=== PATIENT | female | born 1950 | race Caucasian/White ===

== ENCOUNTER 2017-09-23 17:22 | Inpatient (IN) | payer MEDICARE, OTHER ==
[2017-09-23 18:13] LABS: ABS Basophils 0.1 10^3/ul (0-0.2); ABS Eosinophils 0.2 10^3/ul (0-0.6); ABS Lymphocytes 1.9 10^3/ul (1.0-4.8); ABS Monocytes 0.6 10^3/ul (0-0.8); ABS Nucleated RBC 0 10^3/ul; Eosinophil % 1.6 % (0-6); Hematocrit 37 % (35-47); Hemoglobin 12.1 g/dl (12.0-16.0); Lymphocyte % 12.5 % (25-47); Mean Corpuscular HGB Conc 33 g/dl (31-36); Mean Corpuscular Hemoglobin 29 pg (27-31); Mean Corpuscular Volume 88 fL (80-97); Mean Platelet Volume 7 um3 (7.4-10.4); Nucleated Red Blood Cells % 0; Platelet Count 274 10^3/ul (150-450); Red Blood Count 4.14 10^6/ul (4.0-5.4); Red Cell Distribution Width 14 % (10.5-15); White Blood Count 14.8 10^3/ul (3.5-10.8)
[2017-09-23] MEDS ORDERED: NS 0.9% 1000 ML* 1,000 ML IV ONE (18:18)
[2017-09-23 18:28] LABS: EGFR Non-African American 83.5 (>60)
[2017-09-23] MEDS ORDERED: KCL 20 MEQ/100 ML IVPREMIX* 20 MEQ/100 ML BAG IV SCH (19:00)
--- NOTE | 2017-09-23 19:09 | RAD ---
HISTORY: Syncope COMPARISONS: January 14, 2007 VIEWS: 1: frontal portable view of the chest at 6:05 PM FINDINGS: LINES AND TUBES: None. CARDIOMEDIASTINAL SILHOUETTE: The cardiomediastinal silhouette is normal for portable technique. PLEURA: The costophrenic angles are sharp. No pleural abnormalities are noted. LUNG PARENCHYMA: There is a 3.6 cm density within the periphery of the left midlung. ABDOMEN: The upper abdomen is clear. There is no subphrenic gas. BONES AND SOFT TISSUES: No bone or soft tissue abnormalities are noted. IMPRESSION: 3.6 CM DENSITY WITHIN THE PERIPHERY OF THE LEFT MIDLUNG. THE DIFFERENTIAL INCLUDES CONSOLIDATION VERSUS PULMONARY PARENCHYMAL MASS. RECOMMEND FURTHER EVALUATION WITH CONTRAST ENHANCED CT OF THE CHEST
[2017-09-23] MEDS: KCL premix 10MEQ/50 ML x 4 RUNS IV SCH (19:12)
[2017-09-23 19:37] LABS: Urine Appearance Clear; Urine Blood Negative (Negative); Urine Color Yellow; Urine Ketones Negative (Negative); Urine Protein Negative (Negative); Urine Specific Gravity 1.015 (1.010-1.030); Urine Urobilinogen Negative (Negative)
[2017-09-23] MEDS ORDERED: Iohexol 300* (CONTRAST) 10 ML SDV IV ONE (20:37)
[2017-09-23] MEDS ORDERED: NS 0.9% w/ 40 Meq KCL 1000 ML* 1,000 ML IV SCH (21:00)
--- NOTE | 2017-09-23 21:35 | RAD ---
HISTORY: Syncope COMPARISONS: Chest x-ray dated September 23, 2017 TECHNIQUE: Multiple contiguous axial CT scans of the chest were obtained with intravenous contrast. Coronal and sagittal multiplanar reformations are also submitted for review. FINDINGS: NECK AND THYROID: The lower neck and thyroid are unremarkable. CHEST WALL: There is no lower cervical, axillary, or supraclavicular lymphadenopathy by size criteria. HEART AND PERICARDIUM: The heart is unremarkable. AORTA AND PULMONARY VASCULATURE: The aorta and pulmonary vasculature are normal. MEDIASTINUM: There is no mediastinal lymphadenopathy by size criteria. TAMIKO: There is no hilar lymphadenopathy by size criteria. AIRWAY AND ESOPHAGUS: The airway is unremarkable, without endobronchial filling defect. The esophagus is grossly normal. LUNG PARENCHYMA: There is a 2.6 cm lobulated mass of the left upper lobe. There is linear atelectasis of the lingula. There is a 0.6 cm nodule of the left lower lobe on axial image 42. There are multiple nodules within the right middle lobe on axial image 23 measuring up to 0.6 cm in size. PLEURA: No pleural abnormalities are noted. UPPER ABDOMEN: There is a 0.9 cm nodule of the left adrenal gland BONES AND SOFT TISSUES: Degenerative changes are noted OTHER: None. IMPRESSION: 2.6 CM LEFT UPPER LOBE MASS WITH MULTIPLE NODULES WITHIN THE LUNGS ELSEWHERE AND A LEFT ADRENAL NODULE CONCERNING FOR METASTATIC NEOPLASM. RECOMMEND CONSIDERATION OF PET/CT AND/OR TISSUE SAMPLING
[2017-09-24] MEDS ORDERED: Magnesium Sulfate 2 GM IV* 2 GM/50 ML BAG IVPB ONE (01:09)
[2017-09-24] MEDS ORDERED: Albuterol 2.5 MG/3 ML NEB.SOL* (0.083%) INH PRN (01:16)
[2017-09-24] MEDS ORDERED: CMCS:Melatonin (NF) 3 MG TAB PO PRN (01:16)
[2017-09-24] MEDS ORDERED: Ondansetron INJ* 2 MG/ML VIAL IV PRN (01:16)
[2017-09-24] MEDS ORDERED: Heparin DRIP 25,000 UNITS(*) 25,000 UNITS/500 ML BAG IVPB SCH (01:30)
[2017-09-24] MEDS: KCL premix 10MEQ/50 ML x 4 RUNS IV SCH (01:56)
[2017-09-24] MEDS ORDERED: Heparin VIAL(*) 5000 UNITS/ML VIAL (FIVE THOUSAND) IV SCH (02:00)
[2017-09-24] MEDS: NS 0.9% 1000 ML* 1,000 ML IV SCH ×2 (02:33→15:15)
[2017-09-24] MEDS: Acetaminophen TAB* 325 MG PO PRN ×2 (02:45→21:26)
[2017-09-24 02:52] LABS: ABS Basophils 0.1 10^3/ul (0-0.2); ABS Eosinophils 0.2 10^3/ul (0-0.6); ABS Lymphocytes 2.9 10^3/ul (1.0-4.8); ABS Monocytes 0.6 10^3/ul (0-0.8); ABS Neutrophils 9.6 10^3/ul (1.5-7.7); ABS Nucleated RBC 0 10^3/ul; Eosinophil % 1.3 % (0-6); Hematocrit 36 % (35-47); Hemoglobin 11.5 g/dl (12.0-16.0); Lymphocyte % 21.9 % (25-47); Mean Corpuscular HGB Conc 32 g/dl (31-36); Mean Corpuscular Hemoglobin 29 pg (27-31); Mean Corpuscular Volume 89 fL (80-97); Mean Platelet Volume 8 um3 (7.4-10.4); Nucleated Red Blood Cells % 0; Platelet Count 267 10^3/ul (150-450); Red Blood Count 4.01 10^6/ul (4.0-5.4); Red Cell Distribution Width 15 % (10.5-15); White Blood Count 13.3 10^3/ul (3.5-10.8)
[2017-09-24] MEDS: Potassium Chlor TAB* 20 MEQ TAB.ER PO SCH ×2 (03:15→09:37)
[2017-09-24 05:45] LABS: ABS Basophils 0 10^3/ul (0-0.2); ABS Eosinophils 0.3 10^3/ul (0-0.6); ABS Lymphocytes 3.3 10^3/ul (1.0-4.8); ABS Monocytes 0.7 10^3/ul (0-0.8); ABS Neutrophils 8.4 10^3/ul (1.5-7.7); ABS Nucleated RBC 0 10^3/ul; Eosinophil % 2.4 % (0-6); Hematocrit 33 % (35-47); Hemoglobin 10.9 g/dl (12.0-16.0); Lymphocyte % 26.2 % (25-47); Mean Corpuscular HGB Conc 33 g/dl (31-36); Mean Corpuscular Hemoglobin 30 pg (27-31); Mean Corpuscular Volume 89 fL (80-97); Mean Platelet Volume 8 um3 (7.4-10.4); Nucleated Red Blood Cells % 0; Platelet Count 238 10^3/ul (150-450); Red Blood Count 3.71 10^6/ul (4.0-5.4); Red Cell Distribution Width 15 % (10.5-15); White Blood Count 12.7 10^3/ul (3.5-10.8)
[2017-09-24 05:59] LABS: EGFR Non-African American 99.7 (>60)
[2017-09-24] MEDS ORDERED: Omeprazole CAP* 20 MG PO SCH (06:00)
--- NOTE | 2017-09-24 07:57 | RAD ---
INDICATION: Syncope, concern for metastatic disease, seizure. COMPARISON: There are no prior studies available for comparison. TECHNIQUE: Contiguous axial sections of the brain were obtained from the skull base to the vertex without contrast. FINDINGS: The ventricles, cisterns and sulci are within normal limits. No significant focal abnormality or mass effect is seen. There is no evidence for hemorrhage. 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 There is mucosal thickening within the sphenoid sinus and an effusion within the right mastoid air cells. The visualized portion of the paranasal sinuses otherwise appear clear. IMPRESSION: 1. NO EVIDENCE FOR ACUTE INTRACRANIAL ABNORMALITY. 2. FINDINGS SUGGESTIVE OF CHRONIC SPHENOID SINUSITIS. IN ADDITION THERE IS AN EFFUSION WITHIN THE RIGHT MASTOID AIR CELLS.
--- NOTE | 2017-09-24 08:04 | RAD ---
INDICATION: Elevated d-dimer, syncope. COMPARISON: Comparison is made with the prior study from January 23, 2008. TECHNIQUE: Multiple real-time, color flow and Doppler tracings of both lower extremities were obtained. FINDINGS: The common femoral, femoral, profunda femoral and popliteal veins all demonstrate normal compressibility, augmentation with compression and phasic response with respiration. The posterior tibial and peroneal veins demonstrate normal compressibility and augmentation with compression. IMPRESSION: NO EVIDENCE FOR DEEP VENOUS THROMBOSIS.
--- NOTE | 2017-09-24 08:34 | RAD ---
Indication: Elevated d-dimer. Syncope. New lung mass. Comparison: September 23, [address] and chest radiograph. Bilateral lower extremity venous ultrasound of September 24, 2017 without evidence for DVT. Technique: Following administration of 10.080 mCi xenon-133 by inhalation anterior and posterior ventilation images were obtained. Following the administration of 6.280 mCi of Tc-99m macroaggregated albumin, perfusion images were obtained in multiple projections. Report: The ventilation pattern is uniform with diffuse air trapping. Subsegmental perfusion defect at the periphery of the inferior aspect of the apical posterior segment of the LEFT upper lobe corresponding with the neoplastic appearing mass on CT. No compelling additional perfusion defects. IMPRESSION: 1. No compelling unexplained perfusion defects to raise concern for pulmonary embolism. 2. LEFT upper lobe mass. 3. Air trapping consistent with obstructive lung disease.
--- NOTE | 2017-09-24 09:22 | RAD ---
INDICATION: Weakness. COMPARISON: Comparison is made with a prior CT of the brain from September 24, 2017. TECHNIQUE: Sagittal T1, axial T1, T2, susceptibility, FLAIR and diffusion weighted images were obtained. The exam is limited due to motion artifact. FINDINGS: The ventricles, cisterns and sulci appear to be within normal limits. No significant focal abnormality or mass effect is seen. No areas of restricted diffusion are present. There is no evidence for infarct or hemorrhage. There is mucosal thickening within the ethmoid and sphenoid sinuses and an effusion within the right mastoid air cells. IMPRESSION: 1. LIMITED STUDY DUE TO MOTION ARTIFACT, NO EVIDENCE FOR ACUTE FINDING. 2. FINDINGS SUGGESTIVE OF SINUSITIS AND EFFUSION WITHIN THE RIGHT MASTOID AIR CELLS.
--- NOTE | 2017-09-24 09:34 | HP ---
H&P (Free Text) History and Physical: PCP: Natty Raygoza NP Date/Time: 09/24/2017 0100 CC: syncope HPI: Mrs Hiceky is a 67YO female HX HTN, HLD, CKD, & current long-term smoker who was at the [employer] in [place] with family when she began to feel hot which she blamed on still having her coat & scarf on. She asked her daughter to get her a scooter cart and then leaned upon the store shelves for a bit. The next thing she recalls was awakening on the floor with people around her. She had no prodromal symptoms, but when she awoke recalls feeling SOB & "drugged". She denies chest pain, palpitations, N/V, loss of bowel/bladder, or other issues. EMS was called for transport. She currently denies issues. ED evaluation is notable for a CXR w/ L mid-lung field mass confirmed on CT chest W. Unfortunately this would not cause syncope, but given her moderately elevated d-dimer in the setting of potential cancer, PE is certainly of concern. However, she received 100cc of dye (standard dose ~65cc) and so repeat dye load is inadvisable at this time. US BLE is negative for DVT, but does not exclude PE. CT brain WO was read as negative and case was reviewed w/ Dr Rodriguez , radiology, who felt that any potential cerebral metastasis of concern for bleeding on anticoagulation would be visible on non-contrast CT and so I will proceed with anticoagulation for suspected CT. Should PE be disproven, I would recommend MRI brain to r/o smaller metastasis which could act as a nidus for seizure resulting in sycope. PMedHx HTN HLD CKD GERD hepatitis B Ambulatory Orders Nursing to reconcile. Atenolol TAB* [Tenormin TAB*] 50 mg PO QPM 06/26/12 Ibuprofen 600 mg PO TID PRN 06/26/12 Omeprazole 20 mg PO BID 06/26/12 Simvastatin [Zocor] 80 mg PO QPM 06/26/12 Allergies Adhesive Tape Allergy (Verified 09/23/17 17:33) RASH, BLISTERS Codeine Allergy (Verified 09/23/17 17:33) DIFF. BREATHING PSurgHx tonsillectomy cholecystectomy tubal ligation hysterectomy L wrist surgery B knee arthoscopies SocHx: 1PPD cigarettes with ~40PYHX, rare alcohol, no recreational drugs; , lives w/ her daughter's family; worked 31years for [employer] in various roles; full code status FamHx: Mother: passed in her 80s 2nd unknown cancer; Father: passed in his 60s 2nd leukemia; Sister: rheumatic fever; Brother: CAD ROS: as above, otherwise reviewed and all were negative vitals: Vital Signs Temp 36.8 C 09/24/17 07:49 Pulse 65 09/24/17 07:49 Resp 18 09/24/17 07:54 BP 151/59 09/24/17 07:49 Pulse Ox 91 09/24/17 07:49 Intake & Output 09/23/17 09/23/17 09/24/17 11:59 23:59 11:59 Intake Total 1040 0 Balance 1040 0 Weight 82.554 kg 71.94 kg Intake: IV Fluids 1040 Oral 0 Other: Estimated Void Medium # Bowel Movements 0 # Voids 1 Constitutional: NAD, normally developed, obese white female HEENM: atraumatic; sclera/conjunctiva: anicteric/clear; hearing: clinically intact; oropharynx: clear, mucosa moist Neck: soft tissue: non-tender; thyroid: normal Pulmonary: diminished L lung field, good aeration, no accessory muscle use, increased fremitus L mid-lung field CV: RR/RR, normal S1S2, no carotid bruit, no jugular venous distention, 2+ B DP/ PT, no edema Abdominal: soft, non-distended, non-tender, no rebound/guarding/rigidity, normoactive bowel sounds, no hepatosplenomegaly or masses, no costovertebral angle tenderness Musculoskeletal: general: grossly intact, no tenderness w/ palpation, negative Roxanne's Integumental: normal appearance and texture of exposed skin Psychiatric orientation: AA&O to PPS affect: calm mood: pleasant eye contact: good content: reliable responses: timely insight: good Testing: Lab Results 09/23/17 09/23/17 09/23/17 Range/Units 18:02 18:02 18:02 WBC 14.8 H (3.5-10.8) 10^3/ul RBC 4.14 (4.0-5.4) 10^6/ul Hgb 12.1 (12.0-16.0) g/dl Hct 37 (35-47) % MCV 88 (80-97) fL MCH 29 (27-31) pg MCHC 33 (31-36) g/dl RDW 14 (10.5-15) % Plt Count 274 (150-450) 10^3/ul MPV 7 L (7.4-10.4) um3 Neut % (Auto) 81.0 (38-83) % Lymph % (Auto) 12.5 L (25-47) % [place] % (Auto) 4.2 (1-9) % Eos % (Auto) 1.6 (0-6) % Baso % (Auto) 0.7 (0-2) % Absolute Neuts (auto) 12.0 H (1.5-7.7) 10^3/ul Absolute Lymphs (auto) 1.9 (1.0-4.8) 10^3/ul Absolute Monos (auto) 0.6 (0-0.8) 10^3/ul Absolute Eos (auto) 0.2 (0-0.6) 10^3/ul Absolute Basos (auto) 0.1 (0-0.2) 10^3/ul Absolute Nucleated RBC 0 10^3/ul Nucleated RBC % 0 APTT (26.0-36.3) seconds D-Dimer, Quantitative (Less Than 230) ng/mL Sodium 140 (133-145) mmol/L Potassium 2.4 L* (3.5-5.0) mmol/L Chloride 98 L (101-111) mmol/L Carbon Dioxide 33 H (22-32) mmol/L Anion Gap 9 (2-11) mmol/L BUN 9 (6-24) mg/dL Creatinine 0.70 (0.51-0.95) mg/dL Est GFR ( Amer) 107.3 (>60) Est GFR (Non-Af Amer) 83.5 (>60) BUN/Creatinine Ratio 12.9 (8-20) Glucose 105 H (70-100) mg/dL POC Glucose (mg/dL) (70-100) mg/dL Lactic Acid 1.1 (0.5-2.0) mmol/L Calcium 8.7 (8.6-10.3) mg/dL Magnesium 1.4 L (1.9-2.7) mg/dL Total Bilirubin 0.50 (0.2-1.0) mg/dL AST 13 (13-39) U/L ALT 14 (7-52) U/L Alkaline Phosphatase 72 (34-104) U/L Troponin I 0.01 (<0.04) ng/mL Total Protein 6.7 (6.4-8.9) g/dL Albumin 3.6 (3.2-5.2) g/dL Globulin 3.1 (2-4) g/dL Albumin/Globulin Ratio 1.2 (1-3) TSH 0.85 (0.34-5.60) mcIU/mL Urine Color Urine Appearance Urine pH (5-9) Ur Specific [place] (1.010-1.030) Urine Protein (Negative) Urine Ketones (Negative) Urine Blood (Negative) Urine Nitrate (Negative) Urine Bilirubin (Negative) Urine Urobilinogen (Negative) Ur Leukocyte Esterase (Negative) Urine Glucose (Negative) Influenza A (Rapid) (Negative) Influenza B (Rapid) (Negative) 09/23/17 09/23/17 09/23/17 Range/Units 18:02 19:19 23:16 WBC (3.5-10.8) 10^3/ul RBC (4.0-5.4) 10^6/ul Hgb (12.0-16.0) g/dl Hct (35-47) % MCV (80-97) fL MCH (27-31) pg MCHC (31-36) g/dl RDW (10.5-15) % Plt Count (150-450) 10^3/ul MPV (7.4-10.4) um3 Neut % (Auto) (38-83) % Lymph % (Auto) (25-47) % [place] % (Auto) (1-9) % Eos % (Auto) (0-6) % Baso % (Auto) (0-2) % Absolute Neuts (auto) (1.5-7.7) 10^3/ul Absolute Lymphs (auto) (1.0-4.8) 10^3/ul Absolute Monos (auto) (0-0.8) 10^3/ul Absolute Eos (auto) (0-0.6) 10^3/ul Absolute Basos (auto) (0-0.2) 10^3/ul Absolute Nucleated RBC 10^3/ul Nucleated RBC % APTT (26.0-36.3) seconds D-Dimer, Quantitative 427 H (Less Than 230) ng/mL Sodium (133-145) mmol/L Potassium (3.5-5.0) mmol/L Chloride (101-111) mmol/L Carbon Dioxide (22-32) mmol/L Anion Gap (2-11) mmol/L BUN (6-24) mg/dL Creatinine (0.51-0.95) mg/dL Est GFR ( Amer) (>60) Est GFR (Non-Af Amer) (>60) BUN/Creatinine Ratio (8-20) Glucose (70-100) mg/dL POC Glucose (mg/dL) (70-100) mg/dL Lactic Acid (0.5-2.0) mmol/L Calcium (8.6-10.3) mg/dL Magnesium (1.9-2.7) mg/dL Total Bilirubin (0.2-1.0) mg/dL AST (13-39) U/L ALT (7-52) U/L Alkaline Phosphatase (34-104) U/L Troponin I (<0.04) ng/mL Total Protein (6.4-8.9) g/dL Albumin (3.2-5.2) g/dL Globulin (2-4) g/dL Albumin/Globulin Ratio (1-3) TSH (0.34-5.60) mcIU/mL Urine Color Yellow Urine Appearance Clear Urine pH 6.0 (5-9) Ur Specific [place] 1.015 (1.010-1.030) Urine Protein Negative (Negative) Urine Ketones Negative (Negative) Urine Blood Negative (Negative) Urine Nitrate Negative (Negative) Urine Bilirubin Negative (Negative) Urine Urobilinogen Negative (Negative) Ur Leukocyte Esterase Negative (Negative) Urine Glucose Negative (Negative) Influenza A (Rapid) Negative (Negative) Influenza B (Rapid) Negative (Negative) 09/24/17 09/24/17 09/24/17 Range/Units 02:34 02:34 02:34 WBC 13.3 H (3.5-10.8) 10^3/ul RBC 4.01 (4.0-5.4) 10^6/ul Hgb 11.5 L (12.0-16.0) g/dl Hct 36 (35-47) % MCV 89 (80-97) fL MCH 29 (27-31) pg MCHC 32 (31-36) g/dl RDW 15 (10.5-15) % Plt Count 267 (150-450) 10^3/ul MPV 8 (7.4-10.4) um3 Neut % (Auto) 71.8 (38-83) % Lymph % (Auto) 21.9 L (25-47) % [place] % (Auto) 4.5 (1-9) % Eos % (Auto) 1.3 (0-6) % Baso % (Auto) 0.5 (0-2) % Absolute Neuts (auto) 9.6 H (1.5-7.7) 10^3/ul Absolute Lymphs (auto) 2.9 (1.0-4.8) 10^3/ul Absolute Monos (auto) 0.6 (0-0.8) 10^3/ul Absolute Eos (auto) 0.2 (0-0.6) 10^3/ul Absolute Basos (auto) 0.1 (0-0.2) 10^3/ul Absolute Nucleated RBC 0 10^3/ul Nucleated RBC % 0 APTT 23.3 L (26.0-36.3) seconds D-Dimer, Quantitative (Less Than 230) ng/mL Sodium (133-145) mmol/L Potassium (3.5-5.0) mmol/L Chloride (101-111) mmol/L Carbon Dioxide (22-32) mmol/L Anion Gap (2-11) mmol/L BUN 7 (6-24) mg/dL Creatinine (0.51-0.95) mg/dL Est GFR ( Amer) (>60) Est GFR (Non-Af Amer) (>60) BUN/Creatinine Ratio (8-20) Glucose (70-100) mg/dL POC Glucose (mg/dL) (70-100) mg/dL Lactic Acid (0.5-2.0) mmol/L Calcium (8.6-10.3) mg/dL Magnesium (1.9-2.7) mg/dL Total Bilirubin (0.2-1.0) mg/dL AST (13-39) U/L ALT (7-52) U/L Alkaline Phosphatase (34-104) U/L Troponin I (<0.04) ng/mL Total Protein (6.4-8.9) g/dL Albumin (3.2-5.2) g/dL Globulin (2-4) g/dL Albumin/Globulin Ratio (1-3) TSH (0.34-5.60) mcIU/mL Urine Color Urine Appearance Urine pH (5-9) Ur Specific [place] (1.010-1.030) Urine Protein (Negative) Urine Ketones (Negative) Urine Blood (Negative) Urine Nitrate (Negative) Urine Bilirubin (Negative) Urine Urobilinogen (Negative) Ur Leukocyte Esterase (Negative) Urine Glucose (Negative) Influenza A (Rapid) (Negative) Influenza B (Rapid) (Negative) 09/24/17 09/24/17 09/24/17 Range/Units 05:05 05:08 07:18 WBC 12.7 H (3.5-10.8) 10^3/ul RBC 3.71 L (4.0-5.4) 10^6/ul Hgb 10.9 L (12.0-16.0) g/dl Hct 33 L (35-47) % MCV 89 (80-97) fL MCH 30 (27-31) pg MCHC 33 (31-36) g/dl RDW 15 (10.5-15) % Plt Count 238 (150-450) 10^3/ul MPV 8 (7.4-10.4) um3 Neut % (Auto) 65.9 (38-83) % Lymph % (Auto) 26.2 (25-47) % [place] % (Auto) 5.2 (1-9) % Eos % (Auto) 2.4 (0-6) % Baso % (Auto) 0.3 (0-2) % Absolute Neuts (auto) 8.4 H (1.5-7.7) 10^3/ul Absolute Lymphs (auto) 3.3 (1.0-4.8) 10^3/ul Absolute Monos (auto) 0.7 (0-0.8) 10^3/ul Absolute Eos (auto) 0.3 (0-0.6) 10^3/ul Absolute Basos (auto) 0 (0-0.2) 10^3/ul Absolute Nucleated RBC 0 10^3/ul Nucleated RBC % 0 APTT (26.0-36.3) seconds D-Dimer, Quantitative (Less Than 230) ng/mL Sodium 140 (133-145) mmol/L Potassium 3.0 L (3.5-5.0) mmol/L Chloride 105 (101-111) mmol/L Carbon Dioxide 28 (22-32) mmol/L Anion Gap 7 (2-11) mmol/L BUN 7 (6-24) mg/dL Creatinine 0.60 (0.51-0.95) mg/dL Est GFR ( Amer) 128.2 (>60) Est GFR (Non-Af Amer) 99.7 (>60) BUN/Creatinine Ratio 11.7 (8-20) Glucose 110 H (70-100) mg/dL POC Glucose (mg/dL) 118 H (70-100) mg/dL Lactic Acid (0.5-2.0) mmol/L Calcium 8.1 L (8.6-10.3) mg/dL Magnesium 2.3 (1.9-2.7) mg/dL Total Bilirubin (0.2-1.0) mg/dL AST (13-39) U/L ALT (7-52) U/L Alkaline Phosphatase (34-104) U/L Troponin I (<0.04) ng/mL Total Protein (6.4-8.9) g/dL Albumin (3.2-5.2) g/dL Globulin (2-4) g/dL Albumin/Globulin Ratio (1-3) TSH (0.34-5.60) mcIU/mL Urine Color Urine Appearance Urine pH (5-9) Ur Specific [place] (1.010-1.030) Urine Protein (Negative) Urine Ketones (Negative) Urine Blood (Negative) Urine Nitrate (Negative) Urine Bilirubin (Negative) Urine Urobilinogen (Negative) Ur Leukocyte Esterase (Negative) Urine Glucose (Negative) Influenza A (Rapid) (Negative) Influenza B (Rapid) (Negative) ECG, personally reviewed: NSR rate 84, no ischemia, diffuse non-specific ST-T abnormalities CXR, personally reviewed: IMPRESSION: 3.6 CM DENSITY WITHIN THE PERIPHERY OF THE LEFT MIDLUNG. THE DIFFERENTIAL INCLUDES CONSOLIDATION VERSUS PULMONARY PARENCHYMAL MASS. RECOMMEND FURTHER EVALUATION WITH CONTRAST ENHANCED CT OF THE CHEST CT chest W, personally reviewed: IMPRESSION: 2.6 CM LEFT UPPER LOBE MASS WITH MULTIPLE NODULES WITHIN THE LUNGS ELSEWHERE AND A LEFT ADRENAL NODULE CONCERNING FOR METASTATIC NEOPLASM. RECOMMEND CONSIDERATION OF PET/CT AND/OR TISSUE SAMPLING CT brain WO, personally reviewed: IMPRESSION: 1. NO EVIDENCE FOR ACUTE INTRACRANIAL ABNORMALITY. 2. FINDINGS SUGGESTIVE OF CHRONIC SPHENOID SINUSITIS. IN ADDITION THERE IS AN EFFUSION WITHIN THE RIGHT MASTOID AIR CELLS. US BLE: IMPRESSION: NO EVIDENCE FOR DEEP VENOUS THROMBOSIS. Impression: 67F presenting with syncope with new finding of 3cm L lung mass & elevated d-dimer giving rise to concern for possible PE or seizure 2nd cerebral metastasis DIAGNOSIS & PLAN Primary syncope w/ elevated d-dimer & lung lesion suspicious for cancer : telemetry : heparin GTT : consider V/Q in am, if indeterminate consider CTA chest when able to receive further IV dye : if PE evaluation is negative, consider MRI to evaluate for nidus of seizure Secondary HTN : review meds once reconciled HLD : review meds once reconciled CKD : review meds once reconciled GERD : omeprazole Admission Rational: inpatient for cancer evaluation not anticipated to be completed w/i 48h to allow for discharge; inappropriate for outpatient setting given syncope of uncertain cause DVTp: heparin GTT Code Status: full HCP: daughter
[2017-09-24] MEDS: Docusate CAP* 100 MG PO SCH ×2 (09:37→19:54)
[2017-09-24] MEDS: Omeprazole CAP* 20 MG PO SCH ×2 (09:37→17:36)
[2017-09-24] MEDS ORDERED: Potassium Chlor TAB* 20 MEQ TAB.ER PO ONE ×2 (10:00→11:49)
[2017-09-24] MEDS ORDERED: Enoxaparin(*) 40 MG/0.4 ML SYR SUBCUT SCH (12:00)
--- NOTE | 2017-09-24 13:25 | ED ---
Reshma Love Julia, scribed for Satinder Pederson MD on 09/23/17 at 1751 . Syncope/Near Syncope - HPI Summary HPI Summary: This patient is a 67 year old F BIBA to [facility] due to a syncopal event around 17: 00 today. Patient was shopping when she felt a hot flash and lightheaded for 10 minutes before collapsing. The patient rates the pain 8/10 in severity. Patient reports LOC, posterior headache after syncope, weakness, decreased appetite, and posterior neck pain. Patient denies eating today. Patient is unsure if she hit her head when she fell. Patient states current headache is similar to previous history of headaches. - History Of Current Complaint Chief Complaint: EDSyncope Time Seen by Provider: 09/23/17 17:33 Hx Obtained From: Patient Onset/Duration: Lasting Minutes Context: Witnessed, Loss Of Consciousness Activity At Onset: Other - shopping Associated Signs And Symptoms: Other - LOC, posterior headache after syncope, weakness, decreased appetite, and posterior neck pain - Allergies/Home Medications Allergies/Adverse Reactions: Allergies Allergy/AdvReac Type Severity Reaction Status Date / Time Adhesive Tape Allergy RASH, Verified 09/23/17 17:33 BLISTERS Codeine Allergy DIFF. Verified 09/23/17 17:33 BREATHING PMH/Surg Hx/FS Hx/Imm Hx Cardiovascular History: Reports: Hx Hypertension - ON MEDICATION FOR GI History: Reports: Hx Gastroesophageal Reflux Disease - ON MEDICATION FOR History: Reports: Hx Kidney Infection - KIDNEY INFECTION IN THE PAST Musculoskeletal History: Reports: Hx Arthritis - BACK SHOULDERS AND HIPS, ALL JOINTS Sensory History: Reports: Hx Contacts or Glasses - GLASSES Denies: Hx Hearing Aid Opthamlomology History: Reports: Hx Contacts or Glasses - GLASSES Neurological History: Reports: Hx Headaches - ON OCCASION- TREATS WITH TYLENOL, Hx Migraine - ONOCCASION- TREATS WTIH TYLENOL - Cancer History Hx Chemotherapy: No Hx Radiation Therapy: No - Surgical History Surgery Procedure, Year, and Place: TONSILS. TUBAL LIGATION. HYSTERECTOMY. GALLBLADDER REMOVED. LEFT WRIST SURGERY. RIGHT KNEE ARTHROSCOPY Hx Anesthesia Reactions: No Infectious Disease History: Yes Infectious Disease History: Reports: Hx Hepatitis - HEP B DIAGNOSED AND TREATED FOR YEARS AGO Denies: Traveled Outside the [place] in Last 30 Days - Family History Known Family History: Positive: Cardiac Disease Negative: Diabetes - Social History Alcohol Use: Occasionally Substance Use Type: Reports: None Hx Tobacco Use: Yes Smoking Status (MU): Heavy Every Day Tobacco Smoker Review of Systems Positive: Other - hot flashes Positive: Headache, Syncope All Other Systems Reviewed And Are Negative: Yes Physical Exam - Summary Physical Exam Summary: Appearance: The patient is well-nourished in no acute distress and in no acute pain. Patient is obese. Skin: The skin is warm and dry and pale. HEENT: The head is normocephalic and atraumatic. The pupils are equal and reactive. The conjunctivae are clear and without drainage. Nares are patent and without drainage. Mouth reveals moist mucous membranes and the throat is without erythema and exudate. The external ears are intact. The ear canals are patent and without drainage. The tympanic membranes are intact. Neck: the neck is supple with full range of motion and non-tender. There are no carotid bruits. There is no neck vein distension. Respiratory: Chest is non-tender. Lungs are clear to auscultation and breath sounds are symmetrical and equal. Cardiovascular: Heart is regular rate and rhythm. There is no murmur or rub auscultated. There is no peripheral edema and pulses are symmetrical and equal. Abdomen: The abdomen is soft and non-tender. There are normal bowel sounds heard in all four quadrants and there is no organomegaly palpated. Musculoskeletal: There is no back tenderness noted. Extremities are non-tender with full range of motion. There is good capillary refill. There is no peripheral edema or calf tenderness elicited. Neurological: Patient is alert and oriented to person, place and time. The patient has symmetrical motor strength in all four extremities. Cranial nerves are grossly intact. Deep tendon reflexes are symmetrical and equal in all four extremities. Psychiatric: The patient has an appropriate affect and does not exhibit any anxiety or depression. Triage Information Reviewed: Yes Vital Signs On Initial Exam: Initial Vitals Temp Pulse Resp BP Pulse Ox 97.7 F 83 14 160/61 95 09/23/17 17:29 09/23/17 17:29 09/23/17 17:29 09/23/17 17:29 09/23/17 17:29 Vital Signs Reviewed: Yes - [facility] Coma Scale Coma Scale Total: 15 Diagnostics - Vital Signs Vital Signs Temp Pulse Resp BP Pulse Ox 09/23/17 17:31 87 96 09/23/17 17:30 146/62 09/23/17 17:29 97.7 F 83 14 160/61 95 - Laboratory Lab Results: Lab Results 09/23/17 09/23/17 09/23/17 Range/Units 18:02 18:02 18:02 WBC 14.8 H (3.5-10.8) 10^3/ul RBC 4.14 (4.0-5.4) 10^6/ul Hgb 12.1 (12.0-16.0) g/dl Hct 37 (35-47) % MCV 88 (80-97) fL MCH 29 (27-31) pg MCHC 33 (31-36) g/dl RDW 14 (10.5-15) % Plt Count 274 (150-450) 10^3/ul MPV 7 L (7.4-10.4) um3 Neut % (Auto) 81.0 (38-83) % Lymph % (Auto) 12.5 L (25-47) % [place] % (Auto) 4.2 (1-9) % Eos % (Auto) 1.6 (0-6) % Baso % (Auto) 0.7 (0-2) % Absolute Neuts (auto) 12.0 H (1.5-7.7) 10^3/ul Absolute Lymphs (auto) 1.9 (1.0-4.8) 10^3/ul Absolute Monos (auto) 0.6 (0-0.8) 10^3/ul Absolute Eos (auto) 0.2 (0-0.6) 10^3/ul Absolute Basos (auto) 0.1 (0-0.2) 10^3/ul Absolute Nucleated RBC 0 10^3/ul Nucleated RBC % 0 D-Dimer, Quantitative (Less Than 230) ng/mL Sodium 140 (133-145) mmol/L Potassium 2.4 L* (3.5-5.0) mmol/L Chloride 98 L (101-111) mmol/L Carbon Dioxide 33 H (22-32) mmol/L Anion Gap 9 (2-11) mmol/L BUN 9 (6-24) mg/dL Creatinine 0.70 (0.51-0.95) mg/dL Est GFR ( Amer) 107.3 (>60) Est GFR (Non-Af Amer) 83.5 (>60) BUN/Creatinine Ratio 12.9 (8-20) Glucose 105 H (70-100) mg/dL Lactic Acid 1.1 (0.5-2.0) mmol/L Calcium 8.7 (8.6-10.3) mg/dL Magnesium 1.4 L (1.9-2.7) mg/dL Total Bilirubin 0.50 (0.2-1.0) mg/dL AST 13 (13-39) U/L ALT 14 (7-52) U/L Alkaline Phosphatase 72 (34-104) U/L Troponin I 0.01 (<0.04) ng/mL Total Protein 6.7 (6.4-8.9) g/dL Albumin 3.6 (3.2-5.2) g/dL Globulin 3.1 (2-4) g/dL Albumin/Globulin Ratio 1.2 (1-3) TSH 0.85 (0.34-5.60) mcIU/mL Urine Color Urine Appearance Urine pH (5-9) Ur Specific [place] (1.010-1.030) Urine Protein (Negative) Urine Ketones (Negative) Urine Blood (Negative) Urine Nitrate (Negative) Urine Bilirubin (Negative) Urine Urobilinogen (Negative) Ur Leukocyte Esterase (Negative) Urine Glucose (Negative) Influenza A (Rapid) (Negative) Influenza B (Rapid) (Negative) 09/23/17 09/23/17 09/23/17 Range/Units 18:02 19:19 23:16 WBC (3.5-10.8) 10^3/ul RBC (4.0-5.4) 10^6/ul Hgb (12.0-16.0) g/dl Hct (35-47) % MCV (80-97) fL MCH (27-31) pg MCHC (31-36) g/dl RDW (10.5-15) % Plt Count (150-450) 10^3/ul MPV (7.4-10.4) um3 Neut % (Auto) (38-83) % Lymph % (Auto) (25-47) % [place] % (Auto) (1-9) % Eos % (Auto) (0-6) % Baso % (Auto) (0-2) % Absolute Neuts (auto) (1.5-7.7) 10^3/ul Absolute Lymphs (auto) (1.0-4.8) 10^3/ul Absolute Monos (auto) (0-0.8) 10^3/ul Absolute Eos (auto) (0-0.6) 10^3/ul Absolute Basos (auto) (0-0.2) 10^3/ul Absolute Nucleated RBC 10^3/ul Nucleated RBC % D-Dimer, Quantitative 427 H (Less Than 230) ng/mL Sodium (133-145) mmol/L Potassium (3.5-5.0) mmol/L Chloride (101-111) mmol/L Carbon Dioxide (22-32) mmol/L Anion Gap (2-11) mmol/L BUN (6-24) mg/dL Creatinine (0.51-0.95) mg/dL Est GFR ( Amer) (>60) Est GFR (Non-Af Amer) (>60) BUN/Creatinine Ratio (8-20) Glucose (70-100) mg/dL Lactic Acid (0.5-2.0) mmol/L Calcium (8.6-10.3) mg/dL Magnesium (1.9-2.7) mg/dL Total Bilirubin (0.2-1.0) mg/dL AST (13-39) U/L ALT (7-52) U/L Alkaline Phosphatase (34-104) U/L Troponin I (<0.04) ng/mL Total Protein (6.4-8.9) g/dL Albumin (3.2-5.2) g/dL Globulin (2-4) g/dL Albumin/Globulin Ratio (1-3) TSH (0.34-5.60) mcIU/mL Urine Color Yellow Urine Appearance Clear Urine pH 6.0 (5-9) Ur Specific [place] 1.015 (1.010-1.030) Urine Protein Negative (Negative) Urine Ketones Negative (Negative) Urine Blood Negative (Negative) Urine Nitrate Negative (Negative) Urine Bilirubin Negative (Negative) Urine Urobilinogen Negative (Negative) Ur Leukocyte Esterase Negative (Negative) Urine Glucose Negative (Negative) Influenza A (Rapid) Negative (Negative) Influenza B (Rapid) Negative (Negative) Result Diagrams: 09/24/17 05:05 09/24/17 05:08 Lab Statement: Any lab studies that have been ordered have been reviewed, and results considered in the medical decision making process. - Radiology CXR Radiology Interpretation Completed By: Radiologist - 3.6 CM DENSITY WITHIN THE PERIPHERY OF THE LEFT MIDLUNG. THE DIFFERENTIAL INCLUDES CONSOLIDATION VERSUS PULMONARY PARENCHYMAL MASS. RECOMMEND FURTHER EVALUATION WITH CONTRAST ENHANCED CT OF THE CHEST ED Physician has reviewed this report. - CT chest CT Interpretation Completed By: Radiologist - 2.6 CM LEFT UPPER LOBE MASS WITH MULTIPLE NODULES WITHIN THE LUNGS ELSEWHERE AND A LEFT ADRENAL NODULE CONCERNING FOR METASTATIC NEOPLASM. RECOMMEND CONSIDERATION OF PET/CT AND/OR TISSUE SAMPLING ED Physician has reviewed this report. - EKG 17:57 Cardiac Rate: NL EKG Rhythm: Sinus Rhythm - at 84 BPM EKG Interpretation: nonspecific diffuse changes Course/Dx Course Of Treatment: Ms. Hickey had a syncoopal episode while shopping today. She was monitored here while labs were checked and she was found to be quite hypokalemic making me more concerned that this was a cardiac event rather than vasovagal. She was found to have a mass on her lung and therefore PE has become more prominent in the differential. She is being admitted to the hospitalist service. - Diagnoses Provider Diagnoses: Syncope and collapse, Hypokalemia, Lung mass - Critical Care Time Critical Care Time: 30-74 min Discharge - Discharge Plan Condition: Stable Disposition: ADMITTED TO [facility] The documentation as recorded by the Reshma strong Julia accurately reflects the service I personally performed and the decisions made by me, Satinder Pederson MD.
[2017-09-24] MEDS: Heparin VIAL(*) 5000 UNITS/ML VIAL (FIVE THOUSAND) SUBCUT SCH ×2 (13:57→21:20)
--- NOTE | 2017-09-24 16:50 | PN ---
Subjective Date of Service: 09/24/17 Interval History: Feels well today, no LH, CP, SOB, N/V She has not yet ambulated Discussed findings of CT chest with patient, daughter and son in law Objective Active Medications: Acetaminophen (Tylenol Tab*) 650 mg PO Q6H PRN PRN Reason: FEVER/PAIN Last Admin: 09/24/17 02:45 Dose: 650 mg Albuterol (Ventolin 2.5 Mg/3 Ml Neb.Phyllis*) 2.5 mg INH Q2H PRN PRN Reason: SOB/WHEEZING Atenolol (Tenormin Tab*) 50 mg PO QPM [facility] Atorvastatin Calcium (Lipitor*) 40 mg PO QPM [facility] Docusate Sodium (Colace Cap*) 200 mg PO BID [facility] Last Admin: 09/24/17 09:37 Dose: Not Given Heparin Sodium (Porcine) (Heparin Vial(*)) 5,000 units SUBCUT Q8HR [facility] Last Admin: 09/24/17 13:57 Dose: 5,000 units Potassium Chloride/Dextrose (D5w 1/2 Ns 40 Meq Kcl 1000 Ml*) 1,000 mls @ 100 mls/hr IV PER RATE [facility] Stop: 09/25/17 02:59 Melatonin (Melatonin (Nf)) 3 mg PO BEDTIME PRN; Protocol PRN Reason: Sleep Omeprazole (Prilosec Cap*) 20 mg PO BID [facility] Last Admin: 09/24/17 09:37 Dose: 20 mg Ondansetron HCl (Zofran Inj*) 4 mg IV Q6H PRN PRN Reason: NAUSEA Vital Signs - 8 hr 09/24/17 09/24/17 11:34 15:56 Temperature 97.4 F 98.4 F Pulse Rate 69 77 Respiratory 20 20 Rate Blood Pressure 142/74 132/53 (mmHg) O2 Sat by Pulse 95 97 Oximetry Oxygen Devices in Use Now: None Appearance: lying 30 deg, NAD Eyes: No Scleral Icterus, PERRLA Ears/Nose/Mouth/Throat: NL Teeth, Lips, Gums, Clear Oropharnyx, Mucous Membranes Moist Neck: NL Appearance and Movements; NL JVP, Trachea Midline Respiratory: Symmetrical Chest Expansion and Respiratory Effort, Clear to Auscultation Cardiovascular: RRR Abdominal: NL Sounds; No Tenderness; No Distention Lymphatic: No Cervical Adenopathy Extremities: No Edema, No Clubbing, Cyanosis Neurological: Alert and Oriented x 3 Result Diagrams: 09/24/17 05:05 09/24/17 05:08 Additional Lab and Data: Lab Results 09/23/17 09/23/17 09/23/17 Range/Units 18:02 18:02 18:02 WBC 14.8 H (3.5-10.8) 10^3/ul RBC 4.14 (4.0-5.4) 10^6/ul Hgb 12.1 (12.0-16.0) g/dl Hct 37 (35-47) % MCV 88 (80-97) fL MCH 29 (27-31) pg MCHC 33 (31-36) g/dl RDW 14 (10.5-15) % Plt Count 274 (150-450) 10^3/ul MPV 7 L (7.4-10.4) um3 Neut % (Auto) 81.0 (38-83) % Lymph % (Auto) 12.5 L (25-47) % [place] % (Auto) 4.2 (1-9) % Eos % (Auto) 1.6 (0-6) % Baso % (Auto) 0.7 (0-2) % Absolute Neuts (auto) 12.0 H (1.5-7.7) 10^3/ul Absolute Lymphs (auto) 1.9 (1.0-4.8) 10^3/ul Absolute Monos (auto) 0.6 (0-0.8) 10^3/ul Absolute Eos (auto) 0.2 (0-0.6) 10^3/ul Absolute Basos (auto) 0.1 (0-0.2) 10^3/ul Absolute Nucleated RBC 0 10^3/ul Nucleated RBC % 0 D-Dimer, Quantitative (Less Than 230) ng/mL Sodium 140 (133-145) mmol/L Potassium 2.4 L* (3.5-5.0) mmol/L Chloride 98 L (101-111) mmol/L Carbon Dioxide 33 H (22-32) mmol/L Anion Gap 9 (2-11) mmol/L BUN 9 (6-24) mg/dL Creatinine 0.70 (0.51-0.95) mg/dL Est GFR ( Amer) 107.3 (>60) Est GFR (Non-Af Amer) 83.5 (>60) BUN/Creatinine Ratio 12.9 (8-20) Glucose 105 H (70-100) mg/dL Lactic Acid 1.1 (0.5-2.0) mmol/L Calcium 8.7 (8.6-10.3) mg/dL Magnesium 1.4 L (1.9-2.7) mg/dL Total Bilirubin 0.50 (0.2-1.0) mg/dL AST 13 (13-39) U/L ALT 14 (7-52) U/L Alkaline Phosphatase 72 (34-104) U/L Troponin I 0.01 (<0.04) ng/mL Total Protein 6.7 (6.4-8.9) g/dL Albumin 3.6 (3.2-5.2) g/dL Globulin 3.1 (2-4) g/dL Albumin/Globulin Ratio 1.2 (1-3) TSH 0.85 (0.34-5.60) mcIU/mL Urine Color Urine Appearance Urine pH (5-9) Ur Specific [place] (1.010-1.030) Urine Protein (Negative) Urine Ketones (Negative) Urine Blood (Negative) Urine Nitrate (Negative) Urine Bilirubin (Negative) Urine Urobilinogen (Negative) Ur Leukocyte Esterase (Negative) Urine Glucose (Negative) Influenza A (Rapid) (Negative) Influenza B (Rapid) (Negative) 09/23/17 09/23/17 09/23/17 Range/Units 18:02 19:19 23:16 WBC (3.5-10.8) 10^3/ul RBC (4.0-5.4) 10^6/ul Hgb (12.0-16.0) g/dl Hct (35-47) % MCV (80-97) fL MCH (27-31) pg MCHC (31-36) g/dl RDW (10.5-15) % Plt Count (150-450) 10^3/ul MPV (7.4-10.4) um3 Neut % (Auto) (38-83) % Lymph % (Auto) (25-47) % [place] % (Auto) (1-9) % Eos % (Auto) (0-6) % Baso % (Auto) (0-2) % Absolute Neuts (auto) (1.5-7.7) 10^3/ul Absolute Lymphs (auto) (1.0-4.8) 10^3/ul Absolute Monos (auto) (0-0.8) 10^3/ul Absolute Eos (auto) (0-0.6) 10^3/ul Absolute Basos (auto) (0-0.2) 10^3/ul Absolute Nucleated RBC 10^3/ul Nucleated RBC % D-Dimer, Quantitative 427 H (Less Than 230) ng/mL Sodium (133-145) mmol/L Potassium (3.5-5.0) mmol/L Chloride (101-111) mmol/L Carbon Dioxide (22-32) mmol/L Anion Gap (2-11) mmol/L BUN (6-24) mg/dL Creatinine (0.51-0.95) mg/dL Est GFR ( Amer) (>60) Est GFR (Non-Af Amer) (>60) BUN/Creatinine Ratio (8-20) Glucose (70-100) mg/dL Lactic Acid (0.5-2.0) mmol/L Calcium (8.6-10.3) mg/dL Magnesium (1.9-2.7) mg/dL Total Bilirubin (0.2-1.0) mg/dL AST (13-39) U/L ALT (7-52) U/L Alkaline Phosphatase (34-104) U/L Troponin I (<0.04) ng/mL Total Protein (6.4-8.9) g/dL Albumin (3.2-5.2) g/dL Globulin (2-4) g/dL Albumin/Globulin Ratio (1-3) TSH (0.34-5.60) mcIU/mL Urine Color Yellow Urine Appearance Clear Urine pH 6.0 (5-9) Ur Specific [place] 1.015 (1.010-1.030) Urine Protein Negative (Negative) Urine Ketones Negative (Negative) Urine Blood Negative (Negative) Urine Nitrate Negative (Negative) Urine Bilirubin Negative (Negative) Urine Urobilinogen Negative (Negative) Ur Leukocyte Esterase Negative (Negative) Urine Glucose Negative (Negative) Influenza A (Rapid) Negative (Negative) Influenza B (Rapid) Negative (Negative) Assess/Plan/Problems-Billing Assessment: 67 yo F presenting to [facility] after syncope found with lung mass concerning for primary of metastatic malignancy - Patient Problems (1) Lung tumor Comment: suspect malignant. CT with multiple LNs and adrenal hyperintensity suspicious for metastatic disease Discussed with Dr. Teixeira and Dr. Pascal. Dr. Pascal's office will call patient to arrange outpatient biopsy (2) Syncope Comment: Suspect in setting of underlying malignancy, 30lb weight loss in 1 month, and electrolyte abnormalities Monitor on telemetry replace electrolytes no e/o PE, heparin stopped (3) Electrolyte abnormality Comment: oral and PO replacement recheck in AM (4) Hypertension Comment: c/w atenolol (5) DVT prophylaxis Comment: HSQ Status and Disposition: inpatient. Plan on d/c tomorrow if stable and after BMP check for electrolyte replacement
[2017-09-24] MEDS ORDERED: D5W 1/2 NS 40 Meq KCL 1000 ML* 1,000 ML IV SCH (17:00)
[2017-09-24] MEDS: Atorvastatin* 40 MG TAB PO SCH (17:36)
[2017-09-24] MEDS ORDERED: Atenolol TAB* 50 MG PO SCH (18:00)
[2017-09-24] MEDS ORDERED: guaiFENesin ER TAB 600 MG ONE (23:23)
[2017-09-24] MEDS: guaiFENesin ER TAB 600 MG PO SCH (23:30)
--- NOTE | 2017-09-25 01:22 | PN ---
Progress Note - Progress Note Date of Service: 09/25/17 Note: paged by RN for two three second pauses - patient asymptomatic. VSS. Not on any cardiac meds. Will continue to monitor. May need a pacemaker. Will keep NPO and recommend cards eval for pacemaker placement. May be the etiology behind her syncope.
[2017-09-25 05:11] LABS: ABS Basophils 0.1 10^3/ul (0-0.2); ABS Eosinophils 0.2 10^3/ul (0-0.6); ABS Lymphocytes 2.7 10^3/ul (1.0-4.8); ABS Monocytes 0.7 10^3/ul (0-0.8); ABS Neutrophils 6.6 10^3/ul (1.5-7.7); ABS Nucleated RBC 0 10^3/ul; Hematocrit 32 % (35-47); Hemoglobin 10.5 g/dl (12.0-16.0); Lymphocyte % 26.6 % (25-47); Mean Corpuscular HGB Conc 33 g/dl (31-36); Mean Corpuscular Hemoglobin 29 pg (27-31); Mean Corpuscular Volume 89 fL (80-97); Mean Platelet Volume 8 um3 (7.4-10.4); Nucleated Red Blood Cells % 0.1; Platelet Count 222 10^3/ul (150-450); Red Cell Distribution Width 15 % (10.5-15); White Blood Count 10.3 10^3/ul (3.5-10.8)
[2017-09-25] MEDS: Heparin VIAL(*) 5000 UNITS/ML VIAL (FIVE THOUSAND) SUBCUT SCH ×3 (05:18→22:49)
[2017-09-25 05:24] LABS: EGFR Non-African American 99.7 (>60)
[2017-09-25] MEDS: Omeprazole CAP* 20 MG PO SCH ×2 (09:07→16:47)
[2017-09-25] MEDS: Docusate CAP* 100 MG PO SCH ×2 (09:07→22:13)
[2017-09-25] MEDS: guaiFENesin ER TAB 600 MG PO SCH ×2 (09:07→22:48)
[2017-09-25] MEDS ORDERED: amLODIPine TAB* 5 MG PO SCH (10:00)
[2017-09-25] MEDS ORDERED: hydrALAZINE IV* 20 MG/ML VIAL ONE (10:35)
[2017-09-25] MEDS: hydrALAZINE IV* 20 MG/ML VIAL IV SLOW PU PRN ×2 (10:42→19:05)
[2017-09-25] MEDS: Citalopram TAB* 20 MG PO SCH (11:59)
[2017-09-25] MEDS: Hydrochlorothiazide TAB* 25 MG PO SCH (11:59)
[2017-09-25] MEDS: Aspirin EC Low Dose* 81 MG TAB.EC PO SCH (11:59)
[2017-09-25] MEDS: Lisinopril TAB* 10 MG PO SCH (12:00)
--- NOTE | 2017-09-25 14:53 | PN ---
Subjective Date of Service: 09/25/17 Interval History: Events from overnight reviewed Bradycardia with 6 second pauses Stable in ICU. Asymptomatic Objective Active Medications: Acetaminophen (Tylenol Tab*) 650 mg PO Q6H PRN PRN Reason: FEVER/PAIN Last Admin: 09/24/17 21:26 Dose: 650 mg Albuterol (Ventolin 2.5 Mg/3 Ml Neb.Phyllis*) 2.5 mg INH Q2H PRN PRN Reason: SOB/WHEEZING Aspirin (Aspirin Ec Low Dose*) 81 mg PO DAILY [facility] Last Admin: 09/25/17 11:59 Dose: 81 mg Atorvastatin Calcium (Lipitor*) 40 mg PO QPM [facility] Last Admin: 09/24/17 17:36 Dose: 40 mg Citalopram Hydrobromide (Celexa Tab*) 20 mg PO DAILY [facility] Last Admin: 09/25/17 11:59 Dose: 20 mg Docusate Sodium (Colace Cap*) 200 mg PO BID [facility] Last Admin: 09/25/17 09:07 Dose: 200 mg Guaifenesin (Mucinex*) 600 mg PO BID [facility] Last Admin: 09/25/17 09:07 Dose: 600 mg Heparin Sodium (Porcine) (Heparin Vial(*)) 5,000 units SUBCUT Q8HR [facility] Last Admin: 09/25/17 05:18 Dose: 5,000 units Hydralazine HCl (Apresoline Iv*) 10 mg IV SLOW PU Q6H PRN PRN Reason: SYSTOLIC BP GREATER THAN: Last Admin: 09/25/17 10:42 Dose: 10 mg Hydrochlorothiazide (Hydrodiuril Tab*) 12.5 mg PO DAILY [facility] Last Admin: 09/25/17 11:59 Dose: 12.5 mg Lisinopril (Prinivil Tab*) 10 mg PO DAILY [facility] PRN Reason: Protocol Last Admin: 09/25/17 12:00 Dose: 10 mg Melatonin (Melatonin (Nf)) 3 mg PO BEDTIME PRN; Protocol PRN Reason: Sleep Omeprazole (Prilosec Cap*) 20 mg PO BID [facility] Last Admin: 09/25/17 09:07 Dose: 20 mg Ondansetron HCl (Zofran Inj*) 4 mg IV Q6H PRN PRN Reason: NAUSEA Vital Signs - 8 hr 09/25/17 09/25/17 09/25/17 06:51 07:00 07:01 Temperature Pulse Rate 51 51 52 Respiratory 16 15 16 Rate Blood Pressure 196/82 203/98 (mmHg) O2 Sat by Pulse 96 91 93 Oximetry 09/25/17 09/25/17 09/25/17 07:09 07:16 07:47 Temperature 97.4 F Pulse Rate 53 52 48 Respiratory 15 14 14 Rate Blood Pressure 203/98 187/86 200/73 (mmHg) O2 Sat by Pulse 93 97 96 Oximetry 09/25/17 09/25/17 09/25/17 07:49 07:57 08:00 Temperature 97.4 F Pulse Rate 57 51 48 Respiratory 18 18 15 Rate Blood Pressure 200/73 (mmHg) O2 Sat by Pulse 97 97 95 Oximetry 09/25/17 09/25/17 09/25/17 08:01 08:17 08:31 Temperature Pulse Rate 50 44 49 Respiratory 21 16 17 Rate Blood Pressure 210/79 210/83 212/84 (mmHg) O2 Sat by Pulse 97 98 97 Oximetry 09/25/17 09/25/17 09/25/17 08:46 09:00 09:01 Temperature Pulse Rate 51 53 60 Respiratory 16 18 21 Rate Blood Pressure 185/94 207/101 (mmHg) O2 Sat by Pulse 96 95 97 Oximetry 09/25/17 09/25/17 09/25/17 09:17 09:31 09:46 Temperature Pulse Rate 56 54 51 Respiratory 20 17 18 Rate Blood Pressure 186/85 186/93 195/81 (mmHg) O2 Sat by Pulse 97 96 95 Oximetry 09/25/17 09/25/17 09/25/17 10:00 10:01 10:16 Temperature Pulse Rate 51 49 50 Respiratory 17 19 19 Rate Blood Pressure 207/93 194/83 (mmHg) O2 Sat by Pulse 96 97 96 Oximetry 09/25/17 09/25/17 09/25/17 10:31 10:41 10:46 Temperature Pulse Rate 53 50 51 Respiratory 17 17 19 Rate Blood Pressure 179/99 187/96 161/80 (mmHg) O2 Sat by Pulse 97 97 97 Oximetry 09/25/17 09/25/17 09/25/17 11:00 11:01 11:03 Temperature Pulse Rate 55 41 52 Respiratory 16 22 23 Rate Blood Pressure 184/106 178/73 (mmHg) O2 Sat by Pulse 96 97 96 Oximetry 09/25/17 09/25/17 09/25/17 11:23 11:31 11:47 Temperature Pulse Rate 49 56 48 Respiratory 19 18 20 Rate Blood Pressure 181/81 201/70 168/69 (mmHg) O2 Sat by Pulse 99 97 98 Oximetry 09/25/17 09/25/17 09/25/17 12:00 12:01 12:17 Temperature Pulse Rate 51 47 62 Respiratory 16 12 22 Rate Blood Pressure 169/71 122/64 (mmHg) O2 Sat by Pulse 95 98 98 Oximetry 09/25/17 09/25/17 09/25/17 12:31 12:32 12:46 Temperature 98.2 F Pulse Rate 45 46 Respiratory 15 13 Rate Blood Pressure 195/76 201/75 (mmHg) O2 Sat by Pulse 96 98 Oximetry 09/25/17 09/25/17 09/25/17 12:48 13:00 13:01 Temperature Pulse Rate 54 53 53 Respiratory 18 18 13 Rate Blood Pressure 188/72 154/84 (mmHg) O2 Sat by Pulse 96 96 Oximetry Oxygen Devices in Use Now: Nasal Cannula Appearance: NAD, interactive Eyes: No Scleral Icterus, PERRLA Ears/Nose/Mouth/Throat: Clear Oropharnyx, Mucous Membranes Moist Neck: NL Appearance and Movements; NL JVP Respiratory: Symmetrical Chest Expansion and Respiratory Effort, Clear to Auscultation Cardiovascular: - - lia, no mrg, regular Abdominal: NL Sounds; No Tenderness; No Distention, No Hepatosplenomegaly Lymphatic: No Cervical Adenopathy Extremities: No Edema Neurological: Alert and Oriented x 3 Result Diagrams: 09/25/17 04:49 09/25/17 04:49 Additional Lab and Data: Lab Results 09/23/17 09/23/17 09/23/17 Range/Units 18:02 18:02 18:02 WBC 14.8 H (3.5-10.8) 10^3/ul RBC 4.14 (4.0-5.4) 10^6/ul Hgb 12.1 (12.0-16.0) g/dl Hct 37 (35-47) % MCV 88 (80-97) fL MCH 29 (27-31) pg MCHC 33 (31-36) g/dl RDW 14 (10.5-15) % Plt Count 274 (150-450) 10^3/ul MPV 7 L (7.4-10.4) um3 Neut % (Auto) 81.0 (38-83) % Lymph % (Auto) 12.5 L (25-47) % [place] % (Auto) 4.2 (1-9) % Eos % (Auto) 1.6 (0-6) % Baso % (Auto) 0.7 (0-2) % Absolute Neuts (auto) 12.0 H (1.5-7.7) 10^3/ul Absolute Lymphs (auto) 1.9 (1.0-4.8) 10^3/ul Absolute Monos (auto) 0.6 (0-0.8) 10^3/ul Absolute Eos (auto) 0.2 (0-0.6) 10^3/ul Absolute Basos (auto) 0.1 (0-0.2) 10^3/ul Absolute Nucleated RBC 0 10^3/ul Nucleated RBC % 0 D-Dimer, Quantitative (Less Than 230) ng/mL Sodium 140 (133-145) mmol/L Potassium 2.4 L* (3.5-5.0) mmol/L Chloride 98 L (101-111) mmol/L Carbon Dioxide 33 H (22-32) mmol/L Anion Gap 9 (2-11) mmol/L BUN 9 (6-24) mg/dL Creatinine 0.70 (0.51-0.95) mg/dL Est GFR ( Amer) 107.3 (>60) Est GFR (Non-Af Amer) 83.5 (>60) BUN/Creatinine Ratio 12.9 (8-20) Glucose 105 H (70-100) mg/dL Lactic Acid 1.1 (0.5-2.0) mmol/L Calcium 8.7 (8.6-10.3) mg/dL Magnesium 1.4 L (1.9-2.7) mg/dL Total Bilirubin 0.50 (0.2-1.0) mg/dL AST 13 (13-39) U/L ALT 14 (7-52) U/L Alkaline Phosphatase 72 (34-104) U/L Troponin I 0.01 (<0.04) ng/mL Total Protein 6.7 (6.4-8.9) g/dL Albumin 3.6 (3.2-5.2) g/dL Globulin 3.1 (2-4) g/dL Albumin/Globulin Ratio 1.2 (1-3) TSH 0.85 (0.34-5.60) mcIU/mL Urine Color Urine Appearance Urine pH (5-9) Ur Specific [place] (1.010-1.030) Urine Protein (Negative) Urine Ketones (Negative) Urine Blood (Negative) Urine Nitrate (Negative) Urine Bilirubin (Negative) Urine Urobilinogen (Negative) Ur Leukocyte Esterase (Negative) Urine Glucose (Negative) Influenza A (Rapid) (Negative) Influenza B (Rapid) (Negative) 09/23/17 09/23/17 09/23/17 Range/Units 18:02 19:19 23:16 WBC (3.5-10.8) 10^3/ul RBC (4.0-5.4) 10^6/ul Hgb (12.0-16.0) g/dl Hct (35-47) % MCV (80-97) fL MCH (27-31) pg MCHC (31-36) g/dl RDW (10.5-15) % Plt Count (150-450) 10^3/ul MPV (7.4-10.4) um3 Neut % (Auto) (38-83) % Lymph % (Auto) (25-47) % [place] % (Auto) (1-9) % Eos % (Auto) (0-6) % Baso % (Auto) (0-2) % Absolute Neuts (auto) (1.5-7.7) 10^3/ul Absolute Lymphs (auto) (1.0-4.8) 10^3/ul Absolute Monos (auto) (0-0.8) 10^3/ul Absolute Eos (auto) (0-0.6) 10^3/ul Absolute Basos (auto) (0-0.2) 10^3/ul Absolute Nucleated RBC 10^3/ul Nucleated RBC % D-Dimer, Quantitative 427 H (Less Than 230) ng/mL Sodium (133-145) mmol/L Potassium (3.5-5.0) mmol/L Chloride (101-111) mmol/L Carbon Dioxide (22-32) mmol/L Anion Gap (2-11) mmol/L BUN (6-24) mg/dL Creatinine (0.51-0.95) mg/dL Est GFR ( Amer) (>60) Est GFR (Non-Af Amer) (>60) BUN/Creatinine Ratio (8-20) Glucose (70-100) mg/dL Lactic Acid (0.5-2.0) mmol/L Calcium (8.6-10.3) mg/dL Magnesium (1.9-2.7) mg/dL Total Bilirubin (0.2-1.0) mg/dL AST (13-39) U/L ALT (7-52) U/L Alkaline Phosphatase (34-104) U/L Troponin I (<0.04) ng/mL Total Protein (6.4-8.9) g/dL Albumin (3.2-5.2) g/dL Globulin (2-4) g/dL Albumin/Globulin Ratio (1-3) TSH (0.34-5.60) mcIU/mL Urine Color Yellow Urine Appearance Clear Urine pH 6.0 (5-9) Ur Specific [place] 1.015 (1.010-1.030) Urine Protein Negative (Negative) Urine Ketones Negative (Negative) Urine Blood Negative (Negative) Urine Nitrate Negative (Negative) Urine Bilirubin Negative (Negative) Urine Urobilinogen Negative (Negative) Ur Leukocyte Esterase Negative (Negative) Urine Glucose Negative (Negative) Influenza A (Rapid) Negative (Negative) Influenza B (Rapid) Negative (Negative) Assess/Plan/Problems-Billing Assessment: 67 yo F presenting to [facility] [place] after syncope found with lung mass concerning for primary of metastatic malignancy with hospital stay complicated by long pauses - Patient Problems (1) Sinus pause Comment: confirmed with PCP, patient has not been taking atenolol (Is not currently prescribed medication). Atenolol entered into medication reconcilliation in error Observe on telemetry without beta blockade. (2) Lung tumor Comment: suspect malignant. CT with multiple LNs and adrenal hyperintensity suspicious for metastatic disease Discussed with Dr. Teixeira and Dr. Pascal. Dr. Pascal's office will call patient to arrange outpatient biopsy (3) Syncope Comment: Pauses may have contributed however unclear if these were present in ajit absence of beta hood Other contributing factors may include underlying malignancy, 30lb weight loss in 1 month, and electrolyte abnormalities replace electrolytes no e/o PE, heparin stopped (4) Electrolyte abnormality Comment: oral and PO replacement (5) Hypertension Comment: HCTZ/lisinopril (6) DVT prophylaxis Comment: HSQ Status and Disposition: inpatient in setting of prolonged cardiac pauses
--- NOTE | 2017-09-25 15:13 | CONS ---
PULMONARY CONSULTATION REPORT: DATE OF CONSULT: 09/25/17 CONSULTATION REQUESTED BY: Dr. Satya Blanco. REASON FOR CONSULT: Evaluation of abnormal CT chest. HISTORY OF PRESENT ILLNESS: 67-year-old female, current smoker, with significant smoking history, admitted after syncope at a store, likely vasovagal. The patient had further evaluation during hospitalization, which included chest x-ray and CT scan of the chest. I have personally reviewed chest x-ray and CT scan of the chest. The patient noted to have 3.6 cm density in the periphery of left mid lung. The patient had CT scan of the chest for further evaluation. I have personally reviewed CT scan of the chest. The patient noted to have peripheral 2.6 cm left upper lobe mass with lobulated appearance. The patient also with 0.6 cm nodule in the left lower lobe and multiple nodules in the right middle lobe measuring 0.6 cm. The patient also with left adrenal nodule. Venous Dopplers and V/Q scan negative for pulmonary embolism. The patient was admitted to telemetry for monitoring of cardiac status given the syncope. The patient had 2 episodes of 6-second pause last night. She has received beta hood in the evening. She was transferred to ICU this morning for close monitoring and with external pacing. Cardiology was consulted. The patient also had subjective shortness of breath with pain between the shoulder blades last night. The patient reported having significant cough since admission and reported the shortness of breath and pain are likely related to the cough. She has received beta blockers and her heart rate has been in mid 40s and 50s last night and complained of dizziness and lightheadedness, followed by those pauses. Pulmonary consultation was requested for evaluation of abnormal CT. MRI of the brain revealed no acute findings other than sinusitis and effusion in right mastoid air cells. PAST MEDICAL HISTORY: 1. Hypertension. 2. Hyperlipidemia. 3. Chronic kidney disease. 4. GERD. 5. Hepatitis B. MEDICATIONS: 1. Atenolol. 2. Ibuprofen. 3. Omeprazole. 4. Simvastatin. ALLERGIES: ADHESIVE TAPE, CODEINE. PAST SURGICAL HISTORY: 1. Tonsillectomy. 2. Cholecystectomy. 3. Tubal ligation. 4. Hysterectomy. 5. Left wrist surgery. 6. Bilateral knee arthroscopy. FAMILY HISTORY: Mother passed in her 80s of unknown cancer. Father had leukemia. Sister with rheumatic fever. Brother with coronary artery disease. SOCIAL HISTORY: One pack per day smoker with 40-pack years. Rare alcohol. No recreational drug. Lives with daughter's family. REVIEW OF SYSTEMS: As above, all 14 systems reviewed. PHYSICAL EXAM: The patient lying in bed, in no apparent distress. Vital Signs : Temperature 98.2, heart rate 52 beats per minute, respirations 16 per minute, O2 sat 96% on room air, blood pressure 154/60. HEENT: Pupils equal, reactive to light. Mucous membranes moist. Lungs: Diminished air entry bilaterally. Cardiovascular: S1, S2 present and regular. Abdomen: Soft, nontender, nondistended. Bowel sounds present. Extremities: Normal range of motion. DIAGNOSTIC STUDIES/LAB DATA: WBC count 10.3, decreased from 12.7; hemoglobin 10.5; hematocrit 32; platelet 222. PTT 54.6. Sodium 141, potassium 4.7, chloride 112, bicarb 22, BUN 11, creatinine 0.6, calcium 8.5. Magnesium within normal limits. Influenza A and B negative. IMPRESSION AND RECOMMENDATIONS: 67-year-old female with syncope, likely cardiogenic. The patient with pauses last night on telemonitoring, currently in ICU with pacers placed. Lung mass highly concerning for neoplasm given current smoking history. Will need bronchoscopy and biopsy when clinically stable. The patient also with adrenal mass, will discuss with Radiology whether it would be amenable to biopsy, which would make it stage-4. Smoking cessation education. Continue with current bronchodilators. The patient with fullness in mastoid sinuses and elevated white count, trending down, might benefit from antibiotics for possible community-acquired pneumonia. Cardiology consultation. Thank you for allowing me to participate in the care of your patient. Will follow up with you. [id number]/[facility] #: [id number] PHILIP
[2017-09-25] MEDS: Atorvastatin* 40 MG TAB PO SCH (16:46)
[2017-09-25] MEDS: Acetaminophen TAB* 325 MG PO PRN (20:17)
[2017-09-25] MEDS ORDERED: Ibuprofen TAB* 600 MG PO ONE (22:38)
[2017-09-25] MEDS ORDERED: Ibuprofen TAB* 600 MG ONE (22:45)
[2017-09-26 05:30] LABS: ABS Basophils 0.1 10^3/ul (0-0.2); ABS Eosinophils 0.2 10^3/ul (0-0.6); ABS Lymphocytes 2.9 10^3/ul (1.0-4.8); ABS Monocytes 0.7 10^3/ul (0-0.8); ABS Nucleated RBC 0 10^3/ul; Eosinophil % 2.1 % (0-6); Hematocrit 33 % (35-47); Hemoglobin 10.6 g/dl (12.0-16.0); Lymphocyte % 24.1 % (25-47); Mean Corpuscular HGB Conc 32 g/dl (31-36); Mean Corpuscular Hemoglobin 29 pg (27-31); Mean Corpuscular Volume 90 fL (80-97); Mean Platelet Volume 8 um3 (7.4-10.4); Nucleated Red Blood Cells % 0; Platelet Count 226 10^3/ul (150-450); Red Blood Count 3.65 10^6/ul (4.0-5.4); Red Cell Distribution Width 15 % (10.5-15); White Blood Count 11.9 10^3/ul (3.5-10.8)
[2017-09-26] MEDS: Heparin VIAL(*) 5000 UNITS/ML VIAL (FIVE THOUSAND) SUBCUT SCH ×3 (06:11→21:32)
[2017-09-26] MEDS: Omeprazole CAP* 20 MG PO SCH ×2 (07:50→15:30)
[2017-09-26] MEDS: Citalopram TAB* 20 MG PO SCH (09:13)
[2017-09-26] MEDS: Lisinopril TAB* 10 MG PO SCH (09:13)
[2017-09-26] MEDS: guaiFENesin ER TAB 600 MG PO SCH ×2 (09:13→21:32)
[2017-09-26] MEDS: Aspirin EC Low Dose* 81 MG TAB.EC PO SCH (09:13)
[2017-09-26] MEDS: Hydrochlorothiazide TAB* 25 MG PO SCH (09:14)
[2017-09-26] MEDS: Docusate CAP* 100 MG PO SCH ×2 (09:15→21:32)
--- NOTE | 2017-09-26 10:48 | PN ---
Subjective Date of Service: 09/26/17 Interval History: pt feels well, last sinus pause this aM at 7 AM, asymptomatic. Objective Active Medications: Acetaminophen (Tylenol Tab*) 650 mg PO Q6H PRN PRN Reason: FEVER/PAIN Last Admin: 09/25/17 20:17 Dose: 650 mg Albuterol (Ventolin 2.5 Mg/3 Ml Neb.Phyllis*) 2.5 mg INH Q2H PRN PRN Reason: SOB/WHEEZING Aspirin (Aspirin Ec Low Dose*) 81 mg PO DAILY [facility] Last Admin: 09/26/17 09:13 Dose: 81 mg Atorvastatin Calcium (Lipitor*) 40 mg PO QPM [facility] Last Admin: 09/25/17 16:46 Dose: 40 mg Citalopram Hydrobromide (Celexa Tab*) 20 mg PO DAILY [facility] Last Admin: 09/26/17 09:13 Dose: 20 mg Docusate Sodium (Colace Cap*) 200 mg PO BID [facility] Last Admin: 09/26/17 09:15 Dose: Not Given Guaifenesin (Mucinex*) 600 mg PO BID [facility] Last Admin: 09/26/17 09:13 Dose: 600 mg Heparin Sodium (Porcine) (Heparin Vial(*)) 5,000 units SUBCUT Q8HR [facility] Last Admin: 09/26/17 06:11 Dose: 5,000 units Hydralazine HCl (Apresoline Iv*) 10 mg IV SLOW PU Q6H PRN PRN Reason: SYSTOLIC BP GREATER THAN: Last Admin: 09/25/17 19:05 Dose: 10 mg Hydrochlorothiazide (Hydrodiuril Tab*) 25 mg PO DAILY [facility] Lisinopril (Prinivil Tab*) 10 mg PO DAILY [facility] PRN Reason: Protocol Last Admin: 09/26/17 09:13 Dose: 10 mg Melatonin (Melatonin (Nf)) 3 mg PO BEDTIME PRN; Protocol PRN Reason: Sleep Omeprazole (Prilosec Cap*) 20 mg PO BID [facility] Last Admin: 09/26/17 07:50 Dose: 20 mg Ondansetron HCl (Zofran Inj*) 4 mg IV Q6H PRN PRN Reason: NAUSEA Vital Signs - 8 hr 09/26/17 09/26/17 09/26/17 03:00 03:01 03:31 Temperature Pulse Rate 52 65 49 Respiratory 12 18 16 Rate Blood Pressure 165/75 166/58 (mmHg) O2 Sat by Pulse 95 96 96 Oximetry 09/26/17 09/26/17 09/26/17 03:53 04:00 04:20 Temperature 97.0 F Pulse Rate 52 59 Respiratory 15 12 14 Rate Blood Pressure 166/77 159/70 (mmHg) O2 Sat by Pulse 96 94 Oximetry 09/26/17 09/26/17 09/26/17 04:30 05:00 05:01 Temperature Pulse Rate 43 54 47 Respiratory 15 16 18 Rate Blood Pressure 163/78 165/64 (mmHg) O2 Sat by Pulse 97 94 97 Oximetry 09/26/17 09/26/17 09/26/17 05:31 06:00 06:01 Temperature Pulse Rate 46 51 Respiratory 15 15 15 Rate Blood Pressure 163/72 132/78 (mmHg) O2 Sat by Pulse 96 96 Oximetry 09/26/17 09/26/17 09/26/17 06:31 07:00 07:01 Temperature Pulse Rate 77 49 51 Respiratory 12 13 13 Rate Blood Pressure 155/72 156/66 (mmHg) O2 Sat by Pulse 96 95 96 Oximetry 09/26/17 09/26/17 09/26/17 07:31 07:37 08:00 Temperature 97.1 F Pulse Rate 56 58 Respiratory 13 Rate Blood Pressure 161/63 (mmHg) O2 Sat by Pulse 96 96 94 Oximetry 09/26/17 09/26/17 09/26/17 08:01 08:31 08:56 Temperature Pulse Rate 56 55 Respiratory 19 14 14 Rate Blood Pressure 157/63 164/66 (mmHg) O2 Sat by Pulse 97 96 Oximetry 09/26/17 09/26/17 09:00 09:01 Temperature Pulse Rate 50 47 Respiratory 17 18 Rate Blood Pressure 173/67 (mmHg) O2 Sat by Pulse 95 97 Oximetry Oxygen Devices in Use Now: None - 02 sat 97% on RA Appearance: 67 yo F in NAD, aAOx3 Eyes: No Scleral Icterus, PERRLA Ears/Nose/Mouth/Throat: NL Teeth, Lips, Gums, Mucous Membranes Moist Neck: NL Appearance and Movements; NL JVP, Trachea Midline Respiratory: Symmetrical Chest Expansion and Respiratory Effort, Clear to Auscultation Cardiovascular: NL Sounds; No Murmurs; No JVD, RRR Abdominal: NL Sounds; No Tenderness; No Distention Lymphatic: No Cervical Adenopathy Extremities: No Edema, No Clubbing, Cyanosis Skin: No Rash or Ulcers, No Nodules or Sclerosis Neurological: Alert and Oriented x 3, NL Muscle Strength and Tone Result Diagrams: 09/26/17 05:20 09/26/17 05:20 Additional Lab and Data: Lab Results 09/23/17 09/23/17 09/23/17 Range/Units 18:02 18:02 18:02 WBC 14.8 H (3.5-10.8) 10^3/ul RBC 4.14 (4.0-5.4) 10^6/ul Hgb 12.1 (12.0-16.0) g/dl Hct 37 (35-47) % MCV 88 (80-97) fL MCH 29 (27-31) pg MCHC 33 (31-36) g/dl RDW 14 (10.5-15) % Plt Count 274 (150-450) 10^3/ul MPV 7 L (7.4-10.4) um3 Neut % (Auto) 81.0 (38-83) % Lymph % (Auto) 12.5 L (25-47) % [place] % (Auto) 4.2 (1-9) % Eos % (Auto) 1.6 (0-6) % Baso % (Auto) 0.7 (0-2) % Absolute Neuts (auto) 12.0 H (1.5-7.7) 10^3/ul Absolute Lymphs (auto) 1.9 (1.0-4.8) 10^3/ul Absolute Monos (auto) 0.6 (0-0.8) 10^3/ul Absolute Eos (auto) 0.2 (0-0.6) 10^3/ul Absolute Basos (auto) 0.1 (0-0.2) 10^3/ul Absolute Nucleated RBC 0 10^3/ul Nucleated RBC % 0 D-Dimer, Quantitative (Less Than 230) ng/mL Sodium 140 (133-145) mmol/L Potassium 2.4 L* (3.5-5.0) mmol/L Chloride 98 L (101-111) mmol/L Carbon Dioxide 33 H (22-32) mmol/L Anion Gap 9 (2-11) mmol/L BUN 9 (6-24) mg/dL Creatinine 0.70 (0.51-0.95) mg/dL Est GFR ( Amer) 107.3 (>60) Est GFR (Non-Af Amer) 83.5 (>60) BUN/Creatinine Ratio 12.9 (8-20) Glucose 105 H (70-100) mg/dL Lactic Acid 1.1 (0.5-2.0) mmol/L Calcium 8.7 (8.6-10.3) mg/dL Magnesium 1.4 L (1.9-2.7) mg/dL Total Bilirubin 0.50 (0.2-1.0) mg/dL AST 13 (13-39) U/L ALT 14 (7-52) U/L Alkaline Phosphatase 72 (34-104) U/L Troponin I 0.01 (<0.04) ng/mL Total Protein 6.7 (6.4-8.9) g/dL Albumin 3.6 (3.2-5.2) g/dL Globulin 3.1 (2-4) g/dL Albumin/Globulin Ratio 1.2 (1-3) TSH 0.85 (0.34-5.60) mcIU/mL Urine Color Urine Appearance Urine pH (5-9) Ur Specific [place] (1.010-1.030) Urine Protein (Negative) Urine Ketones (Negative) Urine Blood (Negative) Urine Nitrate (Negative) Urine Bilirubin (Negative) Urine Urobilinogen (Negative) Ur Leukocyte Esterase (Negative) Urine Glucose (Negative) Influenza A (Rapid) (Negative) Influenza B (Rapid) (Negative) 09/23/17 09/23/17 09/23/17 Range/Units 18:02 19:19 23:16 WBC (3.5-10.8) 10^3/ul RBC (4.0-5.4) 10^6/ul Hgb (12.0-16.0) g/dl Hct (35-47) % MCV (80-97) fL MCH (27-31) pg MCHC (31-36) g/dl RDW (10.5-15) % Plt Count (150-450) 10^3/ul MPV (7.4-10.4) um3 Neut % (Auto) (38-83) % Lymph % (Auto) (25-47) % [place] % (Auto) (1-9) % Eos % (Auto) (0-6) % Baso % (Auto) (0-2) % Absolute Neuts (auto) (1.5-7.7) 10^3/ul Absolute Lymphs (auto) (1.0-4.8) 10^3/ul Absolute Monos (auto) (0-0.8) 10^3/ul Absolute Eos (auto) (0-0.6) 10^3/ul Absolute Basos (auto) (0-0.2) 10^3/ul Absolute Nucleated RBC 10^3/ul Nucleated RBC % D-Dimer, Quantitative 427 H (Less Than 230) ng/mL Sodium (133-145) mmol/L Potassium (3.5-5.0) mmol/L Chloride (101-111) mmol/L Carbon Dioxide (22-32) mmol/L Anion Gap (2-11) mmol/L BUN (6-24) mg/dL Creatinine (0.51-0.95) mg/dL Est GFR ( Amer) (>60) Est GFR (Non-Af Amer) (>60) BUN/Creatinine Ratio (8-20) Glucose (70-100) mg/dL Lactic Acid (0.5-2.0) mmol/L Calcium (8.6-10.3) mg/dL Magnesium (1.9-2.7) mg/dL Total Bilirubin (0.2-1.0) mg/dL AST (13-39) U/L ALT (7-52) U/L Alkaline Phosphatase (34-104) U/L Troponin I (<0.04) ng/mL Total Protein (6.4-8.9) g/dL Albumin (3.2-5.2) g/dL Globulin (2-4) g/dL Albumin/Globulin Ratio (1-3) TSH (0.34-5.60) mcIU/mL Urine Color Yellow Urine Appearance Clear Urine pH 6.0 (5-9) Ur Specific [place] 1.015 (1.010-1.030) Urine Protein Negative (Negative) Urine Ketones Negative (Negative) Urine Blood Negative (Negative) Urine Nitrate Negative (Negative) Urine Bilirubin Negative (Negative) Urine Urobilinogen Negative (Negative) Ur Leukocyte Esterase Negative (Negative) Urine Glucose Negative (Negative) Influenza A (Rapid) Negative (Negative) Influenza B (Rapid) Negative (Negative) Assess/Plan/Problems-Billing Assessment: 67 yo F presenting to [facility] [place] after syncope found with lung mass concerning for primary of metastatic malignancy with hospital stay complicated by long pauses - Patient Problems (1) Syncope Comment: Pauses may have contributed however unclear if these were present in the absence of beta hood Other contributing factors may include underlying malignancy, 30lb weight loss in 1 month, and electrolyte abnormalities no e/o PE, heparin stopped (2) Sinus pause Comment: confirmed with PCP, patient has not been taking atenolol (Is not currently prescribed medication). Atenolol entered into medication reconcilliation in error. Pt received one dose on 09/24/17 Observe on telemetry without beta blockade. (3) Lung tumor Comment: suspect malignant in [place] at 2.[address] with multiple LNs and adrenal nodule at 0.9 cm suspicious for metastatic disease Discussed with Dr. Teixeira and Dr. Pascal. Dr. Pascal's office will call patient to arrange outpatient biopsy (4) Hypertension Comment: HCTZ/lisinopril uncontroled, HCTZ increased (5) DVT prophylaxis Comment: HSQ Status and Disposition: inpatient in setting of prolonged cardiac pauses, transfer out of ICU
[2017-09-26] MEDS: Acetaminophen TAB* 325 MG PO PRN ×2 (12:07→21:32)
[2017-09-26] MEDS: traMADol TAB* 50 MG PO PRN (15:30)
--- NOTE | 2017-09-26 16:18 | ECHO ---
Patient: KEN JEFF [facility] Rec#: [id number] : 1950 Date: 09/26/2017 Age: 67y Height: 154.94 cm / 61.0 in Weight: 86.18 kg / 189.9 lbs Sex: F BSA: 1.85 Room#: 452 Admit Date#: 09/24/2017 Type: Inpatient Referring: Valerie Hernandez MD Reading: Ramez Meek MD Medical Scribe: Sloane Byrne,DLCS,RDMS CC: Kathy Raygoza, FIELD LOGISTICS COORDINATOR Transthoracic Echocardiogram Indication: Syncope BP: 173/67 HR: 63 Rhythm: NSR Findings History: Smoker, HTN, HLD, CKD, GERD, lung mass Technical Comments: The study quality is good. Left Ventricle: The left ventricular chamber size is normal. Mild concentric left ventricular hypertrophy is observed. Global left ventricular wall motion and contractility are within normal limits. There is normal left ventricular systolic function. The estimated ejection fraction is 60-65%. There is no consistent Doppler evidence of clinically significant diastolic dysfunction. Left Atrium: The left atrium is mildly dilated. Right Ventricle: The right ventricular chamber size and systolic function are within normal limits. Right Atrium: The right atrial cavity size is normal. Aortic Valve: The aortic valve is trileaflet. The aortic valve leaflets are mildly thickened. There is no evidence of aortic regurgitation. There is no evidence of aortic stenosis. Mitral Valve: There is mitral annular calcification. There is a trace of mitral regurgitation. There is no evidence of mitral stenosis. Tricuspid Valve: The tricuspid valve leaflets are normal. There is trace tricuspid regurgitation. Unable to estimate the right ventricular systolic pressure. Pulmonic Valve: The pulmonic valve appears normal. There is a trace pulmonic regurgitation. There is no pulmonic stenosis. Pericardium: There is no significant pericardial effusion. Aorta: The aortic root appears normal. The aortic arch is not well visualized. Pulmonary Artery: The main pulmonary artery is not well visualized. Venous: The inferior vena cava appears normal in size. There is a greater than 50% respiratory change in the inferior vena cava dimension. Conclusions There is normal left ventricular systolic function. The estimated ejection fraction is 60-65%. Global left ventricular wall motion and contractility are within normal limits. The left ventricular chamber size is normal. Mild concentric left ventricular hypertrophy is observed. The left atrium is mildly dilated. Functionally benign heart valves. Since the prior echocardiogram completed 05/11/08, there appears to be little change. Measurements Name Value Normal Range RVIDd (AP) 2D 1.7 cm (0.9 - 2.6) RVDdMajor (2D) 2.6 cm (2.2 - 4.4) RAd ISD 4CH 4.7 cm (3.4 - 4.9) RA (A4C)W 2.9 cm (2.9 - 4.6) IVSd (2D) 1.2 cm (0.6 - 1) LVPWd (2D) 1.2 cm (0.6 - 1) LVIDd (2D) 4.4 cm (3.6 - 5.4) LVIDs (2D) 2.5 cm - LV FS (2D) 42 % (25 - 45) Aortic Annulus 2 cm (1.4 - 2.6) Ao root diameter (2D) 2.7 cm (2.1 - 3.5) Ascending Ao 2.7 cm (2.1 - 3.4) LA dimension (AP) 2D 3.6 cm (2.3 - 3.8) LAd ISD 4CH 5.1 cm (2.9 - 5.3) LA ISD 4CH W 4.8 cm (2.5 - 4.5) Name Value Normal Range LA ESV SP 4CH (A/L) 43.69 ml - LA ESV SP 2CH (A/L) 66.55 ml - LA ESV BP (A/L) 54.36 ml - LA ESV BP (A/L) index 29 ml/m2 - LA ESV SP 4CH (MOD) 41.54 ml - LA ESV SP 2CH (MOD) 61.93 ml - LV EDV SP 4CH (MOD) 62.74 ml - LV ESV SP 4CH (MOD) 15.31 ml - EF SP 4CH (MOD) 75.6 % - LV EDV SP 2CH (MOD) 70.47 ml - LV ESV SP 2CH (MOD) 7.5 ml - EF SP 2CH (MOD) 89.36 % - LV EDV BP 65.97 ml - LV ESV BP 11.29 ml - BP EF (MOD) 83 % - Name Value Normal Range MV E-wave Vmax 1.2 m/sec - MV deceleration time 250 msec - MV A-wave Vmax 1.1 m/sec - MV E:A ratio 1.1 ratio - P. vein S-wave Vmax 0.8 m/sec - P. vein D-wave Vmax 0.5 m/sec - P. vein S:D Vmax ratio 1.8 ratio - P. vein A-wave duration 107 msec - LV septal e' Vmax 0.06 m/sec - LV lateral e' Vmax 0.07 m/sec - LV E:e' septal ratio 20 ratio - LV E:e' lateral ratio 17 ratio - Name Value Normal Range AV Vmax 1.9 m/sec - AV VTI 40 cm - AV peak gradient 14 mmHg - AV mean gradient 6.3 mmHg - LVOT diameter 2 cm - LVOT Vmax 1.2 m/sec - LVOT VTI 29 cm - LVOT peak gradient 6 mmHg - LVOT mean gradient 2.5 mmHg - ISACC (continuity Vmax) 2 cm2 - SIACC (continuity VTI) 2.3 cm2 - ALVARO Vmax 0.8 m/sec - Name Value Normal Range MV Vmax 1.5 m/sec - MV VTI 45.4 cm - MV peak gradient 9 mmHg - MV mean gradient 2.1 mmHg - MV PHT 76 msec - MVA (PHT) 2.9 cm2 - MVA (continuity VTI) 2 cm2 - Name Value Normal Range RAP 8 mmHg - IVC diameter 1.6 cm - Name Value Normal Range PV Vmax 0.7 m/sec - PV peak gradient 2 mmHg -
[2017-09-26] MEDS: Atorvastatin* 40 MG TAB PO SCH (16:30)
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
--- NOTE | 2017-09-27 01:02 | PN ---
Progress Note - Progress Note Date of Service: 09/27/17 Note: Paged by RN for 3 second and 5.6 second pause. Patient asymptomatic. Will keep NPO for now in case they want to place pacemaker now that she has been off atenolol.
[2017-09-27] MEDS: Acetaminophen TAB* 325 MG PO PRN (04:14)
[2017-09-27] MEDS: Heparin VIAL(*) 5000 UNITS/ML VIAL (FIVE THOUSAND) SUBCUT SCH ×3 (05:24→21:24)
[2017-09-27 06:37] LABS: ABS Basophils 0 10^3/ul (0-0.2); ABS Eosinophils 0.3 10^3/ul (0-0.6); ABS Lymphocytes 2.8 10^3/ul (1.0-4.8); ABS Monocytes 0.7 10^3/ul (0-0.8); ABS Nucleated RBC 0 10^3/ul; Eosinophil % 2.7 % (0-6); Hematocrit 33 % (35-47); Lymphocyte % 26.1 % (25-47); Mean Corpuscular HGB Conc 34 g/dl (31-36); Mean Corpuscular Hemoglobin 30 pg (27-31); Mean Corpuscular Volume 88 fL (80-97); Mean Platelet Volume 7 um3 (7.4-10.4); Nucleated Red Blood Cells % 0; Platelet Count 237 10^3/ul (150-450); Red Blood Count 3.71 10^6/ul (4.0-5.4); Red Cell Distribution Width 15 % (10.5-15); White Blood Count 10.8 10^3/ul (3.5-10.8)
[2017-09-27] MEDS: Docusate CAP* 100 MG PO SCH ×2 (08:54→21:19)
[2017-09-27] MEDS: amLODIPine TAB* 5 MG PO SCH (09:17)
[2017-09-27] MEDS: Hydrochlorothiazide TAB* 25 MG PO SCH (09:17)
[2017-09-27] MEDS: guaiFENesin ER TAB 600 MG PO SCH ×2 (09:17→21:24)
[2017-09-27] MEDS: Citalopram TAB* 20 MG PO SCH (09:17)
[2017-09-27] MEDS: Aspirin EC Low Dose* 81 MG TAB.EC PO SCH (09:17)
[2017-09-27] MEDS: Omeprazole CAP* 20 MG PO SCH ×2 (09:17→17:37)
[2017-09-27] MEDS: Lisinopril TAB* 10 MG PO SCH (09:21)
[2017-09-27] MEDS ORDERED: ceFAZolin 2 GM PREMIX (*) 2 GM/50 ML BAG IVPB ONE (12:00)
--- NOTE | 2017-09-27 13:03 | PN ---
Subjective Date of Service: 09/27/17 Interval History: Pt had several sinus pauses overnight., no symptoms. feels well Objective Active Medications: Acetaminophen (Tylenol Tab*) 650 mg PO Q6H PRN PRN Reason: FEVER/PAIN Last Admin: 09/27/17 04:14 Dose: 650 mg Albuterol (Ventolin 2.5 Mg/3 Ml Neb.Phyllis*) 2.5 mg INH Q2H PRN PRN Reason: SOB/WHEEZING Amlodipine Besylate (Norvasc Tab*) 5 mg PO DAILY [facility] Last Admin: 09/27/17 09:17 Dose: 5 mg Aspirin (Aspirin Ec Low Dose*) 81 mg PO DAILY [facility] Last Admin: 09/27/17 09:17 Dose: 81 mg Atorvastatin Calcium (Lipitor*) 40 mg PO QPM [facility] Last Admin: 09/26/17 16:30 Dose: 40 mg Citalopram Hydrobromide (Celexa Tab*) 20 mg PO DAILY [facility] Last Admin: 09/27/17 09:17 Dose: 20 mg Docusate Sodium (Colace Cap*) 200 mg PO BID [facility] Last Admin: 09/27/17 08:54 Dose: Not Given Guaifenesin (Mucinex*) 600 mg PO BID [facility] Last Admin: 09/27/17 09:17 Dose: 600 mg Heparin Sodium (Porcine) (Heparin Vial(*)) 5,000 units SUBCUT Q8HR [facility] Last Admin: 09/27/17 05:24 Dose: 5,000 units Hydralazine HCl (Apresoline Iv*) 10 mg IV SLOW PU Q6H PRN PRN Reason: SYSTOLIC BP GREATER THAN: Last Admin: 09/25/17 19:05 Dose: 10 mg Hydrochlorothiazide (Hydrodiuril Tab*) 25 mg PO DAILY [facility] Last Admin: 09/27/17 09:17 Dose: 25 mg Sodium Chloride (Ns 0.9% 1000 Ml*) 1,000 mls @ 75 mls/hr IV PER RATE [facility] Cefazolin Sodium/Dextrose (Kefzol 2 Gm Premix(*)) 2 gm in 50 mls @ 100 mls/hr IVPB ONCE@0700 ONE Stop: 09/30/17 07:29 Lisinopril (Prinivil Tab*) 10 mg PO DAILY [facility] PRN Reason: Protocol Last Admin: 09/27/17 09:21 Dose: 10 mg Melatonin (Melatonin (Nf)) 3 mg PO BEDTIME PRN; Protocol PRN Reason: Sleep Last Admin: 09/26/17 21:32 Dose: 3 mg Omeprazole (Prilosec Cap*) 20 mg PO BID [facility] Last Admin: 09/27/17 09:17 Dose: 20 mg Ondansetron HCl (Zofran Inj*) 4 mg IV Q6H PRN PRN Reason: NAUSEA Tramadol HCl (Ultram*) 50 mg PO Q6H PRN PRN Reason: PAIN Last Admin: 09/26/17 15:30 Dose: 50 mg Vital Signs - 8 hr 09/27/17 07:21 Temperature 98.1 F Pulse Rate 52 Respiratory 16 Rate Blood Pressure 149/60 (mmHg) O2 Sat by Pulse 93 Oximetry Oxygen Devices in Use Now: None Appearance: 67 yo F in nAD, aAOx3 Eyes: No Scleral Icterus, PERRLA Ears/Nose/Mouth/Throat: NL Teeth, Lips, Gums, Mucous Membranes Moist Neck: NL Appearance and Movements; NL JVP, Trachea Midline Respiratory: Symmetrical Chest Expansion and Respiratory Effort, Clear to Auscultation Cardiovascular: NL Sounds; No Murmurs; No JVD, No Edema Abdominal: NL Sounds; No Tenderness; No Distention, No Hepatosplenomegaly Lymphatic: No Cervical Adenopathy Extremities: No Edema, No Clubbing, Cyanosis Skin: No Rash or Ulcers, No Nodules or Sclerosis Neurological: Alert and Oriented x 3, NL Muscle Strength and Tone Result Diagrams: 09/27/17 06:24 09/26/17 05:20 Additional Lab and Data: Lab Results 09/23/17 09/23/17 09/23/17 Range/Units 18:02 18:02 18:02 WBC 14.8 H (3.5-10.8) 10^3/ul RBC 4.14 (4.0-5.4) 10^6/ul Hgb 12.1 (12.0-16.0) g/dl Hct 37 (35-47) % MCV 88 (80-97) fL MCH 29 (27-31) pg MCHC 33 (31-36) g/dl RDW 14 (10.5-15) % Plt Count 274 (150-450) 10^3/ul MPV 7 L (7.4-10.4) um3 Neut % (Auto) 81.0 (38-83) % Lymph % (Auto) 12.5 L (25-47) % Dent % (Auto) 4.2 (1-9) % Eos % (Auto) 1.6 (0-6) % Baso % (Auto) 0.7 (0-2) % Absolute Neuts (auto) 12.0 H (1.5-7.7) 10^3/ul Absolute Lymphs (auto) 1.9 (1.0-4.8) 10^3/ul Absolute Monos (auto) 0.6 (0-0.8) 10^3/ul Absolute Eos (auto) 0.2 (0-0.6) 10^3/ul Absolute Basos (auto) 0.1 (0-0.2) 10^3/ul Absolute Nucleated RBC 0 10^3/ul Nucleated RBC % 0 D-Dimer, Quantitative (Less Than 230) ng/mL Sodium 140 (133-145) mmol/L Potassium 2.4 L* (3.5-5.0) mmol/L Chloride 98 L (101-111) mmol/L Carbon Dioxide 33 H (22-32) mmol/L Anion Gap 9 (2-11) mmol/L BUN 9 (6-24) mg/dL Creatinine 0.70 (0.51-0.95) mg/dL Est GFR ( Amer) 107.3 (>60) Est GFR (Non-Af Amer) 83.5 (>60) BUN/Creatinine Ratio 12.9 (8-20) Glucose 105 H (70-100) mg/dL Lactic Acid 1.1 (0.5-2.0) mmol/L Calcium 8.7 (8.6-10.3) mg/dL Magnesium 1.4 L (1.9-2.7) mg/dL Total Bilirubin 0.50 (0.2-1.0) mg/dL AST 13 (13-39) U/L ALT 14 (7-52) U/L Alkaline Phosphatase 72 (34-104) U/L Troponin I 0.01 (<0.04) ng/mL Total Protein 6.7 (6.4-8.9) g/dL Albumin 3.6 (3.2-5.2) g/dL Globulin 3.1 (2-4) g/dL Albumin/Globulin Ratio 1.2 (1-3) TSH 0.85 (0.34-5.60) mcIU/mL Urine Color Urine Appearance Urine pH (5-9) Ur Specific [place] (1.010-1.030) Urine Protein (Negative) Urine Ketones (Negative) Urine Blood (Negative) Urine Nitrate (Negative) Urine Bilirubin (Negative) Urine Urobilinogen (Negative) Ur Leukocyte Esterase (Negative) Urine Glucose (Negative) Influenza A (Rapid) (Negative) Influenza B (Rapid) (Negative) 09/23/17 09/23/17 09/23/17 Range/Units 18:02 19:19 23:16 WBC (3.5-10.8) 10^3/ul RBC (4.0-5.4) 10^6/ul Hgb (12.0-16.0) g/dl Hct (35-47) % MCV (80-97) fL MCH (27-31) pg MCHC (31-36) g/dl RDW (10.5-15) % Plt Count (150-450) 10^3/ul MPV (7.4-10.4) um3 Neut % (Auto) (38-83) % Lymph % (Auto) (25-47) % Dent % (Auto) (1-9) % Eos % (Auto) (0-6) % Baso % (Auto) (0-2) % Absolute Neuts (auto) (1.5-7.7) 10^3/ul Absolute Lymphs (auto) (1.0-4.8) 10^3/ul Absolute Monos (auto) (0-0.8) 10^3/ul Absolute Eos (auto) (0-0.6) 10^3/ul Absolute Basos (auto) (0-0.2) 10^3/ul Absolute Nucleated RBC 10^3/ul Nucleated RBC % D-Dimer, Quantitative 427 H (Less Than 230) ng/mL Sodium (133-145) mmol/L Potassium (3.5-5.0) mmol/L Chloride (101-111) mmol/L Carbon Dioxide (22-32) mmol/L Anion Gap (2-11) mmol/L BUN (6-24) mg/dL Creatinine (0.51-0.95) mg/dL Est GFR ( Amer) (>60) Est GFR (Non-Af Amer) (>60) BUN/Creatinine Ratio (8-20) Glucose (70-100) mg/dL Lactic Acid (0.5-2.0) mmol/L Calcium (8.6-10.3) mg/dL Magnesium (1.9-2.7) mg/dL Total Bilirubin (0.2-1.0) mg/dL AST (13-39) U/L ALT (7-52) U/L Alkaline Phosphatase (34-104) U/L Troponin I (<0.04) ng/mL Total Protein (6.4-8.9) g/dL Albumin (3.2-5.2) g/dL Globulin (2-4) g/dL Albumin/Globulin Ratio (1-3) TSH (0.34-5.60) mcIU/mL Urine Color Yellow Urine Appearance Clear Urine pH 6.0 (5-9) Ur Specific [place] 1.015 (1.010-1.030) Urine Protein Negative (Negative) Urine Ketones Negative (Negative) Urine Blood Negative (Negative) Urine Nitrate Negative (Negative) Urine Bilirubin Negative (Negative) Urine Urobilinogen Negative (Negative) Ur Leukocyte Esterase Negative (Negative) Urine Glucose Negative (Negative) Influenza A (Rapid) Negative (Negative) Influenza B (Rapid) Negative (Negative) Assess/Plan/Problems-Billing Assessment: 67 yo F presenting to [facility] [place] after syncope found with lung mass concerning for primary of metastatic malignancy with hospital stay complicated by long pauses - Patient Problems (1) Syncope Comment: Pauses continue, despite off beta hood x 3 days. Cardiology plans for pacemaker early next week. Other contributing factors may include underlying malignancy, 30lb weight loss in 1 month, and electrolyte abnormalities no e/o PE, heparin stopped (2) Sinus pause Comment: confirmed with PCP, patient has not been taking atenolol (Is not currently prescribed medication). Atenolol entered into medication reconcilliation in error. Pt received one dose on 09/24/17 cont to monitor on telem (3) Lung tumor Comment: suspect malignant in RICHIE at 2.[address] with multiple LNs and adrenal nodule at 0.9 cm suspicious for metastatic disease Discussed with Dr. Teixeira and Dr. Pascal. Dr. Pascal's office will call patient to arrange outpatient biopsy (4) Hypertension Comment: HCTZ/lisinopril uncontroled, HCTZ increased and Norvasc added today (5) DVT prophylaxis Comment: HSQ Status and Disposition: inpatient
[2017-09-27] MEDS: Atorvastatin* 40 MG TAB PO SCH (17:37)
[2017-09-27] MEDS: traMADol TAB* 50 MG PO PRN (22:48)
[2017-09-28] MEDS: Heparin VIAL(*) 5000 UNITS/ML VIAL (FIVE THOUSAND) SUBCUT SCH ×3 (05:58→21:13)
[2017-09-28] MEDS ORDERED: ceFAZolin 2 GM PREMIX (*) 2 GM/50 ML BAG IVPB ONE (07:00)
[2017-09-28 08:16] LABS: ABS Basophils 0.1 10^3/ul (0-0.2); ABS Eosinophils 0.3 10^3/ul (0-0.6); ABS Lymphocytes 2.5 10^3/ul (1.0-4.8); ABS Monocytes 0.7 10^3/ul (0-0.8); ABS Neutrophils 6.1 10^3/ul (1.5-7.7); ABS Nucleated RBC 0 10^3/ul; Hematocrit 36 % (35-47); Hemoglobin 12.1 g/dl (12.0-16.0); Lymphocyte % 25.8 % (25-47); Mean Corpuscular HGB Conc 34 g/dl (31-36); Mean Corpuscular Hemoglobin 30 pg (27-31); Mean Corpuscular Volume 88 fL (80-97); Mean Platelet Volume 8 um3 (7.4-10.4); Nucleated Red Blood Cells % 0.1; Platelet Count 256 10^3/ul (150-450); Red Blood Count 4.07 10^6/ul (4.0-5.4); Red Cell Distribution Width 15 % (10.5-15); White Blood Count 9.6 10^3/ul (3.5-10.8)
[2017-09-28] MEDS: amLODIPine TAB* 5 MG PO SCH (09:06)
[2017-09-28] MEDS: Omeprazole CAP* 20 MG PO SCH ×2 (09:06→15:14)
[2017-09-28] MEDS: Hydrochlorothiazide TAB* 25 MG PO SCH (09:06)
[2017-09-28] MEDS: Aspirin EC Low Dose* 81 MG TAB.EC PO SCH (09:06)
[2017-09-28] MEDS: guaiFENesin ER TAB 600 MG PO SCH ×2 (09:06→21:13)
[2017-09-28] MEDS: Lisinopril TAB* 10 MG PO SCH (09:06)
[2017-09-28] MEDS: Citalopram TAB* 20 MG PO SCH (09:06)
[2017-09-28] MEDS: Docusate CAP* 100 MG PO SCH ×2 (09:08→21:12)
--- NOTE | 2017-09-28 11:12 | PN ---
Progress Note - Progress Note Date of Service: 09/28/17 - Pulm f/u note Note: Pt seen and examined at bedside. Pt reports feeling better, denied SOB, chest pain, no documented pauses last night Active Medications Generic Name Dose Route Start Last Admin Trade Name Freq PRN Reason Stop Dose Admin Acetaminophen 650 mg 09/24/17 01:16 09/27/17 04:14 Tylenol Tab* PO 650 mg Q6H PRN Administration FEVER/PAIN Albuterol 2.5 mg 09/24/17 01:16 Ventolin 2.5 Mg/3 Ml Neb.Phyllis* INH Q2H PRN SOB/WHEEZING Amlodipine Besylate 5 mg 09/27/17 09:00 09/28/17 09:06 Norvasc Tab* PO 5 mg DAILY [facility] Administration Aspirin 81 mg 09/25/17 11:00 09/28/17 09:06 Aspirin Ec Low Dose* PO 81 mg DAILY [facility] Administration Atorvastatin Calcium 40 mg 09/24/17 18:00 09/27/17 17:37 Lipitor* PO 40 mg QPM [facility] Administration Citalopram Hydrobromide 20 mg 09/25/17 11:00 09/28/17 09:06 Celexa Tab* PO 20 mg DAILY [facility] Administration Docusate Sodium 200 mg 09/24/17 09:00 09/28/17 09:08 Colace Cap* PO Not Given BID [facility] Guaifenesin 600 mg 09/24/17 23:00 09/28/17 09:06 Mucinex* PO 600 mg BID [facility] Administration Heparin Sodium (Porcine) 5,000 units 09/24/17 14:00 09/28/17 05:58 Heparin Vial(*) SUBCUT 5,000 units Q8HR [facility] Administration Hydralazine HCl 10 mg 09/25/17 10:28 09/25/17 19:05 Apresoline Iv* IV SLOW PU 10 mg Q6H PRN Administration SYSTOLIC BP GREATER THAN: Hydrochlorothiazide 25 mg 09/26/17 10:30 09/28/17 09:06 Hydrodiuril Tab* PO 25 mg DAILY [facility] Administration Sodium Chloride 1,000 mls @ 75 mls/hr 09/30/17 00:15 Ns 0.9% 1000 Ml* IV PER RATE [facility] Cefazolin Sodium/Dextrose 2 gm in 50 mls @ 100 mls/hr 09/30/17 07:00 Kefzol 2 Gm Premix(*) IVPB 09/30/17 07:29 ONCE@0700 ONE Lisinopril 10 mg 09/25/17 11:00 09/28/17 09:06 Prinivil Tab* PO 10 mg DAILY [facility] Administration Protocol Melatonin 3 mg 09/24/17 01:16 09/26/17 21:32 Melatonin (Nf) PO 3 mg BEDTIME PRN Administration Sleep Protocol Omeprazole 20 mg 09/24/17 07:30 09/28/17 09:06 Prilosec Cap* PO 20 mg BID AC [facility] Administration Ondansetron HCl 4 mg 09/24/17 01:16 Zofran Inj* IV Q6H PRN NAUSEA Tramadol HCl 50 mg 09/26/17 15:10 09/27/17 22:48 Ultram* PO 50 mg Q6H PRN Administration PAIN Vital Signs Temp Pulse Resp BP Pulse Ox 97.7 F 64 16 140/59 96 09/28/17 03:47 09/28/17 03:47 09/28/17 08:00 09/28/17 03:47 09/28/17 03:47 Gen: Pt in NAD, AAOx3 HEENT: No scleral icterus, PERRLA, mucous membranes moist Neck: Supple, Trachea Midline Respiratory: Symmetrical Chest Expansion and Respiratory Effort, Clear to Auscultation Cardiovascular: S1, S2+, normal, no murmurs Abdominal: NL Sounds; No Tenderness; No Distention, BS+ Lymphatic: No Cervical Adenopathy Extremities: No Edema, No Clubbing, Cyanosis Skin: No Rash or Ulcers, Bruises from blood draws Neurological: Alert and Oriented x 3, NL Muscle Strength and Tone Laboratory Results - last 24 hr 09/27/17 09/28/17 09/28/17 11:27 08:00 08:00 WBC 9.6 RBC 4.07 Hgb 12.1 Hct 36 MCV 88 MCH 30 MCHC 34 RDW 15 Plt Count 256 MPV 8 Neut % (Auto) 63.7 Lymph % (Auto) 25.8 Kane % (Auto) 6.8 Eos % (Auto) 3.0 Baso % (Auto) 0.7 Absolute Neuts (auto) 6.1 Absolute Lymphs (auto) 2.5 Absolute Monos (auto) 0.7 Absolute Eos (auto) 0.3 Absolute Basos (auto) 0.1 Absolute Nucleated RBC 0 Nucleated RBC % 0.1 BUN 11 POC Glucose (mg/dL) 123 H I/R: 67 y o f a/w syncope, found to have Lt adrenal mass, Lt lung mass and possible mediastinal adenopathy Pt having pauses even off beta hood, awaiting pacemaker placement on Saturday Will likely have adrenal biopsy while in pt, if adrenal biopsy negative, will schedule for lung biopsy Resp status stable C/w albuterol prn D/w Dr Hernandez
--- NOTE | 2017-09-28 13:36 | PN ---
Subjective Date of Service: 09/28/17 Interval History: pt feels tired, required 02 at night. several pauses noted at night when asleep at approx 4 AM. Objective Active Medications: Acetaminophen (Tylenol Tab*) 650 mg PO Q6H PRN PRN Reason: FEVER/PAIN Last Admin: 09/27/17 04:14 Dose: 650 mg Albuterol (Ventolin 2.5 Mg/3 Ml Neb.Phyllis*) 2.5 mg INH Q2H PRN PRN Reason: SOB/WHEEZING Amlodipine Besylate (Norvasc Tab*) 5 mg PO DAILY [facility] Last Admin: 09/28/17 09:06 Dose: 5 mg Aspirin (Aspirin Ec Low Dose*) 81 mg PO DAILY [facility] Last Admin: 09/28/17 09:06 Dose: 81 mg Atorvastatin Calcium (Lipitor*) 40 mg PO QPM [facility] Last Admin: 09/27/17 17:37 Dose: 40 mg Citalopram Hydrobromide (Celexa Tab*) 20 mg PO DAILY [facility] Last Admin: 09/28/17 09:06 Dose: 20 mg Docusate Sodium (Colace Cap*) 200 mg PO BID [facility] Last Admin: 09/28/17 09:08 Dose: Not Given Guaifenesin (Mucinex*) 600 mg PO BID [facility] Last Admin: 09/28/17 09:06 Dose: 600 mg Heparin Sodium (Porcine) (Heparin Vial(*)) 5,000 units SUBCUT Q8HR [facility] Last Admin: 09/28/17 05:58 Dose: 5,000 units Hydralazine HCl (Apresoline Iv*) 10 mg IV SLOW PU Q6H PRN PRN Reason: SYSTOLIC BP GREATER THAN: Last Admin: 09/25/17 19:05 Dose: 10 mg Hydrochlorothiazide (Hydrodiuril Tab*) 25 mg PO DAILY [facility] Last Admin: 09/28/17 09:06 Dose: 25 mg Sodium Chloride (Ns 0.9% 1000 Ml*) 1,000 mls @ 75 mls/hr IV PER RATE [facility] Cefazolin Sodium/Dextrose (Kefzol 2 Gm Premix(*)) 2 gm in 50 mls @ 100 mls/hr IVPB ONCE@0700 ONE Stop: 09/30/17 07:29 Lisinopril (Prinivil Tab*) 10 mg PO DAILY [facility] PRN Reason: Protocol Last Admin: 09/28/17 09:06 Dose: 10 mg Melatonin (Melatonin (Nf)) 3 mg PO BEDTIME PRN; Protocol PRN Reason: Sleep Last Admin: 09/26/17 21:32 Dose: 3 mg Omeprazole (Prilosec Cap*) 20 mg PO BID [facility] Last Admin: 09/28/17 09:06 Dose: 20 mg Ondansetron HCl (Zofran Inj*) 4 mg IV Q6H PRN PRN Reason: NAUSEA Tramadol HCl (Ultram*) 50 mg PO Q6H PRN PRN Reason: PAIN Last Admin: 09/27/17 22:48 Dose: 50 mg Vital Signs - 8 hr 09/28/17 08:00 Respiratory 16 Rate Oxygen Devices in Use Now: None, Nasal Cannula Appearance: 67 yo f in nAD, aAOx3 Eyes: No Scleral Icterus, PERRLA Ears/Nose/Mouth/Throat: NL Teeth, Lips, Gums, Mucous Membranes Moist Neck: NL Appearance and Movements; NL JVP, Trachea Midline Respiratory: Symmetrical Chest Expansion and Respiratory Effort, Clear to Auscultation Cardiovascular: NL Sounds; No Murmurs; No JVD, RRR Abdominal: NL Sounds; No Tenderness; No Distention, No Hepatosplenomegaly Lymphatic: No Cervical Adenopathy Extremities: No Edema, No Clubbing, Cyanosis Skin: No Rash or Ulcers, No Nodules or Sclerosis Neurological: Alert and Oriented x 3, NL Muscle Strength and Tone Result Diagrams: 09/28/17 08:00 09/28/17 08:00 Additional Lab and Data: Lab Results 09/23/17 09/23/17 09/23/17 Range/Units 18:02 18:02 18:02 WBC 14.8 H (3.5-10.8) 10^3/ul RBC 4.14 (4.0-5.4) 10^6/ul Hgb 12.1 (12.0-16.0) g/dl Hct 37 (35-47) % MCV 88 (80-97) fL MCH 29 (27-31) pg MCHC 33 (31-36) g/dl RDW 14 (10.5-15) % Plt Count 274 (150-450) 10^3/ul MPV 7 L (7.4-10.4) um3 Neut % (Auto) 81.0 (38-83) % Lymph % (Auto) 12.5 L (25-47) % [place] % (Auto) 4.2 (1-9) % Eos % (Auto) 1.6 (0-6) % Baso % (Auto) 0.7 (0-2) % Absolute Neuts (auto) 12.0 H (1.5-7.7) 10^3/ul Absolute Lymphs (auto) 1.9 (1.0-4.8) 10^3/ul Absolute Monos (auto) 0.6 (0-0.8) 10^3/ul Absolute Eos (auto) 0.2 (0-0.6) 10^3/ul Absolute Basos (auto) 0.1 (0-0.2) 10^3/ul Absolute Nucleated RBC 0 10^3/ul Nucleated RBC % 0 D-Dimer, Quantitative (Less Than 230) ng/mL Sodium 140 (133-145) mmol/L Potassium 2.4 L* (3.5-5.0) mmol/L Chloride 98 L (101-111) mmol/L Carbon Dioxide 33 H (22-32) mmol/L Anion Gap 9 (2-11) mmol/L BUN 9 (6-24) mg/dL Creatinine 0.70 (0.51-0.95) mg/dL Est GFR ( Amer) 107.3 (>60) Est GFR (Non-Af Amer) 83.5 (>60) BUN/Creatinine Ratio 12.9 (8-20) Glucose 105 H (70-100) mg/dL Lactic Acid 1.1 (0.5-2.0) mmol/L Calcium 8.7 (8.6-10.3) mg/dL Magnesium 1.4 L (1.9-2.7) mg/dL Total Bilirubin 0.50 (0.2-1.0) mg/dL AST 13 (13-39) U/L ALT 14 (7-52) U/L Alkaline Phosphatase 72 (34-104) U/L Troponin I 0.01 (<0.04) ng/mL Total Protein 6.7 (6.4-8.9) g/dL Albumin 3.6 (3.2-5.2) g/dL Globulin 3.1 (2-4) g/dL Albumin/Globulin Ratio 1.2 (1-3) TSH 0.85 (0.34-5.60) mcIU/mL Urine Color Urine Appearance Urine pH (5-9) Ur Specific [place] (1.010-1.030) Urine Protein (Negative) Urine Ketones (Negative) Urine Blood (Negative) Urine Nitrate (Negative) Urine Bilirubin (Negative) Urine Urobilinogen (Negative) Ur Leukocyte Esterase (Negative) Urine Glucose (Negative) Influenza A (Rapid) (Negative) Influenza B (Rapid) (Negative) 09/23/17 09/23/17 09/23/17 Range/Units 18:02 19:19 23:16 WBC (3.5-10.8) 10^3/ul RBC (4.0-5.4) 10^6/ul Hgb (12.0-16.0) g/dl Hct (35-47) % MCV (80-97) fL MCH (27-31) pg MCHC (31-36) g/dl RDW (10.5-15) % Plt Count (150-450) 10^3/ul MPV (7.4-10.4) um3 Neut % (Auto) (38-83) % Lymph % (Auto) (25-47) % [place] % (Auto) (1-9) % Eos % (Auto) (0-6) % Baso % (Auto) (0-2) % Absolute Neuts (auto) (1.5-7.7) 10^3/ul Absolute Lymphs (auto) (1.0-4.8) 10^3/ul Absolute Monos (auto) (0-0.8) 10^3/ul Absolute Eos (auto) (0-0.6) 10^3/ul Absolute Basos (auto) (0-0.2) 10^3/ul Absolute Nucleated RBC 10^3/ul Nucleated RBC % D-Dimer, Quantitative 427 H (Less Than 230) ng/mL Sodium (133-145) mmol/L Potassium (3.5-5.0) mmol/L Chloride (101-111) mmol/L Carbon Dioxide (22-32) mmol/L Anion Gap (2-11) mmol/L BUN (6-24) mg/dL Creatinine (0.51-0.95) mg/dL Est GFR ( Amer) (>60) Est GFR (Non-Af Amer) (>60) BUN/Creatinine Ratio (8-20) Glucose (70-100) mg/dL Lactic Acid (0.5-2.0) mmol/L Calcium (8.6-10.3) mg/dL Magnesium (1.9-2.7) mg/dL Total Bilirubin (0.2-1.0) mg/dL AST (13-39) U/L ALT (7-52) U/L Alkaline Phosphatase (34-104) U/L Troponin I (<0.04) ng/mL Total Protein (6.4-8.9) g/dL Albumin (3.2-5.2) g/dL Globulin (2-4) g/dL Albumin/Globulin Ratio (1-3) TSH (0.34-5.60) mcIU/mL Urine Color Yellow Urine Appearance Clear Urine pH 6.0 (5-9) Ur Specific [place] 1.015 (1.010-1.030) Urine Protein Negative (Negative) Urine Ketones Negative (Negative) Urine Blood Negative (Negative) Urine Nitrate Negative (Negative) Urine Bilirubin Negative (Negative) Urine Urobilinogen Negative (Negative) Ur Leukocyte Esterase Negative (Negative) Urine Glucose Negative (Negative) Influenza A (Rapid) Negative (Negative) Influenza B (Rapid) Negative (Negative) Assess/Plan/Problems-Billing Assessment: 67 yo F presenting to [facility] after syncope found with lung mass concerning for primary of metastatic malignancy with hospital stay complicated by long pauses - Patient Problems (1) Syncope Comment: Pauses continue, despite off beta hood x 4 days. Cardiology plans for pacemaker early next week. Other contributing factors may include underlying malignancy, 30lb weight loss in 1 month, and electrolyte abnormalities no e/o PE, heparin stopped (2) Sinus pause Comment: confirmed with PCP, patient has not been taking atenolol (Is not currently prescribed medication). Atenolol entered into medication reconcilliation in error. Pt received one dose on 09/24/17 cont to monitor on telem (3) Lung tumor Comment: suspect malignant in RICHIE at 2.[address] with multiple LNs and adrenal nodule at 0.9 cm suspicious for metastatic disease Discussed with Dr. Teixeira and Dr. Pascal. Dr. Pascal's office will call patient to arrange outpatient biopsy , but pt may be able to have the left adrenal bx when waiting or a pacer (4) Hypertension Comment: HCTZ increased and Norvasc started on 09/27/17, now under better control (5) DVT prophylaxis Comment: HSQ Status and Disposition: inpatient
[2017-09-28] MEDS: Atorvastatin* 40 MG TAB PO SCH (18:04)
[2017-09-28] MEDS: traMADol TAB* 50 MG PO PRN (19:48)
[2017-09-29] MEDS: Heparin VIAL(*) 5000 UNITS/ML VIAL (FIVE THOUSAND) SUBCUT SCH ×3 (05:41→20:55)
[2017-09-29] MEDS: Citalopram TAB* 20 MG PO SCH (08:52)
[2017-09-29] MEDS: amLODIPine TAB* 5 MG PO SCH (08:52)
[2017-09-29] MEDS: Aspirin EC Low Dose* 81 MG TAB.EC PO SCH (08:52)
[2017-09-29] MEDS: Omeprazole CAP* 20 MG PO SCH ×2 (08:52→17:58)
[2017-09-29] MEDS: Hydrochlorothiazide TAB* 25 MG PO SCH (08:52)
[2017-09-29] MEDS: Lisinopril TAB* 10 MG PO SCH (08:52)
[2017-09-29] MEDS: guaiFENesin ER TAB 600 MG PO SCH ×2 (08:52→20:55)
[2017-09-29] MEDS: Docusate CAP* 100 MG PO SCH ×2 (08:53→20:56)
--- NOTE | 2017-09-29 10:28 | PN ---
Subjective Date of Service: 09/29/17 Interval History: No pauses overnight noted. Pt is awaiting pacer tomorrow Objective Active Medications: Acetaminophen (Tylenol Tab*) 650 mg PO Q6H PRN PRN Reason: FEVER/PAIN Last Admin: 09/27/17 04:14 Dose: 650 mg Albuterol (Ventolin 2.5 Mg/3 Ml Neb.Phyllis*) 2.5 mg INH Q2H PRN PRN Reason: SOB/WHEEZING Amlodipine Besylate (Norvasc Tab*) 5 mg PO DAILY [facility] Last Admin: 09/29/17 08:52 Dose: 5 mg Aspirin (Aspirin Ec Low Dose*) 81 mg PO DAILY [facility] Last Admin: 09/29/17 08:52 Dose: 81 mg Atorvastatin Calcium (Lipitor*) 40 mg PO QPM [facility] Last Admin: 09/28/17 18:04 Dose: 40 mg Citalopram Hydrobromide (Celexa Tab*) 20 mg PO DAILY [facility] Last Admin: 09/29/17 08:52 Dose: 20 mg Docusate Sodium (Colace Cap*) 200 mg PO BID [facility] Last Admin: 09/29/17 08:53 Dose: Not Given Guaifenesin (Mucinex*) 600 mg PO BID [facility] Last Admin: 09/29/17 08:52 Dose: 600 mg Heparin Sodium (Porcine) (Heparin Vial(*)) 5,000 units SUBCUT Q8HR [facility] Last Admin: 09/29/17 05:41 Dose: 5,000 units Hydralazine HCl (Apresoline Iv*) 10 mg IV SLOW PU Q6H PRN PRN Reason: SYSTOLIC BP GREATER THAN: Last Admin: 09/25/17 19:05 Dose: 10 mg Hydrochlorothiazide (Hydrodiuril Tab*) 25 mg PO DAILY [facility] Last Admin: 09/29/17 08:52 Dose: 25 mg Sodium Chloride (Ns 0.9% 1000 Ml*) 1,000 mls @ 75 mls/hr IV PER RATE [facility] Cefazolin Sodium/Dextrose (Kefzol 2 Gm Premix(*)) 2 gm in 50 mls @ 100 mls/hr IVPB ONCE@0700 ONE Stop: 09/30/17 07:29 Lisinopril (Prinivil Tab*) 10 mg PO DAILY [facility] PRN Reason: Protocol Last Admin: 09/29/17 08:52 Dose: 10 mg Melatonin (Melatonin (Nf)) 3 mg PO BEDTIME PRN; Protocol PRN Reason: Sleep Last Admin: 09/26/17 21:32 Dose: 3 mg Omeprazole (Prilosec Cap*) 20 mg PO BID [facility] Last Admin: 09/29/17 08:52 Dose: 20 mg Ondansetron HCl (Zofran Inj*) 4 mg IV Q6H PRN PRN Reason: NAUSEA Tramadol HCl (Ultram*) 50 mg PO Q6H PRN PRN Reason: PAIN Last Admin: 09/28/17 19:48 Dose: 50 mg Vital Signs - 8 hr 09/29/17 09/29/17 09/29/17 04:03 07:58 08:00 Temperature 97.9 F Pulse Rate 65 57 Respiratory 16 16 18 Rate Blood Pressure 114/46 100/45 (mmHg) O2 Sat by Pulse 97 91 Oximetry Oxygen Devices in Use Now: None Appearance: 67 yo f in NAD, AAOx3 Eyes: No Scleral Icterus, PERRLA Ears/Nose/Mouth/Throat: NL Teeth, Lips, Gums, Mucous Membranes Moist Neck: NL Appearance and Movements; NL JVP, Trachea Midline Respiratory: Symmetrical Chest Expansion and Respiratory Effort, Clear to Auscultation Cardiovascular: NL Sounds; No Murmurs; No JVD, RRR, No Edema Abdominal: NL Sounds; No Tenderness; No Distention, No Hepatosplenomegaly Lymphatic: No Cervical Adenopathy Extremities: No Edema, No Clubbing, Cyanosis Skin: No Rash or Ulcers, No Nodules or Sclerosis Neurological: Alert and Oriented x 3, NL Muscle Strength and Tone Result Diagrams: 09/28/17 08:00 09/28/17 08:00 Additional Lab and Data: Lab Results 09/23/17 09/23/17 09/23/17 Range/Units 18:02 18:02 18:02 WBC 14.8 H (3.5-10.8) 10^3/ul RBC 4.14 (4.0-5.4) 10^6/ul Hgb 12.1 (12.0-16.0) g/dl Hct 37 (35-47) % MCV 88 (80-97) fL MCH 29 (27-31) pg MCHC 33 (31-36) g/dl RDW 14 (10.5-15) % Plt Count 274 (150-450) 10^3/ul MPV 7 L (7.4-10.4) um3 Neut % (Auto) 81.0 (38-83) % Lymph % (Auto) 12.5 L (25-47) % [place] % (Auto) 4.2 (1-9) % Eos % (Auto) 1.6 (0-6) % Baso % (Auto) 0.7 (0-2) % Absolute Neuts (auto) 12.0 H (1.5-7.7) 10^3/ul Absolute Lymphs (auto) 1.9 (1.0-4.8) 10^3/ul Absolute Monos (auto) 0.6 (0-0.8) 10^3/ul Absolute Eos (auto) 0.2 (0-0.6) 10^3/ul Absolute Basos (auto) 0.1 (0-0.2) 10^3/ul Absolute Nucleated RBC 0 10^3/ul Nucleated RBC % 0 D-Dimer, Quantitative (Less Than 230) ng/mL Sodium 140 (133-145) mmol/L Potassium 2.4 L* (3.5-5.0) mmol/L Chloride 98 L (101-111) mmol/L Carbon Dioxide 33 H (22-32) mmol/L Anion Gap 9 (2-11) mmol/L BUN 9 (6-24) mg/dL Creatinine 0.70 (0.51-0.95) mg/dL Est GFR ( Amer) 107.3 (>60) Est GFR (Non-Af Amer) 83.5 (>60) BUN/Creatinine Ratio 12.9 (8-20) Glucose 105 H (70-100) mg/dL Lactic Acid 1.1 (0.5-2.0) mmol/L Calcium 8.7 (8.6-10.3) mg/dL Magnesium 1.4 L (1.9-2.7) mg/dL Total Bilirubin 0.50 (0.2-1.0) mg/dL AST 13 (13-39) U/L ALT 14 (7-52) U/L Alkaline Phosphatase 72 (34-104) U/L Troponin I 0.01 (<0.04) ng/mL Total Protein 6.7 (6.4-8.9) g/dL Albumin 3.6 (3.2-5.2) g/dL Globulin 3.1 (2-4) g/dL Albumin/Globulin Ratio 1.2 (1-3) TSH 0.85 (0.34-5.60) mcIU/mL Urine Color Urine Appearance Urine pH (5-9) Ur Specific [place] (1.010-1.030) Urine Protein (Negative) Urine Ketones (Negative) Urine Blood (Negative) Urine Nitrate (Negative) Urine Bilirubin (Negative) Urine Urobilinogen (Negative) Ur Leukocyte Esterase (Negative) Urine Glucose (Negative) Influenza A (Rapid) (Negative) Influenza B (Rapid) (Negative) 09/23/17 09/23/17 09/23/17 Range/Units 18:02 19:19 23:16 WBC (3.5-10.8) 10^3/ul RBC (4.0-5.4) 10^6/ul Hgb (12.0-16.0) g/dl Hct (35-47) % MCV (80-97) fL MCH (27-31) pg MCHC (31-36) g/dl RDW (10.5-15) % Plt Count (150-450) 10^3/ul MPV (7.4-10.4) um3 Neut % (Auto) (38-83) % Lymph % (Auto) (25-47) % [place] % (Auto) (1-9) % Eos % (Auto) (0-6) % Baso % (Auto) (0-2) % Absolute Neuts (auto) (1.5-7.7) 10^3/ul Absolute Lymphs (auto) (1.0-4.8) 10^3/ul Absolute Monos (auto) (0-0.8) 10^3/ul Absolute Eos (auto) (0-0.6) 10^3/ul Absolute Basos (auto) (0-0.2) 10^3/ul Absolute Nucleated RBC 10^3/ul Nucleated RBC % D-Dimer, Quantitative 427 H (Less Than 230) ng/mL Sodium (133-145) mmol/L Potassium (3.5-5.0) mmol/L Chloride (101-111) mmol/L Carbon Dioxide (22-32) mmol/L Anion Gap (2-11) mmol/L BUN (6-24) mg/dL Creatinine (0.51-0.95) mg/dL Est GFR ( Amer) (>60) Est GFR (Non-Af Amer) (>60) BUN/Creatinine Ratio (8-20) Glucose (70-100) mg/dL Lactic Acid (0.5-2.0) mmol/L Calcium (8.6-10.3) mg/dL Magnesium (1.9-2.7) mg/dL Total Bilirubin (0.2-1.0) mg/dL AST (13-39) U/L ALT (7-52) U/L Alkaline Phosphatase (34-104) U/L Troponin I (<0.04) ng/mL Total Protein (6.4-8.9) g/dL Albumin (3.2-5.2) g/dL Globulin (2-4) g/dL Albumin/Globulin Ratio (1-3) TSH (0.34-5.60) mcIU/mL Urine Color Yellow Urine Appearance Clear Urine pH 6.0 (5-9) Ur Specific [place] 1.015 (1.010-1.030) Urine Protein Negative (Negative) Urine Ketones Negative (Negative) Urine Blood Negative (Negative) Urine Nitrate Negative (Negative) Urine Bilirubin Negative (Negative) Urine Urobilinogen Negative (Negative) Ur Leukocyte Esterase Negative (Negative) Urine Glucose Negative (Negative) Influenza A (Rapid) Negative (Negative) Influenza B (Rapid) Negative (Negative) Assess/Plan/Problems-Billing Assessment: 67 yo F presenting to [facility] after syncope found with lung mass concerning for primary of metastatic malignancy with hospital stay complicated by long pauses - Patient Problems (1) Syncope Comment: Pacer tomorrow. No pauses last night noted Other contributing factors may include underlying malignancy, 30lb weight loss in 1 month, and electrolyte abnormalities (2) Sinus pause Comment: confirmed with PCP, patient has not been taking atenolol (Is not currently prescribed medication). Atenolol entered into medication reconcilliation in error. Pt received one dose on 09/24/17 cont to monitor on telem (3) Lung tumor Comment: suspect malignant in [place] at 2.[address] with multiple LNs and adrenal nodule at 0.9 cm suspicious for metastatic disease Discussed with Dr. Teixeira and Dr. Pascal. Dr. Pascal's office will call patient to arrange outpatient biopsy , but pt may be able to have the left adrenal bx when waiting for a pacer (4) Hypertension Comment: HCTZ increased and Norvasc started on 09/27/17, now SBP in 100's range. will hold Norvasc (5) DVT prophylaxis Comment: HSQ Status and Disposition: inpatient
[2017-09-29] MEDS: Atorvastatin* 40 MG TAB PO SCH (17:58)
[2017-09-29] MEDS: traMADol TAB* 50 MG PO PRN (18:02)
[2017-09-30] MEDS: NS 0.9% 1000 ML* 1,000 ML IV SCH (00:12)
[2017-09-30] MEDS: Heparin VIAL(*) 5000 UNITS/ML VIAL (FIVE THOUSAND) SUBCUT SCH ×3 (05:14→21:07)
[2017-09-30 06:27] LABS: ABS Basophils 0.1 10^3/ul (0-0.2); ABS Eosinophils 0.3 10^3/ul (0-0.6); ABS Monocytes 0.8 10^3/ul (0-0.8); ABS Neutrophils 6.6 10^3/ul (1.5-7.7); ABS Nucleated RBC 0 10^3/ul; Eosinophil % 2.9 % (0-6); Hematocrit 36 % (35-47); Hemoglobin 11.9 g/dl (12.0-16.0); Lymphocyte % 28.1 % (25-47); Mean Corpuscular HGB Conc 33 g/dl (31-36); Mean Corpuscular Hemoglobin 30 pg (27-31); Mean Corpuscular Volume 89 fL (80-97); Mean Platelet Volume 8 um3 (7.4-10.4); Nucleated Red Blood Cells % 0; Platelet Count 264 10^3/ul (150-450); Red Blood Count 4.03 10^6/ul (4.0-5.4); Red Cell Distribution Width 15 % (10.5-15); White Blood Count 10.8 10^3/ul (3.5-10.8)
[2017-09-30 06:41] LABS: EGFR Non-African American 67.6 (>60)
[2017-09-30 06:45] LABS: INR 0.94 (0.77-1.02)
[2017-09-30] MEDS ORDERED: ceFAZolin 1 GM VIAL(*) 2 GM in NS 0.9% 100 ML* 100 ML IVPB ONE (07:00)
[2017-09-30] MEDS ORDERED: ceFAZolin 2 GM PREMIX (*) 2 GM/50 ML BAG IVPB ONE (07:00)
[2017-09-30] MEDS: Lisinopril TAB* 10 MG PO SCH (09:01)
[2017-09-30] MEDS: Docusate CAP* 100 MG PO SCH ×3 (09:01→21:06)
[2017-09-30] MEDS: Aspirin EC Low Dose* 81 MG TAB.EC PO SCH (09:01)
[2017-09-30] MEDS: Omeprazole CAP* 20 MG PO SCH ×2 (09:01→14:55)
[2017-09-30] MEDS: Hydrochlorothiazide TAB* 25 MG PO SCH (09:01)
[2017-09-30] MEDS: Citalopram TAB* 20 MG PO SCH (09:02)
[2017-09-30] MEDS: guaiFENesin ER TAB 600 MG PO SCH ×2 (09:02→21:07)
[2017-09-30] MEDS ORDERED: Midazolam* 1 MG/ML 10 ML VIAL (10 MG) ONE (09:45)
[2017-09-30] MEDS ORDERED: Iohexol 300 (CONTRAST) 10 ML SDV ONE ×2 (09:45→10:56)
[2017-09-30] MEDS ORDERED: Flumazenil* 0.1 MG/ML 5 ML MDV ONE (09:45)
[2017-09-30] MEDS ORDERED: fentaNYL* 50 MCG/ML 2 ML VIAL (100 MCG VIAL) ONE (09:45)
[2017-09-30] MEDS ORDERED: Naloxone* 0.4 MG/ML 1 ML VIAL ONE (09:45)
[2017-09-30] MEDS ORDERED: Lidocaine 1% INJ* 10 MG/ML 30 ML SDV ONE (09:46)
[2017-09-30] MEDS ORDERED: Acetaminophen TAB* 325 MG PO PRN (10:17)
[2017-09-30] MEDS: traMADol TAB* 50 MG PO PRN ×2 (14:12→21:07)
--- NOTE | 2017-09-30 14:30 | RAD ---
INDICATION: Device implant COMPARISON: Chest x-ray September 23, 2017; CT chest September 23, 2017 TECHNIQUE: An AP portable view obtained at 1321 hours is submitted. FINDINGS: Bones/Soft Tissues: There are no acute bony findings. There is a right-sided cardiac pacemaker. Cardiomediastinal: The cardiomediastinal silhouette is normal. Lungs: There is a persistent mass in left mid chest, unchanged. There is no pneumothorax. Pleura: There are no pleural effusions. Other: None IMPRESSION: RIGHT-SIDED CARDIAC PACEMAKER. NO PNEUMOTHORAX. LEFT CHEST MASS
[2017-09-30] MEDS: diPHENhydraMINE PO* 25 MG PO PRN ×2 (14:55→21:07)
--- NOTE | 2017-09-30 15:16 | PN ---
Subjective Date of Service: 09/30/17 Interval History: Pt got a pacemaker placed on R , doing well Objective Active Medications: Acetaminophen (Tylenol Tab*) 650 mg PO Q6H PRN PRN Reason: FEVER/PAIN Last Admin: 09/27/17 04:14 Dose: 650 mg Acetaminophen (Tylenol Tab*) 650 mg PO Q4H PRN PRN Reason: PAIN Albuterol (Ventolin 2.5 Mg/3 Ml Neb.Phyllis*) 2.5 mg INH Q2H PRN PRN Reason: SOB/WHEEZING Aspirin (Aspirin Ec Low Dose*) 81 mg PO DAILY [facility] Last Admin: 09/30/17 09:01 Dose: 81 mg Atorvastatin Calcium (Lipitor*) 40 mg PO QPM [facility] Last Admin: 09/29/17 17:58 Dose: 40 mg Citalopram Hydrobromide (Celexa Tab*) 20 mg PO DAILY [facility] Last Admin: 09/30/17 09:02 Dose: 20 mg Diphenhydramine HCl (Benadryl Po*) 25 mg PO Q6H PRN PRN Reason: ITCHING Last Admin: 09/30/17 14:55 Dose: 25 mg Docusate Sodium (Colace Cap*) 200 mg PO BID [facility] Last Admin: 09/30/17 09:03 Dose: Not Given Guaifenesin (Mucinex*) 600 mg PO BID [facility] Last Admin: 09/30/17 09:02 Dose: 600 mg Heparin Sodium (Porcine) (Heparin Vial(*)) 5,000 units SUBCUT Q8HR [facility] Last Admin: 09/30/17 14:12 Dose: 5,000 units Hydralazine HCl (Apresoline Iv*) 10 mg IV SLOW PU Q6H PRN PRN Reason: SYSTOLIC BP GREATER THAN: Last Admin: 09/25/17 19:05 Dose: 10 mg Hydrochlorothiazide (Hydrodiuril Tab*) 25 mg PO DAILY [facility] Last Admin: 09/30/17 09:01 Dose: 25 mg Sodium Chloride (Ns 0.9% 1000 Ml*) 1,000 mls @ 75 mls/hr IV PER RATE [facility] Last Admin: 09/30/17 00:12 Dose: 75 mls/hr Cefazolin Sodium 1 gm/ Sodium (Chloride) 50 mls @ 200 mls/hr IVPB Q8H [facility] Stop: 10/01/17 09:14 Lisinopril (Prinivil Tab*) 10 mg PO DAILY [facility] PRN Reason: Protocol Last Admin: 09/30/17 09:01 Dose: 10 mg Melatonin (Melatonin (Nf)) 3 mg PO BEDTIME PRN; Protocol PRN Reason: Sleep Last Admin: 09/26/17 21:32 Dose: 3 mg Omeprazole (Prilosec Cap*) 20 mg PO BID AC [facility] Last Admin: 09/30/17 14:55 Dose: 20 mg Ondansetron HCl (Zofran Inj*) 4 mg IV Q6H PRN PRN Reason: NAUSEA Tramadol HCl (Ultram*) 50 mg PO Q6H PRN PRN Reason: PAIN Last Admin: 09/30/17 14:12 Dose: 50 mg Vital Signs - 8 hr 09/30/17 09/30/17 09/30/17 07:51 08:00 12:42 Temperature 98.3 F Pulse Rate 61 Respiratory 14 14 Rate Blood Pressure 131/55 144/65 (mmHg) O2 Sat by Pulse 95 Oximetry 09/30/17 09/30/17 09/30/17 12:48 12:59 13:02 Temperature 97.3 F 97.3 F Pulse Rate 60 Respiratory 14 Rate Blood Pressure (mmHg) O2 Sat by Pulse 95 93 95 Oximetry 09/30/17 09/30/17 09/30/17 13:13 13:42 13:48 Temperature Pulse Rate Respiratory Rate Blood Pressure 154/46 173/57 (mmHg) O2 Sat by Pulse 93 Oximetry 09/30/17 09/30/17 14:12 14:55 Temperature Pulse Rate Respiratory 15 14 Rate Blood Pressure 164/62 (mmHg) O2 Sat by Pulse Oximetry Oxygen Devices in Use Now: None Appearance: 67 yo F in nAD, AAOx3 Eyes: No Scleral Icterus, PERRLA Ears/Nose/Mouth/Throat: NL Teeth, Lips, Gums, Mucous Membranes Moist Neck: NL Appearance and Movements; NL JVP, Trachea Midline Respiratory: Symmetrical Chest Expansion and Respiratory Effort, Clear to Auscultation Cardiovascular: NL Sounds; No Murmurs; No JVD, RRR Abdominal: NL Sounds; No Tenderness; No Distention, No Hepatosplenomegaly Lymphatic: No Cervical Adenopathy Extremities: No Edema, No Clubbing, Cyanosis Skin: No Rash or Ulcers, No Nodules or Sclerosis, - - R subclavicular area s/p pacer, covered with dressings Neurological: Alert and Oriented x 3, NL Muscle Strength and Tone Result Diagrams: 09/30/17 06:07 09/30/17 06:07 Additional Lab and Data: Lab Results 09/23/17 09/23/17 09/23/17 Range/Units 18:02 18:02 18:02 WBC 14.8 H (3.5-10.8) 10^3/ul RBC 4.14 (4.0-5.4) 10^6/ul Hgb 12.1 (12.0-16.0) g/dl Hct 37 (35-47) % MCV 88 (80-97) fL MCH 29 (27-31) pg MCHC 33 (31-36) g/dl RDW 14 (10.5-15) % Plt Count 274 (150-450) 10^3/ul MPV 7 L (7.4-10.4) um3 Neut % (Auto) 81.0 (38-83) % Lymph % (Auto) 12.5 L (25-47) % [place] % (Auto) 4.2 (1-9) % Eos % (Auto) 1.6 (0-6) % Baso % (Auto) 0.7 (0-2) % Absolute Neuts (auto) 12.0 H (1.5-7.7) 10^3/ul Absolute Lymphs (auto) 1.9 (1.0-4.8) 10^3/ul Absolute Monos (auto) 0.6 (0-0.8) 10^3/ul Absolute Eos (auto) 0.2 (0-0.6) 10^3/ul Absolute Basos (auto) 0.1 (0-0.2) 10^3/ul Absolute Nucleated RBC 0 10^3/ul Nucleated RBC % 0 D-Dimer, Quantitative (Less Than 230) ng/mL Sodium 140 (133-145) mmol/L Potassium 2.4 L* (3.5-5.0) mmol/L Chloride 98 L (101-111) mmol/L Carbon Dioxide 33 H (22-32) mmol/L Anion Gap 9 (2-11) mmol/L BUN 9 (6-24) mg/dL Creatinine 0.70 (0.51-0.95) mg/dL Est GFR ( Amer) 107.3 (>60) Est GFR (Non-Af Amer) 83.5 (>60) BUN/Creatinine Ratio 12.9 (8-20) Glucose 105 H (70-100) mg/dL Lactic Acid 1.1 (0.5-2.0) mmol/L Calcium 8.7 (8.6-10.3) mg/dL Magnesium 1.4 L (1.9-2.7) mg/dL Total Bilirubin 0.50 (0.2-1.0) mg/dL AST 13 (13-39) U/L ALT 14 (7-52) U/L Alkaline Phosphatase 72 (34-104) U/L Troponin I 0.01 (<0.04) ng/mL Total Protein 6.7 (6.4-8.9) g/dL Albumin 3.6 (3.2-5.2) g/dL Globulin 3.1 (2-4) g/dL Albumin/Globulin Ratio 1.2 (1-3) TSH 0.85 (0.34-5.60) mcIU/mL Urine Color Urine Appearance Urine pH (5-9) Ur Specific [place] (1.010-1.030) Urine Protein (Negative) Urine Ketones (Negative) Urine Blood (Negative) Urine Nitrate (Negative) Urine Bilirubin (Negative) Urine Urobilinogen (Negative) Ur Leukocyte Esterase (Negative) Urine Glucose (Negative) Influenza A (Rapid) (Negative) Influenza B (Rapid) (Negative) 09/23/17 09/23/17 09/23/17 Range/Units 18:02 19:19 23:16 WBC (3.5-10.8) 10^3/ul RBC (4.0-5.4) 10^6/ul Hgb (12.0-16.0) g/dl Hct (35-47) % MCV (80-97) fL MCH (27-31) pg MCHC (31-36) g/dl RDW (10.5-15) % Plt Count (150-450) 10^3/ul MPV (7.4-10.4) um3 Neut % (Auto) (38-83) % Lymph % (Auto) (25-47) % [place] % (Auto) (1-9) % Eos % (Auto) (0-6) % Baso % (Auto) (0-2) % Absolute Neuts (auto) (1.5-7.7) 10^3/ul Absolute Lymphs (auto) (1.0-4.8) 10^3/ul Absolute Monos (auto) (0-0.8) 10^3/ul Absolute Eos (auto) (0-0.6) 10^3/ul Absolute Basos (auto) (0-0.2) 10^3/ul Absolute Nucleated RBC 10^3/ul Nucleated RBC % D-Dimer, Quantitative 427 H (Less Than 230) ng/mL Sodium (133-145) mmol/L Potassium (3.5-5.0) mmol/L Chloride (101-111) mmol/L Carbon Dioxide (22-32) mmol/L Anion Gap (2-11) mmol/L BUN (6-24) mg/dL Creatinine (0.51-0.95) mg/dL Est GFR ( Amer) (>60) Est GFR (Non-Af Amer) (>60) BUN/Creatinine Ratio (8-20) Glucose (70-100) mg/dL Lactic Acid (0.5-2.0) mmol/L Calcium (8.6-10.3) mg/dL Magnesium (1.9-2.7) mg/dL Total Bilirubin (0.2-1.0) mg/dL AST (13-39) U/L ALT (7-52) U/L Alkaline Phosphatase (34-104) U/L Troponin I (<0.04) ng/mL Total Protein (6.4-8.9) g/dL Albumin (3.2-5.2) g/dL Globulin (2-4) g/dL Albumin/Globulin Ratio (1-3) TSH (0.34-5.60) mcIU/mL Urine Color Yellow Urine Appearance Clear Urine pH 6.0 (5-9) Ur Specific [place] 1.015 (1.010-1.030) Urine Protein Negative (Negative) Urine Ketones Negative (Negative) Urine Blood Negative (Negative) Urine Nitrate Negative (Negative) Urine Bilirubin Negative (Negative) Urine Urobilinogen Negative (Negative) Ur Leukocyte Esterase Negative (Negative) Urine Glucose Negative (Negative) Influenza A (Rapid) Negative (Negative) Influenza B (Rapid) Negative (Negative) Assess/Plan/Problems-Billing Assessment: 67 yo F presenting to [facility] after syncope found with lung mass concerning for primary of metastatic malignancy with hospital stay complicated by long pauses - Patient Problems (1) Syncope Comment: S/p pacer today, planned to monitor on telem , d/c tomorrow Other contributing factors may include underlying malignancy, 30lb weight loss in 1 month, and electrolyte abnormalities (2) Sinus pause Comment: confirmed with PCP, patient has not been taking atenolol (Is not currently prescribed medication). Atenolol entered into medication reconcilliation in error. Pt received one dose on 09/24/17 (3) Lung tumor Comment: suspect malignant in RICHIE at 2.[address] with multiple LNs and adrenal nodule at 0.9 cm suspicious for metastatic disease Discussed with Dr. Teixeira and Dr. Pascal. Dr. Pascal's office will call patient to arrange outpatient biopsy . Radiology recommended PET scan prior to deciding if adrenal nodule should be biopsied (4) Hypertension Comment: HCTZ increased , low BP when Norvasc added, now hypertensive again. will monitor for now (5) DVT prophylaxis Comment: HSQ Status and Disposition: inpatient
[2017-09-30] MEDS: Acetaminophen TAB* 325 MG PO PRN (16:07)
[2017-09-30] MEDS: ceFAZolin 1 GM VIAL(*) 1 GM in NS 0.9% 50 ML* 50 ML IVPB SCH (17:11)
[2017-09-30] MEDS: Atorvastatin* 40 MG TAB PO SCH (18:22)
[2017-10-01] MEDS: ceFAZolin 1 GM VIAL(*) 1 GM in NS 0.9% 50 ML* 50 ML IVPB SCH ×2 (00:33→09:58)
[2017-10-01] MEDS: hydrALAZINE IV* 20 MG/ML VIAL IV SLOW PU PRN (00:33)
[2017-10-01] MEDS: traMADol TAB* 50 MG PO PRN (05:09)
[2017-10-01] MEDS: NS 0.9% 1000 ML* 1,000 ML IV SCH (05:10)
[2017-10-01] MEDS: Heparin VIAL(*) 5000 UNITS/ML VIAL (FIVE THOUSAND) SUBCUT SCH ×2 (05:10→13:29)
[2017-10-01] MEDS: diPHENhydraMINE PO* 25 MG PO PRN (05:18)
--- NOTE | 2017-10-01 09:28 | RAD ---
INDICATION: Device implant. Left breast mass COMPARISON: September 30, 2017 TECHNIQUE: PA and lateral dual-energy views were obtained. FINDINGS: Bones/Soft Tissues: There are no acute bony findings. There is recent right-sided cardiac pacemaker placement. The appearance unchanged. Cardiomediastinal: The cardiomediastinal silhouette is normal. Lungs: There is masslike airspace disease in the left chest, unchanged. The remaining lung batres are clear. Pleura: There are no pleural effusions. Other: None IMPRESSION: NO INTERVAL CHANGES. RIGHT-SIDED CARDIAC PACEMAKER WITHOUT PNEUMOTHORAX. LEFT CHEST MASS
[2017-10-01] MEDS: Aspirin EC Low Dose* 81 MG TAB.EC PO SCH (09:57)
[2017-10-01] MEDS: Omeprazole CAP* 20 MG PO SCH (09:57)
[2017-10-01] MEDS: Hydrochlorothiazide TAB* 25 MG PO SCH (09:57)
[2017-10-01] MEDS: Citalopram TAB* 20 MG PO SCH (09:57)
[2017-10-01] MEDS: Lisinopril TAB* 10 MG PO SCH (09:57)
[2017-10-01] MEDS: guaiFENesin ER TAB 600 MG PO SCH (09:57)
[2017-10-01] MEDS: Docusate CAP* 100 MG PO SCH (09:58)
[2017-10-01 13:21] VITALS: BP 147/52
--- NOTE | 2017-10-01 14:08 | OP ---
CC: Dr. Ramez Meek; Kathy Raygoza NP * DATE OF OPERATION: 09/30/17 - ROOM #452 DATE OF : 50 SURGEON: Christie Callahan MD ANESTHESIA: MAC. PRE-OP DIAGNOSIS: Sick sinus syndrome with syncope. POST-OP DIAGNOSIS: Sick sinus syndrome with syncope. OPERATIVE PROCEDURE: Dual-chamber pacemaker implantation. ESTIMATED BLOOD LOSS: Less than 5 cc. COMPLICATIONS: Transient mild hypotension. DESCRIPTION OF PROCEDURE: The indications, risks and benefits and specifics of the procedure were discussed with the patient in the presence of her family and she was amenable to proceeding. As the patient had a lung mass noted on the left lung, even though the patient is right handed, the decision was made to place the pacemaker in the right side of the chest after discussion with Radiology about potential impacts of imaging of the lung mass and surrounding lung batres with the pacemaker. The right subclavian fossa was prepped and draped in the usual sterile fashion and a time-out procedure was called. Following this, the patient received 10 cc of radiopaque dye in the right upper extremity, and using fluoroscopic guidance, the right axillary and right subclavian vein was outlined. Following this, the patient received a total of 5 mg of Versed and 50 mcg of fentanyl for sedation in addition to 23 cc of 1% lidocaine. Using a 10 blade knife, a 2 cm incision was made in the right subclavian fossa, and using Bovie and blunt dissection, was extended to the level of the pectoralis muscle. This entailed going through a significant amount of fat. Additional lidocaine was infused inferiorly and medially and a small pocket was fashioned using blunt dissection. There was difficulty obtaining access and the pocket was extended laterally. Radiopaque dye was performed and following this, using a modified Seldinger technique, the right subclavian vein was cannulated and a guidewire inserted using fluoroscopic guidance. Using an introducer technique, the right ventricular lead was guided into the right ventricular apex and actively fixed in place. Pacing and sensing thresholds were checked and found to be good. Using the other guidewire and an introducer technique, the right atrial lead was guided in the right atrial appendage and actively fixed in place and pacing and sensing thresholds were checked and found to be good. Leads were then sutured to the pocket using 0 silk suture. The leads were attached to the generator. The generator was placed in the pocket and the incision was closed with three layers of resorbable suture, two layers of 2-0, one layer of 4-0, followed by akash and an external dressing. FINDINGS: The entire system is an MRI compatible system. The device is a MedSeculert model A2DR01, serial number [id number]. The atrial lead is a Medtronic model 5076-45, serial number [id number] and the ventricular lead is a Medtronic model 5076-52, serial number [id number]. P waves are sensed at 5.4 millivolts. The atrial lead impedance 884 ohms and the atrial pacing threshold 1.3 volts at 0.5 milliseconds. The ventricular lead had sensed P waves at 13.4 millivolts. The ventricular lead impedance was 1400 ohms and the ventricular pacing threshold of 1 volt at 0.5 milliseconds. The patient's blood pressure dropped transiently into the high 80s and responded well to 250 cc bolus of normal saline and there were otherwise no complications. The patient was hemodynamically stable on transfer to the floor. [id number]/[facility] #: [id number] [facility]ALTH[facility]
--- NOTE | 2017-10-02 03:22 | DS ---
ADDENDUM NOW INCLUDED ON THIS REPORT CC: Jo Raygoza NP; Dr. Pascal; Dr. Callahan; Dr. Meek * DISCHARGE SUMMARY: DATE OF ADMISSION: 09/24/17 DATE OF DISCHARGE: 10/01/17 PRIMARY CARE PROVIDER: Kathy Raygoza NP. DISCHARGE DIAGNOSES: 1. Syncope due to sick sinus syndrome status post pacemaker placement by Dr. Callahan on 09/30/17. 2. Left lung 2.6 cm nodule with multiple satellite lesions, suspected malignancy, under the care of Dr. Pascal. 3. A 9-mm left adrenal gland nodule. SECONDARY DIAGNOSES: 1. History of hypertension. 2. History of dyslipidemia. 3. Chronic kidney disease. 4. History of gastroesophageal reflux disease. 5. History of hepatitis B. MEDICATIONS AT DISCHARGE: Include: 1. Albuterol inhalation on a p.r.n. basis. 2. Aspirin 81 mg daily. 3. Atorvastatin 40 mg daily. 4. Celexa 20 mg daily. 5. Ibuprofen 600 mg on a p.r.n. basis. 6. Lisinopril/hydrochlorothiazide 06/27.5 one tablet daily. 7. Omeprazole 20 mg b.i.d. FOLLOWUP APPOINTMENTS: 1. At discharge, the patient will be admitted to follow up with Dr. Callahan's office, to call for a post pacemaker appointment next week. 2. Dr. Pascal is planning to see the patient on Saturday10/05/17, for followup of lung mass and adrenal nodule. The plan is to likely get a PET scan , to evaluate it further before biopsy. 3. The patient is also recommended to follow up with his primary care provider in 4 to 7 days. LABORATORY DATA AND STUDIES PERFORMED DURING THE HOSPITAL STAY: Included: From 09/30/17, white blood cell count 10.8, hemoglobin 11.9, hematocrit of 36, and platelets of 264. Sodium was 135, potassium 3.8, chloride 100, carbon dioxide 28, BUN 25, creatinine 0.84. The patient's D-dimer at admission was 427. TSH during her hospital stay was 0.85 at admission. Flu test was negative at admission. Chest CT obtained on 09/23/17. Impression: "2.6-cm left upper lobe mass with multiple nodules within the lungs elsewhere and a left adrenal nodule concerning for metastatic neoplasm. Recommend consideration of PET CT and/or tissue sampling." Brain CT obtained on 09/23/17. Impression: "No evidence of acute intracranial abnormality. Findings suggestive of chronic frontal sinusitis. In addition, there is an effusion within the right mastoid air cells." Lungs V/Q scan obtained on 09/24/17. Impression: "No compelling unexplained perfusion defects to raise concern for pulmonary embolism. The left upper lobe mass. Air trapping consistent with obstructive lung disease." Brain MRI obtained on 09/24/17. Impression: "Limited study due to motion artifact. No evidence of acute findings. Findings suggestive of sinusitis and effusion within the right mastoid air cells." Venous Doppler study on 09/24/17. Impression: "No evidence for DVT on bilateral lower extremity Doppler." Most recent x-ray obtained on 10/01/17. Impression: "No interval changes. Right- sided cardiac pacemaker without pneumothorax and left chest mass." CONSULTATIONS DURING THE HOSPITAL STAY: Included: Dr. Pascal from Pulmonology. Dr. Meek from Cardiology. HOSPITALIZATION COURSE: Angelina Voss is a 67-year-old female with history of smoking who passed out at the [email or web address] in [place]. For the details of the patient's presentation please see history and physical dictated by Dr. Tam. The patient was noted to have hypoxemic respiratory failure at admission. She also was noted to have an elevated D-dimer and lesion suspicious for cancer in her left lung. Mistakenly, she was noted to have atenolol on her medication list, which was given to the patient at admission. Subsequently, she became bradycardic and it was difficult to recognize if the bradycardia was preceding or not the atenolol dose. Nevertheless, cardiology was consulted. We recommended continuation of monitoring with pacemaker pass on in case the patient became more bradycardic. The patient continues to have heart rate in the 30s and 50s despite being three or four days off her only atenolol dose she had received. At this point, it was recommended for the patient to undergo pacemaker placement. It was performed by Dr. Callahan on 09/30/17. Post pacemaker placement, the patient did very well and she is going to follow up with Dr. Callahan's office as outpatient. Initially, the patient was noted to be hypoxemic and there was a question of PE. V/Q scan was obtained that was unremarkable and low probability. CT of the chest showed a 2.6 cm nodule in the left lung with satellite lesions. Dr. Pascal was asked to see the patient in consultation. The patient also had a history of 30- pound weight loss, poor appetite recently. There was a thought that may be if the adrenal nodule that was 0.1 cm biopsy was positive for malignancy, that would document metastatic cancer. Nevertheless, after discussion with the radiologist, the adrenal nodule would be difficult to get to. At this point, the recommendation was for the patient to undergo a PET scan as outpatient and follow up with Dr. Pascal for possibility of biopsy of the lung mass if the adrenal nodule is not seen on the PET scan. The patient was mildly hypoxemic at admission and that resolved during her hospital stay. By the time of discharge, her oxygen saturation was 92-94% on room air. PHYSICAL EXAMINATION AT THE TIME OF DISCHARGE: Blood pressure of 147/52, heart rate of 64 and regular, respiratory rate is 15, oxygen saturation 92% on room air, temperature 97.4. General: The patient is a very pleasant 67-year-old female with a BMI of 36, who is in no acute distress, alert, awake, and oriented x3. HEENT: Head: Atraumatic, normocephalic. Eyes: Pupils are equal and reactive to light and accommodation. Oropharynx clear. Mucosa moist. Neck : Supple. No JVD. No bruits bilaterally. Cardiovascular: Regular rate and rhythm. No murmur. Respiratory: Clear to auscultation bilaterally. Abdomen: Soft, nontender. Bowel sounds present in all 4 quadrants. Extremities: There is no edema. Pulses +2 bilaterally. No clubbing or cyanosis. On evaluation of the skin, the patient has right-sided pacemaker insertion site stapled with no evidence of dehiscence. No hematoma, no infection noted. Neuro Evaluation: Speech clear. Cranial nerves II through XII grossly intact. Motor strength is 5/5 bilaterally. Please also note that the patient had a transthoracic echocardiogram performed during the hospital stay, which noted for the patient to have a normal EF of 60- 65% with functionally benign heart valve. Please note that this is a short summary of the patient's hospitalization. Please refer to further medical records for details. TIME SPENT: Approximately 45 minutes was spent on the patient's discharge. ADDENDUM: Please note that the patient was supposed to be on antibiotic prophylaxis for pacer and she is going to be on Keflex 250 mg 3 times a day for total of 3 days at discharge. [id number]/[facility] #: [id number]/[facility] #: [id number] [facility]
--- NOTE | 2017-10-02 04:58 | DS ---
DISCHARGE SUMMARY: ADDENDUM: Please note that the patient was supposed to be on antibiotic prophylaxis for pacer and she is going to be on Keflex 250 mg 3 times a day for total of 3 days at discharge. [id number]/[facility] #: [id number] [facility]TD[facility]
== END 2017-10-01 15:05 | disposition home or self-care (01) | DRG 243 ==
LOC: ED 17:22 → MEDTELE 09-24 01:04 → ICU 09-25 06:59 → MEDTELE 09-26 10:49
PROVIDERS: ADMIT Hospitalist; ATTEND Internal Medicine
PROC: 02H63JZ Insertion of Pacemaker Lead into Right Atrium, Percutaneous Approach (ICD-10-PCS; 2017-09-30)
PROC: 02HK3JZ Insertion of Pacemaker Lead into Right Ventricle, Percutaneous Approach (ICD-10-PCS; 2017-09-30)
PROC: 0JH606Z Insertion of Pacemaker, Dual Chamber into Chest Subcutaneous Tissue and Fascia, Open Approach (ICD-10-PCS; principal; 2017-09-30 10:30)
DX: I49.5 Sick sinus syndrome (principal); C34.12 Malignant neoplasm of upper lobe, left bronchus or lung; I95.9 Hypotension, unspecified; E27.9 Disorder of adrenal gland, unspecified; E66.9 Obesity, unspecified; J32.1 Chronic frontal sinusitis; E78.5 Hyperlipidemia, unspecified; F17.210 Nicotine dependence, cigarettes, uncomplicated; K21.9 Gastro-esophageal reflux disease without esophagitis; R40.2412 Glasgow coma scale score 13-15, at arrival to emergency department; E87.6 Hypokalemia; I12.9 Hypertensive chronic kidney disease with stage 1 through stage 4 chronic kidney disease, or unspecified chronic kidney disease; N18.9 Chronic kidney disease, unspecified; R09.02 Hypoxemia; M13.0 Polyarthritis, unspecified; Z88.6 Allergy status to analgesic agent; Z88.8 Allergy status to other drugs, medicaments and biological substances; Z98.51 Tubal ligation status; Z90.710 Acquired absence of both cervix and uterus; Z90.49 Acquired absence of other specified parts of digestive tract; Z86.19 Personal history of other infectious and parasitic diseases; Z82.49 Family history of ischemic heart disease and other diseases of the circulatory system; Z72.89 Other problems related to lifestyle; Z68.36 Body mass index [BMI] 36.0-36.9, adult; Z80.6 Family history of leukemia; Z79.82 Long term (current) use of aspirin
CPT/HCPCS: 33208; 36415; 70450; 70551; 71045; 71046; 71260; 78582; 80048; 80053; 81003; 83605; 83735; 84443; 84484; 84520; 85025; 85379; 85610; 85730; 87502; 93005; 93306; 93970; 94760; 99156; 99157; 99284; 99406; A9270-GY; A9540; A9558; C1785; C1898; J0360; J0690; J1644; J2250; J2310; J3010; J3475; J3480; Q9967

== ENCOUNTER 2017-11-13 11:15 | Day surgery (SDC) | payer MEDICARE, BC ==
[~2017-11-13 11:15] MED LIST: Buffered Lidocaine 0.9% SYRIN* 5 ML/SYR SYRINGE INTRADERM ONE
[2017-11-13] MEDS ORDERED: Buffered Lidocaine 0.9% SYRIN* 5 ML/SYR SYRINGE ONE (11:26)
[2017-11-13] MEDS ORDERED: Lidocaine 2% PF * 5 ML VIAL ONE (13:38)
[2017-11-13] MEDS ORDERED: Propofol* 10 MG/ML 20 ML BTL IV PUSH ONE (13:38)
[2017-11-13] MEDS ORDERED: Succinylcholine* 20 MG/ML 10 ML VIAL ONE (13:38)
[2017-11-13] MEDS ORDERED: fentaNYL* 50 MCG/ML 2 ML VIAL (100 MCG VIAL) ONE (13:38)
[2017-11-13] MEDS ORDERED: Levalbuterol 0.63MG/3ML NEB* UNIT OF USE INH ONE (14:58)
[2017-11-13] MEDS ORDERED: DiMENhydriNATE IV* 50 MG/ML VIAL IV PUSH PRN (15:01)
[2017-11-13] MEDS ORDERED: Naloxone* 0.4 MG/ML 1 ML VIAL IV PRN (15:01)
[2017-11-13] MEDS ORDERED: Levalbuterol 0.63MG/3ML NEB* UNIT OF USE INH PRN (15:01)
[2017-11-13] MEDS ORDERED: fentaNYL* 50 MCG/ML 2 ML VIAL (100 MCG VIAL) IV PRN (15:01)
[2017-11-13] MEDS ORDERED: Ipratropium 0.5MG/2.5ML NEB* 0.5 MG/2.5 ML NEB.SOLN ONE ×2 (15:15→15:16)
[2017-11-13] MEDS ORDERED: Ipratropium 0.5MG/2.5ML NEB* 0.5 MG/2.5 ML NEB.SOLN INH ONE (15:29)
[2017-11-13 16:16] VITALS: BP 122/55
--- NOTE | 2017-11-14 05:12 | PRO ---
BRONCHOSCOPY REPORT: DATE OF PROCEDURE: 11/13/17 - [facility] PROCEDURE PERFORMED: Bronchoscopy with endobronchial ultrasound-guided fine needle aspiration for lung cancer staging. ANESTHESIA: General anesthesia. ANESTHESIOLOGIST: Dr. Prescott. DESCRIPTION OF PROCEDURE: Informed consent was obtained from the patient prior to the procedure after all the risks and benefits were thoroughly explained. The patient recently underwent CT-guided biopsy and was diagnosed with adenocarcinoma of left lung. EBUS was scheduled for lymph node staging. Appropriate time-out was performed and agreed by attending staff prior to the procedure. Flexible Olympus bronchoscope was inserted through ET tube for airway inspection. ET tube positioning was confirmed to be 2 cm above the level of virgen. Bronchoscope was then advanced into the right bronchial tree, which was then inspected. The patient noted to have bronchomalacia without endobronchial lesions. Thick secretions were noted bilaterally and were suctioned out. Bronchoscope was then advanced into the left bronchial tree, which was then inspected. No endobronchial lesions were noted. Thick secretions were noted and were suctioned out. Bronchoscope was then withdrawn and EBUS bronchoscope was inserted. R4 lymph node was sampled with 3 passes. Rapid on-site evaluation revealed lymphatic tissue, no malignant cells were noted. Bronchoscope was then advanced into station 7 area and was sampled with 4 passes. Rapid on-site evaluation revealed lymphatic cells, no malignant cells were noted. R10 lymph node was measuring 0.4 by visual inspection and was sampled with three passes. Rapid on-site evaluation revealed lymphatic tissue, no malignant cells were noted. EBUS bronchoscope was then inserted and L4 lymph node was accessed with 3 passes. Rapid on-site evaluation revealed lymphatic tissue, no malignant cells were noted. Left hilar node was minimally enlarged and was sampled with one pass. Rapid on-site evaluation revealed lymphatic tissue, no malignant cells were noted. The patient tolerated the procedure well. The patient was extubated and seen in Recovery in optimal condition. [id number]/[facility] #: [id number] [facility] PARTNERSDarby
== END 2017-11-13 16:33 | disposition home or self-care (01) ==
LOC: OR 11:15
PROVIDERS: ATTEND Internal Medicine
DX: C34.92 Malignant neoplasm of unspecified part of left bronchus or lung (principal); R06.02 Shortness of breath; F17.210 Nicotine dependence, cigarettes, uncomplicated; R06.83 Snoring; Z95.0 Presence of cardiac pacemaker; I10 Essential (primary) hypertension; E66.09 Other obesity due to excess calories; M19.90 Unspecified osteoarthritis, unspecified site; F32.9 Major depressive disorder, single episode, unspecified
CPT/HCPCS: 88172; 88173; 88305; J0330; J2704; J3010; J7614

== ENCOUNTER 2017-12-19 07:12 | Inpatient (IN) | payer MEDICARE, BC ==
--- NOTE | 2017-12-12 21:39 | HP ---
CC: Kathy Raygoza NP; Ramez Meek MD; Joel Tracy MD; Alisha Pascal MD * HISTORY AND PHYSICAL: DATE OF ADMISSION/SURGERY: 12/19/17 PATIENT OF: Rene Fink MD * (DICTATED BY RONDA MENG) PRIMARY CARE PHYSICIAN: Kathy Raygoza NP. ATTENDING SURGEON: Rene Fink MD. ATTENDING DEOILING MACHINE OPERATOR: Ramez Meek MD CHIEF COMPLAINT: Left lung cancer. HISTORY OF PRESENT ILLNESS: Mrs. Hickey is a pleasant 67-year-old female who was seen in the office a couple of weeks ago to consider surgery for her left lung cancer. Apparently, the patient initially had syncopal episode back in September of this year and after cardiac workup, she was found to be in need of pacemaker. During this workup, she was found to have a left lung nodule. She had since a PET scan and a CT-guided biopsy that unfortunately revealed adenocarcinoma of the left lung. The patient herself denied any associated pulmonary symptoms. She has been a longstanding smoker for the past 50 years, who eventually quit smoking about few weeks ago. Given her ongoing findings of left lung cancer, the patient was seen by Dr. Fink a couple of weeks ago to consider lobectomy with a possible mediastinal lymph node dissection. The patient herself denies any chest pain, shortness of breath, dyspnea at rest, or orthopnea. She had a pacemaker placed in September of this year and since then she has had no more syncopal episodes or dizziness. She was seen by Dr. Meek last week in consideration for preoperative clearance and had an echocardiogram that revealed ejection fraction of 55%-60%, and also had a stress test and EKG showed no evidence of blockage. The patient was found to be a suitable candidate for thoracotomy and left upper lobectomy to be performed on a later date. PAST MEDICAL HISTORY: Significant for AV bundle branch block back in September of this year for which she had a dual chamber pacemaker. She also had new diagnosis of lung cancer in September of this year. Also, she has history of hypertension; hyperlipidemia; gastroesophageal reflux disease; hepatitis B. PAST SURGICAL HISTORY: Significant for appendectomy back in the 1980s open technique as well as hysterectomy and pacemaker placement in September of this year. CURRENT MEDICATIONS: Her medications at home include; 1. Aspirin 81 mg p.o. daily. 2. Atorvastatin 40 mg p.o. q.h.s. 3. Celexa 20 mg p.o. daily. 4. Ibuprofen 600 mg 1 tablet 3 times daily as needed for aches or pains. 5. Lisinopril/hydrochlorothiazide 10/12.5 mg 1 tablet daily. 6. Omeprazole 20 mg p.o. b.i.d. 7. Chantix for smoking cessation. 8. Hydroxyzine 25 mg 1 tablet 4 times a day as needed. ALLERGIES: She is allergic to CODEINE, ATENOLOL, and ADHESIVE SURGICAL TAPE. FAMILY HISTORY: Significant for father who from an CO at age 82 and mother who has a history of heart disease as well. She also has 3 sisters and 1 brother, older sister from cancer but the patient is unsure what type. SOCIAL HISTORY: The patient is a former smoker who quit few weeks ago after 1 pack per day for the past 50 years. She drinks alcohol rarely and caffeine intake is minimal. REVIEW OF SYSTEMS: See HPI, otherwise negative. She denies any further headache, dizziness, syncope, or blurred vision. No chest pain, sore throat, shortness of breath, or palpitations. No cough, wheezing, dyspnea, or orthopnea. She denies any abdominal pain, nausea, vomiting, or changes in bowel habits. No fever, chills, night sweats, or recent weight loss. No flank pain, back pain, dysuria, hematuria, or urinary frequency. PHYSICAL EXAMINATION GENERAL: She is a pleasant, elderly female, appears comfortable and in no acute distress or discomfort at her visit today. VITAL SIGNS: Revealed blood pressure of 122/70, pulse of 78, respirations 18, and temperature of 97 degrees. She weighs 193 pounds, height 5 feet 1 inch with BMI of 36.5. HEENT: Head is normocephalic, atraumatic. Sclerae anicteric. PERRLA. EOMs intact. Oropharynx is pink, moist with no exudate. NECK: Supple. Trachea midline. No cervical adenopathy, thyromegaly, or JVD. LUNGS: Clear to auscultation bilaterally. HEART: Regular rate and rhythm. Normal S1 and S2 without rubs, murmurs, or gallops. BACK: Normal curvature. No CVA tenderness. BREAST: Deferred at this time. ABDOMEN: Soft, nontender, and nondistended. There is an old transverse incision from prior open appendectomy appears to be well healed. No evidence of ventral hernia. EXTREMITIES: Without cyanosis, clubbing, or edema. RECTAL: Deferred at this time. NEUROLOGIC: Grossly intact. IMPRESSION: A 67-year-old female with a newly diagnosed adenocarcinoma of the left lung. PLAN: The patient is scheduled for left thoracotomy with left upper lobectomy on 12/19/17. She had conversation with Dr. Fink earlier and she understands the risks involved. Risks include but not limited to infection, bleeding, or injury to adjacent structures. We also discussed with her the need for probable chest tube in the immediate postoperative period as well as observation in the intensive care unit for at least the first couple of nights. We went on and reviewed the recommendation from Dr. Meek, her information assurance manager who cleared the patient to undergo surgery with no restriction. She had passed her stress test as well as a transthoracic echocardiogram done on 12/04/17 that revealed ejection fraction of 55% to 60%. At this point, the patient appears to be cleared for surgery. All her questions were answered and we will plan to follow her up after surgery while she is an inpatient in the hospital. RONDA MENG [id number]/CPS #: [id number] MTDD
[~2017-12-19 07:12] MED LIST changes: +Famotidine IV* 10 MG/ML 2 ML (20 mg) IV ONE; +Gabapentin CAP(*) 300 MG PO ONE; +Levalbuterol 0.63MG/3ML NEB* UNIT OF USE INH ONE
[2017-12-19] MEDS ORDERED: Heparin VIAL(*) 5000 UNITS/ML VIAL (FIVE THOUSAND) ONE (07:13)
[2017-12-19] MEDS ORDERED: Gabapentin CAP(*) 300 MG ONE (07:14)
[2017-12-19] MEDS ORDERED: Famotidine IV* 10 MG/ML 2 ML (20 mg) ONE (07:14)
[2017-12-19] MEDS ORDERED: ceFAZolin 2 GM PREMIX (*) 2 GM/50 ML BAG IVPB ONE (07:15)
[2017-12-19] MEDS ORDERED: Levalbuterol 1.25MG/0.5ML NEB ONE (07:15)
--- OUTSIDE RECORDS SUMMARY | 2017-12-19 07:18 | XMS REPORT ---
:1950 External Reference #:[id number] Author Organization [facility] Address [address] [address] Phone [phone] Care Team Providers Name Role Phone Ramez Meek MD, [facility] Care Team Information Land Development Manager Unavailable Kathy Raygoza NP Primary Care Physician Unavailable Payers Type Date Identification Numbers Payment Provider Subscriber Medicare Primary Policy Number: [id number] Medicare Ken Hickey PayID: [id number] [address] [place] [address] Medigap Part B Policy Number: [id number] [facility] Ken Hickey PayID: [id number] [address] [place] [address] Problems Date Description Provider Status Onset: 10/07/2017 Cardiac pacemaker in situ Christie Callahan M.D. Active Onset: 10/07/2017 Complete atrioventricular block Christie Callahan M.D. Active Onset: 11/11/2017 Chest pain Ramez Meek M.D., Active [facility], [facility] Family History Date Family Member(s) Problem(s) Comments General [place] MGM due to at age 82 Mother Heart Disease Mother due to Cancer () Siblings 4 3 sisters and 1 brother. 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 ETOH Use Rarely consumes alcohol Recreational Drug Use Denies Drug Use Smoking Patient is a current smoker, smoked for the past 50 smokes some days years Daily Caffeine Consumes on average 1 cup of Some days hot tea per day Daily Caffeine Consumes on average 32oz of Some days iced tea per day Exercise Type/Frequency Does not exercise Allergies, Adverse Reactions, Alerts Date Description Reaction Status Severity Comments 10/07/2017 Codeine difficult breathing active 10/07/2017 Atenolol bradycardia active 10/07/2017 Adhesive - Surgical Blisters active Mild to Moderate Tape Medications Medication Date Status Form Strength Qnty SIG Indications Ordering Provider Aspirin / Active Tablets DR 81mg 1 by Unknown 0000 mouth every day Atorvastatin / Active Tablets 40mg 1 by Unknown Calcium 0000 mouth every day Celexa / Active Tablets 20mg 1 by Unknown 0000 mouth every day Ibuprofen / Active Tablets 600mg 1 by Unknown 0000 mouth three times per day as needed Lisinopril-Hydr / Active Tablets 10-12.5mg 1 by Unknown ochlorothiazide 0000 mouth every day Omeprazole / Active Capsules 20mg [address] mouth twice per day Chantix / Active Tablets 0.5mg X 11 Storm, Starting Month & 1 mg Brant Chavez X 42 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 Hydroxyzine HCL / Active Tablets 25mg 1 tab Gloria, 0000 four Edwin, ENGINEERING DRAWINGS CHECKER times a day Nicorette Hx Lozenges 4mg 60unit 1 lozenge F17.210 Alisha 2018 s every 6 MD Gwyn hours as needed (pt has not started) Medications Administered in Office Medication Date Status Form Strength Qnty SIG Indications Ordering Provider Inj, Administered Injection Ramezmargaux Vu Regadenoson, 018 Fantasma, 0.1 MG Sascha, DINESH, FASGUDELIA Technetium TC Administered Injection Ramezmargaux Vu 99M 018 Romel Meek M.D., DINESH, Per Unit Dose VAISHLAI Up To 40 Millicuries Vital Signs Date Vital Result Comment 12/12/2017 Height 61 inches 5'1" Weight 193.00 lb Heart Rate 78 /min BP Systolic Sitting 122 mmHg BP Diastolic Sitting 70 mmHg Respiratory Rate 18 /min Body Temperature 97.0 F BMI (Body Mass Index) 36.5 kg/m2 12/06/2017 Height 61 inches 5'1" Weight 193.00 lb Heart Rate 82 /min BP Systolic Sitting 130 mmHg lue reg cuff BP Diastolic Sitting 56 mmHg lue reg cuff BP Systolic Standing 122 mmHg lue reg cuff BP Diastolic Standing 54 mmHg lue reg cuff Respiratory Rate 16 /min BMI (Body Mass Index) 36.5 kg/m2 Ejection Fraction 55-60% 12/04/2017 echo 11/28/2017 Height 61 inches 5'1" Weight 186.00 lb Heart Rate 72 /min BP Systolic Sitting 134 mmHg Lue reg cuff BP Diastolic Sitting 68 mmHg Lue reg cuff Respiratory Rate 16 /min O2 % BldC Oximetry 95 % On Ra BMI (Body Mass Index) 35.1 kg/m2 11/27/2017 Height 61 inches 5'1" Weight 188.00 lb Heart Rate 74 /min BP Systolic 128 mmHg BP Diastolic 78 mmHg Respiratory Rate 18 /min Body Temperature 97.8 F BMI (Body Mass Index) 35.5 kg/m2 11/11/2017 Height 61 inches 5'1" Weight 183.00 lb with shoes Heart Rate 74 /min BP Systolic Sitting 126 mmHg Lue lrg cuff BP Diastolic Sitting 72 mmHg Lue lrg cuff BP Systolic Standing 120 mmHg Lue lrg cuff BP Diastolic Standing 70 mmHg Lue lrg cuff Respiratory Rate 15 /min BMI (Body Mass Index) 34.6 kg/m2 Ejection Fraction 60-65% 09/26/2017-echo 11/01/2017 Height 61 inches 5'1" Weight 184.00 lb Heart Rate 92 /min BP Systolic Sitting 110 mmHg BP Diastolic Sitting 80 mmHg Respiratory Rate 14 /min O2 % BldC Oximetry 95 % BMI (Body Mass Index) 34.8 kg/m2 10/19/2017 Height 61 inches 5'1" Weight 184.00 lb w/ shoes Heart Rate 78 /min reg BP Systolic Sitting 110 mmHg Lue BP Diastolic Sitting 64 mmHg Lue Respiratory Rate 16 /min O2 % BldC Oximetry 95 % on Ra BMI (Body Mass Index) 34.8 kg/m2 10/07/2017 Height 61 inches 5'1" Weight 184.50 lb with shoes Heart Rate 102 /min BP Systolic Sitting 134 mmHg Lue lg cuff BP Diastolic Sitting 80 mmHg Lue lg cuff BP Systolic Standing 130 mmHg Lue lg cuff BP Diastolic Standing 80 mmHg Lue lg cuff Respiratory Rate 17 /min BMI (Body Mass Index) 34.9 kg/m2 Ejection Fraction 60-65% date 09/26/17 ECHO 10/04/2017 Height 61 inches 5'1" Weight 186.00 lb Heart Rate 84 /min BP Systolic Sitting 122 mmHg BP Diastolic Sitting 62 mmHg Respiratory Rate 14 /min O2 % BldC Oximetry 97 % BMI (Body Mass Index) 35.1 kg/m2 Neck Circumference in inches 15 Results Test Date Test Result H/L Range Note Laboratory test 11/13/2017 Cytology Non-Service Unit Operator SEE RESULT BELOW 1 finding Laboratory test 10/28/2017 Partial Thrombo 31.6 seconds 26.0-36.3 finding Time PTT Inr/Protime 10/28/2017 Inr 0.97 0.77-1.02 Platelet Count 10/28/2017 Platelet Count 261 10^3/uL 150-450 Mean Platelet Volume 8 um3 7.4-10.4 Laboratory test finding 10/28/2017 Miscellaneous Test See Comment 2 Cytology Non-Service Unit Operator SEE RESULT BELOW 3 Laboratory test 10/28/2017 Cytology Non-Service Unit Operator SEE RESULT BELOW 4 finding Laboratory test 10/15/2017 Point of Care 141 mg/dL High 70-100 5 finding Glucose 1 SEE RESULT BELOW Name: KEN HICKEY : [address]: Alisha Pascal MD Acct: [id number] Unit: [id number] AGE: 67 Location: OR Re11/13/17 SEX: F Status: MOHSEN MOISE SPEC: [id number] JANE: 11/13/17-[address]: Alisha Pascal MD REQ: [id number] RECD: 11/13/17150 STATUS: SOUT _ ORDERED: FNA-IMG GUID BX/5, LEVEL 4/5, CYTO ADEQ-1ST P/5 FINAL DIAGNOSIS 1. Lymph node, R4, Endobronchial ultrasound-guided fine needle aspiration: --Benign bronchial epithelium and lymphoid tissue. --No evidence of malignancy identified. 2. Lymph node, Station 7, Endobronchial ultrasound-guided fine needle aspiration: --Benign bronchial epithelium and lymphoid tissue. --No evidence of malignancy identified. 3. Lymph node, R10, Endobronchial ultrasound-guided fine needle aspiration: --Benign bronchial epithelium and lymphoid tissue. --No evidence of malignancy identified. 4. Lymph node, L4, Endobronchial ultrasound-guided fine needle aspiration: --Benign bronchial epithelium and lymphoid tissue. --No evidence of malignancy identified. 5. Lymph node, L10, Endobronchial ultrasound-guided fine needle aspiration: --Benign bronchial epithelium and lymphoid tissue. --No evidence of malignancy identified. CONTINUED ON NEXT PAGE DEPARTMENT OF PATHOLOGY, [address] [place] [address] Josemanuel Bob M.D. Director [facility] # [id number] RUN DATE: 11/14/17 [facility] LAB LIVE PAGE 2 Patient: KEN HICKEY [id number] (Continued) FINAL DIAGNOSIS (Continued) For parts 1-5, a cell block was prepared in the evaluation of this specimen. Smears and cell block reveal similar findings. #1. LYMPH NODE - US GUIDED ENDOBRONICAL R-4 LYMPH NODE FINE NEEDLE ASPIRATION , #2. LYMPH NODE - US GUIDED ENDOBRONCIAL STATION-7 FINE NEEDLE ASPIRATION, #3. LYMPH NODE - US GUIDED ENDOBRONCHIAL R-10 LYMPH NODE FINE NEEDLE ASPIRATION, #4. LYMPH NODE - US GUIDED ENDOBRONCHIAL L-4 LYMPH NODE FINE NEEDLE ASPIRATION, #5. LYMPH NODE - US GUIDED ENDOBRONCHIAL L-10 LYMPH NODE FINE NEEDLE ASPIRATION CLINICAL HISTORY #1) R-4 Lymph node. #2) Station -7 Lymph node. #3) R-10 Lymph node. #4) L-4 Lymph node. #5) L-10 Lymph node. IMMEDIATE INTERPRETATION 1. Pass 1-3 adequate 2. Pass 1-3 adequate 3. Pass 1-3 adequate 4. Pass 1 2-adequate 5. Pass 1-adequate GROSS DESCRIPTION #1) US guided endobronchial fine needle aspiration x 3 pass(es) with 5 alcohol fixed slides and needle rinse in formalin for cell block. #2) US guided endobronchial fine needle aspiration x 3 pass(es) with 6 alcohol fixed slides and needle rinse in formalin for cell block. #3) US guided endobronchial fine needle aspiration x 3 pass(es) with 8 alcohol fixed slides and needle rinse in formalin for cell block. #4) US guided endobronchial fine needle aspiration x 2 pass(es) with 6 alcohol fixed slides and needle rinse in formalin for cell block. #5) US guided endobronchial fine needle aspiration x 1 pass(es) with 3 alcohol fixed slides and needle rinse in formalin for cell block. Signed (signature on file) Josemanuel Bob MD 1624 END OF REPORT DEPARTMENT OF PATHOLOGY, [address] [place] [address] Josemanuel Bob M.D. Director [facility] # [id number] 2 Test Result Flag Unit RefValue Lung Panel with Rearrangement Tumor Result Summary See Comment RESULT: ALTERATION IDENTIFIED Result See Comment Provided diagnosis: Adenocarcinoma involving lung; unknown primary site, suspect lung origin The following alteration was identified: Gene: KRAS DNA change: c.34G>T Amino Acid change: p.G12C ([id number]) Classification: MUTATION No additional reportable alterations were identified within the tested genes. Interpretation See Comment ASSOCIATIONS BETWEEN KRAS MUTATIONS AND LUNG CANCER Approximately 20% of patients with lung adenocarcinoma have a somatic mutation in the KRAS gene (1). KRAS mutations, primarily those occurring at codons 12, 13, and 61, result in constitutive activation of the JULIA/MAPK signaling pathway (2-5). Current data suggest that the efficacy of EGFR-targeted therapies in lung cancer is limited to patients with tumors lacking KRAS mutations. Thus, the detection of a KRAS activating mutation and the absence of an EGFR mutation within this tumor suggests that EGFR-targeted therapies may have limited therapeutic value for this patient if the primary origin of the tumor is lung (2-5). REFERENCES 1. [email or web address] 2. Imani Rev Clin Oncol. 2011 May 08;8(11):661-8 (PMID 20468688) 3. Int J Cancer 2011;131(5):L102-788 (PMID 38055389) 4. Mod Pathol. 2008 January;21 Suppl 2:S16-22 (PMID 25789727) 5. J Clin Oncol. 2005 May 17;23(25):5900-9 (PMID 34195949) ADDITIONAL INFORMATION Microscopic examination was performed by a pathologist to identify areas of tumor for enrichment by macrodissection. Next generation sequencing was performed to test for the presence of a mutation within targeted regions of the following genes: EGFR, BRAF, KRAS, HRAS, NRAS, ALK, ERBB2, and MET (exon 14 skipping mutations only). Next generation sequencing was performed to test for the presence of a rearrangement/fusion involving the ALK, RET, ROS1 or NTRK1 genes. Mutation nomenclature is based on build GRCh37 (hg19). Rearrangement nomenclature is based on a custom reference sequence using GRCh37 (hg19). For details about gene reference transcripts (GenBank accession numbers) and additional information about this test, see [email or web address] (Test ID LNGPR). CLINICAL CORRELATIONS Test results should be interpreted in context of clinical findings, tumor sampling, histopathology, and other laboratory data. If results obtained do not match other clinical or laboratory findings, please contact the laboratory for possible interpretation. Misinterpretation of results may occur if the information provided is inaccurate or incomplete. This test cannot differentiate between somatic and germline alterations. Additional testing may be necessary to clarify the significance of results if there is a potential hereditary risk. The presence or absence of a mutation or fusion may not be predictive of response to therapy in all patients. TECHNICAL LIMITATIONS This test does not detect large insertions, deletions, or duplications or genomic copy number variants (such as amplification). This assay has been shown to detect >99% of single base substitutions and >99% of deletions/insertions (up to 50 bp) at >5% allele frequency, respectively. A negative (wild type) result does not rule out the presence of a mutation or rearrangement resulting in a targeted fusion that may be present but below the limits of detection of this assay. The analytical sensitivity of this assay is 5% with a minimum coverage of 100X for mutations and 5% with a minimum of 30 targeted fusion reads for fusions. Rare polymorphisms may be present that could lead to false negative or false positive results. TEST CLASSIFICATION This test was developed and its performance characteristics determined by [facility] in a manner consistent with CLIA requirements. This test has not been cleared or approved by the U.S. Food and Drug Administration. Additional Information See Comment CLINICAL TRIALS Possible clinical trials of benefit for this patient can be found at the following sites: 1) ClinicalTrials.gov: www.clinicaltrials.gov/ct2/search/advanced 2) [facility]: www.[facility]/research/clinical-trials/ 3) National Cancer [place]: www.cancer.gov/clinicaltrials/search Specimen Cells Tissue ID [id number] Released By See Comment RESULT: Margareth Broussard M.D. Test Performed by: [address] [address] 3 SEE RESULT BELOW Name: KEN HICKEY : [address]: Alisha Pascal MD Acct: [id number] Unit: [id number] AGE: 67 Location: SP Re10/28/17 SEX: F Status: REG REF SPEC: [id number] JANE: 10/28/17-[address] [facility] [address]: Alisha Pascal MD REQ: [id number] RECD: 10/28/17-152 STATUS: CARL DAMON DR: Usha Tracy MD _ ORDERED: FNA-IMG GUID BX, PTH HANDLING CH, CY ADEQ-ADDL P, LEVEL 4, CYTO ADEQ-1ST IMMUNO-FIRST, IMMUNO-ADDL/2, IMMUNO-QUANT Lung Panel with Rearrangement Tumor has been performed at [place], [place]. The testing reveals: Test Result Flag Unit RefValue Lung Panel with Rearrangement Tumor Result Summary See Comment RESULT: ALTERATION IDENTIFIED Result See Comment Provided diagnosis: Adenocarcinoma involving lung; unknown primary site, suspect lung origin The following alteration was identified: Gene: KRAS DNA change: c.34G>T Amino Acid change: p.G12C ([id number]) Classification: MUTATION No additional reportable alterations were identified within the tested genes. Interpretation See Comment ASSOCIATIONS BETWEEN KRAS MUTATIONS AND LUNG CANCER Approximately 20% of patients with lung adenocarcinoma have a somatic mutation in the KRAS gene (1). KRAS mutations, primarily those occurring at codons 12, 13, and 61 , result in constitutive activation of the JULIA/MAPK signaling pathway (2-5). Current data suggest that the efficacy of EGFR-targeted therapies in lung cancer is limited to patients with tumors lacking KRAS mutations. Thus, the detection of a KRAS activating mutation and the absence of an EGFR mutation within this tumor suggests that EGFR-targeted therapies may have limited therapeutic value for this patient if the primary origin of the tumor is lung (2-5). REFERENCES 1. [email or web address]/[email or web address]/ 2. Imani Rev Clin Oncol. 2010May 08;8(11):661-8 (PMID 40293982) 3. Int J Cancer 2011;131(5):A878-878 (PMID 19787705) CONTINUED ON NEXT PAGE DEPARTMENT OF PATHOLOGY, [address] [place] [address] Josemanuel Bob M.D. Director [facility] # [id number] RUN DATE: 11/20/17 [facility] LAB LIVE PAGE 2 Patient: KEN HICKEY [id number] (Continued) ADDENDUM (Continued) 4. Mod Pathol. 2007; Suppl 2:S16-22 (PMID 55344258) 5. J Clin Oncol. 2005 May 17;23(85):5907-9 (PMID 26252185) RESULT: Margareth Broussard M.D. Test Performed by: [address] [address] Addendum Signed (signature on file) Josemanuel Bob MD 1457 ROS1 has been performed at [place], [place]. The testing reveals: / (Original report scanned into Pathology Results). Addendum Signed (signature on file) Kalyani Schreiber MD 11/03 1524 BRAF has been performed at [place], [place]. The testing reveals: / (Original report scanned into Pathology Results). EGFR has been performed at [place], [place]. The testing reveals: CONTINUED ON NEXT PAGE DEPARTMENT OF PATHOLOGY, [address] [place] [address] Josemanuel Bob M.D. Director [facility] # [id number] RUN DATE: 11/20/17 [facility] LAB LIVE PAGE 3 Patient: KEN HICKEY [id number] (Continued) ADDENDUM (Continued) / (Original report scanned into Pathology Results). 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 See comment. Comment: The following immunochemical stains are performed with appropriate controls on formalin fixed cell block material. TTF-1 positive Napsin A positive ALK negative PDL 1 negative (30% tumor staining, less than 10% lymphocytes) Tumor gene sequencing evaluation to include EGFR mutation, ALK translocation,Ros-1, Braf amongst others is pending and will be reported in an addendum. Dr. Schreiber has reviewed this case and concurs. CONTINUED ON NEXT PAGE DEPARTMENT OF PATHOLOGY, [address] [place] [address] Josemanuel Bob M.D. Director [facility] # [id number] RUN DATE: 11/20/17 [facility] LAB LIVE PAGE 4 Patient: MARY HICKEYTHEA Heaven [id number] (Continued) SPECIMEN COMMENTS (Continued) A cell block was prepared in the evaluation of this specimen. Smears and cell block reveal similar findings. LUNG LEFT - CT GUIDED LEFT UPPER LOBE LUNG FINE NEEDLE ASPIRATION CLINICAL HISTORY Left upper lobe lung mass. IMMEDIATE INTERPRETATION Pass 1-inadequate, pass 2, and 3-adequate GROSS DESCRIPTION CT Guided, fine needle aspiration x 3 passes with 7 Alcohol fixed slide(s), 4 Alcohol fixed slide(s) and 2 needle rinse in formalin for cell blocks labeled [id number] and [id number]. Signed (signature on file) Josemanuel Bob MD 0927 END OF REPORT DEPARTMENT OF PATHOLOGY, [address] [place] [address] Josemanuel Bob M.D. Director [facility] # [id number] 4 SEE RESULT BELOW Name: KEN HICKEY : [address]: Alisha Pascal MD Acct: [id number] Unit: [id number] AGE: 67 Location: Re10/28/17 SEX: F Status: REG REF SPEC: [id number] JANE: 10/28/17-[address] [facility] [address]: Alisha Pascal MD REQ: [id number] RECD: 10/28/17152 STATUS: CARL DAMON DR: Usha Tracy MD _ ORDERED: FNA-IMG GUID BX, PTH HANDLING CH, CY ADEQ-ADDL P, LEVEL 4, CYTO ADEQ-1ST IMMUNO-FIRST, IMMUNO-ADDL/2, IMMUNO-QUANT ROS1 has been performed at [place], [place]. The testing reveals: / (Original report scanned into Pathology Results). Addendum Signed (signature on file) Kalyani Schreiber MD 11/03 1524 BRAF has been performed at [place], [place]. The testing reveals: / (Original report scanned into Pathology Results). EGFR has been performed at [place], [place]. The testing reveals: / (Original report scanned into Pathology Results). CONTINUED ON NEXT PAGE DEPARTMENT OF PATHOLOGY, [address] [place] [address] Josemanuel Bob M.D. 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 See comment. Comment: The following immunochemical stains are performed with appropriate controls on formalin fixed cell block material. TTF-1 positive Napsin A positive ALK negative PDL 1 negative (30% tumor staining, less than 10% lymphocytes) Tumor gene sequencing evaluation to include EGFR mutation, ALK translocation,Ros-1, Braf amongst others is pending and will be reported in an addendum. Dr. Schreiber has reviewed this case and concurs. A cell block was prepared in the evaluation of this specimen. Smears and cell block reveal similar findings. LUNG LEFT - CT GUIDED LEFT UPPER LOBE LUNG FINE NEEDLE ASPIRATION CONTINUED ON NEXT PAGE DEPARTMENT OF PATHOLOGY, [address] [place] [address] Josemanuel Bob M.D. Director [facility] # [id number] RUN DATE: 11/15/17 [facility] LAB LIVE PAGE 3 Patient: KEN HICKEY [id number] (Continued) CLINICAL HISTORY (Continued) CLINICAL HISTORY Left upper lobe lung mass. IMMEDIATE INTERPRETATION Pass 1-inadequate, pass 2, and 3-adequate GROSS DESCRIPTION CT Guided, fine needle aspiration x 3 passes with 7 Alcohol fixed slide(s), 4 Alcohol fixed slide(s) and 2 needle rinse in formalin for cell blocks labeled [id number] and [id number]. Signed (signature on file) Josemanuel Bob MD 0927 END OF REPORT DEPARTMENT OF PATHOLOGY, [address] [place] [address] Josemanuel Bob M.D. Director [facility] # [id number] 5 Actuary Manager: [id number] Procedures Date CPT Code Description Status 12/06/2017 95543 EKG Tracing & Interpretation Completed 12/04/2017 80708 ECHO Transthoracic, Real-Time 2D With Doppler And Color Completed Flow 12/04/2017 88489 ECHO Transthoracic, Real-Time 2D With Doppler And Color Completed Flow 12/02/2017 97701 Stress Test Completed 12/02/2017 79805 Myocardial Perfusion Imaging Tomographic (Spect) Completed Multiple Studies 11/13/2017 96699 Endobronchial Ultrasound=>3 Completed 10/29/2017 93234 Pace Maker Eval W/Iterative Adjment Dual Lead Completed 10/29/2017 22237 Pace Maker Eval W/Iterative Adjment Dual Lead Completed 10/17/2017 87562 Polysomnography Sleep Staging 4+ Parameters Completed 10/10/2017 58233 Diffusing Capacity Completed 10/10/2017 74350 Plethysmography Determination Lung Volumes & Per Completed Airway Resist 10/10/2017 27156 Pulmonary Stress Testing, Inc Measurement Heart Rate, Completed Oximetry 10/10/2017 10646 Pulmonary Function><Bronchodil Completed 10/01/2017 63614 Pace Maker Eval W/Iterative Adjment Dual Lead Completed 09/30/2017 37245 Perm Pacemaker Av Sequential Atrial And Ventricular Completed 09/26/2017 36605 ECHO Transthorasic Realtime 2D W Doppler & Color Completed Flow Hosp 09/25/2017 49899 EKG, Interpretation Only Completed 05/11/2008 12792 Color Flow Doppler/Interp & Reprt Completed 05/11/2008 92647 Pulse Wave/Continuous-Interp.RPT Completed 05/11/2008 84032 Pulse Wave/Continuous-Interp.RPT Completed 05/11/2008 70413 Echocardiogram Completed 05/03/2008 26425 Color Flow Doppler/Interp & Reprt Completed 05/03/2008 88945 Color Flow Doppler/Interp & Reprt Completed 05/03/2008 43353 Pulse Wave/Continuous-Interp.RPT Completed 05/03/2008 81597 Echocardiogram Completed 05/03/2008 14995 Echocardiogram Completed Encounters Type Date Location Provider CPT E/M Dx Office Visit 12/06/2017 [facility] Ramez Meek, [address] R07.9 2:00p [facility] Caicedo, DINESH, VAISHALI Office Visit 11/28/2017 [facility] [address] C34.92 10:15a [facility] G47.33 F17.210 Office Visit 11/27/2017 10:45a [facility], [address]456 C34.92 Jose Raul Caicedo Office Visit 11/11/2017 11:30a [facility] Ramez Meek 62898 R07.9 Jose Raul Caicedo, DINESH [facility] F17.210 Office Visit 11/01/2017 11:00a [facility] [place] [address] C34.92 [facility] G47.33 F17.210 Office Visit 10/19/2017 10:30a [facility] [place] [address] J98.4 [facility] F17.210 R06.83 Office Visit 10/04/2017 8:00a [facility] Sleep Alisha [place] [address] J98.4 Services Of [facility] F17.210 R06.83 E66.09 Office Visit 09/28/2017 1:11p [place] [address] E27.9 Services Of [facility] F17.210 J98.4 Office Visit 09/26/2017 8:58a [facility], Valerie Hernandez, 88980 R91.8 Hospitalists [place]Med[place] R55 I45.5 I10 Office Visit 09/26/2017 11:46a [facility] Ramez Meek, 39353 R55 MMedhat, [facility] [place] R00.1 Office Visit 09/25/2017 8:57a [facility], Satya Blanco, 19439 R91.8 Hospitalists MMedhat R55 I45.5 I10 Office Visit 09/25/2017 1:09p Pulmon[place] [address] R91.8 [facility] R55 R05 Office Visit 09/24/2017 8:57a [facility], Satya Blanco, 17130 R91.8 Hospitalists MMedhat R55 I45.5 I10 Plan of Care Future Appointment(s):12/19/2017 9:00 am - RONDA Navarro at [facility]12/19/2017 9:00 am - Rene Fink M.D. at [facility]01/09/2018 11:30 am - Alisha Pascal MD at [facility]
--- OUTSIDE RECORDS SUMMARY | 2017-12-19 07:19 | XMS REPORT ---
:1950 External Reference #:[id number] Author Organization [facility] [employer] Address [address] [address] Phone [phone] Care Team Providers Name Role Phone Ramez Meek MD, [facility] Care Team Information Toe Trimmer Unavailable Kathy Raygoza NP Primary Care Physician Unavailable Payers Type Date Identification Numbers Payment Provider Subscriber Medicare Primary Policy Number: [id number] Medicare Ken Hickey PayID: [id number] [address] [place] [address] Medigap Part B Policy Number: [id number] [facility] Ken Hickey PayID: [id number] [address] [place] [address] Problems Date Description Provider Status Onset: 10/07/2017 Cardiac pacemaker in situ Christie Callahan M.D. Active Onset: 10/07/2017 Complete atrioventricular block Christie Callahan M.D. Active Onset: 11/11/2017 Chest pain Ramez Meek M.D., Active [facility], [facility] Family History Date Family Member(s) Problem(s) Comments [place] MGM due to at age 82 Mother Heart Disease Mother due to Cancer () Siblings 4 3 sisters and 1 brother. 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 ETOH Use Rarely consumes alcohol Recreational Drug Use Negative For Former Drug User Smoking Patient is a current smoker, smokes some days Recreational Drug Use Denies Drug Use Daily Caffeine Consumes on average 3 cups of hot tea per day Daily Caffeine Consumes on average 36oz of iced tea per day Exercise Type/Frequency Does [...] Unknown 0000 mouth three times per day Lisinopril-Hydr / Active Tablets 10-12.5mg 1 by Unknown ochlorothiazide 0000 mouth every day Omeprazole / Active Capsules 20mg [address] mouth twice per day Chantix / Active Tablets 0.5mg X 11 Storm, Starting Month 0000 & 1 mg Kathy Brant X 42 NPC Hydroxyzine HCL / Active Tablets 25mg 1 tab Gloria, 0000 four Edwin, [employer] times a day Nicorette 10/04/ Hx Lozenges 4mg 60unit 1 lozenge F17.210 Alisha 2018 s every 6 MD Gwyn hours as needed (pt has not started) Vital Signs Date Vital Result Comment 11/27/2017 Height 61 inches 5'1" Weight 188.00 [...] H/L Range Note Laboratory test 11/13/2017 Cytology Non-Buckle Gluer SEE RESULT BELOW 1 finding Laboratory test 10/28/2017 Cytology Non-Buckle Gluer SEE RESULT BELOW 2 finding Laboratory test 10/28/2017 Miscellaneous Test See Comment 3 finding Cytology Non-Buckle Gluer SEE RESULT BELOW 4 Platelet Count 10/28/2017 Platelet Count 261 10^3/uL 150-450 Mean Platelet Volume 8 um3 7.4-10.4 Inr/Protime 10/28/2017 Inr 0.97 0.77-1.02 Laboratory test finding 10/28/2017 Partial Thrombo Time 31.6 seconds 26.0 -36.3 PTT Laboratory test finding 10/15/2017 Point of Care 141 mg/dL High 70-100 5 Glucose 1 SEE RESULT BELOW Name: KEN HICKEY : [address]: Alisha Pascal MD Acct: [id number] Unit: [id number] AGE: 67 Location: OR Re11/13/17 SEX: F Status: DEP SDC SPEC: [id number] JANE: 11/13/17-[address]: Alisha Pascal MD REQ: [id number] RECD: 11/13/17-150 STATUS: SOUT _ ORDERED: FNA-IMG GUID BX/5, [...] CONTINUED ON NEXT PAGE DEPARTMENT OF PATHOLOGY, [address] [place] [address] Josemanuel Bob M.D. Director [facility] # [id number] RUN DATE: 11/14/17 [facility] LAB LIVE PAGE 2 Patient: KEN HICKEY [id number] (Continued) FINAL DIAGNOSIS (Continued) For parts 1-5, [...] 1624 END OF REPORT DEPARTMENT OF PATHOLOGY, [address] [place] [address] Josemanuel Bob M.D. Director [facility] # [id number] 2 SEE RESULT BELOW Name: KEN HICKEY : [address]: Alisha Pascal MD Acct: [id number] Unit: [id number] AGE: 67 Location: Re10/28/17 SEX: F Status: REG REF SPEC: [id number] JANE: 10/28/17-1445 [facility] DR: Alisha Pascal MD REQ: [id number] RECD: 10/28/17 STATUS: CARL DAMON DR: Usha Tracy MD _ ORDERED: FNA-IMG GUID BX, PTH HANDLING CH, CY ADEQ-ADDL P, LEVEL 4, CYTO ADEQ-1ST IMMUNO-FIRST, IMMUNO-ADDL/2, IMMUNO-QUANT ROS1 has been performed at [place], [place]. The testing reveals: / (Original report scanned into Pathology Results). Addendum Signed (signature on file) Kalyani Schreiber MD 11/03 1524 BRAF has been performed at [place], [place]. The testing reveals: / (Original report scanned into Pathology Results). EGFR has been performed at [place], [place]. The testing reveals: / (Original report scanned into Pathology Results). CONTINUED ON NEXT PAGE DEPARTMENT OF PATHOLOGY, [address] [place] [address] Josemanuel Bob M.D. Director [facility] # [id number] RUN DATE: 11/15/17 [facility] LAB LIVE PAGE 2 Patient: KEN HICKEY [id number] (Continued) ADDENDUM (Continued) Addendum Signed (signature on [...] CONTINUED ON NEXT PAGE DEPARTMENT OF PATHOLOGY, [address] [place] [address] Josemanuel Bob M.D. Director [facility] # [id number] RUN DATE: 11/15/17 [facility] LAB LIVE PAGE 3 Patient: KEN HICKEY [id number] (Continued) CLINICAL HISTORY (Continued) CLINICAL HISTORY Left upper lobe lung mass. IMMEDIATE INTERPRETATION Pass 1-inadequate, pass 2, and 3-adequate GROSS DESCRIPTION CT Guided, fine needle aspiration x 3 passes with 7 Alcohol fixed slide(s), 4 Alcohol fixed slide(s) and 2 needle rinse in formalin for cell blocks labeled [id number] and [id number]. Signed (signature on file) Josemanuel Bob MD 0927 END OF REPORT DEPARTMENT OF PATHOLOGY, [address] [place] [address] Josemanuel Bob M.D. 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 2010May 08;8(11):661-8 (PMID 18763642) 3. Int J Cancer 2011;131(5):P605-251 (PMID 99356419) 4. Mod Pathol. 2007;21 Suppl 2:S16-22 (PMID 90441864) 5. J Clin Oncol. 2005 May 17;23(25):5900-9 (PMID 86862870) ADDITIONAL INFORMATION Microscopic examination was performed by [...] and additional information about this test, see [email or web address] (Test ID [email or web address]). CLINICAL CORRELATIONS Test results [...] developed and its performance characteristics determined by [facility] in a manner consistent with CLIA requirements. This test has not been cleared or approved by the U.S. Food and Drug Administration. Additional Information See Comment CLINICAL TRIALS Possible clinical trials of benefit for this patient can be found at the following sites: 1) ClinicalTrials.gov: www.clinicaltrials.gov/ct2/search/advanced 2) [facility]: www.[place]/research/clinical-trials/ 3) National Cancer [employer]: www.cancer.gov/clinicaltrials/search Specimen Cells Tissue ID [id number] Released By See Comment RESULT: Margareth Broussard M.D. Test Performed by: [address] [address] 4 SEE RESULT BELOW Name: KEN HICKEY Heaven : [address]: Alisha Pascal MD Acct: [id number] Unit: [id number] AGE: 67 Location: SP Re10/28/17 SEX: F Status: REG REF SPEC: [id number] JANE: 10/28/17-[address]: Alisha Pascal MD REQ: [id number] RECD: 10/28/17 STATUS: CARL DAMON DR: Usha Tracy MD _ ORDERED: FNA-IMG GUID BX, PTH HANDLING CH, CY ADEQ-ADDL P, LEVEL 4, CYTO ADEQ-1ST IMMUNO-FIRST, IMMUNO-ADDL/2, IMMUNO-QUANT Lung Panel with Rearrangement Tumor has been performed at [facility] [place], [place]. 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 2010May 08;8(11):661-8 (PMID 35971227) 3. Int J Cancer 2011;131(5):M955-879 (PMID 30454139) CONTINUED ON NEXT PAGE DEPARTMENT OF PATHOLOGY, [address] [place] [address] Josemanuel Bob M.D. Director [facility] # [id number] RUN DATE: 11/20/17 [facility] LAB LIVE PAGE 2 Patient: KEN HICKEY [id number] (Continued) ADDENDUM (Continued) 4. Mod Pathol. 2008 January; Suppl 2:S16-22 (PMID 35023483) 5. J Clin Oncol. 2005 May 17;23(77):4996-9 (PMID 85535742) RESULT: Margareth Broussard M.D. Test Performed by: [place] [address] Addendum Signed (signature on file) Josemanuel Bob MD 1457 ROS1 has been performed at [place], [place]. The testing reveals: / (Original report scanned into Pathology Results). Addendum Signed (signature on file) Kalyain Schreiber MD 11/03 1524 BRAF has been performed at [place], [place]. The testing reveals: / (Original report scanned into Pathology Results). EGFR has been performed at [place], [place]. The testing reveals: CONTINUED ON NEXT PAGE DEPARTMENT OF PATHOLOGY, [address] [place] [address] Josemanuel Bob M.D. Director [facility] # [id number] RUN DATE: 11/20/17 [facility] LAB LIVE PAGE 3 Patient: KEN HICKEY [id number] (Continued) ADDENDUM (Continued) / (Original report scanned [...] CONTINUED ON NEXT PAGE DEPARTMENT OF PATHOLOGY, [address] [place] [address] Josemanuel Bob M.D. Director [facility] # [id number] RUN DATE: 11/20/17 [facility] LAB LIVE PAGE 4 Patient: KEN HICKEY Heaven [id number] (Continued) SPECIMEN COMMENTS (Continued) A cell block [...] rinse in formalin for cell blocks labeled [id number] and [id number]. Signed (signature on file) Josemanuel Bob MD 0927 END OF REPORT DEPARTMENT OF PATHOLOGY, [address] [place] [address] Josemanuel Bob M.D. Director [facility] # [id number] 5 Rag Cutting Machine Operator: [id number] Procedures Date CPT Code Description Status 11/13/2017 51103 Endobronchial Ultrasound=>3 Completed 10/29/2017 76465 Pace Maker Eval W/Iterative Adjment Dual Lead Completed 10/29/2017 02167 Pace Maker Eval W/Iterative Adjment Dual Lead Completed 10/17/2017 21489 Polysomnography Sleep Staging 4+ Parameters Completed 10/10/2017 23307 Diffusing Capacity Completed 10/10/2017 12362 Plethysmography Determination Lung Volumes & Per Completed Airway Resist 10/10/2017 22213 [facility] Measurement Heart Rate, Completed Oximetry 10/10/2017 26031 Pulmonary Function><Bronchodil Completed 10/01/2017 71955 Pace Maker Eval W/Iterative Adjment Dual Lead Completed 09/30/2017 60252 Perm Pacemaker Av Sequential Atrial And Ventricular Completed 09/26/2017 78433 ECHO Transthorasic Realtime 2D W Doppler & Color Completed Flow Hosp 09/25/2017 96193 EKG, Interpretation Only Completed 05/11/2008 91880 Color Flow Doppler/Interp & Reprt Completed 05/11/2008 83712 Pulse Wave/Continuous-Interp.RPT Completed 05/11/2008 68741 Pulse Wave/Continuous-Interp.RPT Completed 05/11/2008 78829 Echocardiogram Completed 05/03/2008 22567 Color Flow Doppler/Interp & Reprt Completed 05/03/2008 45228 Color Flow Doppler/Interp & Reprt Completed 05/03/2008 25315 Pulse Wave/Continuous-Interp.RPT Completed 05/03/2008 33752 Echocardiogram Completed 05/03/2008 95265 Echocardiogram Completed Encounters Type Date Location Provider CPT E/M Dx Office Visit 11/11/2017 [facility] Ramez Horace Meek, [address] R07.9 11:30a Jose Raul Caicedo, [facility], [facility] F17.210 Office Visit 11/01/2017 11:00a Pulmonology [place] [address] C34.92 Services Of [facility] G47.33 F17.210 Office Visit 10/19/2017 10:30a Pulmonology [place] [address] J98.4 Services Of [facility] F17.210 R06.83 Office Visit 10/04/2017 8:00a Pulmonology [place] [address] J98.4 Services Of [facility] F17.210 R06.83 E66.09 Office Visit 09/28/2017 1:11p Pulmonology [place] [address] E27.9 Services Of [facility] F17.210 J98.4 Office Visit 09/26/2017 8:58a [facility], Valerie Hernandez, [address]32[address] R91.8 Hospitalists Sascha R55 I45.5 I10 Office Visit 09/26/2017 11:46a [facility] Ramez Meek, [address] R55 Sascha, [facility] R00.1 Office Visit 09/25/2017 8:57a [facility], Satya Blanco, 10199 R91.8 Hospitalists Sascha R55 I45.5 I10 Office Visit 09/25/2017 1:09p Pulmonology [place] [address] R91.8 Services Of [facility] R55 R05 Office Visit 09/24/2017 8:57a [facility], Satya Blanco, 04019 R91.8 Hospitalists MMedhat R55 I45.5 I10 Plan of Care Future Appointment(s):12/12/2017 1:00 pm - RONDA Swift at [facility]12/19/2017 7:30 am - RONDA Navarro at [facility]12/19/2017 7:30 am - Rene Fink M.D. at [facility]01/17/2018 11:45 am - Ramez Meek M.D., [facility], [facility] at [facility]12/02/2017 11:00 am - Ramez Meek M.D., FACC, FASNC at [facility]12/19/2017 1:00 pm - Ica Nuclear Schedule at [facility]11/28/2017 10:15 am - Alisha Pascal MD at [facility]11/27/2017 - Rene Fink M.D.C34.92 Malignant neoplasm of unsp part of left bronchus or lungFollow up:OR
--- OUTSIDE RECORDS SUMMARY | 2017-12-19 07:19 | XMS REPORT ---
:1950 External Reference #:[id number] Author Organization [facility] [employer] Address [address] [address] Phone [phone] Care Team Providers Name Role Phone Ramez Meek MD, [facility], [facility] Care Team Information Hand Outside Cutter Unavailable Kathy Raygoza NP Primary Care Physician Unavailable Payers Type Date Identification Numbers Payment Provider Subscriber Medicare Primary Policy Number: [id number] Medicare Ken Hcikey PayID: [id number] [address] [place] [address] Medigap Part B Policy Number: [id number] [facility] Ken Hickey PayID: [id number] [address] [place] [address] Problems Date Description Provider Status Onset: 10/07/2017 Cardiac pacemaker in situ Christie Callahan M.D. Active Onset: 10/07/2017 Complete atrioventricular block Christie Callahan M.D. Active Onset: 11/11/2017 Chest pain Ramez Meek M.D., Active [facility], [facility] Family History Date Family Member(s) Problem(s) Comments General MD MGM due to at age 82 Mother Heart Disease Mother due to Cancer () Siblings 4 3 sisters and 1 brother. 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 ETOH Use Rarely consumes alcohol Recreational Drug Use Denies Drug Use Smoking Patient is a current smoker, smokes some days Daily Caffeine Consumes on average 1 cup of hot tea per Some days day Daily Caffeine Consumes on average 32oz of iced tea per Some days day Exercise Type/Frequency Does not exercise Allergies, [...] HCL / Active Tablets 25mg 1 tab [place], 0000 four Edwin, STICK FEEDER times a day Nicorette 10/04/ Hx Lozenges 4mg 60unit 1 lozenge F17.210 Alisha 2018 s every 6 MD Gwyn hours as needed (pt has not started) Vital Signs Date Vital Result Comment 11/28/2017 Height 61 inches 5'1" Weight 186.00 [...] H/L Range Note Laboratory test 11/13/2017 Cytology [facility] SEE RESULT BELOW 1 finding Laboratory test 10/28/2017 Cytology Non[facility] SEE RESULT BELOW 2 finding Laboratory test 10/28/2017 Miscellaneous Test See Comment 3 finding Cytology Non-[facility] SEE RESULT BELOW 4 Platelet Count 10/28/2017 Platelet Count 261 10^3/uL 150-450 Mean Platelet Volume 8 um3 7.4-10.4 Inr/Protime 10/28/2017 Inr 0.97 0.77-1.02 Laboratory test finding 10/28/2017 Partial Thrombo Time 31.6 seconds 26.0 -36.3 PTT Laboratory test finding 10/15/2017 Point of Care 141 mg/dL High 70-100 5 Glucose 1 SEE RESULT BELOW Name: KEN HICKEY Heaven : [address]: Alisha Pascal MD Acct: [id number] Unit: [id number] AGE: 67 Location: OR Re11/13/17 SEX: F Status: DEP SDC SPEC: [id number] JANE: 11/13/17-[address]: Alisha Pascal MD REQ: [id number] RECD: 11/13/17150 STATUS: SOUT _ ORDERED: FNA-IMG [...] CONTINUED ON NEXT PAGE DEPARTMENT OF PATHOLOGY, [address] [place] [address] Josemanuel Bob M.D. Director RONALDO # [id number] RUN DATE: 11/14/17 [facility] LAB LIVE PAGE 2 Patient: KEN HICKEY Heaven [id number] (Continued) FINAL DIAGNOSIS (Continued) For parts 1-5, [...] 1624 END OF REPORT DEPARTMENT OF PATHOLOGY, [address] [place] [address] Josemanule Bob M.D. Director [place] # [id number] 2 SEE RESULT BELOW Name: KEN HICKEY : [address]: Alisha Pascal MD Acct: [id number] Unit: [id number] AGE: 67 Location: Re10/28/17 SEX: F Status: REG REF SPEC: [id number] JANE: 10/28/17-1445 [facility] DR: Alisha Pascal MD REQ: [id number] RECD: 10/28/17 STATUS: CARL DAMON DR: Usha Tracy MD _ ORDERED: FNA-IMG GUID BX, PTH HANDLING CH, CY ADEQ-ADDL P, LEVEL 4, CYTO ADEQ-1ST IMMUNO-FIRST, IMMUNO-ADDL/2, IMMUNO-QUANT ROS1 has been performed at [place], [place]. The testing reveals: / (Original report scanned into Pathology Results). Addendum Signed (signature on file) Kalyani Schreiber MD 11/03 1524 BRAF has been performed at [place], [place]. The testing reveals: / (Original report scanned into Pathology Results). EGFR has been performed at [place], [place]. The testing reveals: / (Original report scanned into Pathology Results). CONTINUED ON NEXT PAGE DEPARTMENT OF PATHOLOGY, [address] [place] [address] Josemanuel Bob M.D. Director RONALDO # [id number] RUN DATE: 11/15/17 [facility] LAB LIVE PAGE 2 Patient: KEN HICKEY [id number] (Continued) ADDENDUM (Continued) Addendum Signed (signature on [...] CONTINUED ON NEXT PAGE DEPARTMENT OF PATHOLOGY, [address] [place] [address] Josemanuel Bob M.D. Director RONALDO # [id number] RUN DATE: 11/15/17 [facility] LAB LIVE PAGE 3 Patient: KEN HICKEY Heaven [id number] (Continued) CLINICAL HISTORY (Continued) CLINICAL HISTORY Left upper lobe lung mass. IMMEDIATE INTERPRETATION Pass 1-inadequate, pass 2, and 3-adequate GROSS DESCRIPTION CT Guided, fine needle aspiration x 3 passes with 7 Alcohol fixed slide(s), 4 Alcohol fixed slide(s) and 2 needle rinse in formalin for cell blocks labeled [id number] and [id number]. Signed (signature on file) Josemanuel Bob MD 0927 END OF REPORT DEPARTMENT OF PATHOLOGY, [address] [place] [address] Josemanuel Bob M.D. 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 Interpretation See Comment ASSOCIATIONS BETWEEN KRAS MUTATIONS AND LUNG CANCER Approximately 20% of patients with lung adenocarcinoma have a somatic mutation in the KRAS gene (1). KRAS mutations, primarily those occurring at codons 12, 13, and 61, result in constitutive activation of the JULAI/MAPK signaling pathway (2-5). Current data suggest that [...] Imani Rev Clin Oncol. 2010May 08;8(11):661-8 (PMID 12183363) 3. Int J Cancer 2011;131(5):X878-357 (PMID 29281484) 4. Mod Pathol. 2008 January; Suppl 2:S16-22 (PMID 16632036) 5. J Clin Oncol. 2005 May 17;23(25):5900-9 (PMID 43857082) ADDITIONAL INFORMATION Microscopic examination was performed by [...] and additional information about this test, see [email or web address].[email or web address] (Test ID LNGPR). CLINICAL CORRELATIONS Test results [...] developed and its performance characteristics determined by [facility] in a manner consistent with CLIA requirements. This test has not been cleared or approved by the U.S. Food and Drug Administration. Additional Information See Comment CLINICAL TRIALS Possible clinical trials of benefit for this patient can be found at the following sites: 1) ClinicalTrials.gov: www.clinicaltrials.gov/ct2/search/advanced 2) [facility]: www.[place]/research/clinical-trials/ 3) National Cancer [place]: www.cancer.gov/clinicaltrials/search Specimen Cells Tissue ID [id number] Released By See Comment RESULT: Margareth Broussard M.D. Test Performed by: [address] [address] 4 SEE RESULT BELOW Name: KEN HICKEY : [address]: Alisha Pascal MD Acct: [id number] Unit: [id number] AGE: 67 Location: Re10/28/17 SEX: F Status: REG REF SPEC: [id number] JANE: 10/28/17-1445 [facility] DR: Alisha Pascal MD REQ: [id number] RECD: 10/28/17152 STATUS: CARL DAMON DR: Usha Tracy MD _ ORDERED: FNA-IMG GUID BX, PTH HANDLING CH, CY ADEQ-ADDL P, LEVEL 4, CYTO ADEQ-1ST IMMUNO-FIRST, IMMUNO-ADDL/2, IMMUNO-QUANT Lung Panel with Rearrangement Tumor has been performed at [facility], [place], [place]. 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 2010May 08;8(11):661-8 (PMID 84272939) 3. Int J Cancer 2011;131(5):P417-649 (PMID 65181330) CONTINUED ON NEXT PAGE DEPARTMENT OF PATHOLOGY, [address] [place] [address] Joesmanuel Bob M.D. Director [facility] # [id number] RUN DATE: 11/20/17 [facility] LAB LIVE PAGE 2 Patient: KEN HICKEY [id number] (Continued) ADDENDUM (Continued) 4. Mod Pathol. 2007; Suppl 2:S16-22 (PMID 36004298) 5. J Clin Oncol. 2004May 17;23(39):3388-9 (PMID 74403444) RESULT: Margareth Broussard M.D. Test Performed by: [place] [address] Addendum Signed (signature on file) Josemanuel Bob MD 1457 ROS1 has been performed at [place], [place]. The testing reveals: / (Original report scanned into Pathology Results). Addendum Signed (signature on file) Kalyani Schreiber MD 11/03 1524 BRAF has been performed at [place], [place]. The testing reveals: / (Original report scanned into Pathology Results). EGFR has been performed at [place], [place]. The testing reveals: CONTINUED ON NEXT PAGE DEPARTMENT OF PATHOLOGY, [address] [place] [address] Josemanuel Bob M.D. Director RONALDO # [id number] RUN DATE: 11/20/17 [facility] LAB LIVE PAGE 3 Patient: KEN HICKEY [id number] (Continued) ADDENDUM (Continued) / (Original report scanned [...] CONTINUED ON NEXT PAGE DEPARTMENT OF PATHOLOGY, [address] [place] [address] Josemanuel Bob M.D. Director [facility] # [id number] RUN DATE: 11/20/17 [facility] LAB LIVE PAGE 4 Patient: TRISHGRE[place]KEN [place] [id number] (Continued) SPECIMEN COMMENTS (Continued) A cell block [...] rinse in formalin for cell blocks labeled [id number] and [id number]. Signed (signature on file) Josemanuel Bob MD 0927 END OF REPORT DEPARTMENT OF PATHOLOGY, [address] [place] [address] Josemanuel Bob M.D. 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 Procedures Date CPT Code Description Status 11/13/2017 68983 Endobronchial Ultrasound=>3 Completed 10/29/2017 54011 Pace Maker Eval W/Iterative Adjment Dual Lead Completed 10/29/2017 73272 Pace Maker Eval W/Iterative Adjment Dual Lead Completed 10/17/2017 20471 Polysomnography Sleep Staging 4+ Parameters Completed 10/10/2017 47020 Diffusing Capacity Completed 10/10/2017 18681 Plethysmography Determination Lung Volumes & Per Completed Airway Resist 10/10/2017 08821 Pulmonary Stress Testing, Inc Measurement Heart Rate, Completed Oximetry 10/10/2017 59849 Pulmonary Function><Bronchodil Completed 10/01/2017 39687 Pace Maker Eval W/Iterative Adjment Dual Lead Completed 09/30/2017 50908 Perm Pacemaker Av Sequential Atrial And Ventricular Completed 09/26/2017 67014 ECHO Transthorasic Realtime 2D W Doppler & Color Completed Flow Hosp 09/25/2017 84441 EKG, Interpretation Only Completed 05/11/2008 42563 Color Flow Doppler/Interp & Reprt Completed 05/11/2008 38659 Pulse Wave/Continuous-Interp.RPT Completed 05/11/2008 95634 Pulse Wave/Continuous-Interp.RPT Completed 05/11/2008 98604 Echocardiogram Completed 05/03/2008 15983 Color Flow Doppler/Interp & Reprt Completed 05/03/2008 39742 Color Flow Doppler/Interp & Reprt Completed 05/03/2008 75159 Pulse Wave/Continuous-Interp.RPT Completed 05/03/2008 30091 Echocardiogram Completed 05/03/2008 00173 Echocardiogram Completed Encounters Type Date Location Provider CPT E/M Dx Office Visit 11/11/2017 [facility] Horace Meek, [address] R07.9 11:30a Jose Raul Caicedo, [facility], [facility] F17.210 Office Visit 11/01/2017 11:00a [facility] [address] C34.92 [facility] G47.33 F17.210 Office Visit 10/19/2017 10:30a [facility] [address] J98.4 [facility] F17.210 R06.83 Office Visit 10/04/2017 8:00a [facility] [address] J98.4 [facility] F17.210 R06.83 E66.09 Office Visit 09/28/2017 1:11p [facility] [place] [address] E27.9 [facility] F17.210 J98.4 Office Visit 09/26/2017 8:58a [facility], Valerie Hernandez, 24960 R91.8 Hospitalists Sascha R55 I45.5 I10 Office Visit 09/26/2017 11:46a [facility] Ramez Meek, [address] R55 Sascha, [facility], [facility] R00.1 Office Visit 09/25/2017 8:57a [facility], Satya Blanco, 41332 R91.8 Hospitalanthony Caicedo R55 I45.5 I10 Office Visit 09/25/2017 1:09p [facility] [place] [address] R91.8 [facility] R55 R05 Office Visit 09/24/2017 8:57a [facility], Satya Blanco, [address]24 R91.8 Hospitalists Sascha R55 I45.5 I10 Plan of Care Future Appointment(s):01/09/2018 11:30 am - Alisha Pascal MD at [facility]12/12/2017 1:00 pm - RONDA Swift at [facility]12/19/2017 7:30 am - RONDA Navarro at [facility]12/19/2017 7:30 am - Rene Fink M.D. at [facility]01/17/2018 11:45 am - Ramez Meek M.D., [facility], [facility] at [facility]12/02/2017 11:00 am - Ramez Meek M.D., [facility], [facility] at [facility]12/19/2017 1:00 pm - Ica Nuclear Schedule at [facility]11/28/2017 - Alisha Pascal, MDC34.92 Malignant neoplasm of unsp part of left bronchus or lungFollow up:6 lxoapU25.33 Obstructive sleep apnea (adult) (pediatric)New Orders:Sleep-OzsonvyiO59.210 Nicotine dependence, cigarettes, uncomplicated
--- OUTSIDE RECORDS SUMMARY | 2017-12-19 07:19 | XMS REPORT ---
:1950 External Reference #:[id number] [facility] [employer] Address [address] [address] Phone [phone] Care Team Providers Name Role Phone Ramez Meek MD, [facility] Care Team Information Police Officer Booking Unavailable Kathy Raygoza NP Primary Care Physician Unavailable Payers Type Date Identification Numbers Payment Provider Subscriber Medicare Primary Policy Number: [id number] Medicare Ken Hickey PayID: [id number] [address] [place] [address] Medigap Part B Policy Number: [id number] [facility] Ken Hickey PayID: [id number] [address] [place] [address] Problems Date Description Provider Status Onset: 10/07/2017 Cardiac pacemaker in situ Christie Callahan M.D. Active Onset: 10/07/2017 Complete atrioventricular block Christie Callahan M.D. Active Onset: 11/11/2017 Chest pain Ramez Meek M.D., Active [facility], [facility] Family History Date Family Member(s) Problem(s) Comments General ME MGM due to at age 82 Mother Heart Disease Mother due to Cancer () Siblings 4 3 sisters and 1 brother. 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 ETOH Use Rarely consumes alcohol Recreational Drug [...] Storm, Starting Month 0000 & 1 mg Wisamwntgisselle Brant X 42 PHARM TECH Hydroxyzine HCL / Active Tablets 25mg 1 tab Gloria, 0000 four Edwin, ASSOCIATE OF SCIENCE IN NURSING times a day Nicorette 10/04/ Hx Lozenges 4mg 60unit 1 lozenge F17.210 Alisha 2018 s every 6 MD Gwyn hours as needed (pt has not started) Medications Administered in Office Medication Date Status Form Strength Qnty SIG Indications Ordering Provider Inj, Administered Injection Ramezmargaux Vu Regadenoson, 018 Fantasma, 0.1 MG Sascha, DINESH, FASNC Technetium TC Administered Injection Ramez Horace 99M 018 Romel Meek M.D., DINESH, Per Unit Dose VAISHALI Up To 40 Millicuries Vital Signs Date Vital Result Comment 12/06/2017 Height 61 inches 5'1" Weight 193.00 [...] H/L Range Note Laboratory test 11/13/2017 Cytology Non-Parole Director SEE RESULT BELOW 1 finding Laboratory test 10/28/2017 Partial Thrombo 31.6 seconds 26.0-36.3 finding Time PTT Inr/Protime 10/28/2017 Inr 0.97 0.77-1.02 Platelet Count 10/28/2017 Platelet Count 261 10^3/uL 150-450 Mean Platelet Volume 8 um3 7.4-10.4 Laboratory test finding 10/28/2017 Miscellaneous Test See Comment 2 Cytology Non-Parole Director SEE RESULT BELOW 3 Laboratory test 10/28/2017 Cytology Non-Parole Director SEE RESULT BELOW 4 finding Laboratory test 10/15/2017 Point of Care 141 mg/dL High 70-100 5 finding Glucose 1 SEE RESULT BELOW Name: KEN HICKEY : [address]: Alisha Pascal MD Acct: [id number] Unit: [id number] AGE: 67 Location: OR Re11/13/17 SEX: F Status: DEP SDC SPEC: [id number] JANE: 11/13/17-[address]: Alisha Pascal MD REQ: [id number] RECD: 11/13/17-150 STATUS: SOUT _ ORDERED: FNA-IMG [...] CONTINUED ON NEXT PAGE DEPARTMENT OF PATHOLOGY, [address] [place] [address] Josemanuel Bob M.D. Director [facility] # [id number] RUN DATE: 11/14/17 [facility] LAB LIVE PAGE 2 Patient: MARY HICKEYLEEROY Collado [id number] (Continued) FINAL DIAGNOSIS (Continued) For parts 1-5, [...] 1624 END OF REPORT DEPARTMENT OF PATHOLOGY, [address] [place] [address] Josemanuel Bob M.D. 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 2010May 08;8(11):661-8 (PMID 52635407) 3. Int J Cancer 2011;131(5):Q362-125 (PMID 54122955) 4. Mod Pathol. 2007; Suppl 2:S16-22 (PMID 81910534) 5. J Clin Oncol. 2005 May 17;23(25):5900-9 (PMID 60690744) ADDITIONAL INFORMATION Microscopic examination was performed by [...] and additional information about this test, see www.[employer]adRise (Test ID LNGPR). CLINICAL CORRELATIONS Test results [...] developed and its performance characteristics determined by [facility] in a manner consistent with CLIA requirements. This test has not been cleared or approved by the U.S. Food and Drug Administration. Additional Information See Comment CLINICAL TRIALS Possible clinical trials of benefit for this patient can be found at the following sites: 1) ClinicalTrials.gov: www.clinicaltrials.gov/ct2/search/advanced 2) [facility]: www.[place]/research/clinical-trials/ 3) National Cancer [place]: www.cancer.gov/clinicaltrials/search Specimen Cells Tissue ID [id number] Released By See Comment RESULT: Margareth Broussard M.D. Test Performed by: [facility] - [address] [address] 3 SEE RESULT BELOW Name: KEN HICKEY Heaven : [address]: Alisha Pascal MD Acct: [id number] Unit: [id number] AGE: 67 Location: Re10/28/17 SEX: F Status: REG REF SPEC: [id number] JANE: 10/28/17-[address]: Alisha Pascal MD REQ: [id number] RECD: 10/28/17152 STATUS: CARL DAMON DR: Usha Tracy MD _ ORDERED: FNA-IMG GUID BX, PTH HANDLING CH, CY ADEQ-ADDL P, LEVEL 4, CYTO ADEQ-1ST IMMUNO-FIRST, IMMUNO-ADDL/2, IMMUNO-QUANT Lung Panel with Rearrangement Tumor has been performed at [facility], [place], [place]. 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 2010May 08;8(11):661-8 (PMID [id number]) 3. Int J Cancer 2011;131(5):M865-967 (PMID 91117051) CONTINUED ON NEXT PAGE DEPARTMENT OF PATHOLOGY, [address] [place] [address] Josemanuel Bob M.D. Director [facility] # [id number] RUN DATE: 11/20/17 [facility] LAB LIVE PAGE 2 Patient: KEN HICKEY [id number] (Continued) ADDENDUM (Continued) 4. Mod Pathol. 2007; Suppl 2:S16-22 (PMID 47551300) 5. J Clin Oncol. 2004May 17;23(15):6655-9 (PMID 00572831) RESULT: Margareth Broussard M.D. Test Performed by: [address] [address] Addendum Signed (signature on file) Josemanuel Bob MD 1457 ROS1 has been performed at [place], [place]. The testing reveals: / (Original report scanned into Pathology Results). Addendum Signed (signature on file) Kalyani Schreiber MD 11/03 1524 BRAF has been performed at [place], [place]. The testing reveals: / (Original report scanned into Pathology Results). EGFR has been performed at [place], [place]. The testing reveals: CONTINUED ON NEXT PAGE DEPARTMENT OF PATHOLOGY, [address] [place] [address] Josemanuel Bob M.D. Director [facility] # [id number] RUN DATE: 11/20/17 [facility] LAB LIVE PAGE 3 Patient: KEN HICKEY [id number] (Continued) ADDENDUM (Continued) / (Original report scanned into Pathology Results). Addendum Signed (signature on file) aKlyani Schreiber MD 10/03 1207 FINAL DIAGNOSIS Lung, [...] CONTINUED ON NEXT PAGE DEPARTMENT OF PATHOLOGY, [address] [place] [address] Josemanuel Bob M.D. Director [facility] # [id number] RUN DATE: 11/20/17 [facility] LAB LIVE PAGE 4 Patient: TRISHGREYSONKEN [place] [id number] (Continued) SPECIMEN COMMENTS (Continued) A cell block [...] rinse in formalin for cell blocks labeled [id number] and [id number]. Signed (signature on file) Josemanuel Bob MD 0927 END OF REPORT DEPARTMENT OF PATHOLOGY, [address] [place] [address] Josemanuel Bob M.D. Director [facility] # [id number] 4 SEE RESULT BELOW Name: KEN HICKEY : [address]: Alisha Pascal MD Acct: [id number] Unit: [id number] AGE: 67 Location: Re10/28/17 SEX: F Status: REG REF SPEC: [id number] JANE: 10/28/17-[address] [facility] [address]: Alisha Pascal MD REQ: [id number] RECD: 10/28/17325 STATUS: CARL DAMON DR: Usha Tracy MD _ ORDERED: FNA-IMG GUID BX, PTH HANDLING CH, CY ADEQ-ADDL P, LEVEL 4, CYTO ADEQ-1ST IMMUNO-FIRST, IMMUNO-ADDL/2, IMMUNO-QUANT ROS1 has been performed at [place], [place]. The testing reveals: / (Original report scanned into Pathology Results). Addendum Signed (signature on file) Kalyani Schreiber MD 11/03 1524 BRAF has been performed at [place], [place]. The testing reveals: / (Original report scanned into Pathology Results). EGFR has been performed at [place], [place]. The testing reveals: / (Original report scanned into Pathology Results). CONTINUED ON NEXT PAGE DEPARTMENT OF PATHOLOGY, [address] [place] [address] Josemanuel Bob M.D. Director [facility] # [id number] RUN DATE: 11/15/17 [facility] LAB LIVE PAGE 2 Patient: KEN HICKEY [id number] (Continued) ADDENDUM (Continued) Addendum Signed (signature on [...] CONTINUED ON NEXT PAGE DEPARTMENT OF PATHOLOGY, [address] [place] [address] Josemanuel Bob M.D. Director [facility] # [id number] RUN DATE: 11/15/17 [facility] LAB LIVE PAGE 3 Patient: KEN HICKEY [id number] (Continued) CLINICAL HISTORY (Continued) CLINICAL HISTORY Left upper lobe lung mass. IMMEDIATE INTERPRETATION Pass 1-inadequate, pass 2, and 3-adequate GROSS DESCRIPTION CT Guided, fine needle aspiration x 3 passes with 7 Alcohol fixed slide(s), 4 Alcohol fixed slide(s) and 2 needle rinse in formalin for cell blocks labeled [id number] and [id number]. Signed (signature on file) Josemanuel Bob MD 0927 END OF REPORT DEPARTMENT OF PATHOLOGY, [address] [place] [address] Josemanuel Bob M.D. Director [facility] # [id number] 5 Slate Splitter: [id number] Procedures Date CPT Code Description Status 12/04/2017 66749 ECHO Transthoracic, Real-Time 2D With Doppler And Color Completed Flow 12/02/2017 86097 Stress Test Completed 12/02/2017 93816 Myocardial Perfusion Imaging Tomographic (Spect) Completed Multiple Studies 11/13/2017 62093 Endobronchial Ultrasound=>3 Completed 10/29/2017 92447 Pace Maker Eval W/Iterative Adjment Dual Lead Completed 10/29/2017 33116 Pace Maker Eval W/Iterative Adjment Dual Lead Completed 10/17/2017 80546 Polysomnography Sleep Staging 4+ Parameters Completed 10/10/2017 92732 Diffusing Capacity Completed 10/10/2017 27727 Plethysmography Determination Lung Volumes & Per Completed Airway Resist 10/10/2017 66237 Pulmonary Stress Testing[facility] Inc Measurement Heart Rate, Completed Oximetry 10/10/2017 88432 Pulmonary Function><Bronchodil Completed 10/01/2017 33748 Pace Maker Eval W/Iterative Adjment Dual Lead Completed 09/30/2017 36406 Perm Pacemaker Av Sequential Atrial And Ventricular Completed 09/26/2017 52918 ECHO Transthorasic Realtime 2D W Doppler & Color Completed Flow Hosp 09/25/2017 30279 EKG, Interpretation Only Completed 05/11/2008 39943 Color Flow Doppler/Interp & Reprt Completed 05/11/2008 77349 Pulse Wave/Continuous-Interp.RPT Completed 05/11/2008 80175 Pulse Wave/Continuous-Interp.RPT Completed 05/11/2008 29334 Echocardiogram Completed 05/03/2008 69918 Color Flow Doppler/Interp & Reprt Completed 05/03/2008 04932 Color Flow Doppler/Interp & Reprt Completed 05/03/2008 79498 Pulse Wave/Continuous-Interp.RPT Completed 05/03/2008 34809 Echocardiogram Completed 05/03/2008 32155 Echocardiogram Completed Encounters Type Date Location Provider CPT E/M Dx Office Visit 11/28/2017 [place] [address] C34.92 10:15a [facility] G47.33 F17.210 Office Visit 11/27/2017 10:45a [facility], [address] C34.92 Jose Raul Caicedo Office Visit 11/11/2017 11:30a [facility] Ramez Meek, 43401 R07.9 Jose Raul Caicedo, FAC, [facility] F17.210 Office Visit 11/01/2017 11:00a [facility] [address] C34.92 [facility] G47.33 F17.210 Office Visit 10/19/2017 10:30a [facility] [address] J98.4 [facility] F17.210 R06.83 Office Visit 10/04/2017 8:00a [facility] [place] [address] J98.4 [facility] F17.210 R06.83 E66.09 Office Visit 09/28/2017 1:11p [facility] [address] E27.9 [facility] F17.210 J98.4 Office Visit 09/26/2017 8:58a [facility], Valerie Lowehn, [address]25[address] R91.8 Hospitalists MMedhat R55 I45.5 I10 Office Visit 09/26/2017 11:46a [facility] Ramez Meek, [address] R55 Sascha, [facility], FASNC R00.1 Office Visit 09/25/2017 8:57a [facility], Satya Blanco, [address] R91.8 Hospitalists MMedhat R55 I45.5 I10 Office Visit 09/25/2017 1:09p [facility] [place] [address] R91.8 [facility] R55 R05 Office Visit 09/24/2017 8:57a [facility], Satya Blanco, [address]324 R91.8 Hospitalists MMedhat R55 I45.5 I10 Plan of Care Future Appointment(s):12/19/2017 9:00 am - RONDA Navarro at [facility]12/19/2017 9:00 am - Rene Fink M.D. at [facility]01/09/2018 11:30 am - Alisha Pascal MD at [facility]12/06/2017 - Ramez Meek M.D., [facility], LXOYWY77.9 Chest pain, unspecified
--- OUTSIDE RECORDS SUMMARY | 2017-12-19 07:21 | XMS REPORT ---
:1950 External Reference #:[id number] Author Organization [facility] Address [address] [place] [address] Phone [phone] Care Team Providers Name Role Phone Shade Mcgee M.D. Primary Care Physician Unavailable Payers Type Date Identification Numbers Payment Provider Subscriber Medicare Primary Effective: Policy Number: Medicare - Bswny Ken Hickey 2015 [id number] [facility] PayID: [id number] [address] [place] [address] Medigap Part B Policy Number: [facility] Kenroxanna Hickey [id number] PayID: [id number] [address] [place] [address] Workers Onset: 2007 Policy Number: [facility] Ken Collado Compensation [id number] Insurance Fund [facility] [address] [place] [address] Problems Date Description Provider Status Onset: 11/28/2010 Essential hypertension MATHEUS Melton Active Onset: 11/28/2010 Pure hypercholesterolemia MATHEUS Melton Active Onset: 11/28/2010 Gastroesophageal reflux disease MATHEUS Melton Active Family History Date Family Member(s) Problem(s) Comments Father due to Anemia () - in his 60's Mother due to age 89, () multiple problems Mother Hypertension Mother Stroke Mother Gallstones Mother Fractured Hip Age 79 Mother "Heart Trouble" Mother Macular degneration Mother Cancer, Bone Siblings 4 First Brother Palpitations Age 51 First Sister Stroke First Sister Rheumatic Heart Dsease Social History Type Date Description Comments Marital Status Patient had an annulement Lives With Male Partner Oct 2015, currently daughter, son in law and two grandsons are living with her Diet "I don't eat a lot". She is trying to eat small frequent meals. Sleep Reports normal sleep activity Pets 1 cat Occupation Works at [employer] working in [employer] the [employer] at [employer] [facility]. 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 current cigarette smoker currently smokes 1-2 packs daily ETOH Use Rarely consumes alcohol Recreational Drug Use Never Used Drugs Smoking Patient is a current smoker, smokes every day Daily Caffeine does not consume caffeine Exercise Type/Frequency Exercises rarely currently limited by left knee pain Allergies, Adverse Reactions, Alerts Date Description Reaction Status Severity Comments 05/30/2002 Codeine active Can't Breathe Medications Medication Date Status Form Strength Qnty SIG Indications Ordering Provider Chantix 11/14 Active Tablets 1mg 60tab 1 by mouth Z72.0 Shawnti Continuing s twice a day Brant Weiss [employer] Betamethasone 10/10 Active Lotion 0.05% 60uni apply to L20.9 Shawnti Dipropionate ts chest rash Tiffanie Raygoza, twice daily [employer] if needed Atorvastatin 08/20 Active Tablets 40mg 90tab take one Shawnti Calcium s tablet by Tiffanie Raygoza, mouth every [employer] day for cholesterol Lisinopril-Newton 08/15 Active Tablets 10-12.5mg 90tab 1 by mouth I10 Shawnti chlorothiazide s every day for Tiffanie Raygoza blood [employer] pressure Hydroxyzine HCL 12/26 Active Tablets 25mg 60tab take 1 tablet S40.861A s by mouth four Tiffanie Raygoza, times a day [employer] as needed for itching Proair HFA 09/27 Active Aerosol 108(90Bas 8.5un inhale two J20.9 e) its puffs by Tiffanie Raygoza, mcg/Act mouth every 4 [employer] hours as needed for shortness of breath , cough or wheeze Aspir-81 09/30 Active Tablets 81mg [address] every day R. Storm, [employer] Citalopram 09/30 Active Tablets 20mg 90tab Take 1 Tablet R45.7 eusebio Hydrobromide s By Mouth Once Tiffanie Raygoza, Daily [employer] Omeprazole 03/18 Active Capsules 20mg 180ca Take One DR ps Capsule By Tiffanie Raygoza, Mouth Twice A [employer] Day For Gastritis Ibuprofen 05/17 Active Tablets 600mg 60tab Take 1 Tablet M60.80 Tami s By Mouth [place] Three Times A , Day With Food as Needed For Pain Multivitamin Active Tablets 1 by mouth Unknown Adult /0000 every day Goodsense Active Lozenges 4mg Gwyn, Nicotine Alisha Chantix Starting 10/10 Hx Tablets 0.5mg X 60tab one by mouth Z72.0 11 & s twice a day, Tiffanie Raygoza, - 1 mg X 42 start per [employer] 11/14 directions Bactrim DS 03/11 Hx Tablets 800-160mg 10tab take 1 tablet L02.01 Tami s by mouth [place] - every 12 , MD 10/10 hours for days Sulfamethoxazole 02/26 Hx Tablets 800-160mg 14tab take 1 tablet /Trimethoprim s twice a day Everardo, - for 7 days M.D. 05/27 Cephalexin 02/22 Hx Capsules 500mg 14cap 1 twice a day L03.211 s x 7 days Everardo, - M.D. 05/23 Valtrex 02/22 Hx Tablets 1gm 21tab 1 tabs three B02.9 s times a day x Everardo, - 7 days M.D. 05/23 Medrol (Brant) 12/26 Hx Tablets 4mg 21tab take daily as S40.861A s directed Tiffanie Raygoza, - [employer] 01/05 Amoxicillin 08/19 Hx Tablets 875mg 20tab 1 by mouth J01.90 s twice a day Tiffanie Raygoza, - for sinus [employer] 08/29 infection Benzonatate 08/19 Hx Capsules 200mg 30cap 1 by mouth J20.9 s three times a Tiffanie Raygoza, - day for cough [facility] 08/29 Proventil HFA 08/19 Hx Aerosol 108(90Bas 18uni Inhale 2 J20.9 e) ts Puffs By Tiffanie Raygoza, - mcg/Act Mouth Every 4 [facility] 09/27 Hours Needed For Cough,Wheeze Or Shortness Of Breath Atorvastatin 11/02 Hx Tablets 20mg 90tab Take One s Tablet By Tiffanie Raygoza, - Mouth At [facility] 08/20 Bedtime Cholesterol Chantix Starting 09/30 Hx Tablets 0.5mg X 1mont one by mouth 305.1 [facility] 11 & h twice a day, Tiffanie Raygoza, - 1 mg X 42 start per [facility] 10/10 package /2017 directions Citalopram 07/01 Hx Tablets 10mg 30tab Take One 308.9 [facility] Hydrobromide s Tablet By Tiffanie Raygoza, - Mouth Every [facility] Celexa 06/27 Hx Tablets 10mg 30tab 1 po qd 308.9 s Tiffanie Raygoza, - [facility] 07/01 Benzonatate 06/27 Hx Capsules 100mg 30cap 1 po tid prn 465.9 s cough Tiffanie Raygoza, - [facility] 07/07 Fluocinonide 05/20 Hx Cream 0.05% 30gm apply to 691.8 affected area Tiffanie Raygoza, - bid prn [facility] 06/27 Fluocinonide 04/25 Hx Cream 0.05% 60gm apply to 691.8 affected area Tiffanie Raygoza, - bid prn [facility] 05/20 Omeprazole 09/13 Hx Capsules 20mg 180ca take one 530.81 DR ps capsule by Tiffanie Raygoza, - mouth two [facility]- 06/27 times A day /2012 for gastritis Chantix 06/29 Hx Tablets 1mg 60tab Take 1 Tablet s By Mouth Tiffanie Raygoza, - Twice Daily [employer] 06/27 For Smoking Cessation Flexeril 05/17 Hx Tablets 10mg 60tab 1/2 to 1 pill 729.1 s q8hr prn Tiffanie Raygoza, - muscle spasm [employer] 04/25 Augmentin 04/20 Hx Tablets 875-125mg 20tab 1 po bid for 682.9 s infection Tiffanie Raygoza, - [employer] 04/30 Lotrimin Ultra 04/20 Hx Cream 1% 1Tube apply pea 682.9 sized amt to Tiffanie Raygoza, - chin to until [employer] 04/25 resolved Betamethasone 04/20 Hx Lotion 0.1% 1bott apply small 691.8 Val le amount to Tiffanie Raygoza, - itchy rash on [employer] 04/25 abdomen bid prn Tramadol HCL 02/22 Hx Tablets 50mg 180ta Take 1-2 715.90 bs Tablets By Tiffanie Raygoza, - Mouth Every 6 [employer] 10/12 Hours Needed For Pain Carafate 11/28 Hx Tablets 1gm 120ta 1 po-tid-ac 535.00 bs and hs for Tiffanie Raygoza, - stomach ulcer [employer] 05/17 Xanax 06/13 Hx Tablets 0.25mg 30tab 1/2 to 1 po 308.3 s tid prn Tiffanie Raygoza, - anxiety. [employer] 05/17 Tizanidine HCL 02/23 Hx Tablets 4mg 60tab Take 1/2 To 1 s Tablet By Tiffanie Raygoza, - Mouth Three [employer] 10/12 Times A Day /2012 as Needed For Muscle Spasm/Tightne ss Ibuprofen 02/02 Hx Tablets 600mg 60tab 1 tid prn 840.8 s pain, take Tiffanie Raygoza, - with food, [employer] 05/17 stop stomach pain develops Omeprazole 02/02 Hx Capsules 20mg 90cap 1 po bid-ac 840.8 DR machado for gastritis Tiffanie Raygoza, - [employer] 11/28 Physical Therapy 02/02 Hx eval and 840.8 Beatriz treat right P. - shoulder/arm Blegen, 11/16 pain M.D. /2010 Celexa 09/22 Hx Tablets 20mg 90tab 1 po qd 300.02 carter Raygoza, - [employer] 04/25 Chantix 09/01 Hx Tablets 0.5mg QS starter pack 305.1 Hilda use as A. - directed Venkat, 05/17 [facility] Triamcinolone 08/25 Hx Ointment 0.1% 80gm Apply bid to Hilda Acetonide affected site A. - for 7-10 days Venkat, 05/17 [facility] Flexeril 08/01 Hx Tablets 10mg 60tab 1 po bid Hilda s A. - Venkat, 02/23 [facility] No Work 04/11 Hx 04/07/09-04/18/0 787.91 Ghislaine 9 due to K.W. - illness Jude, 07/15 M.D. Celexa 12/31 Hx Tablets 10mg 30tab 1 PO qd 300.02 Hilda s A. - Venkat, 09/22 [facility] Physical Therapy 12/31 Hx Evalutate and 724.5 Hilda treat low A. - back pain Venkat, 07/15 [facility] Chantix 11/03 Hx Tablets 1mg 60tab 1 po bid for 305.1 s cierra Raygoza, - cessation [employer] 05/17 Physical Therapy 10/11 Hx Evaluate and 719.41 Hilda treat left A. - shoulder pain Venkat, 07/15 [facility] Return To Work 07/02 Hx 07/14/08 full 459.0 Hilda duty, no A. - restrictions Venkat, 07/15 [facility] Flovent HFA 06/07 Hx Aerosol 110mcg/Ac 1unit One puff bid 486 Hilda t s For 2-4 Weeks A. - Venkat, 08/02 [facility] Potassium CL (K 05/28 Hx 10meq 1 po qd Hilda tab) /2007 A. - Venkat, 07/02 [facility] /2007 Acetaminophen 05/28 Hx Tablets 500mg 2 tabs po prn Hilda pain A. - Venkat, 04/25 [facility] /2011 Albuterol 05/28 Hx Aerosol 90mcg/Act 1unit 2 Puffs Every Hilda s 4 Hours prn A. - Wheeze , 08/02 [facility] Atenolol 04/09 Hx Tablets 50mg 90tab 1 po qd 401.9 carter Raygoza, - [employer] 06/27 No Work 03/08 Hx 03/08/08-72/0 Hilda 8, foot pain A. - and anxiety , 05/10 [facility] Boot 02/05 Hx must wear 845.19 special boot RYesi Raygoza, - at work due [employer] 05/10 to foot injury Lunesta 12/16 Hx Tablets 1mg 60tab one to two 780.59 Hilda s tabs at hs A. - for sleep prn Venkat, 05/10 [facility] Tizanidine HCL 12/16 Hx Tablets 4mg 60tab 1 PO bid prn Hilda s A. - Venkat, 08/01 [facility] Celexa 10/13 Hx Tablets 20mg 30tab 1 PO qd 300.02 Hilda s A. - Venkat, 05/10 [facility] Lunesta 10/13 Hx Tablets 3mg 30tab one po hs prn 780.59 Hilda s insomnia A. - Venkat, 12/16 [facility] Tizanidine HCL 10/13 Hx Tablets 4mg One po bid Hilda A. - Venkat, 10/13 [facility] Tizanidine HCL 10/13 Hx Tablets 2mg 60tab One po bid Hilda s prn Chhaya Robledo, 12/16 [facility] Footwear 10/13 Hx ken needs Hilda to wear her A. - sneakers with Venkat, 05/10 her orthotic [facility] /2007 supports to work in No Work 09/17 Hx 09/18/07 and 845.09 Hilda 09/19/07 ankle A. - injury left. Venkat, 12/16 f/U in office [facility] /200709/22/06 for recheck. Lipitor 07/16 Hx Tablets 40mg 30tab One PO qd 272.0 Hilda s Chhaya Robledo, 05/10 [facility] Celexa 07/16 Hx Tablets 20mg 30tab 1 PO qd Hilda s Chhaya Robledo, 12/31 [facility] Atenolol 07/16 Hx Tablets 25mg 90tab 1 PO qd 401.9 Hilda s Chhaya Robledo, 04/09 [facility] Chantix 04/21 Hx 1mg 240un one po bid 305.1 Hilda its Chhaya Robledo, 10/13 [facility] Chantix Starter 03/06 Hx 0.5mg 1Pack Use as 305.1 Hilda Directed Chhaya Robledo, 11/03 [facility] Lipitor 01/30 Hx Capsules 20mg 1/2 po qd 272.0 Hilda Umu. Leandro Robledo, 01/30 [facility] Lipitor 01/30 Hx Capsules 20mg 30cap 1 po qd 272.0 Hilda s A. - Venkat, 07/16 [facility] /2006 Paxil 01/01 Hx Tablets 20mg 90tab 1 po qd 300.02 Hilda s A. - Venkat, 10/13 [facility] Nystatin/Triamci 01/01 Hx 30gm apply bid to 782.1 Hilda nolone /2006 affected skin A. - areas Venkat, 05/10 [facility] /2007 Augmentin 12/06 Hx Tablets 875mg 28tab one bid x14 461.8 Hilda s days A. - Venkat, 01/01 [facility] Triamcinolone 02/06 Hx Cream 0.1% 30G apply to Shade Acetonide affected area Everardo, - bid M.D. 12/16 Azithromycin 02/04 Hx Tablets 250mg 6tabs Two Tabs On Jaquan JYesi Day One And Ki, - One Daily M.D. 02/10 Prevpac 01/09 Hx Capsules 500mg;500 28cap one tab po Jaquan Kia mg;30 MG s bid for two Emerson, - weeks M.D. 12/06 Arthrotec 08/02 Hx Tablets 75mg;200 60tab one po qd 715.90 Hilda mcg s A. - Venkat, 12/16 [facility] /2007 Amoxicillin 05/28 Hx Tablets 875mg 28tab one po bid 461.8 Hilda s for 14 days A. - Venkat, 07/03 [facility] Prilosec OTC 04/30 Hx Tablets 20mg 180ta 1 po bid for 530.[address] virgil Raygoza, - [employer] 09/13 Loratadine 04/30 Hx Tablets 10mg 1 tab qd Sloane Alyssa - M.DYesi 08/05 Lipitor 12/26 Hx Tablets 10mg 90tab 1 po qday 272.0 Hilda s A. - Venkat, 01/30 [facility] /2006 Biaxin 09/25 Hx Tablets 500mg 28tab one bid x 461.0 s 14days K.Berhane Roque, 04/30 M.D. Vicodin 07/21 Hx 5/500 20uni one tab po ts bid Mcgee, - M.D. 08/05 Bactroban 04/13 Hx Ointment 15Gra apply to Sloane Ointment /2002 ms wound/lesion Alyssa, - three times M.D. 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 04/30 Cyclobenzaprine 12/25 Hx 10mg 240un use 1 tab tid Hilda its A. - Venkat, 10/13 [facility] /2007 Voltaren 12/25 Hx 75mg 180un one tablet po its bid with food Sobhannah, - M.D. 08/05 Ultram 12/25 Hx Tablets 50mg 180ta 1-2 tabs po 715.90 Shawnti bs 1-2 tabs po R. Storm, - every 6 hours [employer] 02/22 prn pain Wellbutrin SR 12/25 Hx 150mg 60uni use 1 tab bid Hilda ts Chhaya Robledo, 07/16 [facility] /2006 Amitriptyline 12/25 Hx 50 90uni use 1 tab at Hilda ts hs A. - Venkat, 10/13 [facility] /2007 Augmentin 07/23 Hx Tablets 500mg 20tab one bid x10 Griselda s days Elida, - [employer]APPET ADJUSTER 07/21 Estradiol 06/03 Hx Tablets 1mg 90tab one qd Tae s Melvin Reeves M.D. 12/26 Amoxicillin 05/30 Hx 500mg 20uni one po bid Tae ts for 10 days Melvin Reeves M.D. 10/04 Hydrocodone 00/00 Hx Tablets 1 every 6 Unknown Bitartrate/Apap /0000 hours prn - 05/10 Docusate Sodium Hx Tablets 100mg 1 po bid Unknown / - 05/24 Vicodin 00 Hx Tablets 5-500mg 1 every 6 Unknown /0000 hours pr - 05/24 Levaquin Hx Tablets 500mg One qd - 05/24 Cetirizine HCL Hx Tablets 10mg 90tab 1 po qd Shawnti /0000 s Tiffanie Raygoza, - [employer] 06/27 Fiber Laxative Hx Capsules 1 tab po qd - 04/25 Vitamin C Hx Tablets 1000mg 1 po bid - 04/25 Simvastatin Hx Tablets 80mg 90tab Take 1 Tablet Ghislaine /0000 s By Mouth K.W. - Daily For Jude, 06/27 [facility] Sascha /2012 Immunizations CPT Code Status Date Vaccine Lot # [id number] Given 08/15/2017 Tdap (Adacel) [id number] 34483 Given 08/15/2017 Prevnar-13 Pneumococcal Conjugate Vaccine [id number] 44544 Given 08/15/2017 Influenza Vaccine High Dose PF [id number] 48081 Given 12/27/2015 Influenza Virus Vaccine, Quadrivalent, 3 Yr > [id number] Quad, Preserv Free 21193 Given 09/30/2014 Zoster Vaccine [id number] 26159 Given 09/30/2014 Influenza Virus Vaccine, Quadrivalent, 3 Yr > [id number] Quad, Preserv Free 19760 Given 05/20/2012 Influenza Vaccine-Preservative Free 3 Yrs And [id number] Above 77335 Given 08/15/2010 Influenza Vaccine-Preservative Free 3 Yrs And [id number] Above 85814 Given 07/02/2008 Influenza Virus Vaccine, 3 Yrs And Above [id number] 04846 Given 01/01/2007 Tdap (Adacel) [id number] 25391 Given 01/01/2007 Pneumovax 23 (PPSV23) 65+ years or high risk 2 to [id number] 64 year old 62449 Given 10/19/2004 Influenza Virus Vaccine, 3 Yrs And Above 86797 Given 07/10/2003 Influenza Virus Vaccine, 3 Yrs And Above 38579 Given 07/23/2002 Influenza Virus Vaccine, 3 Yrs And Above 31220 Given 07/11/1999 Influenza Virus Vaccine, 3 Yrs And Above 94074 Given 07/13/1998 Pneumovax 23 (PPSV23) 65+ years or high risk 2 to 64 year old 38127 Given 07/13/1998 Influenza Virus Vaccine 77683 Given 07/23/1996 Influenza Virus Vaccine Vital Signs Date Vital Result Comment 10/10/2017 Weight 181.00 lb Weight in kg's 82.102 BP Systolic Standing 136 mmHg BP Diastolic Standing 70 mmHg Heart Rate 96 /min Body Temperature 97.2 F Respiratory Rate 16 /min 08/15/2017 Weight 186.00 lb Weight in kg's 84.370 BP Systolic 162 mmHg BP Diastolic 102 mmHg Heart Rate 70 /min Body Temperature 96.5 F Respiratory Rate 18 /min Height 61 inches 5'1" BMI (Body Mass Index) 35.1 kg/m2 O2 % BldC Oximetry 98 % 03/11/2017 Weight 195.00 lb Weight in kg's 88.452 BP Systolic 138 mmHg BP Diastolic 80 mmHg Heart Rate 80 /min Body Temperature 98.5 F Respiratory Rate 20 /min Height 61 inches 5'1" BMI (Body Mass Index) 36.8 kg/m2 O2 % BldC Oximetry 96 % 02/23/2016 Weight 186.00 lb Weight in kg's 84.370 BP Systolic 130 mmHg BP Diastolic 90 mmHg Heart Rate 82 /min Body Temperature 98.0 F O2 % BldC Oximetry 98 % 12/27/2015 Weight 186.00 lb Weight in kg's 84.370 BP Systolic 152 mmHg BP Diastolic 94 mmHg Heart Rate 104 /min Body Temperature 98.4 F 08/19/2015 Weight 180.00 lb Weight in kg's 81.648 BP Systolic 144 mmHg BP Diastolic 72 mmHg Heart Rate 83 /min Body Temperature 98.3 F O2 % BldC Oximetry 97 % 09/30/2014 Weight 174.00 lb Weight in kg's 78.926 BP Systolic 142 mmHg BP Diastolic 74 mmHg Heart Rate 96 /min Height 61 inches 5'1" BMI (Body Mass Index) 32.9 kg/m2 06/27/2013 Weight 167.00 lb Weight in kg's 75.751 BP Systolic 138 mmHg BP Diastolic 80 mmHg Heart Rate 80 /min Body Temperature 97.5 F 06/18/2012 Weight 192.00 lb Weight in kg's 87.091 BP Systolic 130 mmHg BP Diastolic 76 mmHg Heart Rate 63 /min Height 61.50 inches 5'1.50" BMI (Body Mass Index) 35.7 kg/m2 O2 % BldC Oximetry 98 % Ra 05/20/2012 Weight 190.00 lb Weight in kg's 86.184 BP Systolic 120 mmHg BP Diastolic 72 mmHg Heart Rate 76 /min Height 61.50 inches 5'1.50" BMI (Body Mass Index) 35.3 kg/m2 04/25/2012 Weight 192.00 lb Weight in kg's 87.091 BP Systolic 126 mmHg BP Diastolic 70 mmHg Heart Rate 64 /min Body Temperature 97.5 F Height 61.5 inches 5'1.50" BMI (Body Mass Index) 35.7 kg/m2 05/17/2011 Weight 180.00 lb Weight in kg's 81.648 BP Systolic 124 mmHg BP Diastolic 76 mmHg Heart Rate 68 /min Body Temperature 97.7 F 04/20/2011 Weight 181.00 lb Weight in kg's 82.102 BP Systolic 132 mmHg BP Diastolic 70 mmHg Heart Rate 60 /min Body Temperature 97.7 F 11/28/2010 Weight 169.00 lb Weight in kg's 76.658 BP Systolic 144 mmHg BP Diastolic 74 mmHg Heart Rate 80 /min Body Temperature 97.9 F 08/15/2010 Weight 170.00 lb Weight in kg's 77.112 BP Systolic 170 mmHg BP Diastolic 90 mmHg Heart Rate 64 /min Body Temperature 98.5 F 06/13/2010 Weight 170.00 lb Weight in kg's 77.112 BP Systolic 130 mmHg BP Diastolic 80 mmHg Heart Rate 84 /min Body Temperature 98.0 F 02/02/2010 Weight 166.00 lb Weight in kg's 75.298 BP Systolic 124 mmHg BP Diastolic 64 mmHg Heart Rate 76 /min Height 61.5 inches 5'1.50" BMI (Body Mass Index) 30.9 kg/m2 10/26/2009 Weight 168.00 lb Weight in kg's 76.205 BP Systolic 110 mmHg BP Diastolic 70 mmHg Heart Rate 56 /min O2 % BldC Oximetry 97 % 09/22/2009 Weight 172.00 lb Weight in kg's 78.019 BP Systolic 124 mmHg BP Diastolic 72 mmHg Heart Rate 104 /min 09/01/2009 Weight 176.00 lb Weight in kg's 79.834 BP Systolic 128 mmHg BP Diastolic 62 mmHg Heart Rate 78 /min 08/25/2009 Weight 176.00 lb Weight in kg's 79.834 BP Systolic 136 mmHg BP Diastolic 80 mmHg Heart Rate 76 /min Body Temperature 97.1 F 08/01/2009 Weight 179.00 lb Weight in kg's 81.194 BP Systolic 150 mmHg BP Diastolic 80 mmHg Heart Rate 68 /min Body Temperature 98.0 F 04/15/2009 Weight 186.00 lb Weight in kg's 84.370 BP Systolic 130 mmHg BP Diastolic 82 mmHg Heart Rate 80 /min Body Temperature 97.7 F 04/11/2009 Weight 184.00 lb Weight in kg's 83.462 BP Systolic 180 mmHg BP Diastolic 80 mmHg Heart Rate 72 /min Body Temperature 98.4 F 12/31/2008 Weight 178.00 lb Weight in kg's 80.741 BP Systolic 144 mmHg BP Diastolic 70 mmHg Heart Rate 64 /min Height 61 inches 5'1" BMI (Body Mass Index) 33.6 kg/m2 11/03/2008 Weight 174.00 lb Weight in kg's 78.926 BP Systolic 100 mmHg BP Diastolic 60 mmHg Heart Rate 54 /min Respiratory Rate 18 /min 10/11/2008 Weight 175.00 lb Weight in kg's 79.380 BP Systolic 110 mmHg BP Diastolic 80 mmHg Heart Rate 68 /min 08/02/2008 Weight 178.00 lb Weight in kg's 80.741 BP Systolic 114 mmHg BP Diastolic 60 mmHg Heart Rate 68 /min Height 60.75 inches 5'0.75" BMI (Body Mass Index) 33.9 kg/m2 07/02/2008 Weight 179.00 lb Weight in kg's 81.194 BP Systolic 116 mmHg BP Diastolic 80 mmHg Heart Rate 64 /min Body Temperature 98.7 F Height 60.75 inches 5'0.75" BMI (Body Mass Index) 34.1 kg/m2 06/07/2008 Weight 187.00 lb Weight in kg's 84.823 BP Systolic 108 mmHg BP Diastolic 54 mmHg Heart Rate 72 /min Height 60.75 inches 5'0.75" BMI (Body Mass Index) 35.6 kg/m2 05/28/2008 Weight 188.00 lb Weight in kg's 85.277 BP Systolic 110 mmHg BP Diastolic 60 mmHg Heart Rate 62 /min Body Temperature 99.5 F Height 60.75 inches 5'0.75" BMI (Body Mass Index) 35.8 kg/m2 05/24/2008 Weight 186.00 lb Weight in kg's 84.370 BP Systolic 160 mmHg BP Diastolic 98 mmHg Heart Rate 122 /min Height 60.75 inches 5'0.75" BMI (Body Mass Index) 35.4 kg/m2 O2 % BldC Oximetry 96 % 05/10/2008 Weight 194.00 lb Weight in kg's 87.998 BP Systolic 142 mmHg BP Diastolic 110 mmHg Heart Rate 98 /min Body Temperature 98.0 F Height 60.75 inches 5'0.75" BMI (Body Mass Index) 37.0 kg/m2 O2 % BldC Oximetry 91 % 04/09/2008 Weight 195.00 lb Weight in kg's 88.452 BP Systolic 160 mmHg BP Diastolic 80 mmHg Heart Rate 82 /min Height 60.75 inches 5'0.75" BMI (Body Mass Index) 37.1 kg/m2 03/08/2008 BP Systolic 134 mmHg BP Diastolic 80 mmHg Heart Rate 84 /min Height 60.75 inches 5'0.75" 02/06/2008 Weight 204.00 lb Weight in kg's 92.534 BP Systolic 154 mmHg BP Diastolic 72 mmHg Heart Rate 64 /min Height 60.75 inches 5'0.75" BMI (Body Mass Index) 38.9 kg/m2 01/29/2008 Weight 204.00 lb Weight in kg's 92.534 BP Systolic 118 mmHg BP Diastolic 64 mmHg Heart Rate 57 /min Height 60.75 inches 5'0.75" BMI (Body Mass Index) 38.9 kg/m2 01/23/2008 Weight 201.00 lb Weight in kg's 91.174 BP Systolic 146 mmHg BP Diastolic 68 mmHg Heart Rate 68 /min Height 60.75 inches 5'0.75" BMI (Body Mass Index) 38.3 kg/m2 12/17/2007 Weight 203.00 lb Weight in kg's 92.081 BP Systolic 118 mmHg BP Diastolic 60 mmHg Heart Rate 72 /min Height 60.75 inches 5'0.75" BMI (Body Mass Index) 38.7 kg/m2 10/13/2007 Weight 205.00 lb Weight in kg's 92.988 BP Systolic 130 mmHg BP Diastolic 80 mmHg Heart Rate 84 /min Height 61 inches 5'1" BMI (Body Mass Index) 38.7 kg/m2 10/02/2007 Weight 206.00 lb Weight in kg's 93.442 BP Systolic 158 mmHg BP Diastolic 78 mmHg Heart Rate 81 /min Height 61 inches 5'1" BMI (Body Mass Index) 38.9 kg/m2 Last Menstrual Period 0 O2 % BldC Oximetry 97 % 09/22/2007 Weight 204.00 lb Weight in kg's 92.534 BP Systolic 128 mmHg BP Diastolic 78 mmHg Heart Rate 64 /min Height 61 inches 5'1" BMI (Body Mass Index) 38.5 kg/m2 09/17/2007 BP Systolic 142 mmHg BP Diastolic 84 mmHg Heart Rate 80 /min Body Temperature 98.1 F Height 61 inches 5'1" 07/16/2007 Weight 212.00 lb Weight in kg's 96.163 BP Systolic 190 mmHg BP Diastolic 84 mmHg Heart Rate 110 /min Height 61 inches 5'1" BMI (Body Mass Index) 40.1 kg/m2 06/13/2007 Weight 204.00 lb Weight in kg's 92.534 BP Systolic 170 mmHg BP Diastolic 90 mmHg Heart Rate 100 /min Respiratory Rate 18 /min Height 61 inches 5'1" BMI (Body Mass Index) 38.5 kg/m2 05/31/2007 Weight 197.00 lb Weight in kg's 89.359 BP Systolic 150 mmHg BP Diastolic 84 mmHg Heart Rate 92 /min Height 61 inches 5'1" BMI (Body Mass Index) 37.2 kg/m2 05/07/2007 Weight 193.00 lb Weight in kg's 87.545 BP Systolic 122 mmHg BP Diastolic 80 mmHg Heart Rate 76 /min Height 61 inches 5'1" BMI (Body Mass Index) 36.5 kg/m2 04/21/2007 Weight 191.00 lb Weight in kg's 86.638 BP Systolic 122 mmHg BP Diastolic 80 mmHg Heart Rate 80 /min Height 61 inches 5'1" BMI (Body Mass Index) 36.1 kg/m2 04/07/2007 Weight 192.00 lb Weight in kg's 87.091 BP Systolic 140 mmHg BP Diastolic 80 mmHg Heart Rate 78 /min Respiratory Rate 18 /min Height 61 inches 5'1" BMI (Body Mass Index) 36.3 kg/m2 03/06/2007 Weight 192.00 lb Weight in kg's 87.091 BP Systolic 138 mmHg BP Diastolic 82 mmHg Heart Rate 90 /min Height 61 inches 5'1" BMI (Body Mass Index) 36.3 kg/m2 O2 % BldC Oximetry 97 % 01/30/2007 Weight 191.00 lb Weight in kg's 86.638 BP Systolic 118 mmHg BP Diastolic 76 mmHg Heart Rate 92 /min Height 61 inches 5'1" BMI (Body Mass Index) 36.1 kg/m2 01/01/2007 Weight 183.00 lb Weight in kg's 83.009 BP Systolic 120 mmHg BP Diastolic 74 mmHg Heart Rate 74 /min Height 61 inches 5'1" BMI (Body Mass Index) 34.6 kg/m2 12/06/2006 Weight 191.00 lb Weight in kg's 86.638 BP Systolic 130 mmHg BP Diastolic 80 mmHg Body Temperature 97.6 F Height 62 inches 5'2" BMI (Body Mass Index) 34.9 kg/m2 02/06/2006 Weight 191.00 lb Weight in kg's 86.638 BP Systolic 130 mmHg BP Diastolic 80 mmHg Body Temperature 97.0 F Height 62 inches 5'2" BMI (Body Mass Index) 34.9 kg/m2 02/02/2006 Weight 187.00 lb Weight in kg's 84.823 BP Systolic 180 mmHg BP Diastolic 102 mmHg Heart Rate 88 /min Body Temperature 95.7 F Height 62 inches 5'2" BMI (Body Mass Index) 34.2 kg/m2 12/28/2005 Weight 189.00 lb Weight in kg's 85.730 BP Systolic 134 mmHg BP Diastolic 88 mmHg Body Temperature 98.1 F Height 62 inches 5'2" BMI (Body Mass Index) 34.6 kg/m2 08/02/2005 Weight 185.00 lb Weight in kg's 83.916 BP Systolic 142 mmHg BP Diastolic 88 mmHg Height 62 inches 5'2" BMI (Body Mass Index) 33.8 kg/m2 07/02/2005 Weight 188.00 lb Weight in kg's 85.277 BP Systolic 134 mmHg BP Diastolic 88 mmHg Heart Rate 84 /min Body Temperature 97.2 F Height 62 inches 5'2" BMI (Body Mass Index) 34.4 kg/m2 05/28/2005 Weight 186.00 lb Weight in kg's 84.370 BP Systolic 130 mmHg BP Diastolic 80 mmHg Heart Rate 80 /min Height 62 inches 5'2" BMI (Body Mass Index) 34.0 kg/m2 04/30/2005 Weight 185.00 lb Weight in kg's 83.916 BP Systolic 134 mmHg BP Diastolic 76 mmHg Heart Rate 88 /min Height 62 inches 5'2" BMI (Body Mass Index) 33.8 kg/m2 12/26/2004 Weight 184.00 lb Weight in kg's 83.462 BP Systolic 132 mmHg BP Diastolic 80 mmHg Heart Rate 80 /min Height 61 inches 5'1" BMI (Body Mass Index) 34.8 kg/m2 11/01/2004 Weight 188.00 lb Weight in kg's 85.277 BP Systolic 134 mmHg BP Diastolic 80 mmHg Height 61 inches 5'1" BMI (Body Mass Index) 35.5 kg/m2 04/04/2004 Weight 184.00 lb Weight in kg's 83.462 BP Systolic 132 mmHg BP Diastolic 78 mmHg Heart Rate 84 /min Height 61 inches 5'1" BMI (Body Mass Index) 34.8 kg/m2 09/25/2003 Weight 181.00 lb Weight in kg's 82.102 BP Systolic 110 mmHg BP Diastolic 78 mmHg Body Temperature 97.1 F 07/21/2003 Weight 185.00 lb Weight in kg's 83.916 BP Systolic 140 mmHg BP Diastolic 80 mmHg 07/10/2003 Weight 185.00 lb Weight in kg's 83.916 BP Systolic 130 mmHg BP Diastolic 74 mmHg 04/13/2003 Weight 184.00 lb Weight in kg's 83.462 BP Systolic 140 mmHg BP Diastolic 80 mmHg Heart Rate 68 /min Respiratory Rate 18 /min Height 61.25 inches BMI (Body Mass Index) 34.5 kg/m2 12/25/2002 Weight 185.00 lb Weight in kg's 83.916 BP Systolic 144 mmHg BP Diastolic 90 mmHg Heart Rate 88 /min 07/23/2002 Weight 187.00 lb Weight in kg's 84.8 BP Systolic 122 mmHg BP Diastolic 80 mmHg Body Temperature 97.8 F Respiratory Rate 18 /min 05/30/2002 Weight 180.00 lb Weight in kg's 81.6 Body Temperature 97.1 F Results Test Date Test Result H/L Range Note Platelet Count 10/28/2017 Platelet Count 261 10^3/uL 150-450 Mean Platelet Volume 8 um3 7.4-10.4 Inr/Protime 10/28/2017 Inr 0.97 0.77-1.02 Laboratory test finding 10/28/2017 Partial Thrombo Time 31.6 seconds 26.0 -36.3 PTT Laboratory test finding 10/15/2017 Point of Care Glucose 141 mg/dL High 70 -100 1 Rapid Influenza A & 09/23/2017 Influenza A Molecular NEGATIVE Negative 2 B Molecular Influenza B Molecular NEGATIVE Negative Urinalysis Profile 09/23/2017 Urine Color Yellow Urine Appearance Clear Urine Specific [place] 1.015 1.010-1.030 Urine pH 6.0 5-9 Urine Urobilinogen Negative Negative Urine Ketones Negative Negative Urine Protein Negative Negative Urine Leukocytes Negative Negative Urine Blood Negative Negative Urine Nitrite Negative Negative Urine Bilirubin Negative Negative Urine Glucose Negative Negative CBC Auto Diff 09/23/2017 White Blood Count 14.8 10^3/uL High 3.5-10.8 Red Blood Count 4.14 10^6/uL 4.0-5.4 Hemoglobin 12.1 g/dL 12.0-16.0 Hematocrit 37 % 35-47 Mean Corpuscular Volume 88 fL 80-97 Mean Corpuscular Hemoglobin 29 pg 27-31 Mean Corpuscular HGB Conc 33 g/dL 31-36 Red Cell Distribution Width 14 % 10.5-15 Platelet Count 274 10^3/uL 150-450 Mean Platelet Volume 7 um3 Low 7.4-10.4 Abs Neutrophils 12.0 10^3/uL High 1.5-7.7 Abs Lymphocytes 1.9 10^3/uL 1.0-4.8 Abs Monocytes 0.6 10^3/uL 0-0.8 Abs Eosinophils 0.2 10^3/uL 0-0.6 Abs Basophils 0.1 10^3/uL 0-0.2 Abs Nucleated RBC 0 10^3/uL Granulocyte % 81.0 % 38-83 Lymphocyte % 12.5 % Low 25-47 Monocyte % 4.2 % 1-9 Eosinophil % 1.6 % 0-6 Basophil % 0.7 % 0-2 Nucleated Red Blood Cells % 0 Laboratory test finding 09/23/2017 Lactic Acid 1.1 mmol/L 0.5-2.0 3 Comp Metabolic Panel 09/23/2017 Sodium 140 mmol/L 133-145 Chloride 98 mmol/L Low 101-111 Co2 Carbon Dioxide 33 mmol/L High 22-32 Glucose 105 mg/dL High 70-100 Blood Urea Nitrogen 9 mg/dL 6-24 Creatinine 0.70 mg/dL 0.51-0.95 BUN/Creatinine Ratio 12.9 8-20 Calcium 8.7 mg/dL 8.6-10.3 Total Protein 6.7 g/dL 6.4-8.9 Albumin 3.6 g/dL 3.2-5.2 Globulin 3.1 g/dL 2-4 Albumin/Globulin Ratio 1.2 1-3 Total Bilirubin 0.50 mg/dL 0.2-1.0 Alkaline Phosphatase 72 U/L 34-104 Alt 14 U/L 7-52 Ast 13 U/L 13-39 Egfr Non- 83.5 >60 Egfr 107.3 >60 4 Potassium 2.4 mmol/L Low 3.5-5.0 5 Anion Gap 9 mmol/L 2-11 Laboratory test finding 09/23/2017 Magnesium 1.4 mg/dL Low 1.9-2.7 Troponin-I (TnI) 0.01 ng/mL <0.04 TSH (Thyroid Stimulating Horm) 0.85 mcIU/mL 0.34-5.60 D Dimer Quantitative 427 ng/mL High Less Than 230 6 CBC Auto Diff 08/15/2017 White Blood Count 11.8 10^3/uL High 3.5-10.8 Red Blood Count 4.31 10^6/uL 4.0-5.4 Hemoglobin 12.5 g/dL 12.0-16.0 Hematocrit 39 % 35-47 Mean Corpuscular Volume 90 fL 80-97 Mean Corpuscular Hemoglobin 29 pg 27-31 Mean Corpuscular HGB Conc 32 g/dL 31-36 Red Cell Distribution Width 15 % 10.5-15 Platelet Count 284 10^3/uL 150-450 Mean Platelet Volume 8 um3 7.4-10.4 Abs Neutrophils 7.5 10^3/uL 1.5-7.7 Abs Lymphocytes 3.3 10^3/uL 1.0-4.8 Abs Monocytes 0.6 10^3/uL 0-0.8 Abs Eosinophils 0.3 10^3/uL 0-0.6 Abs Basophils 0.1 10^3/uL 0-0.2 Abs Nucleated RBC 0.01 10^3/uL Granulocyte % 63.8 % 38-83 Lymphocyte % 27.9 % 25-47 Monocyte % 5.4 % 1-9 Eosinophil % 2.2 % 0-6 Basophil % 0.7 % 0-2 Nucleated Red Blood Cells % 0.1 Comp Metabolic Panel 08/15/2017 Sodium 144 mmol/L 133-145 Potassium 3.8 mmol/L 3.5-5.0 Chloride 105 mmol/L 101-111 Co2 Carbon Dioxide 30 mmol/L 22-32 Anion Gap 9 mmol/L 2-11 Glucose 88 mg/dL 70-100 Blood Urea Nitrogen 17 mg/dL 6-24 Creatinine 0.74 mg/dL 0.51-0.95 BUN/Creatinine Ratio 23.0 High 8-20 Calcium 9.3 mg/dL 8.6-10.3 Total Protein 6.4 g/dL 6.4-8.9 Albumin 3.9 g/dL 3.2-5.2 Globulin 2.5 g/dL 2-4 Albumin/Globulin Ratio 1.6 1-3 Total Bilirubin 0.30 mg/dL 0.2-1.0 Alkaline Phosphatase 86 U/L 34-104 Alt 17 U/L 7-52 Ast 15 U/L 13-39 Egfr Non- 78.3 >60 Egfr 100.7 >60 7 Lipid Profile (Trig/Chol/HDL) 08/15/2017 Triglycerides 143 mg/dL 8 Cholesterol 260 mg/dL 9 HDL Cholesterol 36.5 mg/dL 10 LDL Cholesterol 195 mg/dL 11 Laboratory test finding 08/15/2017 Hemoglobin A1c (Glyco HGB) 5.9 % High 4.0-5.6 12 TSH (Thyroid Stim Horm) 1.87 mcIU/mL 0.34-5.60 13 Laboratory test 03/11/2017 Wound Culture/Sensi SEE RESULT 14, 15 finding BELOW Laboratory test 02/25/2016 Wound Culture/Sensi SEE RESULT 16 finding BELOW CBC Auto Diff 12/27/2015 White Blood Count 11.5 10^3/uL High 3.5-10.8 Red Blood Count 4.35 10^6/uL 4.0-5.4 Hemoglobin 13.2 g/dL 12.0-16.0 Hematocrit 41 % 35-47 Mean Corpuscular Volume 94 fL 80-97 Mean Corpuscular Hemoglobin 30 pg 27-31 Mean Corpuscular HGB Conc 32 g/dL 31-36 Red Cell Distribution Width 15 % 10.5-15 Platelet Count 267 10^3/uL 150-450 Mean Platelet Volume 9 um3 7.4-10.4 Abs Neutrophils 7.7 10^3/uL 1.5-7.7 Abs Lymphocytes 2.7 10^3/uL 1.0-4.8 Abs Monocytes 0.7 10^3/uL 0-0.8 Abs Eosinophils 0.3 10^3/uL 0-0.6 Abs Basophils 0.1 10^3/uL 0-0.2 Abs Nucleated RBC 0 10^3/uL Granulocyte % 66.9 % 38-83 Lymphocyte % 23.9 % Low 25-47 Monocyte % 5.8 % 1-9 Eosinophil % 2.9 % 0-6 Basophil % 0.5 % 0-2 Nucleated Red Blood Cells % 0 Comp Metabolic Panel 12/27/2015 Sodium 139 mmol/L 133-145 Potassium 3.6 mmol/L 3.5-5.0 Chloride 104 mmol/L 101-111 Co2 Carbon Dioxide 27 mmol/L 22-32 Anion Gap 8 mmol/L 2-11 Glucose 113 mg/dL High 70-100 Blood Urea Nitrogen 13 mg/dL 6-24 Creatinine 0.74 mg/dL 0.51-0.95 BUN/Creatinine Ratio 17.6 8-20 Calcium 9.0 mg/dL 8.6-10.3 Total Protein 6.6 g/dL 6.4-8.9 Albumin 3.8 g/dL 3.2-5.2 Globulin 2.8 g/dL 2-4 Albumin/Globulin Ratio 1.4 1-3 Total Bilirubin 0.30 mg/dL 0.2-1.0 Alkaline Phosphatase 82 U/L 34-104 Alt 17 U/L 7-52 Ast 13 U/L 13-39 Egfr Non- 78.8 >60 Egfr 101.3 >60 17 Laboratory test 12/27/2015 Hemoglobin A1c (Glyco 6.0 % Less than 6.0 18 finding HGB) Lipid Profile 12/27/2015 Triglycerides 141 mg/dL 19 (Trig/Chol/HDL) Cholesterol 214 mg/dL 20 HDL Cholesterol 38.0 mg/dL 21 LDL Cholesterol 148 mg/dL 22 CBC No Diff 09/30/2014 White Blood Count 10.4 10^3/uL 4.8-10.8 Red Blood Count 4.38 10^6/uL 4.0-5.4 Hemoglobin 14.2 g/dL 12.0-16.0 Hematocrit 42 % 35-47 Mean Corpuscular Volume 97 fL 80-97 Mean Corpuscular Hemoglobin 33 pg High 27-31 Mean Corpuscular HGB Conc 34 g/dL 31-36 Red Cell Distribution Width 14 % 10.5-15 Platelet Count 271 10^3/uL 150-450 Mean Platelet Volume 9 um3 7.4-10.4 Comp Metabolic Panel 09/30/2014 Sodium 141 mmol/L 133-145 Potassium 3.9 mmol/L 3.5-5.0 Chloride 109 mmol/L 101-111 Co2 Carbon Dioxide 27 mmol/L 22-32 Anion Gap 5 mmol/L 2-11 Glucose 130 mg/dL High 70-100 Blood Urea Nitrogen 8 mg/dL 6-24 Creatinine 0.69 mg/dL 0.51-0.95 BUN/Creatinine Ratio 11.6 8-20 Calcium 8.9 mg/dL 8.6-10.3 Total Protein 6.3 g/dL Low 6.4-8.9 Albumin 4.0 g/dL 3.2-5.2 Globulin 2.3 g/dL 2-4 Albumin/Globulin Ratio 1.7 1-3 Total Bilirubin 0.30 mg/dL 0.2-1.0 Alkaline Phosphatase 75 U/L 34-104 Alt 15 U/L 7-52 Ast 13 U/L 13-39 Egfr Non- 85.7 >60 Egfr 110.2 >60 23 Laboratory test finding 09/30/2014 TSH (Thyroid Stimulating 1.14 IU/mL 0.34-5.60 Horm) Lipid Profile 09/30/2014 Triglycerides 225 mg/dL 24 (Trig/Chol/HDL) Cholesterol 257 mg/dL 25 HDL Cholesterol 38.9 mg/dL 26 LDL Cholesterol 173 mg/dL 27 Surgical Pathology 07/03/2012 S RUN DATE: <SEE NOTE> Laboratory test 05/20/2012 Hemoglobin A1c 5.9 % Less Than 6.0 29 finding Lipid Profile 04/25/2012 Triglyceride 144 mg/dL 40-200 (Trig/Chol/HDL) Cholesterol 171 mg/dL Less Than 200 30 High Density Lipoprotein 36 mg/dL Low 40-60 31 Cholesterol/HDL Ratio 4.75 AVERAGE High 1-4.44 Low Density Lipoprotein 106 mg/dL High Less Than 100 32 Vad 04/25/2012 Vad Final Nonreactive Nonreactive 33 Laboratory test finding 04/25/2012 TSH 2.11 MIU/ML 0.34-5.60 Comp Metabolic Panel 04/25/2012 Sodium 139 mmol/L 135-145 Potassium 3.6 mmol/L 3.5-5.0 Chloride 107 mmol/L 101-111 Co2 (Carbon Dioxide) 23.0 mmol/L 22-32 Anion Gap 9.0 mmol/L 2-11 34 Glucose 126 mg/dL High 70-100 BUN 7 mg/dL 6-24 Creatinine 0.9 mg/dL 0.50-1.40 One Over Creatinine 1.11 BUN/Creatinine Ratio 7.8 Low 8-20 Calcium 9.0 mg/dL 8.1-9.9 Total Protein 6.0 GM/DL Low 6.2-8.1 Albumin 3.5 GM/DL 3.2-5.2 Globulin 2.5 GM/DL 2-4 Albumin/Globulin Ratio 1.4 1-3 Bilirubin Total 0.8 mg/dL 0.4-1.5 35 Alkaline Phosphatase 90 U/L 30-110 Alt (SGPT) 27 U/L 14-54 Ast (Sgot) 30 U/L 12-42 eGFR Non- 63.4 > 60 eGFR 81.6 > 60 36 CBC Auto Diff 04/25/2012 White Blood Count 10.6 CUMM 4.8-10.8 Red Cell Count 3.95 CUMM Low 4.2-5.4 Hemoglobin 12.6 g/dL 12.0-16.0 Hematocrit 38 % 35-47 Mean Corpuscular Volume 96 um3 79-97 Mean Corpuscular Hemoglob 32 pg High 27-31 Mean Corpuscular HGB Cone 33 g/dL 32-36 Redcell Distribution WDTH 13 % 10.5-15 Platelet Count 183 CUMM 150-450 Mean Platelet Volume 10.4 um3 7.4-10.4 Gran % 71.3 % 38-83 Lymph % 21.1 % 20-45 Mononuclear % 5.2 % 1-9 Eosinophil % 2.1 % 0-6 Basophil % 0.3 % 0-2 Abs Lymphs 2.2 1.0-4.8 Abs Mononuclear 0.6 0-0.8 Absolute Neutrophil Count 7.5 1.5-7.7 Abs Eosinophils 0.2 0-0.6 Abs Basophils 0 0-0.2 Laboratory test finding 12/21/2010 Clotest NEGATIVE CBC Auto Diff 11/28/2010 White Blood Count 10.2 CUMM 4.8-10.8 Red Cell Count 4.14 CUMM Low 4.2-5.4 Hemoglobin 13.8 g/dL 12.0-16.0 Hematocrit 40 % 35-47 Mean Corpuscular Volume 97 um3 79-97 Mean Corpuscular Hemoglob 33 pg High 27-31 Mean Corpuscular HGB Cone 34 g/dL 32-36 Redcell Distribution WDTH 13 % 10.5-15 Platelet Count 231 CUMM 150-450 Mean Platelet Volume 9.3 um3 7.4-10.4 Gran % 70.0 % 38-83 Lymph % 23.5 % Low 25-47 Mononuclear % 4.7 % 1-9 Eosinophil % 1.5 % 0-6 Basophil % 0.3 % 0-2 Abs Lymphs 2.4 1.0-4.8 Abs Mononuclear 0.5 0-0.8 Absolute Neutrophil Count 7.1 1.5-7.7 Abs Eosinophils 0.2 0-0.6 Abs Basophils 0 0-0.2 Comp Metabolic Panel 11/28/2010 Sodium 139 mmol/L 135-145 Potassium 3.8 mmol/L 3.5-5.0 Chloride 103 mmol/L 101-111 Co2 (Carbon Dioxide) 30.0 mmol/L 22-32 Anion Gap 6.0 mmol/L 2-11 37 Glucose 115 mg/dL High 70-100 BUN 9 mg/dL 6-24 Creatinine 0.90 mg/dL 0.50-1.40 One Over Creatinine 1.10 BUN/Creatinine Ratio 10.0 8-20 Calcium 9.5 mg/dL 8.1-9.9 Total Protein 6.6 GM/DL 6.2-8.1 Albumin 4.1 GM/DL 3.2-5.2 Globulin 2.5 GM/DL 2-4 Albumin/Globulin Ratio 1.6 1-3 Bilirubin Total 0.6 mg/dL 0.4-1.5 38 Alkaline Phosphatase 73 U/L 30-110 Alt (SGPT) 23 U/L 14-54 Ast (Sgot) 21 U/L 12-42 eGFR Non- 63.9 > 60 eGFR 82.1 > 60 39 Laboratory test finding 11/28/2010 Amylase 52 U/L 20-120 40 Lipase 24 U/L 22-51 H. Pylori Evaluation Quantitat 11/28/2010 H. Pylori Igg AB <0.75 Index () 41 H. Pylori Igm AB Negative Negative H. Pylori Iga AB Negative Negative Urine DIP 11/28/2010 Leukocytes neg Neg Urine Nitrites neg Neg Urine pH 5 5-6 Total Protein, Urine neg Neg Urine Glucose norm Norm Urine Ketones neg Neg Urobilinogen norm Norm Urine Bilirubin neg Neg Urine Blood neg Neg Specific [place] na Low 1.01-1.02 Surgical Pathology 03/02/2010 Surgical 42 Pathology <SEE NOTE> Comprehensive 02/02/2010 Glucose 106 mg/dL High 70-100 Metabolic BUN 11 mg/dL 4-18 Creatinine, Serum 0.83 mg/dL 0.50-1.10 Sodium 143 mmol/L 136-146 Potassium 4.0 mmol/L 3.5-5.3 Chloride 106 mmol/L 98-110 Carbon Dioxide 28 mmol/L 20-32 Albumin 4.3 g/dL 3.5-4.7 Protein, Total 7.0 g/dL 6.4-8.3 Calcium 9.2 mg/dL 8.4-10.4 Alkaline Phosphatase 73 U/L 10-118 Sgot (Ast) 32 U/L 3-40 SGPT (Alt) 46 U/L 7-50 Bilirubin, Total 0.40 mg/dL 0.30-1.20 Lipid Panel 02/02/2010 Cholesterol, Total 174 mg/dL <200 Triglycerides 160 mg/dL <150 HDL Cholesterol 44 mg/dL 40-60 Chol/HDL Cholesterol 4.0 43 LDL Cholesterol, Calc. 98 mg/dL 44 LDL/HDL Cholesterol 2.2 45 Laboratory test finding 02/02/2010 TSH (Thyrotropin) 0.500 uIU/ml 0.350- 5.500 GFR Calculated 02/02/2010 GFR (Calculated) >60 46 Urine DIP 02/02/2010 Leukocytes TRACE Neg Urine Nitrites NEG Neg Urine pH 5 5-6 Total Protein, Urine TRACE Neg Urine Glucose NORM Norm Urine Ketones NEG Neg Urobilinogen NORM Norm Urine Bilirubin NEG Neg Urine Blood TRACE Neg Specific [place] NA Low 1.01-1.02 CBC 02/02/2010 WBC 10.1 x10E3/uL 4.3-10.9 RBC 3.99 x10E6/uL 3.80-5.30 Hemoglobin 12.9 g/dL 11.8-15.8 Hematocrit 39.7 % 35.0-47.0 MCV 99.5 fl High 82.0-98.0 MCH 32.3 pg 27.5-33.5 MCHC 32.5 g/dL 32.0-36.0 RDW 13.5 % 11.5-14.5 Platelet Count 261 x10E3/uL 130-400 MPV 10.9 fl High 6.5-10.5 Segmented Neutrophils 59.1 % 44.0-74.0 Lymphocytes 34.3 % 15.0-45.0 Monocytes 5.5 % 2.0-13.0 Eosinophils 1.0 % 0.0-6.0 Basophils 0.1 % 0.0-2.0 Neutrophil Absolute 6.0 x10E3/uL 1.4-7.0 Lymphocytes Absolute 3.5 x10E3/uL High 1.0-3.4 Monocyte Absolute 0.6 x10E3/uL 0.2-1.0 Eosinophil Absolute 0.1 x10E3/uL 0.0-0.5 Basophil Absolute 0.0 x10E3/uL 0.0-0.2 Statin 08/01/2009 Sgot (Ast) 18 U/L 3-40 SGPT (Alt) 18 U/L 7-50 Lipid Panel 08/01/2009 Cholesterol, Total 150 mg/dL <200 Triglycerides 101 mg/dL <150 HDL Cholesterol 36 mg/dL Low 40-60 Chol/HDL Cholesterol 4.2 47 LDL Cholesterol, Calc. 94 mg/dL 48 LDL/HDL Cholesterol 2.6 49 GFR Calculated 04/15/2009 GFR (Calculated) >60 50 Comprehensive Metabolic 04/15/2009 Glucose 91 mg/dL 70-100 BUN 9 mg/dL 4-18 Creatinine, Serum 0.72 mg/dL 0.50-1.10 51 Sodium 145 mmol/L 136-146 Potassium 4.1 mmol/L 3.5-5.3 Chloride 106 mmol/L 98-110 Carbon Dioxide 31 mmol/L 20-32 Albumin 4.2 g/dL 3.5-4.7 Protein, Total 6.3 g/dL Low 6.4-8.3 Calcium 9.5 mg/dL 8.4-10.4 Alkaline Phosphatase 77 U/L 10-118 Sgot (Ast) 27 U/L 3-40 SGPT (Alt) 27 U/L 7-50 Bilirubin, Total 0.30 mg/dL 0.30-1.20 Laboratory test 04/12/2009 O P: Giardia/Crypto Screen Giardia and cryp 52 finding <SEE NOTE> Campylobacter Culture NF 53 Stool Cult Sensitivity NF 54 Shiga Toxin 1 And 2 (Ehec) N^NEGATIVE BY IM <SEE NOTE> 55 Stool 04/12/2009 Stool Specimen Description M^MUCOID^STCON 56 CBC 04/11/2009 WBC 8.0 x103 4.3-10.9 RBC 4.11 x106 3.80-5.30 Hemoglobin 13.4 g/dL 11.8-15.8 Hematocrit 40.4 % 35.0-47.0 MCV 98.3 fl High 82.0-98.0 MCH 32.6 pg 27.5-33.5 MCHC 33.2 g/dL 32.0-36.0 RDW 12.7 % 11.5-14.5 Platelet Count 226 x103 130-400 MPV 10.6 fl High 6.5-10.5 Segmented Neutrophils 64.9 % 44.0-74.0 Lymphocytes 26.0 % 15.0-45.0 Monocytes 6.0 % 2.0-13.0 Eosinophils 2.9 % 0.0-6.0 Basophils 0.2 % 0.0-2.0 Neutrophil Absolute 5.2 x103 1.4-7.0 Lymphocytes Absolute 2.1 x103 1.0-3.4 Monocyte Absolute 0.5 x103 0.2-1.0 Eosinophil Absolute 0.2 x103 0.0-0.5 Basophil Absolute 0.0 x103 0.0-0.2 Electrolyte Panel 04/11/2009 Sodium 149 mmol/L High 136-146 Potassium 3.7 mmol/L 3.5-5.3 Chloride 109 mmol/L 98-110 Carbon Dioxide 31 mmol/L 20-32 CBC 12/31/2008 WBC 9.5 x103 4.3-10.9 RBC 4.33 x106 3.80-5.30 Hemoglobin 13.6 g/dL 11.8-15.8 Hematocrit 43.2 % 35.0-47.0 MCV 99.8 fl High 82.0-98.0 MCH 31.4 pg 27.5-33.5 MCHC 31.5 g/dL Low 32.0-36.0 RDW 13.1 % 11.5-14.5 Platelet Count 237 x103 130-400 MPV 11.0 fl High 6.5-10.5 Segmented Neutrophils 64.8 % 44.0-74.0 Lymphocytes 27.5 % 15.0-45.0 Monocytes 5.7 % 2.0-13.0 Eosinophils 1.8 % 0.0-6.0 Basophils 0.2 % 0.0-2.0 Neutrophil Absolute 6.2 x103 1.4-7.0 Lymphocytes Absolute 2.6 x103 1.0-3.4 Monocyte Absolute 0.5 x103 0.2-1.0 Eosinophil Absolute 0.2 x103 0.0-0.5 Basophil Absolute 0.0 x103 0.0-0.2 Comprehensive Metabolic 12/31/2008 Glucose 89 mg/dL 70-100 BUN 11 mg/dL 4-18 Creatinine, Serum 0.9 mg/dL 0.5-1.2 Sodium 141 mmol/L 136-146 Potassium 4.2 mmol/L 3.5-5.3 Chloride 103 mmol/L 98-110 Carbon Dioxide 27 mmol/L 20-32 Albumin 4.5 g/dL 3.5-4.7 Protein, Total 6.9 g/dL 6.4-8.3 Calcium 9.6 mg/dL 8.4-10.4 Alkaline Phosphatase 88 U/L 10-118 Sgot (Ast) 26 U/L 3-40 SGPT (Alt) 33 U/L 7-50 Bilirubin, Total 0.40 mg/dL 0.30-1.20 Lipid Profile 12/31/2008 Cholesterol, Total 176 mg/dL 120-200 57 HDL Cholesterol 44 mg/dL 40-60 LDL Cholesterol, Calc. 104 mg/dL 58 Triglycerides 138 mg/dL 59 LDL/HDL Cholesterol 2.4 60 Chol/HDL Cholesterol 4.0 61 GFR (Calculated) 12/31/2008 GFR (Calculated) >60 62 CBC 10/11/2008 WBC 12.0 x103 High 4.3-10.9 RBC 4.38 x106 3.80-5.30 Hemoglobin 13.1 g/dL 11.8-15.8 Hematocrit 41.4 % 35.0-47.0 MCV 94.5 fl 82.0-98.0 MCH 29.9 pg 27.5-33.5 MCHC 31.6 g/dL Low 32.0-36.0 RDW 15.3 % High 11.5-14.5 Platelet Count 267 x103 130-400 MPV 11.1 fl High 6.5-10.5 Segmented Neutrophils 60.1 % 44.0-74.0 Lymphocytes 30.7 % 15.0-45.0 Monocytes 6.8 % 2.0-13.0 Eosinophils 2.2 % 0.0-6.0 Basophils 0.2 % 0.0-2.0 Neutrophil Absolute 7.2 x103 High 1.4-7.0 Lymphocytes Absolute 3.7 x103 High 1.0-3.4 Monocyte Absolute 0.8 x103 0.2-1.0 Eosinophil Absolute 0.3 x103 0.0-0.5 Basophil Absolute 0.0 x103 0.0-0.2 Statin 08/09/2008 Sgot (Ast) 18 U/L 3-40 63 SGPT (Alt) 18 U/L 7-50 63 Laboratory test finding 08/09/2008 Ferritin 157.9 ng/ml 10.0-291.0 63 CBC 08/09/2008 WBC 11.4 x103 High 4.3-10.9 63 RBC 4.40 x106 3.80-5.30 63 Hemoglobin 12.7 g/dL 11.8-15.8 63 Hematocrit 41.9 % 35.0-47.0 63 MCV 95.2 fl 82.0-98.0 63 MCH 28.9 pg 27.5-33.5 63 MCHC 30.3 g/dL Low 32.0-36.0 63 RDW 15.3 % High 11.5-14.5 63 Platelet Count 262 x103 130-400 63 MPV 11.7 fl High 6.5-10.5 63 Segmented Neutrophils 73.8 % 44.0-74.0 63 Lymphocytes 17.8 % 15.0-45.0 63 Monocytes 5.0 % 2.0-13.0 63 Eosinophils 3.1 % 0.0-6.0 63 Basophils 0.3 % 0.0-2.0 63 Neutrophil Absolute 8.4 x103 High 1.4-7.0 63 Lymphocytes Absolute 2.0 x103 1.0-3.4 63 Monocyte Absolute 0.6 x103 0.2-1.0 63 Eosinophil Absolute 0.4 x103 0.0-0.5 63 Basophil Absolute 0.0 x103 0.0-0.2 63 Lipid Profile 08/09/2008 Cholesterol, Total 128 mg/dL 120-200 63, 64 HDL Cholesterol 32 mg/dL Low 40-60 63 LDL Cholesterol, Calc. 68 mg/dL 63, 65 Triglycerides 140 mg/dL 63, 66 LDL/HDL Cholesterol 2.1 63, 67 Chol/HDL Cholesterol 4.0 63, 68 CBC 06/07/2008 WBC 10.2 x103 4.3-10.9 RBC 3.81 x106 3.80-5.30 Hemoglobin 11.1 g/dL Low 11.8-15.8 Hematocrit 37.1 % 35.0-47.0 MCV 97.4 fl 82.0-98.0 MCH 29.1 pg 27.5-33.5 MCHC 29.9 g/dL Low 32.0-36.0 RDW 15.5 % High 11.5-14.5 Platelet Count 262 x103 130-400 MPV 10.7 fl High 6.5-10.5 Segmented Neutrophils 75.9 % High 44.0-74.0 Lymphocytes 15.1 % 15.0-45.0 Monocytes 6.2 % 2.0-13.0 Eosinophils 2.5 % 0.0-6.0 Basophils 0.3 % 0.0-2.0 Neutrophil Absolute 7.7 x103 High 1.4-7.0 Lymphocytes Absolute 1.5 x103 1.0-3.4 Monocyte Absolute 0.6 x103 0.2-1.0 Eosinophil Absolute 0.3 x103 0.0-0.5 Basophil Absolute 0.0 x103 0.0-0.2 Comprehensive Metabolic 06/07/2008 Glucose 123 mg/dL High 70-100 BUN 6 mg/dL 4-18 Creatinine, Serum 0.8 mg/dL 0.5-1.2 Sodium 142 mmol/L 136-146 Potassium 3.9 mmol/L 3.5-5.3 Chloride 109 mmol/L 98-110 Carbon Dioxide 21 mmol/L 20-32 Albumin 3.8 g/dL 3.5-4.7 Protein, Total 6.2 g/dL Low 6.4-8.3 Calcium 9.4 mg/dL 8.4-10.4 Alkaline Phosphatase 93 U/L 10-118 Sgot (Ast) 13 U/L 3-40 SGPT (Alt) 15 U/L 7-50 Bilirubin, Total 0.30 mg/dL 0.30-1.20 Laboratory test finding 06/07/2008 Ferritin 372.2 ng/ml High 10.0-291.0 GFR (Calculated) >60 69 Laboratory test finding 05/24/2008 C.Difficile Toxin A+B NEGATIVE Laboratory test finding 05/10/2008 Troponin-I (TnI) 0.04 NG/ML 0-0.06 70 BNP Evaluatr 15.74 pg/mL 7.5-100 CMP Stat 05/10/2008 Sodium 142 mmol/L 135-145 Potassium 3.2 mmol/L Low 3.5-5.0 Chloride 108 mmol/L 101-111 Co2 (Carbon Dioxide) 23.0 mmol/L 22-32 Anion Gap 11.0 mmol/L 2-11 71 Glucose 117 mg/dL High 70-100 72 BUN 8 mg/dL 6-24 Creatinine 0.7 mg/dL 0.5-1.4 One Over Creatinine 1.42 BUN/Creatinine Ratio 11.4 8-20 Calcium 8.3 mg/dL 8.1-9.9 73 Total Protein 6.7 GM/DL 6.2-8.1 Albumin 2.7 GM/DL Low 3.6-5.4 Globulin 4.0 GM/DL 2-4 Albumin/Globulin Ratio 0.7 Low 1-3 Bilirubin Total 1.7 mg/dL High 0.4-1.5 Alkaline Phosphatase 162 U/L High 30-110 Alt (SGPT) 31 U/L 14-54 Ast (Sgot) 32 U/L 12-42 CBC With Manual Diff 05/10/2008 White Blood Count 19.0 CUMM High 4.8-10.8 Red Cell Count 3.59 CUMM Low 4.2-5.4 Hemoglobin 10.9 g/dL Low 12.0-16.0 Hematocrit 32 % Low 35-47 Mean Corpuscular Volume 88 um3 79-97 Mean Corpuscular Hemoglob 30 pg 27-31 Mean Corpuscular HGB Cone 34 g/dL 32-36 Redcell Distribution WDTH 17 % High 10.5-15 Platelet Count 359 CUMM 150-450 Mean Platelet Volume 7.1 um3 Low 7.4-10.4 Polysegmented Neutrophil 91 % High 38-83 Lymphocyte 5 % 5-47 Monocyte 2 % 0-13 Eosenophil 2 % 0-6 Absolute Neutrophil Count 17.2 Anisocytosis 1+ Macrocytosis 1+ Microcytosis 1+ Polychromasia 2+ Spherocytes 1+ Arterial Blood Gas 05/10/2008 PH 7.46 High 7.35-7.45 Pco2 27 mmHg Low 35-45 Po2 128 mmHg High 80-100 O2 Saturation 99 % High 95-98 Base Excess -3.4 Low -2.0-2.0 Bicarbonate 19.2 mmol/L 19-31 Device NC Fio2 4 LPM Urinalysis 05/07/2008 Ua Color YELLOW Appearance-Urine CLEAR Specific [place]-Ur 1.030 1.010-1.030 E[place]ase-Urine TRACE Negative Nitrite NEGATIVE Negative [id number]-Cn-[id number] POSITIVE Negative Protein-Urine 1+ Negative PH-Urine 6.5 5-9 Blood-Urine TRACE Negative Ketones-Urine NEGATIVE Negative Ictotest-Urine NEGATIVE (NEG) Glucose-Urine NEGATIVE Negative Urinalysis W/Microscopic 05/07/2008 Ua Color YELLOW Appearance-Urine CLEAR Specific [place]-Ur 1.030 1.010-1.030 Esterase-Urine TRACE Negative Nitrite NEGATIVE Negative [place]-Wm-VFC POSITIVE Negative Protein-Urine 1+ Negative PH-Urine 6.5 5-9 Blood-Urine TRACE Negative Ketones-Urine NEGATIVE Negative Ictotest-Urine NEGATIVE (NEG) Glucose-Urine NEGATIVE Negative WBC-Urine 3-5 0-5 RBC-Urine 0-2 0-2 Mucus Urine MODERATE Epith Cells-Ur MODERATE Bacteria-Urine 1+ Laboratory test finding 05/06/2008 Erythropoietin 192 mIU/mL 4.0-21 74 Handling (SEE NOTE) 75 Blood Culture 05/03/2008 Blood Culture NG5 76 Blood Culture 05/03/2008 Blood Culture NG5 77, 78 Protein Electrophoresis Serum 05/03/2008 Albumin 2.67 GM/DL Low 3.0-4.35 Alpha 1 0.32 GM/DL 0.09-0.33 Alpha 2 0.94 GM/DL 0.59-1.18 Beta 0.75 GM/DL 0.68-1.02 Gamma 0.63 GM/DL Low 0.76-1.60 Albumin % 50.4 % 46-63 Alpha 1 % 6.0 % High 1.2-5.3 Alpha 2 % 17.7 % High 9-17 Beta % 14.2 % 10-16 Gamma % 11.9 % Low 12-22 A/G Ratio 1.0 0.9-2 Total Protein 5.3 GM/DL Low 6.2-8.1 Spep Comments (SEE NOTE) 79 Laboratory test finding 05/02/2008 Stool For Blood NEGATIVE Negative PT/Inr Stat 05/02/2008 Protime 13.2 10.9-13.3 Inr 1.19 80 Laboratory test finding 05/02/2008 PTT (Aptt) Stat 21.9 20.1-28.2 81 CBC With Manual Diff Stat 05/02/2008 White Blood Count 13.5 CUMM High 4.8- 10.8 Red Cell Count 2.35 CUMM Low 4.2-5.4 Hemoglobin 7.4 g/dL Low 12.0-16.0 Hematocrit 21 % Low 35-47 Mean Corpuscular Volume 91 um3 79-97 Mean Corpuscular Hemoglob 32 pg High 27-31 Mean Corpuscular HGB Cone 35 g/dL 32-36 Redcell Distribution WDTH 14 % 10.5-15 Platelet Count 200 CUMM 150-450 Mean Platelet Volume 8.1 um3 7.4-10.4 Polysegmented Neutrophil 84 % High 38-83 Lymphocyte 11 % 5-47 Monocyte 3 % 0-13 Eosenophil 2 % 0-6 Absolute Neutrophil Count 11.3 Anisocytosis SLIGHT Polychromasia SLIGHT Toxic Shock Evaluation 05/02/2008 Patient Blood Type A NEGATIVE Antibody Screen NEGATIVE CMP Stat 05/02/2008 Sodium 141 mmol/L 135-145 Potassium 3.0 mmol/L Low 3.5-5.0 Chloride 112 mmol/L High 101-111 Co2 (Carbon Dioxide) 26.0 mmol/L 22-32 Anion Gap 3.0 mmol/L 2-11 82 Glucose 118 mg/dL High 70-105 BUN 10 mg/dL 6-24 Creatinine 0.8 mg/dL 0.5-1.4 One Over Creatinine 1.25 BUN/Creatinine Ratio 12.5 8-20 Calcium 7.9 mg/dL Low 8.1-9.9 83 Total Protein 5.7 GM/DL Low 6.2-8.1 Albumin 3.1 GM/DL Low 3.6-5.4 Globulin 2.6 GM/DL 2-4 Albumin/Globulin Ratio 1.2 1-3 Bilirubin Total 0.7 mg/dL 0.4-1.5 Alkaline Phosphatase 70 U/L 30-110 Alt (SGPT) 29 U/L 14-54 Ast (Sgot) 25 U/L 12-42 Laboratory test finding 05/02/2008 Troponin-I (TnI) 0.01 NG/ML 0-0.06 84 Ferritin 41 NG/ML 11.0-307 CK For CKMB 89 U/L 0-170 85 Laboratory test finding 01/29/2008 CPK (Creatine Kinase) 82 U/L 0-170 C Reactive Protein 0.9 mg/dL High Less Than 0.5 D Dimer Quantitative < 200 NG/ML < 230 86 CBC With Electronic Diff 01/29/2008 White Blood Count 8.9 CUMM 4.8-10.8 Red Cell Count 3.90 CUMM Low 4.2-5.4 Hemoglobin 12.1 g/dL 12.0-16.0 Hematocrit 35 % 35-47 Mean Corpuscular Volume 91 um3 79-97 Mean Corpuscular Hemoglob 31 pg 27-31 Mean Corpuscular HGB Cone 34 g/dL 32-36 Redcell Distribution WDTH 14 % 10.5-15 Platelet Count 230 CUMM 150-450 Mean Platelet Volume 8.7 um3 7.4-10.4 Gran % 64.9 % 38-83 Lymph % 26.1 % 20-45 Mononuclear % 6.3 % 1-9 Eosinophil % 2.5 % 0-6 Basophil % 0.2 % 0-2 Abs Lymphs 2.3 1.0-4.8 Abs Mononuclear 0.6 0-0.8 Absolute Neutrophil Count 5.8 1.5-7.7 Abs Eosinophils 0.2 0-0.6 Abs Basophils 0 0-0.2 Laboratory test finding 01/29/2008 Erythrocyte Sed Rate 26 MM/HR 0-30 Laboratory test finding 12/18/2007 CPK (Creatine Kinase) 81 U/L 0-170 Lipid Profile 12/18/2007 Cholesterol/HDL Ratio 4.84 AVERAGE High 1-4.44 (Trig/Chol/HDL) Cholesterol 155 mg/dL Less Than 200 87 Triglyceride 103 mg/dL 40-200 High Density Lipoprotein 32 mg/dL Low 40-60 88 Low Density Lipoprotein 102 mg/dL High Less Than 100 89 Laboratory test finding 12/18/2007 TSH 0.58 MIU/ML 0.34-5.60 Erythrocyte Sed Rate 36 MM/HR High 0-30 CBC With Electronic Diff 12/18/2007 White Blood Count 8.6 CUMM 4.8-10.8 Abs Basophils 0 0-0.2 Abs Eosinophils 0.2 0-0.6 Absolute Neutrophil Count 5.7 1.5-7.7 Abs Lymphs 2.2 1.0-4.8 Abs Mononuclear 0.5 0-0.8 Basophil % 0.5 % 0-2 Hematocrit 37 % 35-47 Hemoglobin 12.7 g/dL 12.0-16.0 Eosinophil % 2.2 % 0-6 Gran % 65.6 % 38-83 Lymph % 25.6 % 20-45 Mean Corpuscular HGB Cone 34 g/dL 32-36 Mean Corpuscular Hemoglob 31 pg 27-31 Mean Corpuscular Volume 91 um3 79-97 Mean Platelet Volume 7.7 um3 7.4-10.4 Mononuclear % 6.1 % 1-9 Platelet Count 229 CUMM 150-450 Red Cell Count 4.07 CUMM Low 4.2-5.4 Redcell Distribution WDTH 14 % 10.5-15 Comp Metabolic Panel 12/18/2007 One Over Creatinine 1.42 Anion Gap 5.0 mmol/L 2-11 90 Albumin/Globulin Ratio 1.2 1-3 Albumin 3.6 GM/DL 3.6-5.4 Alkaline Phosphatase 103 U/L 30-110 Alt (SGPT) 24 U/L 14-54 Ast (Sgot) 19 U/L 12-42 BUN 12 mg/dL 6-24 Calcium 8.9 mg/dL 8.7-10.2 Chloride 105 mmol/L 101-111 Co2 (Carbon Dioxide) 30.0 mmol/L 22-32 Globulin 2.9 GM/DL 2-4 Glucose 112 mg/dL High 70-105 Potassium 4.3 mmol/L 3.5-5.0 Sodium 140 mmol/L 135-145 Bilirubin Total 0.5 mg/dL 0.4-1.5 Total Protein 6.5 GM/DL 6.2-8.1 BUN/Creatinine Ratio 17.1 8-20 Creatinine 0.7 mg/dL 0.5-1.4 Laboratory test finding 12/18/2007 C Reactive Protein 0.6 mg/dL High Less Than 0.5 Urine DIP 12/17/2007 Leukocytes NEG Neg Urine Nitrites NEG Neg Urine pH 5 5-6 Total Protein, Urine NEG Neg Urine Glucose NORM Norm Urine Ketones NE Neg Urobilinogen NORM Norm Urine Bilirubin NEG Neg Urine Blood NEG Neg Specific [place] N/A Low 1.01-1.02 Comp Metabolic Panel 10/15/2007 One Over Creatinine 1.25 Anion Gap 5.0 mmol/L 2-11 91 Albumin/Globulin Ratio 1.6 1-3 Albumin 3.8 GM/DL 3.6-5.4 Alkaline Phosphatase 144 U/L High 30-110 Alt (SGPT) 101 U/L High 14-54 Ast (Sgot) 24 U/L 12-42 BUN 12 mg/dL 6-24 Calcium 9.0 mg/dL 8.7-10.2 Chloride 108 mmol/L 101-111 Co2 (Carbon Dioxide) 29.0 mmol/L 22-32 Globulin 2.4 GM/DL 2-4 Glucose 106 mg/dL High 70-105 Potassium 4.3 mmol/L 3.5-5.0 Sodium 142 mmol/L 135-145 Bilirubin Total 0.7 mg/dL 0.4-1.5 Total Protein 6.2 GM/DL 6.2-8.1 BUN/Creatinine Ratio 15.0 8-20 Creatinine 0.8 mg/dL 0.5-1.4 Lipid Profile 10/15/2007 Cholesterol/HDL Ratio 5.36 AVERAGE High 1-4.44 (Trig/Chol/HDL) Cholesterol 150 mg/dL Less Than 200 92 Triglyceride 116 mg/dL 40-200 High Density Lipoprotein 28 mg/dL Low 40-60 93 Low Density Lipoprotein 99 mg/dL Less Than 100 94 Laboratory test finding 10/15/2007 Erythrocyte Sed Rate 20 MM/HR 0-30 Statin 03/29/2007 Ast (Sgot) 19 U/L 12-42 95 Alt (SGPT) 25 U/L 14-54 95 Lipid Profile 03/29/2007 Cholesterol/HDL Ratio 5.37 AVERAGE High 1-4.44 95 (Trig/Chol/HDL) Cholesterol 188 mg/dL Less Than 200 95, 96 Triglyceride 111 mg/dL 40-200 95 High Density Lipoprotein 35 mg/dL Low 40-60 95, 97 Low Density Lipoprotein 131 mg/dL High Less Than 100 95, 98 Hemoccult 01/24/2007 Stool-Occult Blood #1 neg 01/15/07 Neg Stool-Occult Blood #2 neg 01/19/07 Neg Stool-Occult Blood #3 neg Neg CBC With Electronic Diff 01/04/2007 White Blood Count 9.1 CUMM 4.8-10.8 95 Abs Basophils 0 0-0.2 95 Abs Eosinophils 0.2 0-0.6 95 Absolute Neutrophil Count 6.4 1.5-7.7 95 Abs Lymphs 1.9 1.0-4.8 95 Abs Mononuclear 0.6 0-0.8 95 Basophil % 0.4 % 0-2 95 Hematocrit 38 % 35-47 95 Hemoglobin 13.0 g/dL 12.0-16.0 95 Eosinophil % 1.7 % 0-6 95 Gran % 69.9 % 38-83 95 Lymph % 21.3 % 20-45 95 Mean Corpuscular HGB Cone 35 g/dL 32-36 95 Mean Corpuscular Hemoglob 32 pg High 27-31 95 Mean Corpuscular Volume 93 um3 79-97 95 Mean Platelet Volume 8.2 um3 7.4-10.4 95 Mononuclear % 6.7 % 1-9 95 Platelet Count 255 CUMM 150-450 95 Red Cell Count 4.06 CUMM Low 4.2-5.4 95 Redcell Distribution WDTH 13 % 10.5-15 95 Comp Metabolic Panel 01/04/2007 One Over Creatinine 1.11 95 Anion Gap 6.0 mmol/L 2-11 95, 99 Albumin/Globulin Ratio 1.2 1-3 95 Albumin 3.9 GM/DL 3.6-5.4 95 Alkaline Phosphatase 101 U/L 30-110 95 Alt (SGPT) 20 U/L 14-54 95 Ast (Sgot) 15 U/L 12-42 95 BUN 15 mg/dL 6-24 95 Calcium 8.9 mg/dL 8.7-10.2 95 Chloride 105 mmol/L 101-111 95 Co2 (Carbon Dioxide) 29.0 mmol/L 22-32 95 Globulin 3.2 GM/DL 2-4 95 Glucose 109 mg/dL High 70-105 95 Potassium 4.4 mmol/L 3.5-5.0 95 Sodium 140 mmol/L 135-145 95 Bilirubin Total 0.6 mg/dL 0.4-1.5 95 Total Protein 7.1 GM/DL 6.2-8.1 95 BUN/Creatinine Ratio 16.7 8-20 95 Creatinine 0.9 mg/dL 0.5-1.4 95 Lipid Profile 01/04/2007 Cholesterol/HDL Ratio 4.79 AVERAGE High 1-4.44 95 (Trig/Chol/HDL) Cholesterol 187 mg/dL Less Than 200 95, 100 Triglyceride 67 mg/dL 40-200 95 High Density Lipoprotein 39 mg/dL Low 40-60 95, 101 Low Density Lipoprotein 135 mg/dL High Less Than 100 95, 102 Laboratory test finding 01/04/2007 TSH 0.69 MIU/ML 0.34-5.60 95 Erythrocyte Sed Rate 41 MM/HR High 0-30 95 C Reactive Protein 2.2 mg/dL High Less Than 0.5 95 Rheumatoid Factor < 20.0 IU/mL Less Than 20 95 CBC 12/28/2005 WBC 10.9 x103 4.3-10.9 RBC 3.88 x106 3.80-5.30 Hemoglobin 12.3 g/dL 11.8-15.8 Hematocrit 36.1 % 35.0-47.0 MCV 93.0 fl 82.0-98.0 MCH 31.6 pg 27.5-33.5 MCHC 33.9 g/dL 32.0-36.0 RDW 13.3 % 11.5-14.5 Platelet Count 253 x103 130-400 MPV 8.7 fl 6.5-10.5 Segmented Neutrophils 61.5 % 44.0-74.0 Lymphocytes 28.8 % 15.0-45.0 Monocytes 7.3 % 2.0-13.0 Eosinophils 2.1 % 0.0-6.0 Basophils 0.3 % 0.0-2.0 Neutrophil Absolute 6.7 x103 1.4-7.0 Lymphocytes Absolute 3.1 x103 1.0-3.4 Monocyte Absolute 0.8 x103 0.2-1.0 Eosinophil Absolute 0.2 x103 0.0-0.5 Basophil Absolute 0.0 x103 0.0-0.2 Hep Acute Panel 12/28/2005 Hep A Antibody Igm NEGATIVE 103 Hep B Surface Antigen NEGATIVE Negative Hep C Antibody NEGATIVE Negative Hep B Core Antibody Igm NEGATIVE 104 Laboratory test finding 12/28/2005 Lipase 7 U/L 1-64 Amylase 58 U/L 30-107 Comprehens.+ Hepatic 12/28/2005 Glucose 77 mg/dL 70-100 BUN 13 mg/dL 4-18 Creatinine, Serum 0.9 mg/dL 0.5-1.2 Sodium 146 mmol/L 136-146 Potassium 4.6 mmol/L 3.5-5.3 Chloride 106 mmol/L 98-110 Carbon Dioxide 26 mmol/L 20-32 Albumin 4.5 g/dL 3.5-4.7 Protein, Total 6.5 g/dL 6.4-8.2 Calcium 9.0 mg/dL 8.4-10.4 Alkaline Phosphatase 149 U/L High 10-118 Sgot (Ast) 27 U/L 3-30 SGPT (Alt) 46 U/L High 7-40 Bilirubin, Total 0.28 mg/dL Low 0.30-1.20 Bilirubin, Direct 0.11 mg/dL 0.00-0.40 Bilirubin, Indirect 0.17 mg/dL 0.10-1.10 Laboratory test finding 12/28/2005 H Pylori Igg 1.26 Index <0.90 105 GFR (Calculated) >60 106 Laboratory test finding 05/15/2005 TSH (Thyrotropin) 1.240 uIU/ml 0.350- 5.500 T-4 Total 9.3 g/dL 4.5-10.9 Urine DIP 04/30/2005 Leukocytes Neg Neg Urine Nitrites Neg Neg Urine pH 5 5-6 Total Protein, Urine neg Neg Urine Glucose norm Norm Urine Ketones neg Neg Urobolinogen norm Norm Urine Bilirubin neg Neg Urine Blood neg Neg Specific [place] na Low 1.01-1.02 Laboratory test finding 04/30/2005 Thinprep W/HPV REC'D-SEE IMAGE JOSEPH/Acus/LGSIL Lipid Panel 04/28/2005 Cholesterol, Total 185 Cholesterol/HDL Ratio 5.78 High HDL 32 Low Low Density Lipoprotein 123 High Triglycerides 150 Statin 04/28/2005 Sgot (Ast) 14 SGPT (Alt) 27 Lipid Panel 12/30/2004 Cholesterol, Total 318 High Cholesterol/HDL Ratio 7.23 High HDL 44 Low Density Lipoprotein 243 High Triglycerides 153 Laboratory test finding 04/04/2004 Thyrotropin (TSH) 0.930 uIU/ml 0.35 - 5.5 Urine DIP 04/04/2004 Leukocytes NEG Neg Urine Nitrites NEG Neg Urine pH 5 5-6 Total Protein, Urine TRACE Neg Urine Glucose NORM Norm Urine Ketones NEG Neg Urobolinogen NORMJ Norm Urine Bilirubin NEG Neg Urine Blood NEG Neg Specific [place] NA Low 1.01-1.02 Lipid Profile 03/28/2004 Triglycerides 141 mg/dL 107 Cholesterol, Total 292 mg/dL High 120.0 - 200.0 108 HDL Cholesterol 45 mg/dL 40.0 - 60.0 LDL Cholesterol, Calc. 219 mg/dL 109 LDL/HDL Cholesterol 4.9 110 Chol/HDL Cholesterol 6.5 111 Urine DIP 04/13/2003 Leukocytes NEG Neg Urine Nitrites NEG Neg Urine pH 5 5-6 Total Protein, Urine NEG Neg Urine Glucose NORM Norm Urine Ketones NEG Neg Urobolinogen NORM Norm Urine Bilirubin NEG Neg Urine Blood NEG Neg Lipid Profile 10/22/2001 Cholesterol, Total 260 mg/dL High 120.0 - 200.0 112 Chol/HDL Cholesterol 5.3 113 HDL Cholesterol 49 mg/dL 35.0 - 9999.0 LDL/HDL Cholesterol 3.4 114 LDL Cholesterol 169 mg/dL 115 Triglycerides 212 mg/dL 37.0 - 241.0 1 Open Shank Coverer: [id number] Open Shank Coverer: [id number] [facility] Severe Sepsis and Septic Shock Management Bundle Measure requires all lactic acids initially measuring >2.0 mmol/L be repeated. 4 Because ethnic data is not always readily available, this report includes an eGFR for both -Americans and non- Americans. The National Kidney Disease Education Program (NKDEP) does not endorse the use of the MDRD equation for patients that are not between the ages of 18 and 70, are , have extremes of body size, muscle mass, or nutritional status, or are non- or non-. According to the National Kidney Foundation, irrespective of diagnosis, the stage of the disease is based on the level of kidney function: Stage Description GFR(mL/min/1.73 m(2)) 1 Kidney damage with normal or decreased GFR 90 2 Kidney damage with mild decrease in GFR 60-89 3 Moderate decrease in GFR 30-59 4 Severe decrease in GFR 15-29 5 Kidney failure <15 (or dialysis) 5 Critical Result K:2.4 Called to [id number] at: 18:45:34 by:[id number] Read back by:[id number] Please note: The following may produce a false positive D Dimer test: - Rheumatoid factor greater than 60 IU/ml - Plasma hemoglobin greater than 0.05 gm/dl - Bilirubin greater than 50 mg/dl - Lipids greater than 1000 mg/dl - FDP greater than 20 ug/ml 7 Because ethnic data is not always readily available, this report includes an eGFR for both -Americans and non- Americans. The National Kidney Disease Education Program (NKDEP) does not endorse the use of the MDRD equation for patients that are not between the ages of 18 and 70, are , have extremes of body size, muscle mass, or nutritional status, or are non- or non-. According to the National Kidney Foundation, irrespective of diagnosis, the stage of the disease is based on the level of kidney function: Stage Description GFR(mL/min/1.73 m(2)) 1 Kidney damage with normal or decreased GFR 90 2 Kidney damage with mild decrease in GFR 60-89 3 Moderate decrease in GFR 30-59 4 Severe decrease in GFR 15-29 5 Kidney failure <15 (or dialysis) 8 Desirable: <150 Borderline High: 150-199 High: 200-499 Very High: >500 9 Desirable: <200 Borderline High: 200-239 High: >239 10 Low: <40 Desirable: 40-60 High: >60 11 Desirable: <100 Near Optimal: 100-129 Borderline High: 130-159 High: 160-189 Very High: >189 12 Therapeutic target for the treatment of diabetes mellitus patients is <7% HBA1C, and in selective patients <6.0%. Please refer to [place] [employer] diabetic care guidelines for further information. 13 [id number] SEE RESULT BELOW Name: KEN HICKEY : [address]: Tami Lewis MD Acct: [id number] Unit: [id number] AGE: 67 Location: [facility] Re03/11/17 SEX: F Status: REG REF SPEC: [id number] JANE: 03/11/17-[address]: Tami Lewis MD REQ: [id number] RECD: 03/11/17 STATUS: COMP _ SOURCE: WOUND SPDESC: ORDERED: Culture Stain COMMENTS: [id number] Specimen Description Left anabaptism abscess Procedure Result Reported Site Wound/Misc Gram Stain Final 03/11/17- 1544 ML 4+ Neutrophils 2+ Gram Positive Cocci in Clusters, resembling Staph Wound/Misc Culture Final 03/13/17- 0816 ML Organism 1 MRSA Quantity 1+ MRSA: Consistent with previous results. 1. MRSA M.I.C. RX --------- ------ Penicillin >=0.5 R Clindamycin <=0.25 S Erythromycin >=8 R Gentamicin <=0.5 S Linezolid 2 S Nitrofurantoin <=16 S Oxacillin >=4 R * Quinupristin/Dalfopristin 0.5 S Rifampin <=0.5 S Tetracycline <=1 S Doxycycline - Deduced S * Minocycline - Deduced S CONTINUED ON NEXT PAGE * ML=Testing performed at Main Lab DEPARTMENT OF PATHOLOGY, [address] [place] [address] Josemanuel Bob M.D. Director [facility] # [id number] Patient: KEN HICKEY [id number] (Continued) Specimen: [id number] Collected: 03/11/17-113 Received: 03/11/17678 (Continued) Procedure Result Reported Site Wound/Misc Culture Final (continued) 03/13/17- 815 1. MRSA (continued) M.I.C. RX --------- ------ Trimethoprim/Sulfamethoxazole <=10 S Vancomycin 1 S Imipenem-Deduced R * Ampicillin/Sulbactam-Deduced R Cefazolin-Deduced R * These antibiotics are not available in the [facility] Contact the Microbiology Department for any additional antibiotic reporting. * ML - MAIN LAB ([facility]) . END OF REPORT * ML=Testing performed at Main Lab DEPARTMENT OF PATHOLOGY, [address] [place] [address] Josemanuel Bob M.D. Director [facility] # [id number] 15 03/14/17 (Mar 14) 01:56 PM TAMI LEWIS Sensitive to bactrim as prescribed 16 SEE RESULT BELOW Name: TRISHGREYSONKEN [place] : [address]: Kathy Raygoza NP Acct: [id number] Unit: [id number] AGE: 65 Location: [facility] Re02/25/16 SEX: F Status: REG REF SPEC: [id number] JANE: 02/25/16-[address] [facility] [address]: Kathy Raygoza NP REQ: [id number] RECD: 02/25/16 STATUS: COMP _ SOURCE: HEAD SPDESC: ORDERED: Culture Stain Procedure Result Reported Site Wound/Misc Gram Stain Final 02/26/16- 811 ML 3+ Neutrophils 4+ Gram Positive Cocci in Clusters, resembling Staph Wound/Misc Culture Final 02/27/16- 1007 ML Organism 1 MRSA Quantity 3+ 1. MRSA M.I.C. RX --------- ------ Penicillin >=0.5 R Clindamycin <=0.25 S Erythromycin >=8 R Gentamicin <=0.5 S Linezolid 2 S Nitrofurantoin <=16 S Oxacillin >=4 R * Quinupristin/Dalfopristin 0.5 S Rifampin <=0.5 S Tetracycline <=1 S Doxycycline - Deduced S * Minocycline - Deduced S Trimethoprim/Sulfamethoxazole <=10 S Vancomycin 1 S Imipenem-Deduced R * Ampicillin/Sulbactam-Deduced R Cefazolin-Deduced R CONTINUED ON NEXT PAGE * ML=Testing performed at Main Lab DEPARTMENT OF PATHOLOGY, [address] [place] [address] Josemanuel Bob M.D. Director [facility] # [id number] Patient: KEN HICKEY [id number] (Continued) Specimen: [id number] Collected: 02/25/16-1250 Received: 02/25/16-6307 (Continued) Procedure Result Reported Site Wound/Misc Culture Final (continued) * These antibiotics are not available in the [facility] Contact the Microbiology Department for any additional antibiotic reporting. * ML - MAIN LAB ([facility]) . END OF REPORT * ML=Testing performed at Main Lab DEPARTMENT OF PATHOLOGY, [address] [place] [address] Josemanuel Bob M.D. Director [facility] # [id number] 17 Because ethnic data is not always readily available, this report includes an eGFR for both -Americans and non- Americans. The National Kidney Disease Education Program (NKDEP) does not endorse the use of the MDRD equation for patients that are not between the ages of 18 and 70, are , have extremes of body size, muscle mass, or nutritional status, or are non- or non-. According to the National Kidney Foundation, irrespective of diagnosis, the stage of the disease is based on the level of kidney function: Stage Description GFR(mL/min/1.73 m(2)) 1 Kidney damage with normal or decreased GFR 90 2 Kidney damage with mild decrease in GFR 60-89 3 Moderate decrease in GFR 30-59 4 Severe decrease in GFR 15-29 5 Kidney failure <15 (or dialysis) 18 Therapeutic target for the treatment of diabetes Mellitus patients is <7% HBA1C, and in selective patients <6.0%.Please refer to [place] [employer] Diabetic care guidelines for further information. 19 Desirable <150 Borderline high 150-199 High 200-499 Very High >500 20 Desirable <200 Borderline high 200-239 High >239 21 Low <40 Desirable: 40-60 High: >60 22 Desirable: <100 mg/dL Near Optimal: 100-129 mg/dL Borderline High: 130-159 mg/dL High: 160-189 mg/dL Very High: >189 mg/dL 23 Because ethnic data is not always readily available, this report includes an eGFR for both -Americans and non- Americans. The National Kidney Disease Education Program (NKDEP) does not endorse the use of the MDRD equation for patients that are not between the ages of 18 and 70, are , have extremes of body size, muscle mass, or nutritional status, or are non- or non-. According to the National Kidney Foundation, irrespective of diagnosis, the stage of the disease is based on the level of kidney function: Stage Description GFR(mL/min/1.73 m(2)) 1 Kidney damage with normal or decreased GFR 90 2 Kidney damage with mild decrease in GFR 60-89 3 Moderate decrease in GFR 30-59 4 Severe decrease in GFR 15-29 5 Kidney failure <15 (or dialysis) 24 Desirable <150 Borderline high 150-199 High 200-499 Very High >500 25 Desirable <200 Borderline high 200-239 High >239 26 Low <40 Desirable: 40-60 High: >60 27 Desirable <100 Near Optimal 100-129 Borderline high 130-159 High 160-189 Very High >189 28 RUN DATE: 07/06/12 [facility] LIVE PAGE 1 RUN TIME: [address] [place] [id number] Specimen Inquiry Name: KEN HICKEY : [address]: Alejandro Hernadez MD Acct: [id number] Unit: [id number] AGE: 62 Location: [facility] Re07/03/12 SEX: F Status: REG [facility] SPEC: [id number] JANE: 07/03/12- SUBM DR: Alejandro Hernadez MD REQ: [id number] RECD: 07/03/128002 STATUS: SOUT _ ORDERED: LEVEL III FINAL DIAGNOSIS Knee, left, shavings: Mildly proliferated synovium. 1. Cartilage, shavings - LEFT KNEE SHAVINGS PRE-OPERATIVE DIAGNOSIS Osteochondral loose bodies left knee GROSS DESCRIPTION The specimen is received in formalin labelled Ken Hickey, Left Knee Shavings, and consists of multiple fragments of yellow tissue measuring in aggregate 1.9 x 1.5 x 1.5 cm. Negative Cutter sections, one cassette. Signed (signature on file) Gloria Layton MD [id number] END OF REPORT * ML=Testing performed at Main Lab DEPARTMENT OF PATHOLOGY, [address] [place] [address] Josemanuel Bob M.D. Director [facility] Permit #[id number] 29 THERAPEUTIC TARGET FOR THE TREATMENT OF DIABETES MELLITUS PATIENTS IS <7% HBA1C, AND IN SELECTIVE PATIENTS <6.0%. PLEASE REFER TO [place] [employer] DIABETIC CARE GUIDELINES FOR FURTHER INFORMATION. 30 CHOLESTEROL INTERPRETATION: Desirable: Less than 200 MG/DL Borderline-High Risk: 200-239 MG/DL High-Risk: 240 MG/DL and over 31 HDL INTERPRETATION: Undesirable: High Risk: Less than 40 MG/DL Desirable: Low Risk: Greater than 60 MG/DL 32 LDL INTERPRETATION: Low Risk Optimal Level: LDL Less than 100 MG/DL Near or Above Optimal: LDL 100-129 MG/DL Borderline High Risk: LDL 130-159 MG/DL High Risk: LDL 160-189 MG/DL Very High Risk: LDL Greater than 189 MG/DL 33 It is recognized that currently available assays for the detection of antibodies to HIV-1 and/or HIV-2 may not detect all infected individuals. HIV antibodies may be undetectable in some stages of the infection and in some clinical conditions. The performance of this assay has not been established for populations of infants or children. Assayed by Chemiluminescence Microparticle Immunoassay on the [employer] Centaur CP. Values obtained with different methods or kits cannot be used interchangeably.The diagnostic specificity of the [employer] Centaur 1/O/2 Enhanced assay in the low risk population was 99.90% (6052/6058) with a 95% confidence interval of 99.78 to 99.96%. 34 Anion gap measurement may be of limited value in the presence of any alkalosis, especially in a combined acid base disorder. . 35 A metabolite of Naproxen, O-desmethylnaproxen, has been shown to interfere with the [place] method for measuring total bilirubin. Samples from patients who have taken Naproxen have shown spurious elevation in total bilirubin levels. 36 Because ethnic data is not always readily available, this report includes an eGFR for both -Americans and non- Americans. The National Kidney Disease Education Program (NKDEP) does not endorse the use of the MDRD equation for patients that are not between the ages of 18 and 70, are , have extremes of body size, muscle mass, or nutritional status, or are non- or non-. According to the National Kidney Foundation, irrespective of diagnosis, the stage of the disease is based on the level of kidney function: Stage Description GFR(mL/min/1.73 m(2)) 1 Kidney damage with normal or decreased GFR 90 2 Kidney damage with mild decrease in GFR 60-89 3 Moderate decrease in GFR 30-59 4 Severe decrease in GFR 15-29 5 Kidney failure <15 (or dialysis) 37 Anion gap measurement may be of limited value in the presence of any alkalosis, especially in a combined acid base disorder. . 38 A metabolite of Naproxen, O-desmethylnaproxen, has been shown to interfere with the [place] method for measuring total bilirubin. Samples from patients who have taken Naproxen have shown spurious elevation in total bilirubin levels. 39 Because ethnic data is not always readily available, this report includes an eGFR for both -Americans and non- Americans. The National Kidney Disease Education Program (NKDEP) does not endorse the use of the MDRD equation for patients that are not between the ages of 18 and 70, are , have extremes of body size, muscle mass, or nutritional status, or are non- or non-. According to the National Kidney Foundation, irrespective of diagnosis, the stage of the disease is based on the level of kidney function: Stage Description GFR(mL/min/1.73 m(2)) 1 Kidney damage with normal or decreased GFR 90 2 Kidney damage with mild decrease in GFR 60-89 3 Moderate decrease in GFR 30-59 4 Severe decrease in GFR 15-29 5 Kidney failure <15 (or dialysis) 40 PLEASE NOTE NEW REFERENCE RANGE. 41 -- REFERENCE VALUE -- <0.75 (negative) 0.75-0.99 (equivocal) >=1.00 (positive) Test Performed by: [facility] Dpt of Lab Med and Pathology [address], [place] [address] Diesel Instructor: Brad Chowdary III, M.D. 42 ---- RUN DATE: 03/06/10 [facility] NMI LIVE PAGE 1 RUN TIME: 1152 Specimen Inquiry RUN USER: INTERFACE -- Name: KEN HICKEY Accmargaux#: [id number] Status: REG REF Re03/02/10 Age/Sex: 60/F Unit#: [id number] Location: [facility] : 50 -- Specimen: [id number] SOUT Spec Date: 03/02/[address]: Beatriz crockett MD Spec Type: SURGICAL P Received: 03/03/107842 Copies to: Merritt sylvester TAPPET ADJUSTER SPECIMEN RIGHT BREAST ULTRASOUND GUIDED BIOPSY HYPOECHOIC MASS TWO O'CLOCK HISTORY PRE-OP DIAGNOSIS: 6.0 mm. hypoechoic mass GROSS DESCRIPTION Specimen received in formalin labelled Radha R. Cratsley, Right Breast Biopsy and consists of multiple, srivastava-vergara and yellow, fibrofatty cores measuring 0.7 x 0.5 x 0.2 cm. Submitted entirely, one cassette. DIAGNOSIS Breast, right, two o'clock, ultrasound guided core biopsy: Non proliferative fibrocystic change with cyst formation and mild to moderate nodular stromal fibrosis (see comment). COMMENT Clinical and imaging follow up and correlation is suggested. Signed Electronically by: JOSEMANUEL BOB MD 03/06/10 1152 -- -- DEPARTMENT OF PATHOLOGY, [address] [place] [address] [facility] Permit #[id number] Sascha Linares M.D. Shingle Inspector Dir mesa -- 43 CHOL/HDL Risk Ratio Levels MALE FEMALE 1/2 X Average 3.4 3.3 Average 5.0 4.4 2 X Average 9.5 7.0 3 X Average 24.0 11.0 44 Optimal under 100 mg/dl Near or above Optimal 100 - 129 mg/dl Borderline High 130 - 159 mg/dl High 160 - 189 mg/dl Very High above 190 mg/dl 45 LDL/HDL Risk Ratio Levels MALE FEMALE 1/2 X Average 1.0 1.5 Average 3.6 3.2 2 X Average 6.3 5.0 3 X Average 8.0 6.1 46 mL/min/1.73m2 . Normal Function or Mild Renal Disease, if clinically at risk: >or=60 Moderately decreased: 30 - 59 Severely decreased: 15 - 29 Renal Failure: <15 . Please note that the MDRD equation requires an additional adjustment for -Americans (multiply the GFR result by 1.210). . Glomerular Filtration Rate (GFR) is estimated based on the MDRD equation, which assumes a steady state for creatinine (Stephany Int Med 139/2 137-149, 2003), as recommended by the National Kidney Disease Education Program in conjunction with the National Institutes of Health and the National Kidney Foundation. . Clinical conditions in which it may be necessary to measure GFR by using clearance methods include extremes of age and body size, severe malnutrition or obesity, diseases of skeletal muscle, paraplegia or quadriplegia, vegetarian diet, rapidly changing kidney function, and calculation of the dose of potentially toxic drugs that are excreted by the kidneys. 47 CHOL/HDL Risk Ratio Levels MALE FEMALE 1/2 X Average 3.4 3.3 Average 5.0 4.4 2 X Average 9.5 7.0 3 X Average 24.0 11.0 48 Optimal under 100 mg/dl Near or above Optimal 100 - 129 mg/dl Borderline High 130 - 159 mg/dl High 160 - 189 mg/dl Very High above 190 mg/dl 49 LDL/HDL Risk Ratio Levels MALE FEMALE 1/2 X Average 1.0 1.5 Average 3.6 3.2 2 X Average 6.3 5.0 3 X Average 8.0 6.1 50 mL/min/1.73m2 . Normal Function or Mild Renal Disease, if clinically at risk: >or=60 Moderately decreased: 30 - 59 Severely decreased: 15 - 29 Renal Failure: <15 . Please note that the MDRD equation requires an additional adjustment for -Americans (multiply the GFR result by 1.210). . Glomerular Filtration Rate (GFR) is estimated based on the MDRD equation, which assumes a steady state for creatinine (Stephany Int Med 139/2 137-149, 2003), as recommended by the National Kidney Disease Education Program in conjunction with the National Institutes of Health and the National Kidney Foundation. . Clinical conditions in which it may be necessary to measure GFR by using clearance methods include extremes of age and body size, severe malnutrition or obesity, diseases of skeletal muscle, paraplegia or quadriplegia, vegetarian diet, rapidly changing kidney function, and calculation of the dose of potentially toxic drugs that are excreted by the kidneys. 51 Please note change in reference range. 52 Giardia and cryptosporidium antigen testing performed by immunoassay. If patient is immunocompromised or has traveled to or is from a developing country, a full ova and parasite exam with microscopic (OPMIC) is recommended. All samples will be held one month in case full ova and parasite testing is requested. Contact the Microbiology Department at [phone]. N^NEGATIVE BY IMMUNOASSAY^CRY N^NEGATIVE BY IMMUNOASSAY^ANALI 53 NO GROWTH OF CAMPYLOBACTER AFTER 48 HOURS 54 NEGATIVE FOR THE ENTERIC PATHOGENS - SALMONELLA, SHIGELLA, AEROMONAS, PLESIOMONAS AND YERSINIA. VIBRIO AND E. COLI 0157 NOT ROUTINELY TESTED FOR IN A STOOL CULTURE. PLEASE SUBMIT SAMPLE WITH SPECIFIC REQUEST FOR DESIRED ORGANISM(S). 55 N^NEGATIVE BY IMMUNOCHROMATOGRAPHIC ASSAY^ST1 N^NEGATIVE BY IMMUNOCHROMATOGRAPHIC ASSAY^ST2 56 SF^SEMI-FORMED^STFORM 57 Cholesterol Risk Levels (NIH) Recommended: under 200 mg/dl Borderline : 200-239 mg/dl High Risk : Above 240 mg/dl 58 The National Cholesterol Education Program recommends the following ranges for LDL Cholesterol: Optimal under 100 mg/dl Near or above Optimal 100 - 129 mg/dl Borderline High 130 - 159 mg/dl High 160 - 189 mg/dl Very High above 190 mg/dl 59 Triglyceride Risk Levels: Normal : <150 mg/dl Borderline : 150-199 mg/dl High : 200-499 mg/dl Very High : >500 mg/dl 60 LDL/HDL Risk Ratio Levels MALE FEMALE 1/2 X Average 1.00 1.47 Average 3.55 3.22 2 X Average 6.25 5.03 3 X Average 7.99 6.14 61 CHOL/HDL Risk Ratio Levels MALE FEMALE 1/2 X Average 3.4 3.3 Average 5.0 4.4 2 X Average 9.5 7.0 3 X Average 24.0 11.0 62 mL/min/1.73m2 . Normal Function or Mild Renal Disease, if clinically at risk: >or=60 Moderately decreased: 30 - 59 Severely decreased: 15 - 29 Renal Failure: <15 . Please note that the MDRD equation requires an additional adjustment for -Americans (multiply the GFR result by 1.210). . Glomerular Filtration Rate (GFR) is estimated based on the MDRD equation, which assumes a steady state for creatinine (Stephany Int Med 139/2 137-149, 2003), as recommended by the National Kidney Disease Education Program in conjunction with the National Institutes of Health and the National Kidney Foundation. . Clinical conditions in which it may be necessary to measure GFR by using clearance methods include extremes of age and body size, severe malnutrition or obesity, diseases of skeletal muscle, paraplegia or quadriplegia, vegetarian diet, rapidly changing kidney function, and calculation of the dose of potentially toxic drugs that are excreted by the kidneys. 63 FASTING 64 Cholesterol Risk Levels (NIH) Recommended: under 200 mg/dl Borderline : 200-239 mg/dl High Risk : Above 240 mg/dl 65 The National Cholesterol Education Program recommends the following ranges for LDL Cholesterol: Optimal under 100 mg/dl Near or above Optimal 100 - 129 mg/dl Borderline High 130 - 159 mg/dl High 160 - 189 mg/dl Very High above 190 mg/dl 66 Triglyceride Risk Levels: Normal : <150 mg/dl Borderline : 150-199 mg/dl High : 200-499 mg/dl Very High : >500 mg/dl 67 LDL/HDL Risk Ratio Levels MALE FEMALE 1/2 X Average 1.00 1.47 Average 3.55 3.22 2 X Average 6.25 5.03 3 X Average 7.99 6.14 68 CHOL/HDL Risk Ratio Levels MALE FEMALE 1/2 X Average 3.4 3.3 Average 5.0 4.4 2 X Average 9.5 7.0 3 X Average 24.0 11.0 69 mL/min/1.73m2 . Normal Function or Mild Renal Disease, if clinically at risk: >or=60 Moderately decreased: 30 - 59 Severely decreased: 15 - 29 Renal Failure: <15 . Please note that the MDRD equation requires an additional adjustment for -Americans (multiply the GFR result by 1.210). . Glomerular Filtration Rate (GFR) is estimated based on the MDRD equation, which assumes a steady state for creatinine (Stephany Int Med 139/2 137-149, 2003), as recommended by the National Kidney Disease Education Program in conjunction with the National Institutes of Health and the National Kidney Foundation. . Clinical conditions in which it may be necessary to measure GFR by using clearance methods include extremes of age and body size, severe malnutrition or obesity, diseases of skeletal muscle, paraplegia or quadriplegia, vegetarian diet, rapidly changing kidney function, and calculation of the dose of potentially toxic drugs that are excreted by the kidneys. 70 New Reference Range and Interpretation effective 06/19/02 TnI (ng/ml) INTERPRETATION <0.06 ng/ml NOT SUPPORTIVE OF DIAGNOSIS OF PR 0.06 - 0.50 ng/ml INDETERMINATE: SUGGEST SERIAL STUDIES IF CLINICALLY INDICATED. > 0.5 ng/ml CONSISTENT WITH DIAGNOSIS OF PR . 71 Anion gap measurement may be of limited value in the presence of any alkalosis, especially in a combined acid base disorder. . 72 Note change in reference range as of 05/06/08. The change was based on recommendations from the [place] [employer]. 73 Please note change in reference range effective 08 . 74 Test Performed by: [facility] Dpt of Lab Med and Pathology [address] [place] [address] Diesel Instructor: Brad Chowdary III, M.D. 75 Patient Name: KEN HICKEY Collection Date: 05/06/2008 Received Date: 05/07/2008 Report Date: 05/10/2008 LABS Ref #: [id number] Date of ,Sex: 1950, F Fluorescence in situ Hybridization (FISH) Report TargetGene Analysis RESULT: Normal BCR/ABL FISH Result Specimen Type: Peripheral Blood Indication for Study: Anemia INTERPRETATION: Target gene FISH analysis was performed using Vysis probes specific for BCR/ABL translocation. Two hundred interphase nuclei were examined and the signal pattern obtained did not differ substantially from the normal controls. Therefore, these results do not identify a clone of abnormal cells. Clinical correlation is advised. This analysis is limited to abnormalities detectable by the specific probes included in the study. These results do not reflect other cytogenetic changes that may be observed by standard chromosome analysis. The following TargetGene FISH analysis was performed on this patient's specimen: Probe Name: BCR/ABL Detection Parameters: Detects a BCR/ABL translocation Result: Not Detected ISCN: nuc gracie(ABL,BCR)x2 Any image(s) that accompany this report is/are a sales representative printing image(s) only and should not be used to render a diagnosis. 76 NO GROWTH AFTER 5 DAYS 77 COMMENTS? 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 SUGGEST SPECIFIC IMMUNOGLOBULIN DETERMINATIONS. 80 MICAELA VALUE=2.01 ( OF 08/22/07 Recommended INR for Patients on Oral Anticoagulants Prophylaxis 2.0 - 3.0 Treatment of thrombosis 2.0 - 3.0 Prevention of embolism 2.0 - 3.0 Prevention of embolism from prosthetic heart valves 2.5 - 3.5 81 PLEASE NOTE NEW REFERENCE RANGE EFFECTIVE 08. 82 Anion gap measurement may be of limited value in the presence of any alkalosis, especially in a combined acid base disorder. . 83 Please note change in reference range effective 08 . 84 New Reference Range and Interpretation effective 06/19/02 TnI (ng/ml) INTERPRETATION <0.06 ng/ml NOT SUPPORTIVE OF DIAGNOSIS OF PR 0.06 - 0.50 ng/ml INDETERMINATE: SUGGEST SERIAL STUDIES IF CLINICALLY INDICATED. > 0.5 ng/ml CONSISTENT WITH DIAGNOSIS OF PR . 85 TOTAL CK LESS THAN 150 U/L. CK-MB WILL NOT BE RUN WITHOUT SPECIAL REQUEST TO CHEMISTRY DEPARTMENT. 86 Please note: The following may produce a false positive D Dimer test: - Rheumatoid factor greater than 60 IU/ml - Plasma hemoglobin greater than 0.05 gm/dl - Bilirubin greater than 50 mg/dl - Lipids greater than 1000 mg/dl - FDP greater than 20 ug/ml . 87 CHOLESTEROL INTERPRETATION: Desirable: Less than 200 MG/DL Borderline-High Risk: 200-239 MG/DL High-Risk: 240 MG/DL and over 88 HDL INTERPRETATION: Undesirable: High Risk: Less than 40 MG/DL Desirable: Low Risk: Greater than 60 MG/DL 89 LDL INTERPRETATION: Low Risk Optimal Level: LDL Less than 100 MG/DL Near or Above Optimal: LDL 100-129 MG/DL Borderline High Risk: LDL 130-159 MG/DL High Risk: LDL 160-189 MG/DL Very High Risk: LDL Greater than 189 MG/DL 90 Anion gap measurement may be of limited value in the presence of any alkalosis, especially in a combined acid base disorder. . 91 Anion gap measurement may be of limited value in the presence of any alkalosis, especially in a combined acid base disorder. . 92 Classification: Desirable . 93 Classification: Low . 94 CALCULATED LDL APPROXIMATES THE VALUE OF A DIRECT LDL MEASUREMENT. Classification: Optimal Level . 95 FASTING 96 Classification: Desirable . 97 Classification: Low . 98 CALCULATED LDL APPROXIMATES THE VALUE OF A DIRECT LDL MEASUREMENT. Classification: Borderline High . 99 Anion gap measurement may be of limited value in the presence of any alkalosis, especially in a combined acid base disorder. . 100 Classification: Desirable . 101 Classification: Low . 102 CALCULATED LDL APPROXIMATES THE VALUE OF A DIRECT LDL MEASUREMENT. Classification: Borderline High . 103 POSITIVE Hep A Antibody IgM suggests an acute or recent Hepatitis A Viral infection. . NEGATIVE Hep A Antibody IgM and POSITIVE Hep A Antibody (IgG + IgM) indicates the presence of Hep A Antibody (IgG). This confirms previous exposure and immunity to the Hepatitis A Virus. 104 Positive Hep B Core Antibody IgM suggests an acute or recent Hepatitis B viral infection. 105 < .90 Neg (No Immunity) .91- 1.09 Equivocal >=1.10 Positive . 106 mL/min/1.73m2 . Normal Function or Mild Renal Disease, if clinically at risk: >or=60 Moderately decreased: 30 - 59 Severely decreased: 15 - 29 Renal Failure: <15 . Please note that the MDRD equation requires an additional adjustment for -Americans (multiply the GFR result by 1.210). . Glomerular Filtration Rate (GFR) is estimated based on the MDRD equation, which assumes a steady state for creatinine (Stephany Int Med 139/2 137-149, 2003), as recommended by the National Kidney Disease Education Program in conjunction with the National Institutes of Health and the National Kidney Foundation. . Clinical conditions in which it may be necessary to measure GFR by using clearance methods include extremes of age and body size, severe malnutrition or obesity, diseases of skeletal muscle, paraplegia or quadriplegia, vegetarian diet, rapidly changing kidney function, and calculation of the dose of potentially toxic drugs that are excreted by the kidneys. . 107 Triglyceride Risk Levels: Normal : <150 mg/dl Borderline : 150-199 mg/dl High : 200-499 mg/dl Very High : >500 mg/dl . 108 Cholesterol Risk Levels (NIH) Recommended: under 200 mg/dl Borderline : 200-239 mg/dl High Risk : Above 240 mg/dl . 109 The National Cholesterol Education Program recommends the following ranges for LDL Cholesterol: Optimal under 100 mg/dl Near or above Optimal 100 - 129 mg/dl Borderline High 130 - 159 mg/dl High 160 - 189 mg/dl Very High above 190 mg/dl . 110 LDL/HDL Risk Ratio Levels MALE FEMALE 1/2 X Average 1.00 1.47 Average 3.55 3.22 2 X Average 6.25 5.03 3 X Average 7.99 6.14 . 111 CHOL/HDL Risk Ratio Levels MALE FEMALE 1/2 X Average 3.4 3.3 Average 5.0 4.4 2 X Average 9.5 7.0 3 X Average 24.0 11.0 . 112 Cholesterol Risk Levels (NIH) Recommended: under 200 mg/dl Borderline : 200-239 mg/dl High Risk : Above 240 mg/dl . 113 CHOL/HDL Risk Ratio Levels MALE FEMALE 1/2 X Average 3.4 3.3 Average 5.0 4.4 2 X Average 9.5 7.0 3 X Average 24.0 11.0 . 114 LDL/HDL Risk Ratio Levels MALE FEMALE 1/2 X Average 1.00 1.47 Average 3.55 3.22 2 X Average 6.25 5.03 3 X Average 7.99 6.14 . 115 LDL Cholesterol Risk Levels (NIH) Recommended: under 130 mg/dl Borderline: 131 - 159 mg/dl High Risk: above 160 mg/dl . Procedures Date CPT Code Description Status 06/18/2012 47503 EKG, at Least 12 Leads w/Interpretation and Report Completed 07/16/2007 14411 EKG, at Least 12 Leads w/Interpretation and Report Completed 07/16/2007 04728 EKG, at Least 12 Leads w/Interpretation and Report Completed 04/13/2003 19449 EKG, at Least 12 Leads w/Interpretation and Report Completed Encounters Type Date Location Provider CPT E/M Dx Office Visit 08/15/2017 2:45p Main Office Kathy Raygoza, MIRIAM-C G0438 Z00.00 I10 E78.00 Z12.31 Z23 Office Visit 03/11/2017 10:45a [place] [address] L02.01 Office Visit 02/23/2016 12:00p Main Office Shade Mcgee M.D. 06345 L03.211 B02.9 Office Visit 12/27/2015 9:30a Main Office Kathy Raygoza, [employer] WORKER-C 82692 S40.861A I10 E78.0 Z23 Office Visit 08/19/2015 4:30p Main Office Kathy Raygoza, [employer] WORKER-C 69714 J01.90 J20.9 Office Visit 09/30/2014 4:15p Main Office Kathy Raygoza, [employer] WORKER-C 48004 V70.0 V72.62 308.9 305.1 401.9 272.0 V05.8 V04.81 Office Visit 06/27/2013 11:00a Main Office Kathy Raygoza, [employer] WORKER-C 88373 308.9 465.9 Office Visit 06/18/2012 10:45a Main Office Ghislaine Roque M.D. 28061 V72.83 719.46 305.1 Office Visit 05/20/2012 1:30p Main Office Kathy Raygoza, [employer] WORKER-C 98716 V70.0 719.46 401.9 272.0 530.81 691.8 790.29 V04.81 Office Visit 04/25/2012 10:30a Main Office Kathy Raygoza, [employer] WORKER-C 41233 691.8 401.9 272.0 V73.89 Office Visit 05/17/2011 11:00a Main Office Kathy Raygoza, [employer] WORKER-C 19147 729.1 Office Visit 04/20/2011 11:15a Main Office Kathy Raygoza, [employer] WORKER-C 27172 691.8 682.9 Office Visit 11/28/2010 10:15a Main Office Kathy Raygoza, [employer] WORKER-C 21094 535.00 Office Visit 08/15/2010 11:30a Main Office Kathy Raygoza, [employer] WORKER-C 88925 305.1 401.9 V04.81 611.9 Office Visit 06/13/2010 10:15a Main Office Kathy Raygoza, [facility]C 67920 308.3 528.9 Office Visit 02/02/2010 1:30p [facility] [address] 840.8 V70.0 305.1 300.02 272.0 401.9 530.81 Office Visit 10/26/2009 11:30a Main Office Kathy Raygoza, [facility]-C 40579 305.1 300.02 Office Visit 09/22/2009 11:30a Main Office Hilda Robledo, F.N.P.C. 28189 305.1 300.02 Office Visit 09/01/2009 2:45p Main Office Hilda Robledo, F.N.P.C. 01911 305.1 Office Visit 08/25/2009 2:00p Main Office Hilda Robledo F.N.P.C. 94166 692.4 Office Visit 08/01/2009 10:15a Main Office Hilda Robledo, F.N.P.C. 43787 272.0 305.1 401.9 300.02 715.90 729.1 Office Visit 04/15/2009 10:30a Main Office Ghislaine Roque M.D. 79772 787.91 Office Visit 04/11/2009 11:45a Main Office Hilda Robledo F.N.P.C. 05084 787.91 Office Visit 12/31/2008 8:45a Main Office Hilda Robledo F.N.P.C. 43860 V70.0 V72.31 272.0 305.1 719.41 285.9 401.9 300.02 715.90 729.1 724.5 530.81 Office Visit 11/03/2008 12:00p Main Office Hilda Robledo F.N.P.C. 10115 719.41 305.1 Office Visit 10/11/2008 3:45p Main Office Hilda Robledo F.N.P.C. 18875 305.1 719.41 Office Visit 08/02/2008 3:00p Main Office Hilda Robledo, F.N.P.C. 93974 486 459.0 285.9 305.1 272.0 Office Visit 07/02/2008 9:30a Main Office Hilda Robledo, F.N.P.C. 60532 459.0 285.9 486 401.9 305.1 V04.81 Office Visit 06/07/2008 9:00a Main Office Hilda Robledo, F.N.P.C. 34697 459.0 285.9 486 401.9 Office Visit 05/28/2008 10:30a Main Office Hilda Robledo, F.N.P.C. 65960 486 459.0 Office Visit 05/24/2008 2:15p Main Office Hilda Robledo, F.N.P.C. 39099 486 285.9 401.9 787.91 459.0 Office Visit 05/10/2008 11:30a Main Office Hilda Robledo, F.N.P.C. 32678 486 285.9 Office Visit 04/09/2008 11:30a Main Office Hilda Robledo, F.N.P.C. 19697 401.9 300.02 305.1 564.1 715.90 Office Visit 03/08/2008 10:00a Main Office Hilda Robledo, F.N.P.C. 70176 300.00 Office Visit 02/06/2008 3:45p Main Office Kathy Raygoza [facility] 73363 845.19 Office Visit 01/29/2008 1:30p Main Office Hilda Robledo, F.N.P.C. 24041 719.46 Office Visit 01/23/2008 2:00p Main Office Hilda Robledo F.N.P.C. 95141 719.46 Office Visit 12/17/2007 1:15p Main Office Hilda Robledo F.N.P.C. 22187 V72.31 V70.0 401.9 715.90 272.0 300.02 780.59 305.1 729.1 782.1 530.81 Office Visit 10/13/2007 3:30p Main Office Hilda Robledo, F.N.P.C. 83944 401.9 715.90 272.0 300.02 780.59 Office Visit 10/02/2007 4:30p Main Office Hilda Robledo, F.N.P.C. 02031 845.19 845.19 Office Visit 07/16/2007 4:15p Main Office Hilda Robledo, F.N.P.C. 97503 305.1 272.0 715.90 401.9 Office Visit 06/13/2007 4:00p Main Office Hilda Robledo, F.N.P.C. 43624 305.1 272.0 Office Visit 05/31/2007 10:00a Main Office Shade Mcgee M.D. 30643 719.47 Office Visit 05/07/2007 4:30p Main Office Hilda Robledo, F.N.P.C. 22216 305.1 Office Visit 04/21/2007 1:45p Main Office Hilda Robledo, F.N.P.C. 77738 305.1 Office Visit 04/07/2007 3:30p Main Office Hilda Robledo F.N.P.C. 16762 305.1 Office Visit 03/06/2007 2:45p Main Office Hilda Robledo, F.N.P.C. 42241 305.1 Office Visit 01/30/2007 3:30p Main Office Hilda Robledo, F.N.P.C. 64401 272.0 715.90 300.02 305.1 793.1 Office Visit 01/01/2007 3:30p Main Office Hilda Robledo F.N.P.C. 23958 V70.0 530.81 272.0 715.90 729.1 300.02 305.1 627.8 782.1 Office Visit 12/06/2006 4:30p Main Office Ashleigh PachecoN.P.C. 08113 461.8 Office Visit 02/06/2006 4:00p Main Office Shade Mcgee M.D. 43370 053.9 Office Visit 02/02/2006 10:00a Main Office Jaquan Emerson M.D. 20298 305.1 466.0 Office Visit 12/28/2005 4:45p Main Office Jaquan Emerson M.D. 63000 789.06 787.91 Office Visit 08/02/2005 3:00p Main Office Hilda Robledo F.N.P.C. 54523 530.81 715.90 305.1 Office Visit 07/02/2005 4:45p Main Office Jaquan Emerson M.D. 94554 680.2 Office Visit 05/28/2005 4:30p Main Office Hilda Robledo F.N.P.C. 77707 461.8 Office Visit 04/30/2005 9:45a Main Office Sloane Shah M.D. 46020 V72.31 272.0 729.1 240.9 V70.0 530.81 Office Visit 12/26/2004 3:45p Main Office Sloane Shah M.D. 75159 272.0 729.1 719.44 Office Visit 11/01/2004 4:15p Main Office Shade Mcgee M.D. 40934 719.44 Office Visit 04/04/2004 1:00p Main Office Sloane Shah M.D. 46728 272.0 729.1 V70.0 Office Visit 09/25/2003 11:00a Main Office Ghislaine Roque M.D. 10930 461.0 466.0 Office Visit 07/21/2003 11:45a Main Office Shade Mcgee M.D. 94488 786.50 Office Visit 07/10/2003 10:15a Main Office Sloane Shah M.D. 82461 924.20 V04.8 Office Visit 04/13/2003 1:00p Main Office Sloane Shah M.D. 39933 V70.0 729.1 272.0 Office Visit 01/14/2003 4:00p [place] [address] 466.0 305.1 Office Visit 12/25/2002 3:30p Main Office Sloane Shah M.D. 17479 611.71 300.02 729.1 Office Visit 07/23/2002 4:45p [place] [address] 305.1 461.9 V04.8 Office Visit 05/30/2002 10:15a Main Office Tae Charles M.D. 52392 466.0 Plan of Care Future Appointment(s):01/03/2018 11:30 am - MIRIAM Melton-C at [facility]1810/10/2017 - MIRIAM Melton-CI49.5 Sick sinus syndromeComments: continue to follow with cardiologyFollow up:3 wqjsqsM89.0 Tobacco useNew Medication:Chantix Starting Month Brant 0.5 mg X 11 & 1 mg X 42L20.9 Atopic dermatitis, unspecifiedNew Medication:Betamethasone Dipropionate 0.05 %R91.1 Solitary pulmonary noduleComments:continue to follow with Dr Pascal ... has appt for PET scan, will likely need bx, smoking cessation encouraged
[2017-12-19] MEDS ORDERED: Dexamethasone IV* 4 MG/ML 1 ML (4 MG) ONE (07:54)
[2017-12-19] MEDS ORDERED: Phenylephrine INJ* 10 MG/ML 1 ML VIAL (10 MG) ONE ×2 (07:54→07:55)
[2017-12-19] MEDS ORDERED: fentaNYL* 50 MCG/ML 2 ML VIAL (100 MCG VIAL) ONE ×3 (07:54→14:39)
[2017-12-19] MEDS ORDERED: Ondansetron INJ* 2 MG/ML VIAL ONE (07:54)
[2017-12-19] MEDS ORDERED: fentaNYL* 50 MCG/ML 5 ML VIAL (250 MCG VIAL) ONE (07:54)
[2017-12-19] MEDS ORDERED: Midazolam* 1 MG/ML 10 ML VIAL (10 MG) ONE (07:54)
[2017-12-19] MEDS ORDERED: Lidocaine 2% PF * 5 ML VIAL ONE (07:54)
[2017-12-19] MEDS ORDERED: Rocuronium* 10 MG/ML VIAL ONE ×2 (07:54→11:08)
[2017-12-19] MEDS ORDERED: Propofol* 10 MG/ML 20 ML BTL IV PUSH ONE (07:54)
[2017-12-19] MEDS ORDERED: Bupivacaine 0.25% SDV* 30 ML ONE ×2 (09:11→11:59)
[2017-12-19] MEDS ORDERED: Levalbuterol HFA INHALER* 1 PUFF MDI ONE (11:38)
[2017-12-19] MEDS ORDERED: Ketorolac INJ* 30 MG/ML 1 ML VIAL ONE (11:59)
[2017-12-19] MEDS ORDERED: Naloxone* 0.4 MG/ML 1 ML VIAL IV PRN ×2 (12:07→12:13)
[2017-12-19] MEDS ORDERED: Ondansetron INJ* 2 MG/ML VIAL IV PRN ×2 (12:07→12:13)
[2017-12-19] MEDS ORDERED: EPHEDrine (Pressors)* 50 MG/ML VIAL IV PUSH PRN (12:07)
[2017-12-19] MEDS ORDERED: Levalbuterol 0.63MG/3ML NEB* UNIT OF USE INH ONE ×2 (12:13→14:33)
[2017-12-19] MEDS ORDERED: fentaNYL* 50 MCG/ML 2 ML VIAL (100 MCG VIAL) IV PRN (12:13)
[2017-12-19] MEDS ORDERED: HYDROmorphone INJ* 1 MG/ML CARPUJECT SYRINGE IV PRN (12:13)
[2017-12-19] MEDS ORDERED: Ropivacaine 0.2% EPIDURAL* 200 MG/100 ML BAG EPIDURAL ONE (13:05)
[2017-12-19] MEDS ORDERED: HYDROmorphone INJ* 1 MG/ML CARPUJECT SYRINGE ONE (13:23)
[2017-12-19] MEDS ORDERED: Glycopyrrolate IV* 0.2 MG/ML 1 ML VIAL ONE (13:31)
[2017-12-19] MEDS ORDERED: Neostigmine Methylsulfate* 1 MG/ML 10 ML VIAL (1 mg/ml) ONE (13:31)
[2017-12-19] MEDS: Ropivacaine 0.2% EPIDURAL* 200 MG/100 ML BAG EPIDURAL SCH ×2 (14:44→22:33)
[2017-12-19] MEDS ORDERED: HYDROmorphone PCA* 20 MG/20 ML PCA.SYRING ONE (15:33)
--- NOTE | 2017-12-19 15:34 | RAD ---
Indication: Patient status post left upper lobectomy. Single frontal view of the chest performed at 1444 hours was reviewed. Comparison is made with previous exam dated to 1218. Cardiomegaly is noted. Pacemaker leads are in place. Interstitial edema is noted. There may be pleural effusions noted. IMPRESSION: CARDIOMEGALY WITH INTERSTITIAL EDEMA. PACEMAKER LEADS IN PLACE.
[2017-12-19] MEDS: HYDROmorphone PCA* 20 MG/20 ML PCA.SYRING PCA SCH (15:45)
[2017-12-19] MEDS ORDERED: hydrALAZINE IV* 20 MG/ML VIAL IV SLOW PU PRN (16:40)
[2017-12-19] MEDS: Ketorolac INJ* 30 MG/ML 1 ML VIAL IV SCH ×2 (17:15→21:47)
[2017-12-19] MEDS: HYDROmorphone INJ* 1 MG/ML CARPUJECT SYRINGE IV SLOW PU PRN (17:46)
[2017-12-19] MEDS ORDERED: Naloxone* 0.4 MG/ML 1 ML VIAL IV PUSH PRN (19:16)
[2017-12-19] MEDS ORDERED: NS 0.9% 500 ML* 500 ML IV ONE (20:08)
--- NOTE | 2017-12-19 21:08 | CONS ---
CC: Kathy Raygoza NP; Dr. Fink; Dr. Tracy; Dr. Pascal * CONSULTATION REPORT: DATE OF CONSULT: 12/19/17 PRIMARY CARE PROVIDER: Kathy Raygoza NP CHIEF COMPLAINT: Left-sided chest pain. The consultation was requested by Dr. Fink in postoperative medical management of the patient status post left lung lobectomy. HISTORY OF PRESENT ILLNESS: Mrs. Hickey is a 67-year-old female with significant history of smoking over 50-pack years who was originally admitted in September 2017 for syncope and she was noted to have sick sinus syndrome and needed to have a pacemaker placement. Incidentally so, on evaluation of the chest x-ray, a left mid lung field mass was noted and confirmed by CT chest. In addition to that, she had 0.9 cm adrenal mass. The patient underwent pacemaker placement for sick sinus syndrome and was discharged home from the hospital to be evaluated with a PET scan and seen by Dr. Pascal, the wader boot top assembler, later on for further treatment of the lung nodule. The patient underwent a transbronchial lung biopsy in October 2017, which was positive for adenocarcinoma of the lung with lung primary. Subsequent lymph node biopsies were negative for metastases. On 12/19/17, the patient underwent a scheduled lobectomy of the left lung by Dr. Fink. Postoperatively, she is doing well. She is currently very sedated on anesthesia. She has an epidural anesthesia in place. She is complaining of left chest pain, but otherwise it is very difficult to get any relevant information from the patient directly. Most of the information obtained below is obtained from the patient's medical records. PAST MEDICAL HISTORY: 1. Above-mentioned adenocarcinoma of the lung diagnosed in September 2017. 2. History of 0.9 cm adrenal nodule that did not have a positive radiotracer uptake on PET scan in September 2017. 3. History of hypertension. 4. History of dyslipidemia. 5. History of chronic kidney disease, although the patient's creatinine recently had been within normal limits with good GFR. 6. History of hepatitis B. 7. Status post pacemaker placement for sick sinus syndrome in September 2017. OUTPATIENT MEDICATIONS: Include: 1. Omeprazole 20 mg b.i.d. 2. Lisinopril/hydrochlorothiazide 10/12.5 mg 1 tablet daily. 3. Ibuprofen on a p.r.n. basis. 4. Celexa "1 tablet daily" unknown dose. 5. Chantix 0.5 mg 1 tablet b.i.d. 6. Atorvastatin 40 mg daily. 7. Aspirin 81 mg daily. ALLERGIES: CODEINE, ADHESIVE TAPE. The patient also was bradycardic on atenolol. FAMILY HISTORY: Positive for paternal grandmother who at the age of 82 secondary to "old age." Mother with history of heart disease. One of the sisters of cancer of unknown origin. SOCIAL HISTORY: The patient has a history of [id number] history of smoking. Currently, the patient is unable to provide me with information if she in fact was successful with smoking cessation that she had been attempting for the past couple of months since her diagnosis. Her surrogate decision maker is her daughter, Lauren Whittaker. REVIEW OF SYSTEMS: Basically unobtainable from the sedated patient. The patient is able to tell me that her left chest hurt just before she drifts off to sleep again. PHYSICAL EXAM: Blood pressure of 158/57, heart rate of 79 and regular, respiratory rate 16, oxygen saturation 97% on 4 L oxygen nasal cannula, temperature 97.2. General: The patient is a very pleasant 67-year-old female, who is mildly sedated postoperatively. The patient appears somewhat pale. She is in no acute distress. I cannot assess for orientation due to sedation. HEENT : Head atraumatic, normocephalic. Eyes: Pupils are equal, reactive to light and accommodation. Oropharynx: Clear. Mucosa moist. Neck: Supple. No JVD. No bruits bilaterally. Cardiovascular: Regular rate and rhythm. No murmur. Respiratory: Rhonchi in bilateral upper lung batres. Distant breath sounds in the left lower lobe. Abdomen: Soft, nontender. Bowel sounds are present in all 4 quadrants. Extremities: There is no edema. Pulses are +2 bilaterally. No clubbing or cyanosis. Examination of the chest, the patient has large postsurgical dressings applied to the left side of the chest wall. There is a chest tube and FATOU drain in place. Chest tube is draining serosanguineous liquid. Neuro evaluation: Speech clear. Cranial nerves are II through XII are grossly intact. Motor strength is 5/5 bilaterally. Please also note the patient has a Sepulveda catheter in place and A-line in place. DIAGNOSTIC STUDIES/LAB DATA: Current laboratory values have not been obtained. Postoperative chest x-ray, impression: "Cardiomegaly with interstitial edema. Pacemaker is in place." ASSESSMENT AND PLAN: 1. Status post left-sided lobectomy in patient with diagnosis of adenocarcinoma of the lung that is under the care of Dr. Fink from General Surgery. 2. In regards to the patient's history of hypertension. The patient's p.o. medications are for the time being going to be restarted in the morning. I will place her on hydralazine on a p.r.n. basis. 3. For history of gastroesophageal reflux disease, omeprazole is going to be continued as previously ordered. 4. For her history of depression, Celexa is going to be continued. 5. For pain control, the patient is to be continued on epidural as per Anesthesia and Dilaudid IV as needed. 6. The patient also has a history of obstructive sleep apnea. I discussed that with Dr. Fink if she should be placed postoperatively on CPAP or not. At this point, the patient is on continuous pulse oximetry monitoring in the intensive care unit on oxygen. At this point, due to possibility of applying too high of a pressure on her postoperative site, CPAP is not going to be started under further notice. 7. For DVT prophylaxis, the patient was placed by surgical service on heparin subcutaneously as well as SCDs. 8. The patient's code status is full. Her surrogate is her daughter as mentioned above. TIME SPENT: Approximately 62 minutes were spent on consultation of this patient. Thank you very much for allowing me to see your patient in consultation. We will follow on a daily basis. [id number]/[facility] #: [id number] PHILIP
[2017-12-19] MEDS: Atorvastatin* 40 MG TAB PO SCH (21:29)
[2017-12-19] MEDS: Docusate CAP* 100 MG PO SCH (21:30)
[2017-12-19] MEDS: Omeprazole CAP* 20 MG PO SCH (21:47)
[2017-12-19] MEDS: Heparin VIAL(*) 5000 UNITS/ML VIAL (FIVE THOUSAND) SUBCUT SCH (21:47)
[2017-12-20] MEDS: Ketorolac INJ* 30 MG/ML 1 ML VIAL IV SCH ×4 (02:19→21:02)
[2017-12-20] MEDS: HYDROmorphone INJ* 1 MG/ML CARPUJECT SYRINGE IV SLOW PU PRN ×5 (02:19→21:03)
--- NOTE | 2017-12-20 04:11 | OP ---
CC: Joel Tracy MD; Alisha Pascal MD; [facility]; Ramez Meek MD * DATE OF OPERATION: 12/19/17 - ROOM #ICU-09 DATE OF : 50 SURGEON: Dr. Fink NUTRITION CONSULTANT: Connie Duarte NP. ANESTHESIOLOGIST: Dr. Daniel. ANESTHESIA: General anesthetic, epidural anesthesia. PRE-OP DIAGNOSIS: Carcinoma of the left upper lobe of lung. POST-OP DIAGNOSIS: Carcinoma of the left upper lobe of lung. OPERATIVE PROCEDURE: Left upper lobectomy with lymph node dissection. DESCRIPTION OF PROCEDURE: The patient was supine on the operating table after adequate general anesthetic, epidural anesthesia, compression stockings, Souleymane Hugger warmer, Sepulveda catheterization, and arterial line, fiberoptic bronchoscopy was carried out through the double-lumen tube to ensure appropriate positioning. She was then placed in the lateral decubitus position with the left chest upward. She was appropriately padded and positioned and secured to the table. Axillary roll was utilized. The left chest was prepped with antiseptic and draped in a sterile fashion. Approximately 20 cm incision was created and carried down to the level of the latissimus fascia. Superior and inferior flaps were created and then the latissimus was mobilized and retracted. The serratus was entered in the direction of its fibers and the fifth rib was identified and a segment of it was removed. Ribs studio manager were used enter the chest cavity and there were adhesions virtually everywhere of the lung to mediastinum and lung to the chest wall. These were gradually taken down until there was good mobility. The superior pulmonary vein was identified , stapled, clipped, tied, and divided and the pulmonary artery branches were also clipped, tied and divided. The fissure opened up pretty easily. There were couple of small areas of tissue that were controlled with an orange clip where the tumor was adherent to cross the fissure into the lower lobe. This was divided using a ANALI stapler to take just a tiny wedge of the lower lobe adherent to the tumor. The remaining upper lobe bronchus was divided using a TA 30 stapler, 3.5 mm staple. There are few very small bubbles. So, this was reinforced with 2-0 Vicryl suture, which created excellent closure with no further air leakage despite 40 cm static pressure. Lymph nodes were taken from the inferior pulmonary ligament, subcarinal, aortopulmonary window, and periaortic region and sent separately for pathologic evaluation (this represents station 5, 6, 7, and 9). There were station 8 lymph nodes included with IPL lymph nodes. Hemostasis was good. There was no air leak from the bronchial stump. 36-Citizen [place] chest tube was placed through an inferior stab wound and up to the apex and was sutured to the skin with 2-0 Prolene. The ribs were approximated using pericostal sutures of double loop #1 PDS. The intercostal muscles reapproximated using 2-0 Vicryl. The serratus was closed with 0 Vicryl, latissimus was tacked back down with 0 Vicryl. The FATOU drain was placed in the area underneath the flaps and sutured to the skin with 3-0 Prolene. The subcutaneum was then closed with 3-0 Vicryl and skin with surgical clips. Sterile dressings were placed. The chest tube was hooked to the Pleur-evac and she was awakened, extubated, and brought to Recovery in good condition. There were no complications. Drain was 36-Citizen [place] chest tube and Kashif-Woodall drain. Sponge and instrument counts correct. Estimated blood loss 200 mL. Specimens were left upper lobectomy and lymph nodes from periaortic aorta pulmonary window, subcarinal, and inferior pulmonary ligament. [id number]/[facility] #: [id number] MTDD
[2017-12-20] MEDS: Heparin VIAL(*) 5000 UNITS/ML VIAL (FIVE THOUSAND) SUBCUT SCH ×3 (05:47→21:02)
[2017-12-20 05:58] LABS: ABS Basophils 0.1 10^3/ul (0-0.2); ABS Eosinophils 0 10^3/ul (0-0.6); ABS Lymphocytes 1.2 10^3/ul (1.0-4.8); ABS Monocytes 1.3 10^3/ul (0-0.8); ABS Neutrophils 19.8 10^3/ul (1.5-7.7); ABS Nucleated RBC 0 10^3/ul; Eosinophil % 0 % (0-6); Hematocrit 28 % (35-47); Hemoglobin 9.2 g/dl (12.0-16.0); Lymphocyte % 5.3 % (25-47); Mean Corpuscular HGB Conc 32 g/dl (31-36); Mean Corpuscular Hemoglobin 29 pg (27-31); Mean Corpuscular Volume 90 fL (80-97); Mean Platelet Volume 7.4 um3 (7.4-10.4); Nucleated Red Blood Cells % 0; Platelet Count 254 10^3/ul (150-450); Red Blood Count 3.16 10^6/ul (4.0-5.4); Red Cell Distribution Width 15 % (10.5-15); White Blood Count 22.4 10^3/ul (3.5-10.8)
[2017-12-20 06:15] LABS: EGFR Non-African American 89.3 (>60)
[2017-12-20] MEDS: Docusate CAP* 100 MG PO SCH ×2 (07:54→21:27)
[2017-12-20] MEDS: Omeprazole CAP* 20 MG PO SCH ×2 (07:54→21:28)
[2017-12-20] MEDS: Citalopram TAB* 20 MG PO SCH (07:54)
[2017-12-20] MEDS ORDERED: Hydrochlorothiazide TAB* 25 MG PO SCH (09:00)
[2017-12-20] MEDS ORDERED: Lisinopril/HCTZ 10/12.5(NF) TAB PO SCH (09:00)
--- NOTE | 2017-12-20 09:58 | PN ---
Subjective Date of Service: 12/20/17 Interval History: Pt continues to have post op pain in left chest controlled with MEDICAL RESEARCH TECH (Dilaudid), otherwise ding well, awaiting breakfast Objective Active Medications: Atorvastatin Calcium (Lipitor*) 40 mg PO 2100 [facility] Last Admin: 12/19/17 21:29 Dose: Not Given Citalopram Hydrobromide (Celexa Tab*) 20 mg PO QAM [facility] Last Admin: 12/20/17 07:54 Dose: 20 mg Docusate Sodium (Colace Cap*) 100 mg PO BID [facility] Last Admin: 12/20/17 07:54 Dose: 100 mg Ephedrine Sulfate (Ephedrine Sulfate (Pressors)*) 5 mg IV PUSH Q5M PRN PRN Reason: HYPOTENSION Heparin Sodium (Porcine) (Heparin Vial(*)) 5,000 units SUBCUT Q8HR [facility] Last Admin: 12/20/17 05:47 Dose: 5,000 units Hydralazine HCl (Apresoline Iv*) 5 mg IV SLOW PU Q6H PRN PRN Reason: BLOOD PRESSURE Hydromorphone HCl (Dilaudid Injic*) 1 mg IV SLOW PU Q4H PRN PRN Reason: PAIN Last Admin: 12/20/17 06:01 Dose: 1 mg Ropivacaine (Ropivacaine 0.2% Epidural*) 200 mg in 100 mls @ 0 mls/hr EPIDURAL PER RATE [facility]; Per Protocol PRN Reason: Protocol Last Admin: 12/19/17 22:33 Dose: 8 mls/hr Lactated Ringer's (Lactated Ringers 500 Ml Bag*) 500 mls @ 2,000 mls/hr IV ONCE PRN PRN Reason: FOR SBP < 90 Lactated Ringer's (Lactated Ringers 1000 Ml Bag*) 1,000 mls @ 100 mls/hr IV .per rate [facility] Last Admin: 12/20/17 02:09 Dose: 100 mls/hr Hydromorphone HCl (Dilaudid Grey Stock Recorder*) 20 mg in 20 mls @ 0 mls/hr MEDICAL RESEARCH TECH .Q24H [facility]; Per Protocol PRN Reason: Protocol Last Admin: 12/19/17 15:45 Dose: Not Given Sodium Chloride (Ns 0.9% 1000 Ml*) 1,000 mls @ 30 mls/hr IVPB .Q24H [facility] PRN Reason: KVO Ketorolac Tromethamine (Toradol Inj*) 15 mg IV Q6H PRN PRN Reason: Pain Ketorolac Tromethamine (Toradol Inj*) 15 mg IV Q6H [facility] Stop: 12/21/17 14:27 Last Admin: 12/20/17 07:52 Dose: 15 mg Lisinopril (Prinivil Tab*) 10 mg PO QAM [facility] PRN Reason: Protocol Naloxone HCl (Narcan*) 0.08 mg IV Q10M PRN PRN Reason: respiratory depression Naloxone HCl (Narcan*) 0.08 mg IV Q2M PRN PRN Reason: severe induced resp depression Stop: 12/20/17 12:12 Naloxone HCl (Narcan*) 0.08 mg IV PUSH Q2M PRN PRN Reason: SEDATION Omeprazole (Prilosec Cap*) 20 mg PO BID [facility] Last Admin: 12/20/17 07:54 Dose: 20 mg Ondansetron HCl (Zofran Inj*) 4 mg IV Q6H PRN PRN Reason: NAUSEA/VOMITING Vital Signs - 8 hr 12/20/17 12/20/17 12/20/17 02:00 02:19 02:31 Temperature Pulse Rate 88 92 Respiratory 12 15 Rate Blood Pressure 102/78 127/82 (mmHg) O2 Sat by Pulse 100 97 Oximetry 12/20/17 12/20/17 12/20/17 03:00 03:01 03:30 Temperature Pulse Rate 90 93 Respiratory 11 Rate Blood Pressure 101/54 96/66 (mmHg) O2 Sat by Pulse 96 97 Oximetry 12/20/17 12/20/17 12/20/17 04:00 04:30 05:00 Temperature 97.9 F Pulse Rate 91 92 93 Respiratory 10 11 Rate Blood Pressure 114/64 105/67 122/64 (mmHg) O2 Sat by Pulse 98 98 99 Oximetry 12/20/17 12/20/17 12/20/17 05:31 06:00 06:01 Temperature Pulse Rate 92 87 Respiratory 17 16 Rate Blood Pressure 115/67 144/74 (mmHg) O2 Sat by Pulse 99 96 Oximetry 12/20/17 12/20/17 12/20/17 06:30 07:00 07:30 Temperature Pulse Rate 91 96 99 Respiratory 10 Rate Blood Pressure 107/67 118/73 144/82 (mmHg) O2 Sat by Pulse 94 97 98 Oximetry 12/20/17 12/20/17 12/20/17 07:38 08:00 08:01 Temperature 97.0 F Pulse Rate 110 Respiratory 21 Rate Blood Pressure 146/90 (mmHg) O2 Sat by Pulse 99 97 Oximetry 12/20/17 12/20/17 12/20/17 08:31 09:00 09:01 Temperature Pulse Rate 104 116 108 Respiratory 22 Rate Blood Pressure 112/63 126/68 (mmHg) O2 Sat by Pulse 100 99 89 Oximetry 12/20/17 09:30 Temperature Pulse Rate 105 Respiratory Rate Blood Pressure 102/62 (mmHg) O2 Sat by Pulse 97 Oximetry Oxygen Devices in Use Now: Nasal Cannula Appearance: 67 yo f in nAD, aAOx3 Eyes: No Scleral Icterus, PERRLA Ears/Nose/Mouth/Throat: NL Teeth, Lips, Gums, Mucous Membranes Moist Neck: NL Appearance and Movements; NL JVP, Trachea Midline Respiratory: Symmetrical Chest Expansion and Respiratory Effort, - - rhonchi b/ l. FATOU drain in left chest, CT in left chest draining serosanquineus fluid Cardiovascular: NL Sounds; No Murmurs; No JVD, RRR Abdominal: NL Sounds; No Tenderness; No Distention, No Hepatosplenomegaly Lymphatic: No Cervical Adenopathy Extremities: No Edema, No Clubbing, Cyanosis Skin: No Nodules or Sclerosis Neurological: Alert and Oriented x 3, NL Muscle Strength and Tone Result Diagrams: 12/20/17 05:45 12/20/17 05:45 Microbiology and Other Data: Microbiology 12/19/17 17:28 Nasal Screen MRSA (PCR)(ROMMEL) - Final Nasal Mrsa Not Detected Assess/Plan/Problems-Billing Assessment: 67 yo F with h/o adenocarcinoma of left lung s/o lobectomy on 12/19/17 , h/o HTN, dyslipidemia, depression, GERD, SSS-s/p pacer - Patient Problems (1) S/P lobectomy of lung Comment: FATOU and chest tube in place. Doing very well, management as per Dr. Fink (2) Hypertension Comment: BP WNL on no PO meds for now. Hydralazine IV prn. Zestoretic held (3) Depression Comment: controled with Celexa (4) Leukocytosis Comment: marked, likely reactive, cont to monitor, no evidence of infection (5) DVT prophylaxis Comment: HSQ Status and Disposition: Medicine consult, will follow
--- NOTE | 2017-12-20 10:24 | PN ---
Progress Note - Progress Note Date of Service: 12/20/17 Note: POD#1 s/p left upper lobectomy Afeb, VS noted UO adequate. FATOU small sero-sang Chest tube--600 ml since OR. Now thin sero-sang. No air leak. Pain control OK. Needed to go up on the epidural earlier. Alert and coherent, though a bit drowsy. Lungs--adequate aeration, some upper airway sounds. Dressing clean Labs noted PO's as tolerated. On colace OOB as tolerated Re-check labs and CXR 12/21 DVT prophylaxis Await decreased drainage Follow I&O, keep Sepulveda at present Cont to monitor in ICU Await pathology
[2017-12-20] MEDS: Ropivacaine 0.2% EPIDURAL* 200 MG/100 ML BAG EPIDURAL SCH ×2 (11:44→21:03)
--- NOTE | 2017-12-20 13:51 | PN ---
Progress Note - Progress Note Date of Service: 12/20/17 Note: Subjective: Ms. Hickey is post-op day one of a left upper lobectomy. She does report some moderate pain and was visibly grimacing during the interview. She was a bit drowsy, however, was able to answer questions. She has been taking sips of water and has also eaten some jello. She admits to some SOB and difficulty with taking a deep breath but otherwise denies all symptoms: CP, chest tightness or pressure, abdominal pain, N/V. Current Medications Atorvastatin Calcium (Lipitor*) 40 mg PO 2100 [facility] Last Admin: 12/19/17 21:29 Dose: Not Given Citalopram Hydrobromide (Celexa Tab*) 20 mg PO QAM [facility] Last Admin: 12/20/17 07:54 Dose: 20 mg Docusate Sodium (Colace Cap*) 100 mg PO BID [facility] Last Admin: 12/20/17 07:54 Dose: 100 mg Ephedrine Sulfate (Ephedrine Sulfate (Pressors)*) 5 mg IV PUSH Q5M PRN PRN Reason: HYPOTENSION Heparin Sodium (Porcine) (Heparin Vial(*)) 5,000 units SUBCUT Q8HR [facility] Last Admin: 12/20/17 13:55 Dose: 5,000 units Hydralazine HCl (Apresoline Iv*) 5 mg IV SLOW PU Q6H PRN PRN Reason: BLOOD PRESSURE Hydromorphone HCl (Dilaudid Injic*) 1 mg IV SLOW PU Q4H PRN PRN Reason: PAIN Last Admin: 12/20/17 11:49 Dose: 1 mg Ropivacaine (Ropivacaine 0.2% Epidural*) 200 mg in 100 mls @ 0 mls/hr EPIDURAL PER RATE [facility]; Per Protocol PRN Reason: Protocol Last Admin: 12/20/17 11:44 Dose: 10 mls/hr Lactated Ringer's (Lactated Ringers 500 Ml Bag*) 500 mls @ 2,000 mls/hr IV ONCE PRN PRN Reason: FOR SBP < 90 Lactated Ringer's (Lactated Ringers 1000 Ml Bag*) 1,000 mls @ 100 mls/hr IV .per rate [facility] Last Admin: 12/20/17 12:25 Dose: 100 mls/hr Hydromorphone HCl (Dilaudid Hoisting Machine Operator*) 20 mg in 20 mls @ 0 mls/hr CONTROL BOARD OPERATOR .Q24H [facility]; Per Protocol PRN Reason: Protocol Last Admin: 12/19/17 15:45 Dose: Not Given Sodium Chloride (Ns 0.9% 1000 Ml*) 1,000 mls @ 30 mls/hr IVPB .Q24H [facility] PRN Reason: KVO Ketorolac Tromethamine (Toradol Inj*) 15 mg IV Q6H PRN PRN Reason: Pain Last Admin: 12/20/17 13:55 Dose: 15 mg Ketorolac Tromethamine (Toradol Inj*) 15 mg IV Q6H [facility] Stop: 12/21/17 14:27 Last Admin: 12/20/17 07:52 Dose: 15 mg Lisinopril (Prinivil Tab*) 10 mg PO QAM [facility] PRN Reason: Protocol Naloxone HCl (Narcan*) 0.08 mg IV Q10M PRN PRN Reason: respiratory depression Naloxone HCl (Narcan*) 0.08 mg IV PUSH Q2M PRN PRN Reason: SEDATION Omeprazole (Prilosec Cap*) 20 mg PO BID [facility] Last Admin: 12/20/17 07:54 Dose: 20 mg Ondansetron HCl (Zofran Inj*) 4 mg IV Q6H PRN PRN Reason: NAUSEA/VOMITING Objective: Vital Signs (72 hours) 12/19/17 12/19/17 12/19/17 07:28 14:21 14:25 Temperature 97.0 F 97.4 F Pulse Rate 72 79 Respiratory 18 14 Rate Blood Pressure 126/58 161/60 (mmHg) O2 Sat by Pulse 95 99 Oximetry 12/19/17 12/19/17 12/19/17 14:30 14:41 14:45 Temperature Pulse Rate 78 77 Respiratory 16 18 18 Rate Blood Pressure 158/60 148/59 (mmHg) O2 Sat by Pulse 98 96 Oximetry 12/19/17 12/19/17 12/19/17 15:00 15:14 15:30 Temperature 97.2 F Pulse Rate 84 89 79 Respiratory 18 16 16 Rate Blood Pressure 154/56 163/58 158/57 (mmHg) O2 Sat by Pulse 94 96 97 Oximetry 12/19/17 12/19/17 12/19/17 15:45 15:46 15:47 Temperature Pulse Rate 88 90 Respiratory 12 22 14 Rate Blood Pressure 111/58 (mmHg) O2 Sat by Pulse 92 95 Oximetry 12/19/17 12/19/17 12/19/17 16:00 16:30 16:37 Temperature 97.1 F Pulse Rate 89 93 91 Respiratory 13 8 14 Rate Blood Pressure 112/66 144/68 128/73 (mmHg) O2 Sat by Pulse 93 97 98 Oximetry 12/19/17 12/19/17 12/19/17 16:49 17:00 17:30 Temperature Pulse Rate 94 91 Respiratory 14 20 Rate Blood Pressure 137/70 131/71 (mmHg) O2 Sat by Pulse 97 98 97 Oximetry 12/19/17 12/19/17 12/19/17 17:46 18:00 18:15 Temperature Pulse Rate 93 93 Respiratory 18 9 7 Rate Blood Pressure 123/72 112/88 (mmHg) O2 Sat by Pulse 99 99 Oximetry 12/19/17 12/19/17 12/19/17 18:21 18:30 18:45 Temperature 97.6 F Pulse Rate 94 93 Respiratory 9 14 Rate Blood Pressure 134/65 96/78 (mmHg) O2 Sat by Pulse 98 99 Oximetry 12/19/17 12/19/17 12/19/17 19:00 19:01 19:15 Temperature Pulse Rate 94 94 96 Respiratory 9 11 13 Rate Blood Pressure 96/77 131/81 (mmHg) O2 Sat by Pulse 96 98 97 Oximetry 12/19/17 12/19/17 12/19/17 19:30 19:37 19:45 Temperature 97.4 F Pulse Rate 99 96 Respiratory 8 8 Rate Blood Pressure 125/81 114/84 (mmHg) O2 Sat by Pulse 96 98 Oximetry 12/19/17 12/19/17 12/19/17 20:00 20:15 20:30 Temperature Pulse Rate 98 93 96 Respiratory 12 Rate Blood Pressure 124/76 131/73 157/144 (mmHg) O2 Sat by Pulse 97 98 98 Oximetry 12/19/17 12/19/17 12/19/17 20:31 20:46 21:00 Temperature Pulse Rate 96 93 Respiratory 12 Rate Blood Pressure 106/71 140/69 (mmHg) O2 Sat by Pulse 98 97 96 Oximetry 12/19/17 12/19/17 12/19/17 21:31 22:00 22:30 Temperature Pulse Rate 92 97 92 Respiratory 13 Rate Blood Pressure 141/56 103/69 112/63 (mmHg) O2 Sat by Pulse 97 97 99 Oximetry 12/19/17 12/19/17 12/19/17 23:00 23:01 23:02 Temperature Pulse Rate 91 91 92 Respiratory 13 Rate Blood Pressure 103/53 (mmHg) O2 Sat by Pulse 100 99 Oximetry 12/19/17 12/19/17 12/20/17 23:30 23:54 00:00 Temperature 97.6 F Pulse Rate 88 Respiratory 14 Rate Blood Pressure 119/74 (mmHg) O2 Sat by Pulse 98 99 Oximetry 12/20/17 12/20/17 12/20/17 00:01 00:31 01:00 Temperature Pulse Rate 88 87 89 Respiratory 12 Rate Blood Pressure 132/56 98/70 111/69 (mmHg) O2 Sat by Pulse 99 100 97 Oximetry 12/20/17 12/20/17 12/20/17 01:30 02:00 02:19 Temperature Pulse Rate 88 88 Respiratory 12 15 Rate Blood Pressure 134/63 102/78 (mmHg) O2 Sat by Pulse 99 100 Oximetry 12/20/17 12/20/17 12/20/17 02:31 03:00 03:01 Temperature Pulse Rate 92 90 Respiratory 11 Rate Blood Pressure 127/82 101/54 (mmHg) O2 Sat by Pulse 97 96 Oximetry 12/20/17 12/20/17 12/20/17 03:30 04:00 04:30 Temperature 97.9 F Pulse Rate 93 91 92 Respiratory 10 Rate Blood Pressure 96/66 114/64 105/67 (mmHg) O2 Sat by Pulse 97 98 98 Oximetry 12/20/17 12/20/17 12/20/17 05:00 05:31 06:00 Temperature Pulse Rate 93 92 87 Respiratory 11 17 Rate Blood Pressure 122/64 115/67 144/74 (mmHg) O2 Sat by Pulse 99 99 96 Oximetry 12/20/17 12/20/17 12/20/17 06:01 06:30 07:00 Temperature Pulse Rate 91 96 Respiratory 16 10 Rate Blood Pressure 107/67 118/73 (mmHg) O2 Sat by Pulse 94 97 Oximetry 12/20/17 12/20/17 12/20/17 07:30 07:38 08:00 Temperature 97.0 F Pulse Rate 99 Respiratory 21 Rate Blood Pressure 144/82 (mmHg) O2 Sat by Pulse 98 99 Oximetry 12/20/17 12/20/17 12/20/17 08:01 08:31 09:00 Temperature Pulse Rate 110 104 116 Respiratory 22 Rate Blood Pressure 146/90 112/63 (mmHg) O2 Sat by Pulse 97 100 99 Oximetry 12/20/17 12/20/17 12/20/17 09:01 09:30 10:00 Temperature Pulse Rate 108 105 103 Respiratory 23 Rate Blood Pressure 126/68 102/62 110/71 (mmHg) O2 Sat by Pulse 89 97 95 Oximetry 12/20/17 12/20/17 12/20/17 10:30 11:00 11:30 Temperature Pulse Rate 102 103 102 Respiratory 11 Rate Blood Pressure 116/69 114/79 117/88 (mmHg) O2 Sat by Pulse 98 94 98 Oximetry 12/20/17 12/20/17 12/20/17 11:49 12:00 12:30 Temperature 97.8 F Pulse Rate 101 106 Respiratory 18 Rate Blood Pressure 117/64 109/64 (mmHg) O2 Sat by Pulse 96 94 Oximetry Physical Exam: General: WDWN in NAD, however, does appear to be in visible pain. CV: RRR w/o MRG. Resp: course breath sounds present BL. The dressing over the incision has some drainage, however, is otherwise clean and dry. IVAN drain noted to have seroanguinous fluid. Pleur-evac noted to have 730 ml since placement; seroanguinous fluid appreciated within tube. Extremities: w/o edema. Assessment & Plan: Continue monitoring for pleur-evac drainage as well as ivan drainage. Continue pain control management and dressing changes as needed. Patient may ambulate and consume POs as she wishes.
[2017-12-20] MEDS: Ketorolac INJ* 15 MG/ML 1 ML VIAL IV PRN (13:55)
[2017-12-20] MEDS: Acetaminophen TAB* 325 MG PO PRN (15:09)
[2017-12-20] MEDS ORDERED: Ropivacaine (OR use only) 2 MG/ML 10 ML ONE (15:37)
--- NOTE | 2017-12-20 16:14 | PN ---
Progress Note - Progress Note Date of Service: 12/20/17 Note: CTSP for increased pain and difficulty breathing. She seems quite sedated, difficult to get her to answer questions coherently. RR and SaO2 both normal. Seems to be taking adequate volumes. Chest dressing clean. Aeration as expected post resection Examined patient with Dr Daniel. He decided to bolus the epidural. After 15 min she seemed to have less pain, though still sedated. Will cont to monitor.
[2017-12-20] MEDS: Atorvastatin* 40 MG TAB PO SCH (21:27)
[2017-12-21] MEDS: Ketorolac INJ* 30 MG/ML 1 ML VIAL IV SCH ×2 (03:09→08:39)
[2017-12-21] MEDS: Ropivacaine 0.2% EPIDURAL* 200 MG/100 ML BAG EPIDURAL SCH ×3 (03:54→20:35)
[2017-12-21] MEDS: HYDROmorphone INJ* 1 MG/ML CARPUJECT SYRINGE IV SLOW PU PRN ×2 (03:54→23:21)
[2017-12-21] MEDS: Heparin VIAL(*) 5000 UNITS/ML VIAL (FIVE THOUSAND) SUBCUT SCH ×3 (05:47→21:10)
[2017-12-21 06:47] LABS: Hematocrit 25 % (35-47); Mean Corpuscular HGB Conc 32 g/dl (31-36); Mean Corpuscular Hemoglobin 29 pg (27-31); Mean Corpuscular Volume 90 fL (80-97); Mean Platelet Volume 7.8 um3 (7.4-10.4); Platelet Count 240 10^3/ul (150-450); Red Blood Count 2.74 10^6/ul (4.0-5.4); Red Cell Distribution Width 15 % (10.5-15); White Blood Count 17.2 10^3/ul (3.5-10.8)
[2017-12-21 07:06] LABS: EGFR Non-African American 78.3 (>60)
--- NOTE | 2017-12-21 08:01 | RAD ---
INDICATION: Status post thoracotomy. COMPARISON: Comparison is made with a prior study from December 19, 2017. TECHNIQUE: A portable view of the chest was obtained. FINDINGS: The heart appears mildly enlarged. There is a dual-chamber transvenous pacemaker present. There is a chest tube present on the left side. The catheter tip projects at the left lung apex. There is a small left apical pneumothorax which is not visualized on the prior study. There is mild increased density at the left lung base unchanged suggestive of atelectasis. No pleural effusion is seen. There are multiple surgical clips are noted laterally over the soft tissues of the chest wall on the left side. IMPRESSION: SMALL APICAL LEFT PNEUMOTHORAX, CHEST TUBE IN PLACE.
[2017-12-21] MEDS ORDERED: Magnesium Sulfate IV* 3 GM in NS 0.9% 100 ML* 100 ML IVPB ONE (08:28)
[2017-12-21] MEDS: Docusate CAP* 100 MG PO SCH ×2 (08:39→21:11)
[2017-12-21] MEDS: Citalopram TAB* 20 MG PO SCH (08:39)
[2017-12-21] MEDS: Omeprazole CAP* 20 MG PO SCH ×2 (08:39→21:11)
--- NOTE | 2017-12-21 08:49 | PN ---
Progress Note - Progress Note Date of Service: 12/21/17 SOAP: Subjective: She is more comfortable today-still with pain but better controlled She is having no SOB, no nausea, slept poorly last night Has not been out of bed Urine output low the last 24 hours Nurses note that the chest tube was off suction inadvertently for unknown period time this morning and was off suction for chest xray. Objective: Temp Pulse Resp BP Pulse Ox 98.5 F 97 12 82/60 94 12/21/17 07:34 12/21/17 07:30 12/21/17 07:00 12/21/17 07:30 12/21/17 07:30 Intake & Output 12/19/17 12/20/17 12/21/17 12/22/17 06:59 06:59 06:59 06:59 Intake Total 4869 3385.3 Output Total 1400 1095 Balance 3469 2290.3 Weight 206 lb 5.643 oz 214 lb 11.684 oz Intake: IV Fluids 4317 2857 LR 4317 2419 NS 438 IVPB 500 LR 500 Medicated IV 78.3 Ropivacaine 78.3 IV Narcotic Infusion 2 Hydromorphone 2 Oral 50 450 Output: FATOU #1 50 85 Chest Tube #1 400 485 Urine 175 Ames 750 350 Estimated Blood Loss 200 Chest tube drainage level at 0815 at 1100 cc's, serosanguinous No leak now back on suction FATOU in place with serosanguinous drainage. PEX: Awake and alert-talking in complete sentences and appears comfortable Dressing on left chest in place. Breath sounds on right chest are clear, difficult to hear breath sounds on left with dressing Abd is soft and non-distended. Bowel sounds are present. Laboratory Results - last 24 hr 12/20/17 12/21/17 12/21/17 05:45 05:57 05:57 WBC 17.2 H RBC 2.74 L Hgb 8.0 L Hct 25 L MCV 90 MCH 29 MCHC 32 RDW 15 Plt Count 240 MPV 7.8 Sodium 140 Potassium 4.1 Chloride 106 Carbon Dioxide 29 Anion Gap 5 BUN 20 Creatinine 0.74 Est GFR ( Amer) 100.7 Est GFR (Non-Af Amer) 78.3 BUN/Creatinine Ratio 27.0 H Glucose 112 H Calcium 7.7 L Magnesium 1.5 L CXR reviewed--small apical right PTX, no effusion, chest tube in place Assessment: POD#2 s/p open left thoracotomy with lobe resection. 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 Continue chest tube on suction--small PTX this morning may be result of being off suction, repeat chest xray in AM. No air leak noted. Follow urine output-BUN and Cr are normal-will continue with aems, her diuretic has been held, she may need dose to maintain output. Hospitalist also following, follow BP's Increase activity-OOB, pulmonary toilet Sub q heparin Recheck labs and CXR in AM She needs to stay in ICU with complexity of care.
[2017-12-21] MEDS ORDERED: Magnesium Sulfate 1 GM IV* 1 GM/100 ML BAG IV ONE (10:10)
[2017-12-21] MEDS ORDERED: Magnesium Sulfate 2 GM IV* 2 GM/50 ML BAG IV ONE (10:10)
--- NOTE | 2017-12-21 10:25 | PN ---
Subjective Date of Service: 12/21/17 Interval History: Pt is mildly sedated on pain management. Feels "OK". Objective Active Medications: Acetaminophen (Tylenol Tab*) 650 mg PO Q4H PRN PRN Reason: PAIN Atorvastatin Calcium (Lipitor*) 40 mg PO 2100 [facility] Last Admin: 12/20/17 21:27 Dose: 40 mg Citalopram Hydrobromide (Celexa Tab*) 20 mg PO QAM [facility] Last Admin: 12/21/17 08:39 Dose: 20 mg Docusate Sodium (Colace Cap*) 100 mg PO BID [facility] Last Admin: 12/21/17 08:39 Dose: 100 mg Ephedrine Sulfate (Ephedrine Sulfate (Pressors)*) 5 mg IV PUSH Q5M PRN PRN Reason: HYPOTENSION Heparin Sodium (Porcine) (Heparin Vial(*)) 5,000 units SUBCUT Q8HR [facility] Last Admin: 12/21/17 05:47 Dose: 5,000 units Hydralazine HCl (Apresoline Iv*) 5 mg IV SLOW PU Q6H PRN PRN Reason: BLOOD PRESSURE Hydromorphone HCl (Dilaudid Injic*) 1 mg IV SLOW PU Q3H PRN PRN Reason: PAIN Last Admin: 12/21/17 03:54 Dose: 1 mg Ropivacaine (Ropivacaine 0.2% Epidural*) 200 mg in 100 mls @ 0 mls/hr EPIDURAL PER RATE [facility]; Per Protocol PRN Reason: Protocol Last Admin: 12/21/17 03:54 Dose: 14 mls/hr Lactated Ringer's (Lactated Ringers 1000 Ml Bag*) 1,000 mls @ 100 mls/hr IV .per rate [facility] Last Admin: 12/21/17 05:50 Dose: 100 mls/hr Hydromorphone HCl (Dilaudid Stream Control Officer*) 20 mg in 20 mls @ 0 mls/hr NEWSPAPER CARRIER .Q24H [facility]; Per Protocol PRN Reason: Protocol Last Admin: 12/19/17 15:45 Dose: Not Given Sodium Chloride (Ns 0.9% 1000 Ml*) 1,000 mls @ 30 mls/hr IVPB .Q24H [facility] PRN Reason: KVO Lactated Ringer's (Lactated Ringers 1000 Ml Bag*) 1,000 mls @ 50 mls/hr IV PER RATE [facility] Magnesium Sulfate/Dextrose (Magnesium Sulfate 1 Gm Iv*) 1 gm in 100 mls @ 200 mls/hr IV ONCE ONE Stop: 12/21/17 10:39 Last Admin: 12/21/17 10:14 Dose: 200 mls/hr Magnesium Sulfate (Magnesium Sulfate 2 Gm Iv*) 2 gm in 50 mls @ 50 mls/hr IV ONCE ONE Stop: 12/21/17 11:09 Ketorolac Tromethamine (Toradol Inj*) 15 mg IV Q6H PRN PRN Reason: Pain Last Admin: 12/20/17 13:55 Dose: 15 mg Ketorolac Tromethamine (Toradol Inj*) 15 mg IV Q6H [facility] Stop: 12/21/17 14:27 Last Admin: 12/21/17 08:39 Dose: 15 mg Naloxone HCl (Narcan*) 0.08 mg IV Q10M PRN PRN Reason: respiratory depression Naloxone HCl (Narcan*) 0.08 mg IV PUSH Q2M PRN PRN Reason: SEDATION Omeprazole (Prilosec Cap*) 20 mg PO BID [facility] Last Admin: 12/21/17 08:39 Dose: 20 mg Ondansetron HCl (Zofran Inj*) 4 mg IV Q6H PRN PRN Reason: NAUSEA/VOMITING Vital Signs - 8 hr 12/21/17 12/21/17 12/21/17 02:32 03:00 03:01 Temperature Pulse Rate 92 93 91 Respiratory 18 Rate Blood Pressure 121/56 114/81 (mmHg) O2 Sat by Pulse 93 98 95 Oximetry 12/21/17 12/21/17 12/21/17 03:31 03:33 03:54 Temperature Pulse Rate 82 96 Respiratory 18 Rate Blood Pressure 76/62 97/52 (mmHg) O2 Sat by Pulse 94 90 Oximetry 12/21/17 12/21/17 12/21/17 04:00 04:01 04:30 Temperature 96.0 F Pulse Rate 106 107 90 Respiratory 25 Rate Blood Pressure 94/76 99/60 (mmHg) O2 Sat by Pulse 98 95 89 Oximetry 12/21/17 12/21/17 12/21/17 05:00 05:01 05:30 Temperature Pulse Rate 93 98 Respiratory 8 Rate Blood Pressure 99/77 101/73 (mmHg) O2 Sat by Pulse 95 88 Oximetry 12/21/17 12/21/17 12/21/17 06:00 06:02 06:30 Temperature Pulse Rate 104 106 93 Respiratory 17 Rate Blood Pressure 99/71 115/55 (mmHg) O2 Sat by Pulse 93 92 94 Oximetry 12/21/17 12/21/17 12/21/17 07:00 07:01 07:30 Temperature Pulse Rate 109 92 97 Respiratory 12 Rate Blood Pressure 111/52 82/60 (mmHg) O2 Sat by Pulse 88 91 94 Oximetry 12/21/17 12/21/17 12/21/17 07:34 07:36 08:00 Temperature 98.5 F Pulse Rate 98 98 Respiratory 15 Rate Blood Pressure 129/53 113/76 (mmHg) O2 Sat by Pulse 96 94 Oximetry 12/21/17 12/21/17 12/21/17 08:31 09:00 09:01 Temperature Pulse Rate 96 103 105 Respiratory 16 Rate Blood Pressure 97/67 136/54 (mmHg) O2 Sat by Pulse 95 91 91 Oximetry 12/21/17 12/21/17 09:31 10:00 Temperature Pulse Rate 94 Respiratory 11 Rate Blood Pressure 107/56 (mmHg) O2 Sat by Pulse 98 Oximetry Oxygen Devices in Use Now: Nasal Cannula - at 4L Appearance: 67 yo F in nAD, AAOx3 Eyes: No Scleral Icterus, PERRLA Ears/Nose/Mouth/Throat: NL Teeth, Lips, Gums, Mucous Membranes Moist Neck: NL Appearance and Movements; NL JVP, Trachea Midline Respiratory: Symmetrical Chest Expansion and Respiratory Effort, - - b/l rhonchi L>R, FATOU drain to left chest. Left chest tube in place Cardiovascular: NL Sounds; No Murmurs; No JVD, RRR Abdominal: NL Sounds; No Tenderness; No Distention, No Hepatosplenomegaly Lymphatic: No Cervical Adenopathy Extremities: No Edema, No Clubbing, Cyanosis Skin: No Nodules or Sclerosis, - - post op incision not inspected Neurological: Alert and Oriented x 3, NL Muscle Strength and Tone Result Diagrams: 12/21/17 05:57 12/21/17 05:57 Microbiology and Other Data: Microbiology 12/19/17 17:28 Nasal Screen MRSA (PCR)(ROMMEL) - Final Nasal Mrsa Not Detected Assess/Plan/Problems-Billing Assessment: 67 yo F with h/o adenocarcinoma of left lung s/o lobectomy on 12/19/17 , h/o HTN, dyslipidemia, depression, GERD, SSS-s/p pacer - Patient Problems (1) S/P lobectomy of lung Comment: FATOU and chest tube in place. Doing very well, management as per Dr. Fink Small pneumothorax noted on CXR-not unexpected post op (2) Hypertension Comment: BP WNL on no PO meds for now. Hydralazine IV prn. Zestoretic held (3) Depression Comment: controled with Celexa (4) Leukocytosis Comment: marked, likely reactive, cont to monitor, no evidence of infection (5) Anemia Comment: a combination of acute post op anemia and hemodilution cont to monitor (6) DVT prophylaxis Comment: HSQ Status and Disposition: Medicine consult, will follow
[2017-12-21] MEDS: NS 0.9% 1000 ML* 1,000 ML IVPB SCH (18:19)
[2017-12-21] MEDS: Atorvastatin* 40 MG TAB PO SCH (21:11)
[2017-12-22] MEDS: Ropivacaine 0.2% EPIDURAL* 200 MG/100 ML BAG EPIDURAL SCH ×2 (03:50→12:49)
[2017-12-22 05:30] LABS: ABS Basophils 0.1 10^3/ul (0-0.2); ABS Eosinophils 0.1 10^3/ul (0-0.6); ABS Lymphocytes 1.2 10^3/ul (1.0-4.8); ABS Monocytes 0.9 10^3/ul (0-0.8); ABS Neutrophils 10.9 10^3/ul (1.5-7.7); ABS Nucleated RBC 0 10^3/ul; Eosinophil % 0.8 % (0-6); Hematocrit 23 % (35-47); Hemoglobin 7.5 g/dl (12.0-16.0); Lymphocyte % 9.2 % (25-47); Mean Corpuscular HGB Conc 33 g/dl (31-36); Mean Corpuscular Hemoglobin 30 pg (27-31); Mean Corpuscular Volume 89 fL (80-97); Mean Platelet Volume 7.5 um3 (7.4-10.4); Nucleated Red Blood Cells % 0; Platelet Count 205 10^3/ul (150-450); Red Blood Count 2.54 10^6/ul (4.0-5.4); Red Cell Distribution Width 15 % (10.5-15); White Blood Count 13.2 10^3/ul (3.5-10.8)
[2017-12-22] MEDS: Heparin VIAL(*) 5000 UNITS/ML VIAL (FIVE THOUSAND) SUBCUT SCH ×3 (06:11→21:07)
[2017-12-22] MEDS: Docusate CAP* 100 MG PO SCH ×2 (08:24→21:05)
[2017-12-22] MEDS: Citalopram TAB* 20 MG PO SCH (08:24)
[2017-12-22] MEDS: Omeprazole CAP* 20 MG PO SCH ×2 (08:24→21:05)
--- NOTE | 2017-12-22 08:49 | RAD ---
INDICATION: Left pneumothorax status post left lobectomy. COMPARISON: Similar chest x-ray December 21, 2017 TECHNIQUE: Single AP portable view of the chest was obtained. FINDINGS: Image quality is compromised due to the relative inferiority of a portable chest x-ray. Again seen is hazy density obscuring the left lung. There is density obscuring the left lung base. The left sided chest tube is unchanged in position with the tip overlying the left lung apex. Postsurgical changes also include surgical akash overlying the upper left mediastinum, what appears to be a percutaneous drain overlying the left lateral thorax soft tissues and surgical skin akash. The right lung is adequately aerated. Visualized bones are normal for the patient's age. IMPRESSION: 1. Postsurgical changes as described above status post what appears to be a left upper lobectomy. 2. Worsening aeration of the remaining left lung relative to the previous chest x-ray could be due to pulmonary edema of the remaining lobe and a pleural effusion.
[2017-12-22] MEDS: Lisinopril TAB* 10 MG PO SCH (09:44)
--- NOTE | 2017-12-22 10:07 | PN ---
Subjective Date of Service: 12/22/17 Interval History: Pt is confused today, intermittently able to answer questions correctly but then starts talking about things entirely not related to conversation. Has no new complaint. still c/o post op pain. 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 Objective Active Medications: Acetaminophen (Tylenol Tab*) 650 mg PO Q4H PRN PRN Reason: PAIN Atorvastatin Calcium (Lipitor*) 40 mg PO 2100 [facility] Last Admin: 12/21/17 21:11 Dose: 40 mg Citalopram Hydrobromide (Celexa Tab*) 20 mg PO QAM [facility] Last Admin: 12/22/17 08:24 Dose: 20 mg Docusate Sodium (Colace Cap*) 100 mg PO BID [facility] Last Admin: 12/22/17 08:24 Dose: 100 mg Ephedrine Sulfate (Ephedrine Sulfate (Pressors)*) 5 mg IV PUSH Q5M PRN PRN Reason: HYPOTENSION Heparin Sodium (Porcine) (Heparin Vial(*)) 5,000 units SUBCUT Q8HR [facility] Last Admin: 12/22/17 06:11 Dose: 5,000 units Hydralazine HCl (Apresoline Iv*) 5 mg IV SLOW PU Q6H PRN PRN Reason: BLOOD PRESSURE Hydromorphone HCl (Dilaudid Injic*) 1 mg IV SLOW PU Q3H PRN PRN Reason: PAIN Last Admin: 12/21/17 23:21 Dose: 1 mg Ropivacaine (Ropivacaine 0.2% Epidural*) 200 mg in 100 mls @ 0 mls/hr EPIDURAL PER RATE [facility]; Per Protocol PRN Reason: Protocol Last Admin: 12/22/17 03:50 Dose: 12 mls/hr Hydromorphone HCl (Dilaudid Sterilization Specialist*) 20 mg in 20 mls @ 0 mls/hr MACHINE CLOTHING MAN .Q24H [facility]; Per Protocol PRN Reason: Protocol Last Admin: 12/19/17 15:45 Dose: Not Given Sodium Chloride (Ns 0.9% 1000 Ml*) 1,000 mls @ 30 mls/hr IVPB .Q24H [facility] PRN Reason: KVO Last Admin: 12/21/17 18:19 Dose: 30 mls/hr Lactated Ringer's (Lactated Ringers 1000 Ml Bag*) 1,000 mls @ 50 mls/hr IV PER RATE [facility] Last Admin: 12/21/17 22:10 Dose: 50 mls/hr Lactated Ringer's (Lactated Ringers 1000 Ml Bag*) 1,000 mls @ 50 mls/hr IV PER RATE [facility] Ketorolac Tromethamine (Toradol Inj*) 15 mg IV Q6H PRN PRN Reason: Pain Last Admin: 12/20/17 13:55 Dose: 15 mg Lisinopril (Prinivil Tab*) 10 mg PO DAILY [facility] Last Admin: 12/22/17 09:44 Dose: 10 mg Naloxone HCl (Narcan*) 0.08 mg IV Q10M PRN PRN Reason: respiratory depression Naloxone HCl (Narcan*) 0.08 mg IV PUSH Q2M PRN PRN Reason: SEDATION Omeprazole (Prilosec Cap*) 20 mg PO BID [facility] Last Admin: 12/22/17 08:24 Dose: 20 mg Ondansetron HCl (Zofran Inj*) 4 mg IV Q6H PRN PRN Reason: NAUSEA/VOMITING Vital Signs - 8 hr 12/22/17 12/22/17 12/22/17 02:30 03:00 03:30 Temperature Pulse Rate 91 99 100 Respiratory 13 19 19 Rate Blood Pressure 124/75 147/66 167/82 (mmHg) O2 Sat by Pulse 97 97 98 Oximetry 12/22/17 12/22/17 12/22/17 03:55 04:00 04:01 Temperature 97.1 F Pulse Rate 97 88 Respiratory 14 17 Rate Blood Pressure 130/61 (mmHg) O2 Sat by Pulse 96 98 Oximetry 12/22/17 12/22/17 12/22/17 04:27 04:30 04:56 Temperature Pulse Rate 102 Respiratory 22 17 Rate Blood Pressure 131/66 (mmHg) O2 Sat by Pulse 97 93 Oximetry 12/22/17 12/22/17 12/22/17 05:00 05:30 06:00 Temperature Pulse Rate 94 88 101 Respiratory 20 16 25 Rate Blood Pressure 146/76 146/70 (mmHg) O2 Sat by Pulse 97 97 Oximetry 12/22/17 12/22/17 12/22/17 06:01 06:31 06:34 Temperature Pulse Rate 88 83 85 Respiratory 18 20 14 Rate Blood Pressure 166/81 214/202 124/70 (mmHg) O2 Sat by Pulse 91 98 98 Oximetry 12/22/17 12/22/17 12/22/17 07:00 07:30 08:00 Temperature 97.2 F Pulse Rate 90 93 94 Respiratory 8 11 13 Rate Blood Pressure 112/59 111/61 (mmHg) O2 Sat by Pulse 98 99 Oximetry 12/22/17 12/22/17 08:01 08:30 Temperature Pulse Rate 89 89 Respiratory 10 15 Rate Blood Pressure 111/64 135/72 (mmHg) O2 Sat by Pulse 100 96 Oximetry Oxygen Devices in Use Now: Nasal Cannula - at 4L Appearance: 67 yuo F in nAD, AAOx2 Eyes: No Scleral Icterus, PERRLA Ears/Nose/Mouth/Throat: NL Teeth, Lips, Gums, Mucous Membranes Moist Neck: NL Appearance and Movements; NL JVP, Trachea Midline Respiratory: Symmetrical Chest Expansion and Respiratory Effort, - - b/l rhonchi L>R, Left chest chest tunbe in place, left FATOU drin in place Cardiovascular: NL Sounds; No Murmurs; No JVD, RRR Abdominal: NL Sounds; No Tenderness; No Distention, No Hepatosplenomegaly Lymphatic: No Cervical Adenopathy Extremities: No Clubbing, Cyanosis, - - trace pedal edema b/l Skin: No Rash or Ulcers, No Nodules or Sclerosis Neurological: NL Muscle Strength and Tone Result Diagrams: 12/22/17 05:10 12/22/17 05:10 Microbiology and Other Data: Microbiology 12/19/17 17:28 Nasal Screen MRSA (PCR)(ROMMEL) - Final Nasal Mrsa Not Detected Assess/Plan/Problems-Billing Assessment: 67 yo F with h/o adenocarcinoma of left lung s/o lobectomy on 12/19/17 , h/o HTN, dyslipidemia, depression, GERD, SSS-s/p pacer - Patient Problems (1) S/P lobectomy of lung Comment: FATOU and chest tube in place. Doing very well, management as per Dr. Fink Small pneumothorax noted on CXR-not unexpected post op (2) Hypertension Comment: will restart Lisinopril, cont Hydralazine IV prn. (3) Depression Comment: controled with Celexa (4) Leukocytosis Comment: marked, likely reactive, cont to monitor, no evidence of infection (5) Anemia Comment: a combination of acute post op anemia and hemodilution cont to monitor (6) DVT prophylaxis Comment: HSQ Status and Disposition: Medicine consult, will follow
--- NOTE | 2017-12-22 10:53 | PN ---
Progress Note - Progress Note Date of Service: 12/22/17 SOAP: Subjective: She feels better than yesterday. Pain left chest. Non-productive cough. Wonders when she can go home. Objective: Vital Signs Temp 97.2 F 12/22/17 08:00 Pulse 83 12/22/17 10:01 Resp 73 12/22/17 10:01 BP 99/60 12/22/17 10:01 Pulse Ox 97 12/22/17 10:01 Sitting up in chair. Eyes closed. Chest: L side incision with resolving ecchymosis; no erythema; c/d/i; CT intact with 340ml out/12 hrs. Serosang. No A/L. Bilat BS with crackles L; clear on R. Intake & Output 12/21/17 12/22/17 12/22/17 18:59 06:59 18:59 Intake Total 1696 1605 150 Output Total 500 1325 Balance 1196 280 150 Weight 212 lb 1.355 oz Intake: IV Fluids 865 1245 LR 423 844 NS (0.9%) 442 401 IVPB 160 NS (0.9%) 160 Medicated IV 71 Ropivacaine 71 Oral 600 360 150 Output: FATOU #1 30 50 Chest Tube #1 220 500 Sepulveda 250 775 Laboratory Results - last 24 hr 12/22/17 12/22/17 05:10 05:10 WBC 13.2 H RBC 2.54 L Hgb 7.5 L Hct 23 L MCV 89 MCH 30 MCHC 33 RDW 15 Plt Count 205 MPV 7.5 Neut % (Auto) 82.7 Lymph % (Auto) 9.2 L Monona % (Auto) 6.8 Eos % (Auto) 0.8 Baso % (Auto) 0.5 Absolute Neuts (auto) 10.9 H Absolute Lymphs (auto) 1.2 Absolute Monos (auto) 0.9 H Absolute Eos (auto) 0.1 Absolute Basos (auto) 0.1 Absolute Nucleated RBC 0 Nucleated RBC % 0 Sodium 139 Potassium 3.7 Chloride 103 Carbon Dioxide 29 Anion Gap 7 BUN 9 Creatinine 0.48 L Est GFR ( Amer) 165.9 Est GFR (Non-Af Amer) 129.0 BUN/Creatinine Ratio 18.8 Glucose 106 H Calcium 7.6 L Magnesium 2.1 CXR reviewed. Assessment: POD#3 s/p L lobectomy. Stable and improving slowly. Plan: Continue CT. Resume CPAP. Wean CEI today and cont COURSEWARE DEVELOPER, Toradol; add Percocet. Would keep ICU 1 more day.
[2017-12-22] MEDS: Ketorolac INJ* 15 MG/ML 1 ML VIAL IV PRN ×2 (15:35→21:08)
[2017-12-22] MEDS: HYDROmorphone PCA* 20 MG/20 ML PCA.SYRING PCA SCH (16:05)
[2017-12-22] MEDS: Atorvastatin* 40 MG TAB PO SCH (21:05)
[2017-12-23] MEDS: Ropivacaine 0.2% EPIDURAL* 200 MG/100 ML BAG EPIDURAL SCH (01:56)
[2017-12-23] MEDS: NS 0.9% 1000 ML* 1,000 ML IVPB SCH (02:55)
[2017-12-23] MEDS: Ketorolac INJ* 15 MG/ML 1 ML VIAL IV PRN (03:45)
[2017-12-23] MEDS: Heparin VIAL(*) 5000 UNITS/ML VIAL (FIVE THOUSAND) SUBCUT SCH ×3 (05:52→22:00)
[2017-12-23 06:21] LABS: Hematocrit 22 % (35-47); Hemoglobin 7.4 g/dl (12.0-16.0); Mean Corpuscular HGB Conc 34 g/dl (31-36); Mean Corpuscular Hemoglobin 30 pg (27-31); Mean Corpuscular Volume 88 fL (80-97); Mean Platelet Volume 7.4 um3 (7.4-10.4); Platelet Count 230 10^3/ul (150-450); Red Blood Count 2.51 10^6/ul (4.0-5.4); Red Cell Distribution Width 15 % (10.5-15); White Blood Count 10.5 10^3/ul (3.5-10.8)
[2017-12-23 06:52] LABS: EGFR Non-African American 146.5 (>60)
--- NOTE | 2017-12-23 07:20 | RAD ---
INDICATION: Status post left lobectomy. COMPARISON: Comparison is made with a prior study from December 22, 2017. TECHNIQUE: A portable view of the chest was obtained. FINDINGS: The heart is mildly enlarged. There is a dual-chamber transvenous pacemaker present. The patient appears to be status post left upper lobectomy. There are surgical clips in the left hilum. There is a chest tube in place. The catheter tip projects at the left lung apex. There is a small left apical pneumothorax. There is mild increased density present in the left mid and lower lung which is unchanged. IMPRESSION: 1. SMALL LEFT APICAL PNEUMOTHORAX, UNCHANGED. 2. LEFT LUNG INFILTRATES, UNCHANGED.
[2017-12-23] MEDS ORDERED: Magnesium Hydroxide LIQ* 30 ML UDC PO ONE (08:28)
[2017-12-23] MEDS ORDERED: oxyCODONE/Acetamin 5/325 MG* TAB PO PRN (08:29)
[2017-12-23] MEDS: Ketorolac INJ* 15 MG/ML 1 ML VIAL IV PUSH SCH ×3 (09:26→20:43)
[2017-12-23] MEDS: Omeprazole CAP* 20 MG PO SCH ×2 (09:26→20:42)
[2017-12-23] MEDS: Lisinopril TAB* 10 MG PO SCH (09:26)
[2017-12-23] MEDS: Docusate CAP* 100 MG PO SCH ×2 (09:27→20:42)
[2017-12-23] MEDS: Citalopram TAB* 20 MG PO SCH (09:27)
[2017-12-23] MEDS: Potassium Chlor TAB* 20 MEQ TAB.ER PO SCH ×2 (09:27→12:35)
--- NOTE | 2017-12-23 11:51 | PN ---
Progress Note - Progress Note Date of Service: 12/23/17 Note: POD#4 s/p JERE Lobectomy Afeb, VS noted. UO large. Vitaly some po's. small BM. NO N/V FATOU small/mod serous CT level 2100, serous, no air leak > 250ml/24 hr CXR noted, labs noted Feels OK, pain improving daily. Weaning CEI No dyspnea Left chest incis clean, no infection, aeration adequate, tho' still upper airway sounds Txfr to SSSU po's as vitaly stim bowel D/c Sepulveda when CEI out Transition to oral pain meds K+ per hospitalist Await decreased drainage Await path
[2017-12-23] MEDS: traMADol TAB* 50 MG PO PRN (12:34)
--- NOTE | 2017-12-23 16:56 | PN ---
Progress Note - Progress Note Date of Service: 12/23/17 Note: Subjective: Ms. Hickey is POD#4 of a left upper lobectomy. She is doing well today and reports that her pain has been well controlled. She reports that she didn't sleep well last evening because of pain, but that it is much better today. She states that she still isn't able to take a deep breath and admits to SOB with ambulation only. She has been ambulating back and forth to the bathroom. She denies CP, palpitations, chest pressure, significant coughing or wheezing, abdominal pain, N/V. She has not had a BM yet, but has been urinating frequently. She is eating and drinking adequately, and reports that her appetite has been improving. Objective: General: Ms. Hickey is A&O x3 and in NAD. CV: RRR w/o MRG. Resp: course breath sounds noted. Incision site appears dry and clean without drainage or any signs of infection. Serous fluid from both FATOU drain as well as thoracostomy tube. Without air leak. GI: Abdomen is flat, non-distended and non-tender to palpation. BS are hypoactive. Extremities: w/o edema. Assessment & Plan: Ms. Hickey is POD#4 of a left upper lobectomy and is doing well. She has been encouraged to ambulate as she tolerates, and to eat and drink as she wishes. Continue to use IS. Monitor drainage output from FATOU drain and thoracostomy tube. Continue with pain management, although begin to transition to oral medications. Continue to monitor GI status.
--- NOTE | 2017-12-23 17:02 | PN ---
Subjective Date of Service: 12/23/17 Interval History: Pain control OK with hydromorphone [facility]. No BM since surgery. Appetite OK. Some SOB with exertion, has done very little walking so far. Objective Active Medications: Acetaminophen (Tylenol Tab*) 650 mg PO Q4H PRN PRN Reason: PAIN Atorvastatin Calcium (Lipitor*) 40 mg PO 2100 [facility] Last Admin: 12/22/17 21:05 Dose: 40 mg Citalopram Hydrobromide (Celexa Tab*) 20 mg PO QAM [facility] Last Admin: 12/23/17 09:27 Dose: 20 mg Docusate Sodium (Colace Cap*) 100 mg PO BID [facility] Last Admin: 12/23/17 09:27 Dose: 100 mg Ephedrine Sulfate (Ephedrine Sulfate (Pressors)*) 5 mg IV PUSH Q5M PRN PRN Reason: HYPOTENSION Heparin Sodium (Porcine) (Heparin Vial(*)) 5,000 units SUBCUT Q8HR [facility] Last Admin: 12/23/17 15:00 Dose: 5,000 units Hydralazine HCl (Apresoline Iv*) 5 mg IV SLOW PU Q6H PRN PRN Reason: BLOOD PRESSURE Last Admin: 12/22/17 15:56 Dose: 5 mg Hydromorphone HCl (Dilaudid Injic*) 1 mg IV SLOW PU Q3H PRN PRN Reason: PAIN Last Admin: 12/21/17 23:21 Dose: 1 mg Ropivacaine (Ropivacaine 0.2% Epidural*) 200 mg in 100 mls @ 0 mls/hr EPIDURAL PER RATE KENRICK; Per Protocol PRN Reason: Protocol Last Admin: 12/23/17 01:56 Dose: 6 mls/hr Hydromorphone HCl (Dilaudid General Maintenance Technician*) 20 mg in 20 mls @ 0 mls/hr [facility] .Q24H [facility]; Per Protocol PRN Reason: Protocol Last Admin: 12/22/17 16:05 Dose: 0.2 mls/hr Sodium Chloride (Ns 0.9% 1000 Ml*) 1,000 mls @ 30 mls/hr IVPB .Q24H [facility] PRN Reason: KVO Last Admin: 12/23/17 02:55 Dose: 30 mls/hr Ketorolac Tromethamine (Toradol Inj*) 15 mg IV PUSH Q6H [facility] Stop: 12/25/17 03:01 Last Admin: 12/23/17 15:03 Dose: 15 mg Lisinopril (Prinivil Tab*) 10 mg PO DAILY [facility] Last Admin: 12/23/17 09:26 Dose: 10 mg Naloxone HCl (Narcan*) 0.08 mg IV Q10M PRN PRN Reason: respiratory depression Naloxone HCl (Narcan*) 0.08 mg IV PUSH Q2M PRN PRN Reason: SEDATION Omeprazole (Prilosec Cap*) 20 mg PO BID [facility] Last Admin: 12/23/17 09:26 Dose: 20 mg Ondansetron HCl (Zofran Inj*) 4 mg IV Q6H PRN PRN Reason: NAUSEA/VOMITING Tramadol HCl (Ultram*) 50 mg PO Q6H PRN PRN Reason: PAIN Last Admin: 12/23/17 12:34 Dose: 50 mg Vital Signs - 8 hr 12/23/17 12/23/17 12/23/17 09:00 10:10 10:15 Temperature 98.1 F Pulse Rate 72 Respiratory 19 16 16 Rate Blood Pressure 110/50 (mmHg) O2 Sat by Pulse 96 96 Oximetry 12/23/17 12/23/17 12/23/17 10:20 10:30 12:00 Temperature 98.1 F Pulse Rate 72 Respiratory 16 16 16 Rate Blood Pressure 110/50 (mmHg) O2 Sat by Pulse 96 94 Oximetry 12/23/17 12/23/17 12/23/17 12:34 14:00 15:06 Temperature Pulse Rate Respiratory 16 16 22 Rate Blood Pressure (mmHg) O2 Sat by Pulse 95 Oximetry 12/23/17 15:32 Temperature 99.0 F Pulse Rate 91 Respiratory 20 Rate Blood Pressure 129/56 (mmHg) O2 Sat by Pulse 100 Oximetry Oxygen Devices in Use Now: Nasal Cannula Appearance: Alert, partly up in bed. In good spriits. Somewhat tachypneic, otherwise looks comfortable. Eyes: No Scleral Icterus Respiratory: Symmetrical Chest Expansion and Respiratory Effort, Clear to Palpation, - - clear anteriorly Cardiovascular: NL Sounds; No Murmurs; No JVD, RRR, No Edema, - Extremities: No Edema, No Clubbing, Cyanosis, - Skin: No Rash or Ulcers, No Nodules or Sclerosis, - Neurological: NL Sensation Result Diagrams: 12/23/17 05:55 12/23/17 05:55 Microbiology and Other Data: Microbiology 12/19/17 17:28 Nasal Screen MRSA (PCR)(ROMMEL) - Final Nasal Mrsa Not Detected Assess/Plan/Problems-Billing Assessment: 67 yo F with h/o adenocarcinoma of left lung s/o lobectomy on 12/19/17 , h/o HTN, dyslipidemia, depression, GERD, SSS-s/p pacer - Patient Problems (1) S/P lobectomy of lung Current Visit: Yes Status: Acute Code(s): Z90.2 - ACQUIRED ABSENCE OF LUNG [ PART OF] SNOMED Code(s): 230719517 Comment: Doing very well, management as per Dr. Fink Pathology showed adenoca, one small focus of metastasis in lymph node. (2) Hypertension Current Visit: No Status: Acute Priority: High Code(s): I10 - ESSENTIAL ( PRIMARY) HYPERTENSION SNOMED Code(s): 20237175 Comment: Continue Lisinopril, Hydralazine IV prn. (3) Electrolyte abnormality Current Visit: No Status: Acute Code(s): E87.8 - OTH DISORDERS OF ELECTROLYTE AND FLUID BALANCE, NEC SNOMED Code(s): 680202146 Comment: KCL ordered 12/23. (4) Anemia Current Visit: Yes Status: Acute Code(s): D64.9 - ANEMIA, UNSPECIFIED SNOMED Code(s): 709584703 Comment: a combination of acute post op anemia and hemodilution cont to monitor Status and Disposition: Medicine consult, will follow
[2017-12-23] MEDS: Atorvastatin* 40 MG TAB PO SCH (20:42)
[2017-12-23] MEDS ORDERED: Polyethylene Glycol 3350* 17 GM PACKET PO ONE (21:00)
[2017-12-24] MEDS: Ketorolac INJ* 15 MG/ML 1 ML VIAL IV PUSH SCH ×4 (02:58→20:42)
[2017-12-24] MEDS: Heparin VIAL(*) 5000 UNITS/ML VIAL (FIVE THOUSAND) SUBCUT SCH ×3 (05:41→21:49)
[2017-12-24] MEDS: traMADol TAB* 50 MG PO PRN ×2 (06:01→20:11)
[2017-12-24 07:38] LABS: EGFR Non-African American 120.3 (>60)
[2017-12-24] MEDS: Omeprazole CAP* 20 MG PO SCH ×2 (08:55→20:41)
[2017-12-24] MEDS: Lisinopril TAB* 10 MG PO SCH (08:55)
[2017-12-24] MEDS: Citalopram TAB* 20 MG PO SCH (08:55)
[2017-12-24] MEDS: Docusate CAP* 100 MG PO SCH ×2 (08:55→20:44)
[2017-12-24] MEDS ORDERED: Polyethylene Glycol 3350* 17 GM PACKET PO SCH (09:00)
[2017-12-24] MEDS: HYDROmorphone TAB* 4 MG PO PRN ×2 (09:26→15:15)
[2017-12-24] MEDS: Acetaminophen TAB* 325 MG PO PRN (13:22)
--- NOTE | 2017-12-24 13:49 | PN ---
Subjective Date of Service: 12/24/17 Interval History: Pain control OK with po hydromorphone, APAP. No BM yet. APpetite OK. No new c /o. walked to [place]. Objective Active Medications: Acetaminophen (Tylenol Tab*) 650 mg PO Q4H PRN PRN Reason: PAIN Last Admin: 12/24/17 13:22 Dose: 650 mg Atorvastatin Calcium (Lipitor*) 40 mg PO 2100 [facility] Last Admin: 12/23/17 20:42 Dose: 40 mg Citalopram Hydrobromide (Celexa Tab*) 20 mg PO QAM [facility] Last Admin: 12/24/17 08:55 Dose: 20 mg Docusate Sodium (Colace Cap*) 100 mg PO BID [facility] Last Admin: 12/24/17 08:55 Dose: 100 mg Ephedrine Sulfate (Ephedrine Sulfate (Pressors)*) 5 mg IV PUSH Q5M PRN PRN Reason: HYPOTENSION Heparin Sodium (Porcine) (Heparin Vial(*)) 5,000 units SUBCUT Q8HR [facility] Last Admin: 12/24/17 13:22 Dose: 5,000 units Hydralazine HCl (Apresoline Iv*) 5 mg IV SLOW PU Q6H PRN PRN Reason: BLOOD PRESSURE Last Admin: 12/22/17 15:56 Dose: 5 mg Hydromorphone HCl (Dilaudid Injic*) 1 mg IV SLOW PU Q3H PRN PRN Reason: PAIN Last Admin: 12/21/17 23:21 Dose: 1 mg Hydromorphone HCl (Dilaudid Tab*) 4 mg PO Q6H PRN PRN Reason: PAIN Last Admin: 12/24/17 09:26 Dose: 4 mg Ropivacaine (Ropivacaine 0.2% Epidural*) 200 mg in 100 mls @ 0 mls/hr EPIDURAL PER RATE KENRICK; Per Protocol PRN Reason: Protocol Last Admin: 12/23/17 01:56 Dose: 6 mls/hr Hydromorphone HCl (Dilaudid Carton Lettering Machine Operator*) 20 mg in 20 mls @ 0 mls/hr DEPARTMENT CLINICIAN .Q24H [facility]; Per Protocol PRN Reason: Protocol Last Admin: 12/22/17 16:05 Dose: 0.2 mls/hr Sodium Chloride (Ns 0.9% 1000 Ml*) 1,000 mls @ 30 mls/hr IVPB .Q24H [facility] PRN Reason: KVO Last Admin: 12/23/17 02:55 Dose: 30 mls/hr Ketorolac Tromethamine (Toradol Inj*) 15 mg IV PUSH Q6H [facility] Stop: 12/25/17 03:01 Last Admin: 12/24/17 08:56 Dose: 15 mg Lisinopril (Prinivil Tab*) 10 mg PO DAILY [facility] Last Admin: 12/24/17 08:55 Dose: 10 mg Naloxone HCl (Narcan*) 0.08 mg IV Q10M PRN PRN Reason: respiratory depression Naloxone HCl (Narcan*) 0.08 mg IV PUSH Q2M PRN PRN Reason: SEDATION Omeprazole (Prilosec Cap*) 20 mg PO BID [facility] Last Admin: 12/24/17 08:55 Dose: 20 mg Ondansetron HCl (Zofran Inj*) 4 mg IV Q6H PRN PRN Reason: NAUSEA/VOMITING Polyethylene Glycol/Electrolytes (Miralax*) 34 gm PO BID [facility] Tramadol HCl (Ultram*) 50 mg PO Q6H PRN PRN Reason: PAIN Last Admin: 12/24/17 06:01 Dose: 50 mg Vital Signs - 8 hr 12/24/17 12/24/17 12/24/17 06:00 06:01 06:39 Temperature Pulse Rate 67 Respiratory 18 18 Rate Blood Pressure (mmHg) O2 Sat by Pulse 96 98 Oximetry 12/24/17 12/24/17 12/24/17 07:28 07:48 07:59 Temperature 97.8 F Pulse Rate 67 Respiratory 18 18 18 Rate Blood Pressure 112/53 (mmHg) O2 Sat by Pulse 100 98 Oximetry 12/24/17 12/24/17 12/24/17 08:00 09:26 10:00 Temperature Pulse Rate Respiratory 20 18 18 Rate Blood Pressure (mmHg) O2 Sat by Pulse 97 Oximetry 12/24/17 12/24/17 12/24/17 10:37 11:28 13:25 Temperature 98.1 F Pulse Rate 84 Respiratory 16 18 16 Rate Blood Pressure 120/53 (mmHg) O2 Sat by Pulse 97 100 Oximetry Oxygen Devices in Use Now: Nasal Cannula Appearance: Alert, in recliner chair. In good spirits. Looks comfortable at rest. Eyes: No Scleral Icterus Respiratory: Symmetrical Chest Expansion and Respiratory Effort, Clear to Auscultation, Clear to Percussion Cardiovascular: NL Sounds; No Murmurs; No JVD, RRR, No Edema, - Extremities: No Edema, No Clubbing, Cyanosis, - Skin: No Rash or Ulcers, No Nodules or Sclerosis, - Neurological: Alert and Oriented x 3, NL Sensation Result Diagrams: 12/23/17 05:55 12/24/17 07:08 Microbiology and Other Data: Microbiology 12/19/17 17:28 Nasal Screen MRSA (PCR)(ROMMEL) - Final Nasal Mrsa Not Detected Assess/Plan/Problems-Billing Assessment: 67 yo F with h/o adenocarcinoma of left lung s/o lobectomy on 12/19/17 , h/o HTN, dyslipidemia, depression, GERD, SSS-s/p pacer - Patient Problems (1) S/P lobectomy of lung Current Visit: Yes Status: Acute Code(s): Z90.2 - ACQUIRED ABSENCE OF LUNG [ PART OF] SNOMED Code(s): 312369433 Comment: Doing very well, management as per Dr. Fink. CT in place. Pathology showed adenoca, one small focus of metastasis in lymph node. (2) Hypertension Current Visit: No Status: Acute Priority: High Code(s): I10 - ESSENTIAL ( PRIMARY) HYPERTENSION SNOMED Code(s): 27841126 Comment: Continue Lisinopril, Hydralazine IV prn. (3) Electrolyte abnormality Current Visit: No Status: Acute Code(s): E87.8 - OTH DISORDERS OF ELECTROLYTE AND FLUID BALANCE, NEC SNOMED Code(s): 372421154 Comment: KCL ordered 12/23, K+ 3.5 on 12/24. (4) Anemia Current Visit: Yes Status: Acute Code(s): D64.9 - ANEMIA, UNSPECIFIED SNOMED Code(s): 212432710 Comment: a combination of acute post op anemia and hemodilution cont to monitor (5) Constipation Current Visit: Yes Status: Acute Code(s): K59.00 - CONSTIPATION, UNSPECIFIED SNOMED Code(s): 69312989 Comment: PEG increased to 34 gm bid, one dose lactulose 60 ml on 12/24. Consider mag citrate if no BM by 12/25. Status and Disposition: Medicine consult, will follow
--- NOTE | 2017-12-24 14:17 | PN ---
Progress Note - Progress Note Date of Service: 12/24/17 Note: POD#5 s/p JERE Lobectomy Afeb, VS noted. Pain control good. More alert and coherent today. No dyspnea. Flaco po's, still no BM FATOU small/mod serous CT New chamber, level 180, no A/L Lungs aeration better, (tho still R>>L) Upper airway sounds greatly improved. Transition to po pain meds Await decreased drainage Stim bowel fxn Increase ambulation Path noted, will discuss w/ pt and get oncol consult
--- NOTE | 2017-12-24 14:20 | PN ---
Progress Note - Progress Note Date of Service: 12/24/17 Note: Subjective: Ms. Hickey is POD#5 of a left upper lobectomy. She is doing well, although she does report to be in some pain. She has been eating and drinking adequately but has not yet had a BM. She states that she has been having flatus. She has been ambulating to the bathroom and has been using IS. She denies CP, palpitations, chest tightness, SOB, abdominal pain, N/V. Current Medications Acetaminophen (Tylenol Tab*) 650 mg PO Q4H PRN PRN Reason: PAIN Last Admin: 12/24/17 13:22 Dose: 650 mg Atorvastatin Calcium (Lipitor*) 40 mg PO 2100 [facility] Last Admin: 12/23/17 20:42 Dose: 40 mg Citalopram Hydrobromide (Celexa Tab*) 20 mg PO QAM [facility] Last Admin: 12/24/17 08:55 Dose: 20 mg Docusate Sodium (Colace Cap*) 100 mg PO BID [facility] Last Admin: 12/24/17 08:55 Dose: 100 mg Ephedrine Sulfate (Ephedrine Sulfate (Pressors)*) 5 mg IV PUSH Q5M PRN PRN Reason: HYPOTENSION Heparin Sodium (Porcine) (Heparin Vial(*)) 5,000 units SUBCUT Q8HR [facility] Last Admin: 12/24/17 13:22 Dose: 5,000 units Hydralazine HCl (Apresoline Iv*) 5 mg IV SLOW PU Q6H PRN PRN Reason: BLOOD PRESSURE Last Admin: 12/22/17 15:56 Dose: 5 mg Hydromorphone HCl (Dilaudid Injic*) 1 mg IV SLOW PU Q3H PRN PRN Reason: PAIN Last Admin: 12/21/17 23:21 Dose: 1 mg Hydromorphone HCl (Dilaudid Tab*) 4 mg PO Q6H PRN PRN Reason: PAIN Last Admin: 12/24/17 09:26 Dose: 4 mg Ropivacaine (Ropivacaine 0.2% Epidural*) 200 mg in 100 mls @ 0 mls/hr EPIDURAL PER RATE KENRICK; Per Protocol PRN Reason: Protocol Last Admin: 12/23/17 01:56 Dose: 6 mls/hr Hydromorphone HCl (Dilaudid Road Roller Operator Hot Mix*) 20 mg in 20 mls @ 0 mls/hr EXAMINATION PROCTOR .Q24H [facility]; Per Protocol PRN Reason: Protocol Last Admin: 12/22/17 16:05 Dose: 0.2 mls/hr Sodium Chloride (Ns 0.9% 1000 Ml*) 1,000 mls @ 30 mls/hr IVPB .Q24H [facility] PRN Reason: KVO Last Admin: 12/23/17 02:55 Dose: 30 mls/hr Ketorolac Tromethamine (Toradol Inj*) 15 mg IV PUSH Q6H [facility] Stop: 12/25/17 03:01 Last Admin: 12/24/17 08:56 Dose: 15 mg Lisinopril (Prinivil Tab*) 10 mg PO DAILY [facility] Last Admin: 12/24/17 08:55 Dose: 10 mg Naloxone HCl (Narcan*) 0.08 mg IV Q10M PRN PRN Reason: respiratory depression Naloxone HCl (Narcan*) 0.08 mg IV PUSH Q2M PRN PRN Reason: SEDATION Omeprazole (Prilosec Cap*) 20 mg PO BID [facility] Last Admin: 12/24/17 08:55 Dose: 20 mg Ondansetron HCl (Zofran Inj*) 4 mg IV Q6H PRN PRN Reason: NAUSEA/VOMITING Polyethylene Glycol/Electrolytes (Miralax*) 34 gm PO BID [facility] Tramadol HCl (Ultram*) 50 mg PO Q6H PRN PRN Reason: PAIN Last Admin: 12/24/17 06:01 Dose: 50 mg Objective: Vital Signs (72 hours) 12/21/17 12/21/17 12/21/17 14:30 14:38 15:00 Temperature Pulse Rate 99 Respiratory 19 Rate Blood Pressure 118/61 (mmHg) O2 Sat by Pulse 89 95 Oximetry 12/21/17 12/21/17 12/21/17 15:01 15:30 15:36 Temperature 99.3 F Pulse Rate 89 92 Respiratory 15 Rate Blood Pressure 111/53 91/65 (mmHg) O2 Sat by Pulse 94 97 Oximetry 12/21/17 12/21/17 12/21/17 16:00 16:30 17:00 Temperature Pulse Rate 95 101 112 Respiratory 15 20 17 Rate Blood Pressure 106/77 134/76 (mmHg) O2 Sat by Pulse 98 97 88 Oximetry 12/21/17 12/21/1712/21/18 17:01 17:30 17:57 Temperature Pulse Rate 98 98 Respiratory 18 16 21 Rate Blood Pressure 136/57 127/57 (mmHg) O2 Sat by Pulse 95 93 Oximetry 12/21/17 12/21/17 12/21/17 18:00 18:01 18:31 Temperature Pulse Rate 98 101 98 Respiratory 13 15 18 Rate Blood Pressure 143/61 116/71 (mmHg) O2 Sat by Pulse 95 95 92 Oximetry 12/21/17 12/21/17 12/21/17 19:00 19:31 19:41 Temperature 96.1 F Pulse Rate 93 92 Respiratory 12 20 Rate Blood Pressure 111/51 134/52 (mmHg) O2 Sat by Pulse 100 95 Oximetry 12/21/17 12/21/17 12/21/17 20:00 20:01 20:30 Temperature Pulse Rate 104 93 Respiratory 16 18 Rate Blood Pressure 110/65 (mmHg) O2 Sat by Pulse 96 94 94 Oximetry 12/21/17 12/21/17 12/21/17 20:31 21:00 21:01 Temperature Pulse Rate 97 92 86 Respiratory 14 20 12 Rate Blood Pressure 124/44 110/61 (mmHg) O2 Sat by Pulse 95 96 94 Oximetry 12/21/17 12/21/17 12/21/17 21:30 22:00 22:14 Temperature Pulse Rate 92 90 Respiratory 17 16 17 Rate Blood Pressure 115/59 113/76 (mmHg) O2 Sat by Pulse 95 97 Oximetry 12/21/17 12/21/17 12/21/17 22:30 22:32 23:00 Temperature Pulse Rate 92 94 98 Respiratory 9 23 16 Rate Blood Pressure 85/54 119/55 (mmHg) O2 Sat by Pulse 97 97 93 Oximetry 12/21/17 12/21/17 12/21/17 23:01 23:21 23:31 Temperature Pulse Rate 93 91 Respiratory 17 20 12 Rate Blood Pressure 124/66 125/77 (mmHg) O2 Sat by Pulse 96 95 Oximetry 12/22/17 12/22/17 12/22/17 00:00 00:04 00:30 Temperature 96.8 F Pulse Rate 91 93 88 Respiratory 10 10 12 Rate Blood Pressure 105/58 123/73 (mmHg) O2 Sat by Pulse 96 95 96 Oximetry 12/22/17 12/22/17 12/22/17 01:00 01:30 02:00 Temperature Pulse Rate 92 96 97 Respiratory 18 15 18 Rate Blood Pressure 134/58 127/68 148/113 (mmHg) O2 Sat by Pulse 99 96 96 Oximetry 12/22/17 12/22/17 12/22/17 02:30 03:00 03:30 Temperature Pulse Rate 91 99 100 Respiratory 13 19 19 Rate Blood Pressure 124/75 147/66 167/82 (mmHg) O2 Sat by Pulse 97 97 98 Oximetry 12/22/17 12/22/17 12/22/17 03:55 04:00 04:01 Temperature 97.1 F Pulse Rate 97 88 Respiratory 14 17 Rate Blood Pressure 130/61 (mmHg) O2 Sat by Pulse 96 98 Oximetry 12/22/17 12/22/17 12/22/17 04:27 04:30 04:56 Temperature Pulse Rate 102 Respiratory 22 17 Rate Blood Pressure 131/66 (mmHg) O2 Sat by Pulse 97 93 Oximetry 12/22/17 12/22/17 12/22/17 05:00 05:30 06:00 Temperature Pulse Rate 94 88 101 Respiratory 20 16 25 Rate Blood Pressure 146/76 146/70 (mmHg) O2 Sat by Pulse 97 97 Oximetry 12/22/17 12/22/17 12/22/17 06:01 06:31 06:34 Temperature Pulse Rate 88 83 85 Respiratory 18 20 14 Rate Blood Pressure 166/81 214/202 124/70 (mmHg) O2 Sat by Pulse 91 98 98 Oximetry 12/22/17 12/22/17 12/22/17 07:00 07:30 08:00 Temperature 97.2 F Pulse Rate 90 93 94 Respiratory 8 11 13 Rate Blood Pressure 112/59 111/61 (mmHg) O2 Sat by Pulse 98 99 Oximetry 12/22/17 12/22/17 12/22/17 08:01 08:30 09:00 Temperature Pulse Rate 89 89 88 Respiratory 10 15 17 Rate Blood Pressure 111/64 135/72 (mmHg) O2 Sat by Pulse 100 96 Oximetry 12/22/17 12/22/17 12/22/17 09:01 09:31 10:00 Temperature Pulse Rate 93 107 97 Respiratory 11 15 16 Rate Blood Pressure 93/61 126/67 (mmHg) O2 Sat by Pulse 95 96 93 Oximetry 12/22/17 12/22/17 12/22/17 10:01 10:30 11:00 Temperature Pulse Rate 83 108 99 Respiratory 73 25 19 Rate Blood Pressure 99/60 123/69 (mmHg) O2 Sat by Pulse 97 96 94 Oximetry 12/22/17 12/22/17 12/22/17 11:01 11:27 11:30 Temperature 99.5 F Pulse Rate 103 100 Respiratory 18 16 Rate Blood Pressure 128/66 112/78 (mmHg) O2 Sat by Pulse 95 95 Oximetry 12/22/17 12/22/17 12/22/17 12:00 12:31 13:00 Temperature Pulse Rate 92 95 Respiratory 14 17 19 Rate Blood Pressure 124/60 122/64 145/72 (mmHg) O2 Sat by Pulse 98 87 Oximetry 12/22/17 12/22/17 12/22/17 13:31 14:00 15:00 Temperature Pulse Rate 101 91 Respiratory 20 21 21 Rate Blood Pressure 123/62 (mmHg) O2 Sat by Pulse 99 94 Oximetry 12/22/17 12/22/17 12/22/17 15:14 15:30 16:00 Temperature 98.8 F Pulse Rate 89 91 89 Respiratory 20 17 16 Rate Blood Pressure 130/65 163/81 (mmHg) O2 Sat by Pulse 97 98 100 Oximetry 12/22/17 12/22/17 12/22/17 16:01 16:05 16:16 Temperature Pulse Rate 87 Respiratory 17 16 22 Rate Blood Pressure 134/121 127/62 (mmHg) O2 Sat by Pulse 100 Oximetry 12/22/17 12/22/17 12/22/17 16:18 16:31 17:00 Temperature Pulse Rate 87 85 Respiratory 16 17 18 Rate Blood Pressure 115/58 (mmHg) O2 Sat by Pulse 98 96 95 Oximetry 12/22/17 12/22/17 12/22/17 17:30 18:00 18:31 Temperature Pulse Rate 78 95 96 Respiratory 14 14 15 Rate Blood Pressure 112/84 122/59 131/46 (mmHg) O2 Sat by Pulse 96 95 96 Oximetry 12/22/17 12/22/17 12/22/17 19:00 19:30 20:00 Temperature 99.3 F Pulse Rate 104 105 99 Respiratory 17 18 15 Rate Blood Pressure 115/83 133/59 (mmHg) O2 Sat by Pulse 98 98 94 Oximetry 12/22/17 12/22/17 12/22/17 20:01 20:31 20:48 Temperature Pulse Rate 100 98 Respiratory 20 14 Rate Blood Pressure 145/65 122/59 (mmHg) O2 Sat by Pulse 98 98 Oximetry 12/22/17 12/22/17 12/22/17 21:00 21:25 21:30 Temperature Pulse Rate 103 95 92 Respiratory 19 18 18 Rate Blood Pressure 144/57 144/57 115/65 (mmHg) O2 Sat by Pulse 98 83 Oximetry 12/22/17 12/22/17 12/22/17 22:00 22:30 23:00 Temperature Pulse Rate 88 76 86 Respiratory 18 19 17 Rate Blood Pressure 124/59 132/64 124/78 (mmHg) O2 Sat by Pulse 93 92 94 Oximetry 12/22/17 12/23/17 12/23/17 23:31 00:00 00:03 Temperature 98.6 F Pulse Rate 91 76 80 Respiratory 17 16 17 Rate Blood Pressure 145/64 155/71 (mmHg) O2 Sat by Pulse 90 91 93 Oximetry 12/23/17 12/23/17 12/23/17 00:31 01:00 01:30 Temperature Pulse Rate 86 80 91 Respiratory 19 14 14 Rate Blood Pressure 151/57 148/104 132/80 (mmHg) O2 Sat by Pulse 94 92 96 Oximetry 12/23/17 12/23/17 12/23/17 02:00 02:31 03:00 Temperature Pulse Rate 92 97 95 Respiratory 15 20 14 Rate Blood Pressure 153/81 160/91 144/97 (mmHg) O2 Sat by Pulse 95 97 97 Oximetry 12/23/17 12/23/17 12/23/17 03:31 04:00 04:01 Temperature 98.1 F Pulse Rate 90 91 86 Respiratory 18 24 19 Rate Blood Pressure 168/118 173/84 (mmHg) O2 Sat by Pulse 95 98 97 Oximetry 12/23/17 12/23/17 12/23/17 04:31 05:00 05:30 Temperature Pulse Rate 84 77 79 Respiratory 14 18 16 Rate Blood Pressure 152/80 149/80 152/76 (mmHg) O2 Sat by Pulse 97 93 95 Oximetry 12/23/17 12/23/17 12/23/17 06:00 06:01 06:30 Temperature Pulse Rate 81 72 71 Respiratory 12 15 14 Rate Blood Pressure 126/38 130/55 (mmHg) O2 Sat by Pulse 95 95 96 Oximetry 12/23/17 12/23/17 12/23/17 07:00 07:01 07:31 Temperature Pulse Rate 69 75 75 Respiratory 21 15 17 Rate Blood Pressure 143/63 129/88 (mmHg) O2 Sat by Pulse 97 97 97 Oximetry 12/23/17 12/23/17 12/23/17 07:42 08:00 08:01 Temperature 98.4 F Pulse Rate 75 75 Respiratory 16 12 Rate Blood Pressure 136/91 (mmHg) O2 Sat by Pulse 96 96 Oximetry 12/23/17 12/23/17 12/23/17 09:00 10:10 10:15 Temperature 98.1 F Pulse Rate 72 Respiratory 19 16 16 Rate Blood Pressure 110/50 (mmHg) O2 Sat by Pulse 96 96 Oximetry 12/23/17 12/23/17 12/23/17 10:20 10:30 12:00 Temperature 98.1 F Pulse Rate 72 Respiratory 16 16 16 Rate Blood Pressure 110/50 (mmHg) O2 Sat by Pulse 96 94 Oximetry 12/23/17 12/23/17 12/23/17 12:34 14:00 15:06 Temperature Pulse Rate Respiratory 16 16 22 Rate Blood Pressure (mmHg) O2 Sat by Pulse 95 Oximetry 12/23/17 12/23/17 12/23/17 15:32 16:00 18:00 Temperature 99.0 F Pulse Rate 91 Respiratory 20 16 16 Rate Blood Pressure 129/56 (mmHg) O2 Sat by Pulse 100 94 95 Oximetry 12/23/17 12/23/17 12/23/17 19:28 19:29 19:48 Temperature 98.1 F Pulse Rate 87 Respiratory 17 17 16 Rate Blood Pressure 109/52 (mmHg) O2 Sat by Pulse 100 100 Oximetry 12/23/17 12/23/17 12/24/17 22:00 23:07 00:00 Temperature 98.3 F Pulse Rate 74 Respiratory 20 17 16 Rate Blood Pressure 114/57 (mmHg) O2 Sat by Pulse 96 100 100 Oximetry 12/24/17 12/24/17 12/24/17 02:00 03:04 04:00 Temperature 98.2 F Pulse Rate 73 Respiratory 16 16 17 Rate Blood Pressure 129/57 (mmHg) O2 Sat by Pulse 93 99 97 Oximetry 12/24/17 12/24/17 12/24/17 06:00 06:01 06:39 Temperature Pulse Rate 67 Respiratory 18 18 Rate Blood Pressure (mmHg) O2 Sat by Pulse 96 98 Oximetry 12/24/17 12/24/17 12/24/17 07:28 07:48 07:59 Temperature 97.8 F Pulse Rate 67 Respiratory 18 18 18 Rate Blood Pressure 112/53 (mmHg) O2 Sat by Pulse 100 98 Oximetry 12/24/17 12/24/17 12/24/17 08:00 09:26 10:00 Temperature Pulse Rate Respiratory 20 18 18 Rate Blood Pressure (mmHg) O2 Sat by Pulse 97 Oximetry 12/24/17 12/24/17 12/24/17 10:37 11:28 13:25 Temperature 98.1 F Pulse Rate 84 Respiratory 16 18 16 Rate Blood Pressure 120/53 (mmHg) O2 Sat by Pulse 97 100 Oximetry General: A&O x3, WDWN in NAD. CV: RRR w/o MRG. Resp: Coarse expiratory breath sounds appreciated on left side, otherwise CTA. Incision site appears clean and dry without any signs of infection. FATOU and thoracostomy tube significant for serous fluid. GI: Abdomen is soft, non-distended and non-tender to palpation. BS are active throughout. Extremities: w/o edema. Assessment & Plan: Ms. Hickey is POD#5 of a left upper lobectomy. Pain control is adequate with PO dilaudid and tylenol. Continue to monitor for GI stimulation. Continue to encourage ambulation as she tolerates. Will continue to monitor drainage of FATOU drain and thoracostomy tube.
[2017-12-24] MEDS: Atorvastatin* 40 MG TAB PO SCH (20:41)
[2017-12-24] MEDS: Polyethylene Glycol 3350* 17 GM PACKET PO SCH (20:44)
[2017-12-25] MEDS: HYDROmorphone TAB* 4 MG PO PRN ×3 (01:39→15:15)
[2017-12-25] MEDS: Ketorolac INJ* 15 MG/ML 1 ML VIAL IV PUSH SCH (03:00)
[2017-12-25] MEDS: Heparin VIAL(*) 5000 UNITS/ML VIAL (FIVE THOUSAND) SUBCUT SCH ×3 (05:37→21:39)
[2017-12-25] MEDS: traMADol TAB* 50 MG PO PRN ×2 (05:37→18:14)
--- NOTE | 2017-12-25 08:23 | PN ---
Progress Note - Progress Note Date of Service: 12/25/17 Note: POD#6 s/p JERE Lobectomy Afeb. VS noted Voiding well. Flaco po's. Passed BM Ambulating. Pain control OK FATOU small/mod serous CT serous, level 330 (150/24 hr) No A/L Lungs--aerate OK, few upper airway sounds. Incis clean. Discussed pathology D/C suction from pleurevac Resume HCTZ recheck labs and xray 12/26 Increase ambulation Oncology consult Poss home 12/26 Will check room air SaO2
[2017-12-25] MEDS: Polyethylene Glycol 3350* 17 GM PACKET PO SCH ×2 (08:58→20:17)
[2017-12-25] MEDS: Hydrochlorothiazide TAB* 25 MG PO SCH (09:05)
[2017-12-25] MEDS: Omeprazole CAP* 20 MG PO SCH ×2 (09:05→20:17)
[2017-12-25] MEDS: Lisinopril TAB* 10 MG PO SCH (09:05)
[2017-12-25] MEDS: Citalopram TAB* 20 MG PO SCH (09:05)
[2017-12-25] MEDS: Docusate CAP* 100 MG PO SCH ×2 (09:05→20:17)
[2017-12-25] MEDS ORDERED: Albuterol 2.5 MG/3 ML NEB.SOL* (0.083%) ONE (10:28)
[2017-12-25] MEDS: Albuterol 2.5 MG/3 ML NEB.SOL* (0.083%) INH SCH ×2 (13:47→19:11)
--- NOTE | 2017-12-25 17:13 | PN ---
Progress Note - Progress Note Date of Service: 12/25/17 Note: Subjective: Ms. Hickey is POD#6 from a left upper lobectomy. She is doing well although does report some pain. She states that her pain is well controlled for the most part with PO dilaudid and tylenol. Had a BM on 12/24. Ambulating with some SOB. She denies CP, palpitations, N/V, abdominal pain. Current Medications Acetaminophen (Tylenol Tab*) 650 mg PO Q4H PRN PRN Reason: PAIN Last Admin: 12/24/17 13:22 Dose: 650 mg Albuterol (Ventolin 2.5 Mg/3 Ml Neb.Phyllis*) 2.5 mg INH [id number] AWAKE [facility] Last Admin: 12/25/17 13:47 Dose: 2.5 mg Atorvastatin Calcium (Lipitor*) 40 mg PO 2100 [facility] Last Admin: 12/24/17 20:41 Dose: 40 mg Citalopram Hydrobromide (Celexa Tab*) 20 mg PO QAM [facility] Last Admin: 12/25/17 09:05 Dose: 20 mg Docusate Sodium (Colace Cap*) 100 mg PO BID [facility] Last Admin: 12/25/17 09:05 Dose: 100 mg Ephedrine Sulfate (Ephedrine Sulfate (Pressors)*) 5 mg IV PUSH Q5M PRN PRN Reason: HYPOTENSION Heparin Sodium (Porcine) (Heparin Vial(*)) 5,000 units SUBCUT Q8HR [facility] Last Admin: 12/25/17 13:49 Dose: 5,000 units Hydralazine HCl (Apresoline Iv*) 5 mg IV SLOW PU Q6H PRN PRN Reason: BLOOD PRESSURE Last Admin: 12/22/17 15:56 Dose: 5 mg Hydrochlorothiazide (Hydrodiuril Tab*) 12.5 mg PO DAILY [facility] Last Admin: 12/25/17 09:05 Dose: 12.5 mg Hydromorphone HCl (Dilaudid Injic*) 1 mg IV SLOW PU Q3H PRN PRN Reason: PAIN Last Admin: 12/21/17 23:21 Dose: 1 mg Hydromorphone HCl (Dilaudid Tab*) 4 mg PO Q6H PRN PRN Reason: PAIN Last Admin: 12/25/17 15:15 Dose: 4 mg Ropivacaine (Ropivacaine 0.2% Epidural*) 200 mg in 100 mls @ 0 mls/hr EPIDURAL PER RATE KENRICK; Per Protocol PRN Reason: Protocol Last Admin: 12/23/17 01:56 Dose: 6 mls/hr Hydromorphone HCl (Dilaudid Photograph Enlarger*) 20 mg in 20 mls @ 0 mls/hr FURNITURE PAINTER .Q24H [facility]; Per Protocol PRN Reason: Protocol Last Admin: 12/22/17 16:05 Dose: 0.2 mls/hr Sodium Chloride (Ns 0.9% 1000 Ml*) 1,000 mls @ 30 mls/hr IVPB .Q24H [facility] PRN Reason: KVO Last Admin: 12/23/17 02:55 Dose: 30 mls/hr Lisinopril (Prinivil Tab*) 10 mg PO DAILY [facility] Last Admin: 12/25/17 09:05 Dose: 10 mg Naloxone HCl (Narcan*) 0.08 mg IV Q10M PRN PRN Reason: respiratory depression Naloxone HCl (Narcan*) 0.08 mg IV PUSH Q2M PRN PRN Reason: SEDATION Omeprazole (Prilosec Cap*) 20 mg PO BID [facility] Last Admin: 12/25/17 09:05 Dose: 20 mg Ondansetron HCl (Zofran Inj*) 4 mg IV Q6H PRN PRN Reason: NAUSEA/VOMITING Polyethylene Glycol/Electrolytes (Miralax*) 34 gm PO BID [facility] Last Admin: 12/25/17 08:58 Dose: Not Given Tramadol HCl (Ultram*) 50 mg PO Q6H PRN PRN Reason: PAIN Last Admin: 12/25/17 05:37 Dose: 50 mg Objective: Vital Signs 12/24/17 12/24/17 12/24/17 18:04 20:00 20:11 Temperature Pulse Rate Respiratory 18 18 18 Rate Blood Pressure (mmHg) O2 Sat by Pulse Oximetry 12/24/17 12/24/17 12/24/17 20:56 21:09 22:50 Temperature 98.4 F Pulse Rate 78 Respiratory 18 16 Rate Blood Pressure 126/57 (mmHg) O2 Sat by Pulse 100 97 Oximetry 12/24/17 12/25/17 12/25/17 23:57 01:39 03:44 Temperature 97.3 F Pulse Rate 87 Respiratory 16 18 16 Rate Blood Pressure 144/60 (mmHg) O2 Sat by Pulse 99 Oximetry 12/25/17 12/25/17 12/25/17 03:58 05:37 07:32 Temperature 98.1 F 97.8 F Pulse Rate 81 77 Respiratory 18 17 18 Rate Blood Pressure 130/49 136/47 (mmHg) O2 Sat by Pulse 99 100 Oximetry 12/25/17 12/25/17 12/25/17 07:56 08:00 09:04 Temperature Pulse Rate 73 Respiratory 18 20 Rate Blood Pressure (mmHg) O2 Sat by Pulse 95 Oximetry 12/25/17 12/25/17 12/25/17 09:12 09:44 10:37 Temperature Pulse Rate 73 74 Respiratory 20 Rate Blood Pressure (mmHg) O2 Sat by Pulse 97 96 Oximetry 12/25/17 12/25/17 12/25/17 11:27 13:21 13:44 Temperature 98.2 F Pulse Rate 74 Respiratory 16 18 Rate Blood Pressure 131/58 (mmHg) O2 Sat by Pulse 96 89 Oximetry 12/25/17 12/25/17 12/25/17 13:47 15:15 15:27 Temperature 98.8 F Pulse Rate 80 94 Respiratory 22 18 Rate Blood Pressure 174/60 (mmHg) O2 Sat by Pulse 98 Oximetry 12/25/17 15:57 Temperature Pulse Rate 90 Respiratory Rate Blood Pressure 146/55 (mmHg) O2 Sat by Pulse Oximetry General: WDWN in NAD CV: RRR w/o MRG Resp: Coarse breath sounds appreciated, expiratory sounds noted. Surgical site is clean and dry without evidence of infection. Serous drainage noted from thoracostomy tube and FATOU drain. GI: Abdomen is soft, non-distended and non-tender to palpation. BS throughout. Extremities: w/o edema Assessment & Plan: Ms. Hickey is POD#6 from a left upper lobectomy. She is doing well. Continue to encourage ambulation. Will continue to monitor output from drains and will likely d/c within a day or two.
[2017-12-25] MEDS: Atorvastatin* 40 MG TAB PO SCH (20:17)
[2017-12-25] MEDS: HYDROmorphone INJ* 1 MG/ML CARPUJECT SYRINGE IV SLOW PU PRN (20:17)
[2017-12-25] MEDS ORDERED: HYDROmorphone INJ* 2 MG/ML CARPUJECT SYRINGE IV SLOW PU PRN (21:00)
--- NOTE | 2017-12-25 22:00 | PN ---
Subjective Date of Service: 12/25/17 Interval History: just walked in the hallway, feeling very short of breath. also complains of left upper quadrant pain that is sharp that just began this afternoon. no nausea, vomiting, diarrhea, constipation. she has not seen any bleeding. she had a bowel movement yesterday and she and her rn deny melena/hematochezia. Objective Active Medications: Acetaminophen (Tylenol Tab*) 650 mg PO Q4H PRN PRN Reason: PAIN Last Admin: 12/24/17 13:22 Dose: 650 mg Albuterol (Ventolin 2.5 Mg/3 Ml Neb.Phyllis*) 2.5 mg INH [id number] [facility] Last Admin: 12/25/17 19:11 Dose: 2.5 mg Atorvastatin Calcium (Lipitor*) 40 mg PO 2100 [facility] Last Admin: 12/25/17 20:17 Dose: 40 mg Citalopram Hydrobromide (Celexa Tab*) 20 mg PO QAM [facility] Last Admin: 12/25/17 09:05 Dose: 20 mg Docusate Sodium (Colace Cap*) 100 mg PO BID [facility] Last Admin: 12/25/17 20:17 Dose: 100 mg Ephedrine Sulfate (Ephedrine Sulfate (Pressors)*) 5 mg IV PUSH Q5M PRN PRN Reason: HYPOTENSION Heparin Sodium (Porcine) (Heparin Vial(*)) 5,000 units SUBCUT Q8HR [facility] Last Admin: 12/25/17 21:39 Dose: 5,000 units Hydralazine HCl (Apresoline Iv*) 5 mg IV SLOW PU Q6H PRN PRN Reason: BLOOD PRESSURE Last Admin: 12/22/17 15:56 Dose: 5 mg Hydrochlorothiazide (Hydrodiuril Tab*) 12.5 mg PO DAILY [facility] Last Admin: 12/25/17 09:05 Dose: 12.5 mg Hydromorphone HCl (Dilaudid Tab*) 4 mg PO Q6H PRN PRN Reason: PAIN Last Admin: 12/25/17 15:15 Dose: 4 mg Hydromorphone HCl (Dilaudid Inj*) 1 mg IV SLOW PU Q3H PRN PRN Reason: PAIN Ropivacaine (Ropivacaine 0.2% Epidural*) 200 mg in 100 mls @ 0 mls/hr EPIDURAL PER RATE KENRICK; Per Protocol PRN Reason: Protocol Last Admin: 12/23/17 01:56 Dose: 6 mls/hr Hydromorphone HCl (Dilaudid Polymerization Helper*) 20 mg in 20 mls @ 0 mls/hr HAND I BLOCKER .Q24H [facility]; Per Protocol PRN Reason: Protocol Last Admin: 12/22/17 16:05 Dose: 0.2 mls/hr Sodium Chloride (Ns 0.9% 1000 Ml*) 1,000 mls @ 30 mls/hr IVPB .Q24H [facility] PRN Reason: KVO Last Admin: 12/23/17 02:55 Dose: 30 mls/hr Lisinopril (Prinivil Tab*) 10 mg PO DAILY [facility] Last Admin: 12/25/17 09:05 Dose: 10 mg Naloxone HCl (Narcan*) 0.08 mg IV Q10M PRN PRN Reason: respiratory depression Naloxone HCl (Narcan*) 0.08 mg IV PUSH Q2M PRN PRN Reason: SEDATION Omeprazole (Prilosec Cap*) 20 mg PO BID [facility] Last Admin: 12/25/17 20:17 Dose: 20 mg Ondansetron HCl (Zofran Inj*) 4 mg IV Q6H PRN PRN Reason: NAUSEA/VOMITING Polyethylene Glycol/Electrolytes (Miralax*) 34 gm PO BID [facility] Last Admin: 12/25/17 20:17 Dose: Not Given Tramadol HCl (Ultram*) 50 mg PO Q6H PRN PRN Reason: PAIN Last Admin: 12/25/17 18:14 Dose: 50 mg Vital Signs - 8 hr 12/25/17 12/25/17 12/25/17 15:15 15:27 15:57 Temperature 98.8 F Pulse Rate 94 90 Respiratory 22 18 Rate Blood Pressure 174/60 146/55 (mmHg) O2 Sat by Pulse 98 Oximetry 12/25/17 12/25/17 12/25/17 18:02 18:14 19:09 Temperature Pulse Rate 93 Respiratory 20 18 18 Rate Blood Pressure (mmHg) O2 Sat by Pulse 98 Oximetry 12/25/17 12/25/17 12/25/17 19:31 20:16 20:17 Temperature 98.1 F Pulse Rate 92 Respiratory 16 24 24 Rate Blood Pressure 131/46 (mmHg) O2 Sat by Pulse 95 Oximetry 12/25/17 12/25/17 20:20 21:39 Temperature Pulse Rate Respiratory 24 20 Rate Blood Pressure (mmHg) O2 Sat by Pulse Oximetry Oxygen Devices in Use Now: Nasal Cannula Appearance: alert, tachypneic after walking which resolves with rest Eyes: No Scleral Icterus, PERRLA Ears/Nose/Mouth/Throat: NL Teeth, Lips, Gums Neck: NL Appearance and Movements; NL JVP Respiratory: Symmetrical Chest Expansion and Respiratory Effort, - - left thoracotomy incision stapled, no drainage or erythema. chest tube in left MAL draining reddish fluid Cardiovascular: NL Sounds; No Murmurs; No JVD, RRR, No Edema Abdominal: NL Sounds; No Tenderness; No Distention, No Hepatosplenomegaly Lymphatic: No Cervical Adenopathy Extremities: No Edema Skin: No Rash or Ulcers Neurological: Alert and Oriented x 3 Result Diagrams: 12/23/17 05:55 12/24/17 07:08 Microbiology and Other Data: Microbiology 12/19/17 17:28 Nasal Screen MRSA (PCR)(ROMMEL) - Final Nasal Mrsa Not Detected Assess/Plan/Problems-Billing Assessment: 67 yo F with h/o adenocarcinoma of left lung s/o lobectomy on 12/19/17 , h/o HTN, dyslipidemia, depression, GERD, SSS-s/p pacer - Patient Problems (1) Anemia Current Visit: Yes Status: Acute Code(s): D64.9 - ANEMIA, UNSPECIFIED SNOMED Code(s): 385918577 Comment: microcytic likely from chest tube losses, phlebotomy. no other evidence of blood loss. will check LDH goal is >7, however I am concerned this may be contributing to her shortness of breath will recheck tomorrow and consider transfusion check iron studies also (2) Constipation Current Visit: Yes Status: Acute Code(s): K59.00 - CONSTIPATION, UNSPECIFIED SNOMED Code(s): 14619580 Comment: resolved, large bowel movement yesterday (3) S/P lobectomy of lung Current Visit: Yes Status: Acute Code(s): Z90.2 - ACQUIRED ABSENCE OF LUNG [ PART OF] SNOMED Code(s): 777700704 Comment: Doing very well, management as per Dr. Fink. CT in place. Pathology showed adenoca, one small focus of metastasis in lymph node. (4) Hypertension Current Visit: No Status: Acute Priority: High Code(s): I10 - ESSENTIAL ( PRIMARY) HYPERTENSION SNOMED Code(s): 21756581 Comment: Continue Lisinopril, Hydralazine IV prn. Status and Disposition: Medicine consult, will follow
[2017-12-26] MEDS: HYDROmorphone TAB* 4 MG PO PRN ×4 (00:03→19:24)
[2017-12-26] MEDS: Albuterol 2.5 MG/3 ML NEB.SOL* (0.083%) INH SCH ×2 (00:34→08:45)
[2017-12-26] MEDS: traMADol TAB* 50 MG PO PRN ×3 (02:20→22:19)
[2017-12-26 05:27] LABS: Hematocrit 21 % (35-47); Hemoglobin 6.9 g/dl (12.0-16.0); Mean Corpuscular HGB Conc 33 g/dl (31-36); Mean Corpuscular Hemoglobin 29 pg (27-31); Mean Corpuscular Volume 89 fL (80-97); Mean Platelet Volume 7.1 um3 (7.4-10.4); Platelet Count 283 10^3/ul (150-450); Red Blood Count 2.36 10^6/ul (4.0-5.4); Red Cell Distribution Width 15 % (10.5-15); White Blood Count 11.3 10^3/ul (3.5-10.8)
[2017-12-26 05:37] LABS: EGFR Non-African American 101.7 (>60)
[2017-12-26] MEDS: Heparin VIAL(*) 5000 UNITS/ML VIAL (FIVE THOUSAND) SUBCUT SCH ×3 (06:31→22:18)
[2017-12-26] MEDS: Citalopram TAB* 20 MG PO SCH (08:44)
[2017-12-26] MEDS: Lisinopril TAB* 10 MG PO SCH (08:44)
[2017-12-26] MEDS: Hydrochlorothiazide TAB* 25 MG PO SCH (08:44)
[2017-12-26] MEDS: Omeprazole CAP* 20 MG PO SCH ×2 (08:45→22:19)
[2017-12-26] MEDS: Docusate CAP* 100 MG PO SCH ×2 (08:45→22:19)
[2017-12-26] MEDS: Polyethylene Glycol 3350* 17 GM PACKET PO SCH ×2 (08:46→22:19)
[2017-12-26] MEDS ORDERED: Albuterol 2.5 MG/3 ML NEB.SOL* (0.083%) INH PRN (08:52)
--- NOTE | 2017-12-26 09:41 | PN ---
Progress Note - Progress Note Date of Service: 12/26/17 Note: Subjective: Ms. Hickey is POD#7 from a left upper lobectomy. She is doing well today. She denies any pain at this time. Eating and drinking adequately. With ambulation, she is quite SOB, but she reports that this isn't any different from her baseline. Had a BM yesterday, and is urinating without dysuria. Current Medications Acetaminophen (Tylenol Tab*) 650 mg PO Q4H PRN PRN Reason: PAIN Last Admin: 12/24/17 13:22 Dose: 650 mg Albuterol (Ventolin 2.5 Mg/3 Ml Neb.Phyllis*) 2.5 mg INH Q4H PRN PRN Reason: SOB/WHEEZING Atorvastatin Calcium (Lipitor*) 40 mg PO 2100 [facility] Last Admin: 12/25/17 20:17 Dose: 40 mg Citalopram Hydrobromide (Celexa Tab*) 20 mg PO QAM [facility] Last Admin: 12/26/17 08:44 Dose: 20 mg Docusate Sodium (Colace Cap*) 100 mg PO BID [facility] Last Admin: 12/26/17 08:45 Dose: 100 mg Ephedrine Sulfate (Ephedrine Sulfate (Pressors)*) 5 mg IV PUSH Q5M PRN PRN Reason: HYPOTENSION Heparin Sodium (Porcine) (Heparin Vial(*)) 5,000 units SUBCUT Q8HR [facility] Last Admin: 12/26/17 06:31 Dose: 5,000 units Hydralazine HCl (Apresoline Iv*) 5 mg IV SLOW PU Q6H PRN PRN Reason: BLOOD PRESSURE Last Admin: 12/22/17 15:56 Dose: 5 mg Hydrochlorothiazide (Hydrodiuril Tab*) 12.5 mg PO DAILY [facility] Last Admin: 12/26/17 08:44 Dose: 12.5 mg Hydromorphone HCl (Dilaudid Tab*) 4 mg PO Q6H PRN PRN Reason: PAIN Last Admin: 12/26/17 06:31 Dose: 4 mg Hydromorphone HCl (Dilaudid Inj*) 1 mg IV SLOW PU Q3H PRN PRN Reason: PAIN Ropivacaine (Ropivacaine 0.2% Epidural*) 200 mg in 100 mls @ 0 mls/hr EPIDURAL PER RATE KENRICK; Per Protocol PRN Reason: Protocol Last Admin: 12/23/17 01:56 Dose: 6 mls/hr Hydromorphone HCl (Dilaudid Mechanic Insulator*) 20 mg in 20 mls @ 0 mls/hr LEVEL VIAL MARKER .Q24H [facility]; Per Protocol PRN Reason: Protocol Last Admin: 12/22/17 16:05 Dose: 0.2 mls/hr Sodium Chloride (Ns 0.9% 1000 Ml*) 1,000 mls @ 30 mls/hr IVPB .Q24H [facility] PRN Reason: KVO Last Admin: 12/23/17 02:55 Dose: 30 mls/hr Lisinopril (Prinivil Tab*) 10 mg PO DAILY [facility] Last Admin: 12/26/17 08:44 Dose: 10 mg Naloxone HCl (Narcan*) 0.08 mg IV Q10M PRN PRN Reason: respiratory depression Naloxone HCl (Narcan*) 0.08 mg IV PUSH Q2M PRN PRN Reason: SEDATION Omeprazole (Prilosec Cap*) 20 mg PO BID [facility] Last Admin: 12/26/17 08:45 Dose: 20 mg Ondansetron HCl (Zofran Inj*) 4 mg IV Q6H PRN PRN Reason: NAUSEA/VOMITING Polyethylene Glycol/Electrolytes (Miralax*) 34 gm PO BID [facility] Last Admin: 12/26/17 08:46 Dose: Not Given Tramadol HCl (Ultram*) 50 mg PO Q6H PRN PRN Reason: PAIN Last Admin: 12/26/17 08:45 Dose: 50 mg Objective: Vital Signs Temp Pulse Resp BP Pulse Ox 98.0 F 74 16 147/54 97 12/26/17 07:33 12/26/17 08:52 12/26/17 08:52 12/26/17 07:33 12/26/17 08:52 General: WDWN in NAD. CV: RRR w/o MRG Resp: Adequate aeration bilaterally, expiratory breath sounds still present over left lobe, but significantly decreased from a few days ago. Incision site appears clean and dry without evidence of infection. Minimal serous drainage from FATOU. Thoracostomy drainage is serous and is much decreased over 24 hours ( 100 ml) GI: Abdomen is soft and non-distended and non-tender to palpation. BS present throughout. Extremities: without edema Assessment & Plan: Ms. Hickey is a 67 yo female that is POD#7 from a left upper lobectomy. She is doing well. Will likely d/c FATOU and thoracostomy today or tomorrow.
--- NOTE | 2017-12-26 10:37 | RAD ---
HISTORY: Lobectomy COMPARISONS: December 23, 2017 VIEWS: 4: Frontal dual-energy and lateral views of the chest. FINDINGS: CARDIOMEDIASTINAL SILHOUETTE: The cardiomediastinal silhouette is normal. TAMIKO: There is post surgical change to left hilum. PLEURA: There is a left-sided hydropneumothorax system with the history of lobectomy. LUNG PARENCHYMA: There is patchy opacification of left lung base. ABDOMEN: The upper abdomen is clear. There is no subphrenic gas. BONES AND SOFT TISSUES: No bone or soft tissue abnormalities are noted. OTHER: A left-sided chest tube is noted. Surgical drains are noted along the chest. Right-sided pacemaker is noted. IMPRESSION: LEFT-SIDED HYDROPNEUMOTHORAX, WITH A CHEST TUBE, CONSISTENT WITH THE HISTORY OF LEFT UPPER LOBECTOMY. THERE IS PATCHY ATELECTASIS VERSUS CONSOLIDATION OF THE LEFT LUNG BASE.
--- NOTE | 2017-12-26 12:24 | PN ---
Progress Note - Progress Note Date of Service: 12/26/17 SOAP: Subjective:POD#7 s/p thoracotomy and left upper lobectomy;no dyspnea,walking in halls with assist,had large stool yesterday [] Objective:afeb,VSS,O2 sat 97% on 1lpm;lungs:scattered wheezes but improved from 18;heart:RRR;ext:no edema,nontender Laboratory Results - last 24 hr 18 12/26/17 05:09 05:09 WBC 11.3 H RBC 2.36 L Hgb 6.9 L Hct 21 L MCV 89 MCH 29 MCHC 33 RDW 15 Plt Count 283 MPV 7.1 L Sodium 141 Potassium 3.3 L Chloride 103 Carbon Dioxide 33 H Anion Gap 5 BUN 6 Creatinine 0.59 Est GFR ( Amer) 130.8 Est GFR (Non-Af Amer) 101.7 BUN/Creatinine Ratio 10.2 Glucose 122 H Calcium 8.0 L Magnesium 1.7 L Iron 23 L TIBC 252 % Saturation 9 L Unsat Iron Binding 229 Transferrin 180 L Ferritin 39.0 Total Bilirubin 0.30 Direct Bilirubin 0.10 Indirect Bilirubin 0.2 L AST 20 ALT 29 Alkaline Phosphatase 54 Lactate Dehydrogenase 194 Total Protein 5.0 L Albumin 2.6 L Globulin 2.4 Albumin/Globulin Ratio 1.1 [] Assessment:CXR from this am reviewed with Dr Fink;doing well POD#7;continue to wean O2 and monitor RA O2 sat [] Plan:chest tube and FATOU drain removed today will address hgb and lytes with Hospitalist;pt is agreeable to transfusion if indicated []
[2017-12-26] MEDS ORDERED: Potassium Chloride LIQUID* 20 MEQ PACKET PO ONE (13:26)
[2017-12-26] MEDS ORDERED: Magnesium Oxide TAB* 400 MG PO ONE (13:26)
--- NOTE | 2017-12-26 18:41 | PN ---
Subjective Date of Service: 12/26/17 Interval History: feels better today. no complaints, just feels tired. pain is controlled. Objective Active Medications: Acetaminophen (Tylenol Tab*) 650 mg PO Q4H PRN PRN Reason: PAIN Last Admin: 12/24/17 13:22 Dose: 650 mg Albuterol (Ventolin 2.5 Mg/3 Ml Neb.Phyllis*) 2.5 mg INH Q4H PRN PRN Reason: SOB/WHEEZING Atorvastatin Calcium (Lipitor*) 40 mg PO 2100 [facility] Last Admin: 12/25/17 20:17 Dose: 40 mg Citalopram Hydrobromide (Celexa Tab*) 20 mg PO QAM [facility] Last Admin: 12/26/17 08:44 Dose: 20 mg Docusate Sodium (Colace Cap*) 100 mg PO BID [facility] Last Admin: 12/26/17 08:45 Dose: 100 mg Ephedrine Sulfate (Ephedrine Sulfate (Pressors)*) 5 mg IV PUSH Q5M PRN PRN Reason: HYPOTENSION Ferrous Sulfate (Ferrous Sulfate Tab*) 325 mg PO DAILY [facility] Heparin Sodium (Porcine) (Heparin Vial(*)) 5,000 units SUBCUT Q8HR [facility] Last Admin: 12/26/17 13:27 Dose: 5,000 units Hydralazine HCl (Apresoline Iv*) 5 mg IV SLOW PU Q6H PRN PRN Reason: BLOOD PRESSURE Last Admin: 12/22/17 15:56 Dose: 5 mg Hydrochlorothiazide (Hydrodiuril Tab*) 12.5 mg PO DAILY [facility] Last Admin: 12/26/17 08:44 Dose: 12.5 mg Hydromorphone HCl (Dilaudid Tab*) 4 mg PO Q6H PRN PRN Reason: PAIN Last Admin: 12/26/17 12:23 Dose: 4 mg Hydromorphone HCl (Dilaudid Inj*) 1 mg IV SLOW PU Q3H PRN PRN Reason: PAIN Ropivacaine (Ropivacaine 0.2% Epidural*) 200 mg in 100 mls @ 0 mls/hr EPIDURAL PER RATE [facility]; Per Protocol PRN Reason: Protocol Last Admin: 12/23/17 01:56 Dose: 6 mls/hr Hydromorphone HCl (Dilaudid Bar Pilot*) 20 mg in 20 mls @ 0 mls/hr ROCK STAR .Q24H [facility]; Per Protocol PRN Reason: Protocol Last Admin: 12/22/17 16:05 Dose: 0.2 mls/hr Sodium Chloride (Ns 0.9% 1000 Ml*) 1,000 mls @ 30 mls/hr IVPB .Q24H [facility] PRN Reason: KVO Last Admin: 12/23/17 02:55 Dose: 30 mls/hr Lisinopril (Prinivil Tab*) 10 mg PO DAILY [facility] Last Admin: 12/26/17 08:44 Dose: 10 mg Naloxone HCl (Narcan*) 0.08 mg IV PUSH Q2M PRN PRN Reason: SEDATION Omeprazole (Prilosec Cap*) 20 mg PO BID [facility] Last Admin: 12/26/17 08:45 Dose: 20 mg Ondansetron HCl (Zofran Inj*) 4 mg IV Q6H PRN PRN Reason: NAUSEA/VOMITING Polyethylene Glycol/Electrolytes (Miralax*) 34 gm PO BID [facility] Last Admin: 12/26/17 08:46 Dose: Not Given Tramadol HCl (Ultram*) 50 mg PO Q6H PRN PRN Reason: PAIN Last Admin: 12/26/17 08:45 Dose: 50 mg Vital Signs - 8 hr 12/26/17 12/26/17 12/26/17 10:45 11:21 12:23 Temperature 97.3 F Pulse Rate 70 Respiratory 15 14 16 Rate Blood Pressure 133/49 (mmHg) O2 Sat by Pulse Oximetry 12/26/17 12/26/17 14:31 15:21 Temperature 98.6 F Pulse Rate 77 Respiratory 16 16 Rate Blood Pressure 128/50 (mmHg) O2 Sat by Pulse 95 Oximetry Oxygen Devices in Use Now: Nasal Cannula Appearance: pale, no distress, resting in bed Eyes: No Scleral Icterus Ears/Nose/Mouth/Throat: NL Teeth, Lips, Gums Neck: NL Appearance and Movements; NL JVP Respiratory: - - decreased breath sounds right base, thoracotomy incision stapled Cardiovascular: RRR Abdominal: NL Sounds; No Tenderness; No Distention, No Hepatosplenomegaly Lymphatic: No Cervical Adenopathy Extremities: No Edema Skin: No Rash or Ulcers Neurological: Alert and Oriented x 3 Result Diagrams: 12/26/17 05:09 12/26/17 05:09 Microbiology and Other Data: Microbiology 12/19/17 17:28 Nasal Screen MRSA (PCR)(ROMMEL) - Final Nasal Mrsa Not Detected Assess/Plan/Problems-Billing Assessment: 67 yo F with h/o adenocarcinoma of left lung s/o lobectomy on 12/19/17 , h/o HTN, dyslipidemia, depression, GERD, SSS-s/p pacer - Patient Problems (1) Anemia Current Visit: Yes Status: Acute Code(s): D64.9 - ANEMIA, UNSPECIFIED SNOMED Code(s): 371562470 Comment: microcytic transfuse 1U prbcs today may be contributing to her dyspnea check ldh/haptoglobin iron studies suggest iron def check FOBT (2) S/P lobectomy of lung Current Visit: Yes Status: Acute Code(s): Z90.2 - ACQUIRED ABSENCE OF LUNG [ PART OF] SNOMED Code(s): 093545279 Comment: Doing very well, management as per Dr. Fink. CT in place. Pathology showed adenoca, one small focus of metastasis in lymph node. (3) Hypertension Current Visit: No Status: Acute Priority: High Code(s): I10 - ESSENTIAL ( PRIMARY) HYPERTENSION SNOMED Code(s): 97604516 Comment: Continue Lisinopril, Hydralazine IV prn. Status and Disposition: Medicine consult, will follow
[2017-12-26] MEDS: Atorvastatin* 40 MG TAB PO SCH (22:19)
[2017-12-27] MEDS: HYDROmorphone TAB* 4 MG PO PRN ×3 (01:32→15:36)
[2017-12-27] MEDS: traMADol TAB* 50 MG PO PRN (04:24)
[2017-12-27 06:15] LABS: ABS Basophils 0.1 10^3/ul (0-0.2); ABS Eosinophils 0.4 10^3/ul (0-0.6); ABS Lymphocytes 2.2 10^3/ul (1.0-4.8); ABS Neutrophils 8.2 10^3/ul (1.5-7.7); ABS Nucleated RBC 0 10^3/ul; Eosinophil % 3.4 % (0-6); Hematocrit 27 % (35-47); Hemoglobin 8.8 g/dl (12.0-16.0); Lymphocyte % 18.9 % (25-47); Mean Corpuscular HGB Conc 33 g/dl (31-36); Mean Corpuscular Hemoglobin 29 pg (27-31); Mean Corpuscular Volume 89 fL (80-97); Mean Platelet Volume 7.3 um3 (7.4-10.4); Nucleated Red Blood Cells % 0; Platelet Count 281 10^3/ul (150-450); Red Blood Count 3.02 10^6/ul (4.0-5.4); Red Cell Distribution Width 15 % (10.5-15); White Blood Count 11.9 10^3/ul (3.5-10.8)
[2017-12-27] MEDS: Heparin VIAL(*) 5000 UNITS/ML VIAL (FIVE THOUSAND) SUBCUT SCH ×2 (06:20→14:14)
[2017-12-27 07:24] LABS: EGFR Non-African American 110.2 (>60)
[2017-12-27] MEDS: Lisinopril TAB* 10 MG PO SCH (07:53)
[2017-12-27] MEDS: Omeprazole CAP* 20 MG PO SCH (07:53)
[2017-12-27] MEDS: Hydrochlorothiazide TAB* 25 MG PO SCH (07:53)
[2017-12-27] MEDS: Docusate CAP* 100 MG PO SCH (07:53)
[2017-12-27] MEDS: Polyethylene Glycol 3350* 17 GM PACKET PO SCH (07:54)
[2017-12-27] MEDS: Citalopram TAB* 20 MG PO SCH (07:54)
[2017-12-27] MEDS ORDERED: Ferrous Sulfate TAB* 325 MG PO SCH (09:00)
--- NOTE | 2017-12-27 09:27 | PN ---
Progress Note - Progress Note Date of Service: 12/27/17 SOAP: Subjective:POD #8 S/P thoracotomy,left upper lobectomy walked to BR off 02 and felt very SOB;good pain control [] Objective:afeb;VSS;lungs:mild scattered wheezes;good effort;heart:RRR; thoracotomy incision clean and dry,no erythema or drainage;all akash removed and skin prep/steristrips applied;dressings intact over exit sites from previous FATOU and chest tube,no drainage;Ext:no edema,nontender Laboratory Results - last 24 hr 12/26/17 12/27/17 12/27/17 05:09 05:40 05:40 WBC 11.9 H RBC 3.02 L Hgb 8.8 L Hct 27 L MCV 89 MCH 29 MCHC 33 RDW 15 Plt Count 281 MPV 7.3 L Neut % (Auto) 68.9 Lymph % (Auto) 18.9 L [place] % (Auto) 8.3 H Eos % (Auto) 3.4 Baso % (Auto) 0.5 Absolute Neuts (auto) 8.2 H Absolute Lymphs (auto) 2.2 Absolute Monos (auto) 1.0 H Absolute Eos (auto) 0.4 Absolute Basos (auto) 0.1 Absolute Nucleated RBC 0 Nucleated RBC % 0 Sodium 141 Potassium 4.4 Chloride 103 Carbon Dioxide 33 H Anion Gap 5 BUN 7 Creatinine 0.55 Est GFR ( Amer) 141.8 Est GFR (Non-Af Amer) 110.2 BUN/Creatinine Ratio 12.7 Glucose 115 H Calcium 8.8 Total Bilirubin 0.40 Direct Bilirubin 0.10 Indirect Bilirubin 0.3 AST 20 ALT 30 Alkaline Phosphatase 56 Total Protein 5.5 L Albumin 2.9 L Globulin 2.6 Albumin/Globulin Ratio 1.1 Blood Type A Negative Antibody Screen Negative Crossmatch See Detail [] Assessment:most likely will need home 02;probable discharge later today, [facility] home visits arranged;Hgb 8.8 after 1 uprbc;K repleted [] Plan:document 02 sat on room air this morning to determine if she qualifies for home [address] Fink next week;instructions reviewed advised to schedule followup with PCP within 2 weeks after discharge []
--- NOTE | 2017-12-27 11:39 | DS ---
CC: Rene Fink MD; Dr. Joel Tracy; Dr. Alisha Pascal; [facility]; Dr. Ramez Rolle [facility] DISCHARGE SUMMARY: DATE OF ADMISSION: 12/19/17 DATE OF DISCHARGE: 12/27/17 PRINCIPAL ADMITTING DIAGNOSIS: Carcinoma of the left upper lobe of the lung. SECONDARY DIAGNOSES: Include: 1. Hypertension. 2. Dyslipidemia. 3. History of hepatitis B. 4. Pacemaker for sick sinus syndrome. 5. Gastroesophageal reflux disease. HOSPITAL COURSE: The patient is a 67-year-old female who came to the hospital and was taken to the o perating room on 12/19/17 where she underwent a left upper lobectomy with lymph node dissection. She was maintained in the intensive care unit for the first couple of days. She had a lot of pain contr ol as she has required a lot of epidural and intravenous pain medicine, which was somewhat respirator y suppressive to her, so she was maintained in the intensive care unit, but gradually had improvement and the pain control was weaned off the epidural and gradually on to oral pain medication. She was on a bowel regimen and was able to move her bowels. She had continued improvement and eventually had her chest tube and Kashif-Woodall drain removed and prior to discharge had her surgical akash remov ed. At the time of discharge, she would still get somewhat dyspneic off of oxygen, so she will be ev aluated by the discharge planning team to see if she qualifies for home oxygen. She is able to ambul ate independently with a walker to the bathroom and around the shore. She was tolerating oral intake, was able to urinate, and moved her bowels. She did have some issues with hypokalemia and hypomagnes emia and this was repleted during the hospital stay. She did start out with some moderate degree of chronic anemia, but did develop increased anemia after the surgery and did ultimately require single unit of blood transfusion, which did improve her breathing status. Her pathology showed a T2N2 invas negrita adenocarcinoma of the left upper lobe that is well differentiated. She was seen in consultation by Dr. Torres who will follow her as an outpatient as well. So, she was discharged home with instruct ions and will see her back in the office in the coming week. [id number]/[facility] #: [id number]
[2017-12-27 15:28] VITALS: BP 128/49
--- NOTE | 2017-12-27 21:46 | CONS ---
CC: Dr. Meek; Dr. Pascal; Dr. Fink; Kathy Raygoza NP; Dr. Vazquez; Adrián Torres MD CONSULTATION REPORT: DATE OF CONSULT: 12/25/17 REASON FOR CONSULT: Stage III non-small cell lung cancer. HISTORY OF PRESENT ILLNESS: Mrs. Hickey is a 67-year-old female who had presented to the hospital in September 2017 with a syncopal episode. During that admission, she was found to have a bradycardia with pulse rate into the 30s despite being off beta blockers for several days and a pacemaker was divina mendez by Dr. Callahan on 09/30/17. The patient was initially hypoxic and there was a question of a PE. V/Q scan was obtained with low probability. A CT scan of the chest revealed a 2.6 cm nodule in the l eft lung with several smaller satellite lesions. The patient reports that she has not had any furthe r episodes of shortness of breath, lightheadedness and syncope similar to that that brought her into the hospital. She has had a further workup that has included an MRI scan during that admission which was done without contrast and did have some artifact for motion, but was otherwise negative on . PET scan on 10/15/17 revealed left upper lobe mass 3.3 cm and SUV of 5. In the left lower lobe and the right middle lobe were small, less than 5 mm nodules without metabolic activity. Small lymph nodes were noted, none of which were metabolically active. Left adrenal mass was identified, but ag ain without metabolic activity. The patient then underwent a lung biopsy on 10/28/17, this revealed moderate to poorly differentiated adenocarcinoma. The tumor was TTF positive, napsin A positive. It was negative for ALK, PD-L1, ROS, EGFR and BRAF. The tumor was positive for KRAS. The patient subs equently underwent an EBUS on 11/13/[address] Pascal. Small pleural lymph nodes were sampled inclu ding R4, L4, R10, L10, and station 7, all of these were without evidence of any malignancy. The marialuisa ent underwent a cardiac workup following initial hospitalization to make sure she was a candidate for surgery through the office of Dr. Meek. Echocardiogram revealed an ejection fraction of 55% to 60% , stress test was without significant abnormalities, and the patient was felt to be a suitable candid ate for thoracotomy and left upper lobe lobectomy. During this hospitalization, the patient underwent the above surgery. She has tolerated it well. Pa thology revealed invasive adenocarcinoma, well-differentiated 3.4 cm solitary tumor mass in the left upper lobe. Bronchial and vascular margins are negative by greater than 10 mm. Tumor is focally pos itive at the visceral pleural margin. On my request, this margin is measured and positive margin of approximately 4 mm. There is no lymphovascular invasion. 62 lymph nodes were removed. One of these was positive in the en bloc specimen and another lymph node was positive as a periaortic lymph node, making this a T2N2M0 lung cancer. Since surgery, the patient has done well, has had no significant complications, is starting to be up and about and is eating well. Chest tube is still in place at th e time of the consultation. She did develop significant anemia postoperatively and received a single unit of packed red blood cells. PAST MEDICAL HISTORY: 1. Sick sinus syndrome with sinus pauses in September 2017 with a dual-chamber pacemaker placed. 2. History of hypertension, well controlled. 3. History of GERD, well controlled on omeprazole. 4. History of anxiety, on Celexa for approximately 1 year and doing well. 5. History of hyperlipidemia. 6. History of hepatitis B. 7. The patient is status post appendectomy in . 8. Status post permanent pacemaker in September 2017. 9. Status post hysterectomy for bleeding issues. 10. Status post cholecystectomy. 11. Status post tonsillectomy. 12. Status post knee arthroscopy in 2011. 13. No HI, CVA or diabetes mellitus. 14. February 2017 MRSA on a scalp infection. 15. The patient is status post a traumatic ruptured spleen and subsequent hemothorax in 2007. Splen ectomy was not needed and the patient subsequently developed pneumonia related to this. MEDICATIONS: At the time of admission included: 1. Aspirin 81 mg daily. 2. Atorvastatin 40 mg daily. 3. Celexa 20 mg daily. 4. Ibuprofen 600 mg t.i.d. p.r.n. 5. Lisinopril/hydrochlorothiazide 10/12.5 daily. 6. Omeprazole 20 mg b.i.d. 7. Chantix. 8. Hydroxyzine 25 mg 4 times a day p.r.n. ALLERGIES: CODEINE, ATENOLOL, and ADHESIVE TAPE. FAMILY HISTORY: Father of an HI at age 82, mother of bone cancer at age 83. Three sisters and 1 brother. One sister of cancer in her 70s, unclear as to the type. SOCIAL HISTORY: The patient is a former smoker, 1 pack per day for over 50 years, quitting recently. Alcohol occasionally, but has been retired for the past 5 years. REVIEW OF SYSTEMS: No significant headaches, dizziness, lightheadedness or further syncopal episodes . Short of breath on walking a short distance, uses CPAP at night for the past few weeks and has bee n sleeping better, does not use oxygen at home. Denies any further chest pain. Denies any significan t abdominal pain, nausea, vomiting or change in bowel habits. Denies any recent infections. Denies any significant urinary symptoms. Review of systems is otherwise negative except for back and hip pa in for which she takes ibuprofen and occasional headaches. PHYSICAL EXAM: A 67-year-old female in no acute distress. Vital Signs: Blood pressure 131/58, puls e 74, afebrile. HEENT: PERRL. EOMI. No erythema or exudates. No palpable cervical, supraclavicul ar or axillary adenopathy. Lungs: Clear. Heart: Regular rate and rhythm. No murmurs, rubs or gall ops. Abdomen: Soft, nontender without masses or organomegaly. Extremities: No clubbing, cyanosis o r edema. Back: No CVA or spinal tenderness. The patient has a chest tube in place and scars approp riately in the left chest. DIAGNOSTIC STUDIES/LAB DATA: H and H of 22/7.4 on 12/23/17, and did receive 1 unit of packed red blo od cells on 12/26/17. Chemistry studies without significant changes in liver or kidney function. IMPRESSION: T2N2M0 adenocarcinoma of the lung without any targetable mutations noted. She is KRAS p ositive. She has 2 positive lymph nodes including 1 periaortic node and 1 presumed hilar node in the en bloc lung cancer specimen. She also has positive margins of 4 mm. It was discussed with the pat ient that given a stage III lung cancer where the N2 nodes are found at the time of surgery that chem otherapy would certainly be an appropriate option to improve cure rates from the cancer. Cisplatin a nd pemetrexed would certainly be appropriate for adenocarcinoma, 4 cycles delivered over a 12-week pe riod would be one option and the option that I would favor in her situation. It was discussed with h er that there is likely some role for radiation given both N2 nodes and also given the positive devorah n. This will be discussed further with Dr. Vazquez. Given her current situation, I do not believe sh roxana would be a great candidate for concurrent therapy and instead, I believe sequential therapy should be given if both chemotherapy and radiation therapy were to be used. The patient will be seen back i n the office approximately 10 days post discharge. Situation will be discussed further with her at t hat time and also discussion will be held with Dr. Vazquez before the time of her next visit with [facility]. [id number]/[facility] #: [id number]
== END 2017-12-27 17:20 | disposition home health service (06) | DRG 164 ==
LOC: AA 07:12 → ICU 15:57 → SSU 12-23 08:58
PROVIDERS: ADMIT Surgery; ATTEND Surgery
PROC: 0BTG0ZZ Resection of Left Upper Lung Lobe, Open Approach (ICD-10-PCS; 2017-12-19)
PROC: 07B70ZZ Excision of Thorax Lymphatic, Open Approach (ICD-10-PCS; 2017-12-19)
PROC: 30233N1 Transfusion of Nonautologous Red Blood Cells into Peripheral Vein, Percutaneous Approach (ICD-10-PCS; principal; 2017-12-26)
DX: C34.12 Malignant neoplasm of upper lobe, left bronchus or lung (principal); I44.2 Atrioventricular block, complete; B19.10 Unspecified viral hepatitis B without hepatic coma; J95.811 Postprocedural pneumothorax; C77.1 Secondary and unspecified malignant neoplasm of intrathoracic lymph nodes; I12.9 Hypertensive chronic kidney disease with stage 1 through stage 4 chronic kidney disease, or unspecified chronic kidney disease; E78.5 Hyperlipidemia, unspecified; N18.9 Chronic kidney disease, unspecified; K21.9 Gastro-esophageal reflux disease without esophagitis; F32.9 Major depressive disorder, single episode, unspecified; D72.829 Elevated white blood cell count, unspecified; E87.6 Hypokalemia; K59.00 Constipation, unspecified; D50.9 Iron deficiency anemia, unspecified; F41.9 Anxiety disorder, unspecified; G47.33 Obstructive sleep apnea (adult) (pediatric); E83.42 Hypomagnesemia; Z88.5 Allergy status to narcotic agent; Z88.8 Allergy status to other drugs, medicaments and biological substances; Z91.048 Other nonmedicinal substance allergy status; Z95.0 Presence of cardiac pacemaker; Z82.49 Family history of ischemic heart disease and other diseases of the circulatory system; Z80.9 Family history of malignant neoplasm, unspecified; Z90.710 Acquired absence of both cervix and uterus; Z87.891 Personal history of nicotine dependence; Z87.01 Personal history of pneumonia (recurrent); Z72.89 Other problems related to lifestyle
CPT/HCPCS: 36415; 71045; 71046; 80048; 80076; 82728; 83540; 83550; 83615; 83735; 85025; 85027; 86850; 86900; 86901; 86922; 87641; 88305; 88307; 93005; 94640; 94760; 99223; A9270-GY; C1776; J0360; J0690; J1100; J1170; J1644; J1885; J2250; J2405; J2704; J2710; J2795; J3010; J3475; P9040

== ENCOUNTER 2018-01-30 06:27 | Day surgery (SDC) | payer MEDICARE, BC ==
[~2018-01-30 06:27] MED LIST changes: -Gabapentin CAP(*) 300 MG PO ONE; -Levalbuterol 0.63MG/3ML NEB* UNIT OF USE INH ONE
[2018-01-30] MEDS ORDERED: Famotidine IV* 10 MG/ML 2 ML (20 mg) ONE (07:03)
[2018-01-30] MEDS ORDERED: Buffered Lidocaine 0.9% SYRIN* 5 ML/SYR SYRINGE ONE (07:03)
[2018-01-30] MEDS ORDERED: ceFAZolin 2 GM PREMIX (*) 2 GM/50 ML BAG IVPB ONE (07:03)
[2018-01-30] MEDS ORDERED: fentaNYL* 50 MCG/ML 2 ML VIAL (100 MCG VIAL) ONE (08:02)
[2018-01-30] MEDS ORDERED: Dexamethasone IV* 4 MG/ML 1 ML (4 MG) ONE (08:02)
[2018-01-30] MEDS ORDERED: Lidocaine 2% PF * 5 ML VIAL ONE (08:02)
[2018-01-30] MEDS ORDERED: Midazolam* 1 MG/ML 5 ML VIAL (5 MG) ONE (08:02)
[2018-01-30] MEDS ORDERED: Ketorolac INJ* 30 MG/ML 1 ML VIAL ONE (08:02)
[2018-01-30] MEDS ORDERED: Propofol* 10 MG/ML 20 ML BTL IV PUSH ONE (08:02)
[2018-01-30] MEDS ORDERED: Naloxone* 0.4 MG/ML 1 ML VIAL IV PRN (08:31)
[2018-01-30] MEDS ORDERED: Levalbuterol 0.63MG/3ML NEB* UNIT OF USE INH PRN (08:31)
[2018-01-30] MEDS ORDERED: Ondansetron ODT TAB* 4 MG PO PRN (08:31)
[2018-01-30] MEDS ORDERED: fentaNYL* 50 MCG/ML 2 ML VIAL (100 MCG VIAL) IV PRN (08:31)
[2018-01-30] MEDS ORDERED: Lidocaine 1% INJ* 10 MG/ML 30 ML SDV ONE (08:37)
[2018-01-30] MEDS ORDERED: Ibuprofen TAB* 600 MG PO ONE (09:30)
[2018-01-30 09:32] LABS: ABS Basophils 0 10^3/ul (0-0.2); ABS Eosinophils 0.3 10^3/ul (0-0.6); ABS Monocytes 0.6 10^3/ul (0-0.8); ABS Neutrophils 7.4 10^3/ul (1.5-7.7); ABS Nucleated RBC 0 10^3/ul; Eosinophil % 2.5 % (0-6); Hematocrit 27 % (35-47); Hemoglobin 8.5 g/dl (12.0-16.0); Mean Corpuscular HGB Conc 32 g/dl (31-36); Mean Corpuscular Hemoglobin 27 pg (27-31); Mean Corpuscular Volume 86 fL (80-97); Mean Platelet Volume 7.4 um3 (7.4-10.4); Nucleated Red Blood Cells % 0; Platelet Count 281 10^3/ul (150-450); Red Blood Count 3.15 10^6/ul (4.0-5.4); Red Cell Distribution Width 16 % (10.5-15); White Blood Count 10.3 10^3/ul (3.5-10.8)
[2018-01-30 09:55] LABS: EGFR Non-African American 94.3 (>60)
--- NOTE | 2018-01-30 10:06 | RAD ---
INDICATION: PowerPort placement COMPARISON: None FINDINGS: 14.5 seconds of fluoroscopy were provided for the surgical department. Fluoroscopic spot imaging of the chest were obtained for operative control. A follow-up chest x-ray is pending CPT II Codes: G9500 (fluoro time doc)
--- NOTE | 2018-01-30 10:19 | RAD ---
INDICATION: Central venous catheter placement COMPARISON: Chest x-ray 2017 TECHNIQUE: An AP portable view obtained at 0945 hours is submitted. FINDINGS: Bones/Soft Tissues: There are no acute bony findings. There is a right-sided cardiac pacemaker, unchanged. There is interval placement of left-sided central venous catheter. The tip is in the superior vena cava Cardiomediastinal: The heart is normal in size. The central pulmonary vessels and hilar are prominent. There are postoperative changes in left hilar region. Lungs: Diffuse interstitial and alveolar change. Pleura: Bilateral pleural effusions left greater than right. Other: None IMPRESSION: LEFT-SIDED CENTRAL VENOUS CATHETER. NO PNEUMOTHORAX. MODERATE VASCULAR CONGESTION. PLEURAL EFFUSIONS LEFT GREATER THAN RIGHT.
[2018-01-30 11:05] VITALS: BP 165/72
--- NOTE | 2018-01-31 02:02 | OP ---
CC: Dr. Joel Tracy * DATE OF OPERATION: 01/30/18 - [facility] DATE OF : 50 SURGEON: Rene Fink MD IMPLEMENT MECHANIC: None ANESTHESIOLOGIST: Dr. Daniel. ANESTHESIA: LMAC anesthesia. PRE-OP DIAGNOSIS: Carcinoma of the lung POST-OP DIAGNOSIS: Carcinoma of the lung OPERATIVE PROCEDURE: Placement of left subclavian 8-[place] PowerPort. DESCRIPTION OF PROCEDURE: The patient was supine on the operative table. After adequate intravenous sedation, compression stockings, Souleymane Hugger warmer, and intravenous antibiotics, the left chest was prepped with antiseptic, draped in a sterile fashion. Local infiltrative anesthesia was administered and approximately 3 cm subclavian incision was created. Inferior pocket was created. Subclavian venipuncture was carried out. Guidewire was passed under fluoroscopic guidance, catheter was measured and cut to 29 cm and attached to the port, which was sutured into the pocket with 2-0 Prolene. Pocket was closed with 3-0 and 5-0 Vicryl followed by Steri-Strips. The port has good blood return and was flushed with saline and heparinized solution. She tolerated the procedure well. She was brought to Recovery in good condition. No complications. No drains. No pathologic specimens. Sponge and instrument counts correct. Estimated blood loss was 10 mL. [id number]/[facility] #: [id number] MTDD
== END 2018-01-30 11:28 | disposition home or self-care (01) ==
LOC: OR 06:27
PROVIDERS: ATTEND Surgery
DX: J44.9 Chronic obstructive pulmonary disease, unspecified (principal); F17.210 Nicotine dependence, cigarettes, uncomplicated; E78.5 Hyperlipidemia, unspecified; G47.33 Obstructive sleep apnea (adult) (pediatric); F41.8 Other specified anxiety disorders; D64.9 Anemia, unspecified; N18.9 Chronic kidney disease, unspecified; I12.9 Hypertensive chronic kidney disease with stage 1 through stage 4 chronic kidney disease, or unspecified chronic kidney disease; Z95.0 Presence of cardiac pacemaker; I44.2 Atrioventricular block, complete
CPT/HCPCS: 36415; 71045; 76000; 80053; 83735; 85025; C1788; J0690; J1100; J1642; J1885; J2250; J2704; J3010

== ENCOUNTER 2018-02-10 19:35 | Emergency (ER) | payer MEDICARE, BC, OTHER ==
--- NOTE | 2018-02-10 20:32 | RAD ---
HISTORY: Weakness COMPARISONS: January 30, 2018 VIEWS: 2: Frontal and lateral views of the chest. FINDINGS: CARDIOMEDIASTINAL SILHOUETTE: The cardiomediastinal silhouette is normal. TAMIKO: The tamiko are normal. PLEURA: There is a small pleural effusion , decreased from the previous examination. LUNG PARENCHYMA: There is prominence of the pulmonary vasculature, improved from previous examination. ABDOMEN: The upper abdomen is clear. There is no subphrenic gas. BONES AND SOFT TISSUES: No bone or soft tissue abnormalities are noted. OTHER: A left-sided chest port is noted with the tip overlying the cavoatrial junction. A right-sided pacemaker is noted. IMPRESSION: 1. SMALL LEFT PLEURAL EFFUSION, DECREASED FROM THE PREVIOUS EXAMINATION. 2. PROMINENCE OF THE CENTRAL PULMONARY VASCULATURE.
[2018-02-10 20:47] LABS: ABS Basophils 0.1 10^3/ul (0-0.2); ABS Eosinophils 0.4 10^3/ul (0-0.6); ABS Lymphocytes 2.7 10^3/ul (1.0-4.8); ABS Monocytes 0.4 10^3/ul (0-0.8); ABS Neutrophils 14.2 10^3/ul (1.5-7.7); ABS Nucleated RBC 0 10^3/ul; Eosinophil % 2.2 % (0-6); Hematocrit 34 % (35-47); Hemoglobin 10.4 g/dl (12.0-16.0); Mean Corpuscular HGB Conc 31 g/dl (31-36); Mean Corpuscular Hemoglobin 26 pg (27-31); Mean Corpuscular Volume 84 fL (80-97); Mean Platelet Volume 7.8 um3 (7.4-10.4); Nucleated Red Blood Cells % 0; Platelet Count 337 10^3/ul (150-450); Red Blood Count 3.99 10^6/ul (4.0-5.4); Red Cell Distribution Width 16 % (10.5-15); White Blood Count 17.8 10^3/ul (3.5-10.8)
[2018-02-10 20:59] LABS: Urine Appearance Clear; Urine Blood Negative (Negative); Urine Color Yellow; Urine Ketones Negative (Negative); Urine Protein Negative (Negative); Urine Specific Gravity 1.005 (1.010-1.030); Urine Urobilinogen Negative (Negative)
[2018-02-10 21:03] LABS: EGFR Non-African American 68.6 (>60)
[2018-02-10] MEDS ORDERED: Potassium Chlor TAB* 20 MEQ TAB.ER PO ONE (21:30)
[2018-02-10 22:01] VITALS: BP 120/75
--- NOTE | 2018-02-13 21:28 | ED ---
Tobias Love Angela, scribed for Manan Mckay MD on 02/10/18 at 1958 . Complex/Multi-Sys Presentation - HPI Summary HPI Summary: This pt is a 67 y/o female presenting to [facility] via EMS from home c/o general weakness today. EMS reports the pt's house was hot with one fan and the pt was too weak to ambulate. The pt was noted to have rapid breathing on arrival. Per EMS, pt had recent chemotherapy 1 week ago for lung CA. EMS states 22% of pt's left lung was removed. Pt reports she feels SOB. Pt denies chest pain. Systolic pressure is 42, per EMS. - History Of Current Complaint Chief Complaint: EDWeakness Time Seen by Provider: 02/10/18 19:39 Hx Obtained From: Patient, EMS Onset/Duration: Still Present Timing: Constant Severity Initially: Moderate Aggravating Factor(s): nothing Alleviating Factor(s): nothing Associated Signs And Symptoms: Positive: Weakness - generalized, SOB. Negative : Fever Related History: Other - Hx of lung CA, currently on chemo - Allergies/Home Medications Allergies/Adverse Reactions: Allergies Allergy/AdvReac Type Severity Reaction Status Date / Time Adhesive Tape Allergy Severe RASH, Verified 01/30/18 07:01 BLISTERS atenolol Allergy Severe Difficulty Verified 01/30/18 07:01 Breathing codeine Allergy Severe Difficulty Verified 01/30/18 07:01 Breathing hydrocodone AdvReac Severe See Comment Verified 01/30/18 07:01 oxycodone AdvReac Severe See Comment Verified 01/30/18 07:01 PMH/Surg Hx/FS Hx/Imm Hx Cardiovascular History: Reports: Hx Hypertension, Hx Pacemaker/ICD - 09/20/2017, Other Cardiovascular Problems/Disorders - hx a fib, pacemaker, heart stops for 6 -7 seconds Respiratory History: Reports: Hx Pneumonia, Hx Sleep Apnea, Other Respiratory Problems/Disorders - sob easily, smoker GI History: Reports: Hx Gall Bladder Disease - Cholecystectomy in 1982, Hx Gastroesophageal Reflux Disease - ON MEDICATION FOR Denies: Other GI Disorders History: Reports: Hx Kidney Infection - KIDNEY INFECTION IN THE PAST Musculoskeletal History: Reports: Hx Arthritis - BACK SHOULDERS AND HIPS, ALL JOINTS Denies: Other Musculoskeletal History Sensory History: Reports: Hx Contacts or Glasses - glasses Denies: Hx Hearing Aid Opthamlomology History: Reports: Hx Contacts or Glasses - glasses Neurological History: Reports: Hx Headaches - ON OCCASION- TREATS WITH TYLENOL, Hx Migraine - ONOCCASION- TREATS WTIH TYLENOL Denies: Other Neuro Impairments/Disorders Psychiatric History: Reports: Hx Anxiety, Hx Depression Denies: Hx Panic Disorder - Cancer History Cancer Type, Location and Year: Left lung adenocarcinoma Hx Chemotherapy: No - will start after port placement Hx Radiation Therapy: No - Surgical History Surgery Procedure, Year, and Place: TONSILS. TUBAL LIGATION. HYSTERECTOMY. GALLBLADDER REMOVED. LEFT WRIST SURGERY. RIGHT KNEE ARTHROSCOPY. left upper lobe lobectomy with lymph node dissection 12/2017 Hx Anesthesia Reactions: No Infectious Disease History: No Infectious Disease History: Reports: Hx Hepatitis - HEP B DIAGNOSED AND TREATED FOR YEARS AGO, Hx of Known/Suspected MRSA - Head abscess, 2017 Denies: Traveled Outside the [place] in Last 30 Days - Family History Known Family History: Positive: Cardiac Disease Negative: Diabetes - Social History Alcohol Use: None Alcohol Amount: 6 per year Substance Use Type: Reports: None Hx Tobacco Use: Yes Smoking Status (MU): Current Every Day Smoker Amount Used/How Often: 1 PPD/ 50 years takes chantix Review of Systems Negative: Fever Negative: Chest Pain Positive: Shortness Of Breath Genitourinary: Negative Musculoskeletal: Negative Positive: Weakness - generalized All Other Systems Reviewed And Are Negative: Yes Physical Exam - Summary Physical Exam Summary: VITAL SIGNS: Reviewed. GENERAL: Patient is a well-developed and nourished female who is lying comfortable in the stretcher. HEAD AND FACE: No signs of trauma. No ecchymosis, hematomas or skull depressions. No sinus tenderness. EYES: PERRLA, EOMI x 2, No injected conjunctiva, no nystagmus. EARS: Hearing grossly intact. Ear canals and tympanic membranes are within normal limits. MOUTH: Oropharynx within normal limits. NECK: Supple, trachea is midline, no adenopathy, no JVD, no carotid bruit, no c- spine tenderness, neck with full ROM. CHEST: Symmetric, no tenderness at palpation LUNGS: Wheezing in the bases of the lungs. CVS: Regular rate and rhythm, S1 and S2 present, no murmurs or gallops appreciated. ABDOMEN: Soft, non-tender. No signs of distention. No rebound no guarding, and no masses palpated. Bowel sounds are normal. EXTREMITIES: FROM in all major joints, no edema, no cyanosis or clubbing. NEURO: Alert and oriented x 3. No acute neurological deficits. Speech is normal and follows commands. SKIN: Dry and warm Triage Information Reviewed: Yes Vital Signs On Initial Exam: Initial Vitals Temp Pulse Resp BP Pulse Ox 97.4 F 76 20 105/53 100 02/10/18 19:37 02/10/18 19:37 02/10/18 19:37 02/10/18 19:37 02/10/18 19:37 Vital Signs Reviewed: Yes Diagnostics - Vital Signs Vital Signs Temp Pulse Resp BP Pulse Ox 02/10/18 19:37 97.4 F 76 20 105/53 100 - Laboratory Result Diagrams: 02/10/18 20:30 02/10/18 20:30 Lab Statement: Any lab studies that have been ordered have been reviewed, and results considered in the medical decision making process. - Radiology Chest XR Xray Interpretation: Positive (See Comments) - IMPRESSION: 1. Small left pleural effusion, decreased from the previous examination. 2. Prominence of the central pulmonary vasculature. Dr. Mckay has reviewed this radiology report. Radiology Interpretation Completed By: Radiologist - EKG 19:58 Cardiac Rate: NL - at 80 bpm EKG Rhythm: Sinus Rhythm EKG Interpretation: No ST elevations. Complex Multi-Symp Course/Dx Assessment/Plan: Pt is a 67 y/o female presenting to [facility] via EMS from home c/ o general weakness today. EMS reports the pt's house was hot with one fan and the pt was too weak to ambulate. The pt was noted to have rapid breathing on arrival. Per EMS, pt had recent chemotherapy 1 week ago for lung CA. EMS states 22% of pt's left lung was removed. Pt reports she feels SOB. Pt denies chest pain. Test results without any significant abnormalities except for WBC of 17.8 , which has improved from previous WBC of 22.2 on 02/05/18, potassium of 3.4, for which the pt was given potassium chloride, lactic acid is 2.5, CRP is 31.9. Urinalysis is negative for UTI. Chest XR shows 1. Small left pleural effusion, decreased from the previous examination. 2. Prominence of the central pulmonary vasculature. In the ED course the pt was given IV fluids, and she responded well maintaining her blood pressure. We did not find a source of infection. Therefore, I discussed the case with Dr. Luevano, oncologist, who recommends to discharge the pt home and follow up with Dr. Tracy. Pt was given instructions to return to the ED if she develops chest pain, SOB, or any other new or worsening symptoms. I discussed all the findings and test results with the patient. All questions were answered to patient satisfaction. There were no further complaints or concerns. Pt is hemodynamically stable, alert and oriented x3. - Diagnoses Provider Diagnoses: Weakness, Bed bug bite - Physician Notifications Discussed Care Of Patient With: Whitney Luevano Time Discussed With Above Provider: 21:22 Instructed by Provider To: Other - I discussed pt care with Dr. Luevano, oncologist, who recommends to discharge the pt home. Discharge - Sign-Out/Discharge Documenting (check all that apply): Discharge/Admit/Transfer - Discharge - Discharge Plan Condition: Stable Disposition: HOME Prescriptions: hydrOXYzine HCL TAB* [Atarax 25 MG TAB*] 25 mg PO TID PRN #15 tab PRN Reason: Itching Patient Education Materials: Weakness (ED), Bed Bugs (ED) Referrals: Kathy Raygoza [facility] CERTIFIED CONCIERGE [Primary Care Provider] - Joel Tracy MD [Medical Doctor] - Additional Instructions: Please follow up with Dr. Tracy, oncologist. RETURN TO THE ED FOR ANY NEW OR WORSENING SYMPTOMS. The documentation as recorded by the Tobias strong Angela accurately reflects the service I personally performed and the decisions made by me, Manan Mckay MD.
== END 2018-02-10 22:00 | disposition home or self-care (01) ==
LOC: ED 19:35
DX: R53.1 Weakness (principal); I10 Essential (primary) hypertension; Z95.810 Presence of automatic (implantable) cardiac defibrillator; I48.91 Unspecified atrial fibrillation; F17.210 Nicotine dependence, cigarettes, uncomplicated; J90 Pleural effusion, not elsewhere classified; T14.8XXA Other injury of unspecified body region, initial encounter; W57.XXXA Bitten or stung by nonvenomous insect and other nonvenomous arthropods, initial encounter; Y92.9 Unspecified place or not applicable
CPT/HCPCS: 36415; 71046; 80053; 81003; 82550; 83605; 83735; 83880; 84443; 84484; 85025; 86140; 93005; 99282; A9270-GY

== ENCOUNTER 2019-11-20 12:26 | Inpatient (IN) | payer MEDICARE, BC ==
--- NOTE | 2019-11-20 12:41 | ED ---
Influenza-Like Illness - HPI Summary HPI Summary: 69 year old F presenting to [facility] accompanied by EMS complains of shortness of breath, fever, and cough since 3 days ago per EMS. Patient reports diarrhea, body aches, and headaches as well. Patient denies dysuria, nausea, and vomiting. EMS states that patient lives at home in a cluttered and unsanitary environment and that her family members were sick recently. The patient is normally on 2 L nasal canula at home and was 90% on room air while transferring to the stretcher per EMS. She was given duoneb en route. The patient rates the pain 10/10 in severity. Symptoms aggravated by nothing. Symptoms alleviated by nothing. Medications reviewed. Allergies noted. Home Medications Medication Instructions Recorded Confirmed Type Omeprazole 20 mg PO BID 06/26/12 02/28/18 History Aspirin [Ecotrin] 1 tab PO QAM 09/25/17 02/28/18 History Atorvastatin* [Lipitor 40 MG*] 40 mg PO 2100 09/25/17 02/28/18 History Citalopram TAB* [Celexa TAB*] 20 tab PO QID 09/25/17 02/28/18 History Chantix 0.5 MG TAB(NF) 1 mg PO BID 10/28/17 02/28/18 History Ibuprofen TAB* [Motrin TAB* 600 MG] 600 mg PO Q6H PRN 11/08/17 02/28/18 History Acetaminophen TAB* [Tylenol TAB*] 650 mg PO Q4H PRN tab 12/27/17 02/28/18 Rx Levalbuterol HFA INHALER* [Xopenex 2 puff INH Q6H PRN #1 mdi 12/27/17 02/28/18 Rx Hfa Inhaler*] Gabapentin CAP(*) [Neurontin 300 300 mg PO BID 01/28/18 02/28/18 History CAP(*)] Lisinopril TAB* [Prinivil TAB*] 10 mg PO QAM 01/28/18 02/28/18 History fentaNYL PATCH 12 MCG/HR * 12 mcg TRANSDERM Q72H 01/28/18 02/28/18 History [Duragesic Patch 12 Mcg/Hr *] hydrOXYzine HCL TAB* [Atarax 25 MG 25 mg PO TID PRN #15 tab 02/10/18 02/28/18 Rx TAB*] Magnesium Oxide TAB* [MagOx 400 800 mg PO BID #120 tab 05/29/18 Rx TAB*] Sucralfate SUSP (NF) [Carafate 10 ml PO AC #900 ml 05/29/18 Rx SUSP (NF)] - History of Current Complaint Hx Obtained From: Patient, EMS Onset/Duration: Lasting Days, Still Present Associated Signs & Symptoms: Negative - dysuria, nausea, vomiting, Fever, Cough , Headache, Diarrhea - Allergy/Home Medications Allergies/Adverse Reactions: Allergies Allergy/AdvReac Type Severity Reaction Status Date / Time Adhesive Tape Allergy Severe RASH, Verified 11/20/19 12:37 BLISTERS atenolol Allergy Severe Difficulty Verified 11/20/19 12:37 Breathing codeine Allergy Severe Difficulty Verified 11/20/19 12:37 Breathing hydrocodone AdvReac Severe See Comment Verified 11/20/19 12:37 oxycodone AdvReac Severe See Comment Verified 11/20/19 12:37 Home Medications: Home Medications Atorvastatin* [Lipitor 40 MG*] 40 mg PO 2100 09/25/17 [History Confirmed ] Ibuprofen TAB* [Motrin TAB* 600 MG] 600 mg PO Q6H PRN 11/08/17 [History Confirmed 11/20/19] Acetaminophen TAB* [Tylenol TAB*] 650 mg PO Q4H PRN tab 12/27/17 [Rx Confirmed 11/20/19] Omeprazole CAP (NF) [Prilosec CAP* 20 MG] 20 mg PO BID 11/20/19 [History Confirmed 11/20/19] PMH/Surg Hx/FS Hx/Imm Hx Cardiovascular History: Reports: Hx Hypertension, Hx Pacemaker/ICD - 09/20/2017, Other Cardiovascular Problems/Disorders - hx a fib, pacemaker, heart stops for 6 -7 seconds Respiratory History: Reports: Hx Pneumonia, Hx Sleep Apnea, Other Respiratory Problems/Disorders - sob easily, smoker GI History: Reports: Hx Gall Bladder Disease - Cholecystectomy in 1982, Hx Gastroesophageal Reflux Disease - ON MEDICATION FOR Denies: Other GI Disorders History: Reports: Hx Kidney Infection - KIDNEY INFECTION IN THE PAST Musculoskeletal History: Reports: Hx Arthritis - BACK SHOULDERS AND HIPS, ALL JOINTS Denies: Other Musculoskeletal History Sensory History: Reports: Hx Contacts or Glasses - glasses Denies: Hx Hearing Aid Opthamlomology History: Reports: Hx Contacts or Glasses - glasses Neurological History: Reports: Hx Headaches - ON OCCASION- TREATS WITH TYLENOL, Hx Migraine - ONOCCASION- TREATS WTIH TYLENOL Denies: Other Neuro Impairments/Disorders Psychiatric History: Reports: Hx Anxiety, Hx Depression Denies: Hx Panic Disorder - Cancer History Cancer Type, Location and Year: Left lung adenocarcinoma Hx Chemotherapy: No - will start after port placement Hx Radiation Therapy: No - Surgical History Surgery Procedure, Year, and Place: L lung partial lobectomy 2017. Pacemaker 2017. Hx Anesthesia Reactions: No Infectious Disease History: Reports: Hx Hepatitis - HEP B DIAGNOSED AND TREATED FOR YEARS AGO, Hx of Known/Suspected MRSA - Head abscess, 2017 - Family History Known Family History: Positive: Cardiac Disease Negative: Diabetes - Social History Alcohol Use: None Alcohol Amount: 6 per year Substance Use Type: Reports: None Hx Tobacco Use: Yes Smoking Status (MU): Current Every Day Smoker Amount Used/How Often: 1 PPD/ 50 years takes chantix Review of Systems Positive: Fever Positive: Shortness Of Breath, Cough Positive: Diarrhea. Negative: Vomiting, Nausea Negative: dysuria Musculoskeletal: Other - body aches Positive: Headache All Other Systems Reviewed And Are Negative: Yes Physical Exam - Summary Physical Exam Summary: VITAL SIGNS: Reviewed. GENERAL: Patient is an ill-looking female who is lying comfortable in the stretcher. HEAD AND FACE: No signs of trauma. No ecchymosis, hematomas or skull depressions. No sinus tenderness. EYES: PERRLA, EOMI x 2, No injected conjunctiva, no nystagmus. EARS: Hearing grossly intact. Ear canals and tympanic membranes are within normal limits. MOUTH: Dry oral mucosa. NECK: Supple, trachea is midline, no adenopathy, no JVD, no carotid bruit, no c- spine tenderness, neck with full ROM. CHEST: Symmetric, no tenderness at palpation. LUNGS: Crackles in both faces in lungs. Increased struggle when speaking. CVS: Regular rate and rhythm, S1 and S2 present, no murmurs or gallops appreciated. ABDOMEN: Soft, non-tender. No signs of distention. No rebound, no guarding, and no masses palpated. Bowel sounds are normal. EXTREMITIES: FROM in all major joints, no edema, no cyanosis or clubbing. NEURO: Alert and oriented x 3. No acute neurological deficits. Speech is normal and follows commands. SKIN: Dry and warm. Triage Information Reviewed: Yes Vital Signs Reviewed: Yes Procedures - Sedation Patient Received Moderate/Deep Sedation with Procedure: No Diagnostics - Laboratory Result Diagrams: 11/21/19 05:56 11/21/19 05:56 Lab Statement: Any lab studies that have been ordered have been reviewed, and results considered in the medical decision making process. - Radiology CXR Radiology Interpretation Completed By: Radiologist Summary of Radiographic Findings: IMPRESSION: #. Suggestion of potential inflammatory infiltrate at the residual LEFT lung. has reviewed this report. - EKG 1249 Cardiac Rate: Tachycardia EKG Rhythm: Sinus Tachycardia Summary of EKG Findings: An EKG at 1249 reveals sinus tachycardia at a rate of [address] elevation and a normal axis. has reviewed and interpreted this report. Flu Symptom Course/Dx - Course Assessment/Plan: 69 year old F presenting to [facility] accompanied by EMS complains of shortness of breath, fever, and cough since 3 days ago per EMS. Patient reports diarrhea, body aches, and headaches as well. Patient denies dysuria, nausea, and vomiting. EMS states that the patient lives at home in a cluttered and unsanitary environment and that her family members were sick recently. The patient is normally on 2 L nasal canula at home and was 90% on room air while transferring to the stretcher per EMS. She was given duoneb en route. The patient rates the pain 10/10 in severity. Symptoms aggravated by nothing. Symptoms alleviated by nothing. Medications reviewed. Allergies noted. In the ED course the patient was placed in a monitoring engineer, IV access was obtained. She is positive for SIRS criteria. She started in IVF 30cc/kg. She was given Rocephin and Azithromycin since she is complaining of SOB and a productive cough. CXR shows suggestion of potential inflammatory infiltrate at the residual LEFT lung. EKG at 1249 reveals sinus tachycardia at a rate of [address] elevation and a normal axis. Past medical records reviewed. Blood test w/o a significant abnormality except for ESR is 39, fibrinogen 476, potassium 3.4, glucose 102, calcium 8.2, CRP of 71.1, Hgb of 11.5, RDW of 16, absolute lymphs of 0.7, INR 1.16, and total protein 5.8. Urinalysis reveals urine protein 1+, Urine ketones 1+, Urine WBC 1+, Ur squamous epith cells present, urine bacteria 1+, hyaline casts present, urine ascrobic acid present Influenza A is positive. Chest x-ray impression: Suggestion of potential inflammatory infiltrate at the residual left lung. I discuss my physical exam and test results with from the hospitalist services and she agrees to admit the patient to her services. The patient is hemodynamically stable alert and oriented x 3. - Diagnoses Provider Diagnoses: Pneumonia, Influenza A, Hypokalemia - Physician Notifications Discussed Care Of Patient With: Valerie Hernandez - admit Instructed by Provider To: Admit As Inpatient Discharge ED - Sign-Out/Discharge Documenting (check all that apply): Patient Departure - Discharge Plan Condition: Stable Disposition: ADMITTED TO [facility] - Billing Disposition and Condition Condition: STABLE Disposition: Admitted to [facility] - Attestation Statements Document Initiated by Scribe: Yes Documenting Scribe: Joseph Keller Provider For Whom [facility] is Documenting (Include Credential): Dr.Walter Woody MD Scribe Attestation: I, Joseph Keller, scribed for Dr.Walter Woody MD on 11/21/19 at 0724. Scribe Documentation Reviewed: Yes Provider Attestation: The documentation as recorded by the scribJoseph schmidt accurately reflects the service I personally performed and the decisions made by me, Dr.Walter Woody MD Status of Scribe Document: Viewed
[2019-11-20] MEDS ORDERED: cefTRIAXone(*) 1 GM in NS 0.9% 50 ML* 50 ML IVPB ONE (12:44)
[2019-11-20] MEDS ORDERED: Azithromycin 500 mg/250 ml NS 500 MG/250 ML BAG IVPB ONE (12:44)
[2019-11-20] MEDS: NS 0.9% 1000 ML** 1,000 ML IV.FLUID IV ONE ×3 (13:00→16:32)
[2019-11-20 14:15] LABS: ABS Lymphocytes 0.7 10^3/ul (1.0-4.8); ABS Monocytes 0.7 10^3/ul (0-0.8); ABS Neutrophils 4.8 10^3/ul (1.5-7.7); Eosinophil % 0.1 %; Hematocrit 35 % (35-47); Hemoglobin 11.5 g/dL (12.0-16.0); Lymphocyte % 11.4 %; Mean Corpuscular HGB Conc 33 g/dL (31-36); Mean Corpuscular Hemoglobin 29 pg (27-31); Mean Corpuscular Volume 90 fL (80-97); Mean Platelet Volume 8.1 fL (7.4-10.4); Nucleated Red Blood Cells % 0.1; Platelet Count 158 10^3/uL (150-450); Red Blood Count 3.93 10^6 /uL (3.70-4.87); Red Cell Distribution Width 16 % (10-15); White Blood Count 6.2 10^3/uL (3.5-10.8)
[2019-11-20 14:27] LABS: INR 1.16 (0.82-1.09)
[2019-11-20 14:33] LABS: Influenza A Molecular POSITIVE (Negative)
[2019-11-20 14:35] LABS: Albumin 3.4 g/dL (3.2-5.2); Albumin/Globulin Ratio 1.4 (1-3); BUN/Creatinine Ratio 11.3 (8-20); C Reactive Protein 71.19 mg/L (<8.01); Calcium 8.2 mg/dL (8.6-10.3); EGFR African American 86.1 (>60); EGFR Non-African American 71.1 (>60); Globulin 2.4 g/dL (2-4); Potassium 3.4 mmol/L (3.5-5.0); Total Bilirubin 0.3 mg/dL (0.2-1.0); Total Protein 5.8 g/dL (6.4-8.9); Troponin I 0.01 ng/mL (<0.03)
[2019-11-20 14:57] LABS: Urine Appearance Cloudy; Urine Bilirubin Negative (Negative); Urine Blood Negative (Negative); Urine Color Yellow; Urine Glucose Negative (Negative); Urine Ketones 1+ (Negative); Urine Nitrite Negative (Negative); Urine Protein 1+(30 mg/dL) (Negative); Urine Specific Gravity 1.019 (1.010-1.030); Urine Urobilinogen Negative (Negative)
[2019-11-20 15:05] LABS: Urine Bacteria 1+ (Absent); Urine Red Blood Cell Trace(0-2/hpf) (Absent); Urine Squamous Epithelial Cell Present (Absent); Urine White Blood Cell 1+(6-10/hpf) (Absent)
[2019-11-20 15:33] LABS: Erythrocyte Sed Rate 39 mm/Hr (0-29)
[2019-11-20] MEDS ORDERED: Potassium Chlor TAB* 20 MEQ TAB.ER PO ONE (16:07)
[2019-11-20] MEDS ORDERED: Acetaminophen TAB* 325 MG PO ONE (16:32)
[2019-11-20] MEDS ORDERED: Albuterol/Ipratropium NEB.SOL* Albuterol 2.5 MG/Ipratropium 0.5 MG 3 ML INH PRN (16:46)
[2019-11-20] MEDS ORDERED: Acetaminophen TAB* 325 MG PO PRN (16:46)
[2019-11-20] MEDS ORDERED: Al Hydrox/Mg Hydrox/Simet LIQ* 30 ML UDC PO PRN (16:46)
[2019-11-20] MEDS ORDERED: Oseltamivir SUSP 75 MG dose* 75 MG/12.5 ML ORAL.SYRIN PO ONE (16:57)
[2019-11-20] MEDS ORDERED: NS 0.9% 1000 ML** 1,000 ML IV SCH (17:00)
--- NOTE | 2019-11-20 19:50 | HP ---
CC: Kathy Raygoza NP; Dr. Vazquez, Dr. Tracy; Dr. Pascal; Dr. Meek * HISTORY AND PHYSICAL: DATE OF ADMISSION: 11/20/19 PRIMARY CARE PROVIDER: Kathy Raygoza NP CHIEF COMPLAINT: Chills, cough, and body aches. HISTORY OF PRESENT ILLNESS: Angelina Hickey is a 69-year-old female who presents with chills, body aches, and cough for the past 3 days. Multiple family members were diagnosed with influenza earlier in this week including her 2-year-old great granddaughter. The patient stated that her appetite had been poor. She had been coughing a lot and the cough has been nonproductive. She also had chills, but she did not check her temperature. She has generalized weakness and she feels too unwell to go home. The patient is positive for influenza A and she is going to be placed on overnight observation. PAST MEDICAL HISTORY: 1. Status post left upper lobe lobectomy for lung cancer in 2018 as well as status post chemotherapy. 2. History of hepatitis B. 3. Hypertension. 4. Dyslipidemia. 5. Gastroesophageal reflux disease. 6. History of sick sinus syndrome, status post pacemaker placement. 7. History of COPD. 8. Hypoxemic respiratory failure, on oxygen at 2 L. MEDICATIONS: The patient's medications at home include: 1. Acetaminophen on p.r.n. basis. 2. Ibuprofen 600 mg every 6 hours p.r.n. 3. Lipitor 40 mg daily. 4. Omeprazole 20 mg b.i.d. ALLERGIES: ADHESIVE TAPE, ATENOLOL, CODEINE, HYDROCODONE, and OXYCODONE. FAMILY HISTORY: Father who at the age of 65 secondary to leukemia. Mother in her 80s of bone cancer. SOCIAL HISTORY: The patient started smoking when she was 18. She continues to smoke 1 pack per day. She denies any alcohol or drug use. She lives at home with her family and her daughter, Lauren Whittaker, is her surrogate. REVIEW OF SYSTEMS: Please see history of present illness. All the remaining 12 systems were reviewed with the patient and were otherwise negative. PHYSICAL EXAMINATION GENERAL: The patient is a very pleasant 69-year-old female, who is in no acute distress. The patient is alert and oriented x3. VITAL SIGNS: Blood pressure 118/52, heart rate of 84 and regular, respiratory rate 20, oxygen saturation 99% on 2 L oxygen nasal cannula which is the patient' s baseline, temperature 98.5. HEENT: Head: Atraumatic, normocephalic. Eyes: Pupils are equal, reactive to light and accommodation. Oropharynx is clear. Mucosa dry. NECK: Supple. No JVD. No bruits bilaterally. RESPIRATORY: Diffuse wheezes and prolonged expiratory phase on bilateral lung auscultation. CARDIOVASCULAR: Regular rate and rhythm. No murmur. ABDOMEN: Soft, nontender. Bowel sounds are present in all 4 quadrants. EXTREMITIES: There is no edema. Pulses are +2 bilaterally. There is no clubbing or cyanosis. NEUROLOGIC: Speech is clear. Cranial nerves II through XII grossly intact. Motor strength is 5/5 bilaterally. SKIN: On evaluation of the skin, no ecchymotic areas or rashes noted. DIAGNOSTIC STUDIES/LAB DATA: White blood cell count of 6.2, hemoglobin 11.5, hematocrit 35, and platelets 158. Sodium 140, potassium 3.4, chloride 106, carbon dioxide 27, BUN 9, creatinine 0.80. Liver function tests unremarkable. Lactic acid 12.2. C-reactive protein of 71. Troponin of 0.01. Rapid influenza testing was positive for influenza A. Portable chest x-ray, impression: "Suggestion of potential inflammatory infiltrate at the residual left lung." ASSESSMENT AND PLAN: 1. The patient presents with influenza as well as pneumonia. She is going to be placed on both treatment for pneumonia for possibility of bacterial pneumonia with ceftriaxone and azithromycin that was already started in the ED. The patient is going to be started on Tamiflu for influenza A. She is going to be provided gentle intravenous hydration. 2. In regards to the patient's chronic obstructive pulmonary disease, she appears to be in mild exacerbation. Because of her ongoing viral infection, I will not place her on prednisone. We will place her on nebulizer treatments. So far, she has been compensating well with oxygenation on her baseline 2 L and is doing well with oxygen levels at 99% at current home oxygen supply. 3. Code status. The patient's code status is full. 4. For DVT prophylaxis, the patient is going to be placed on heparin subcutaneously. TIME SPENT: Approximately 62 minutes was spent on admission of this patient, more than half that time was spent [id number] with the patient during the interview and physical exam. [id number]/[facility] #: [id number] PHILIP
[2019-11-20] MEDS: Albuterol 2.5 MG/3 ML NEB.SOL* (0.083%) INH SCH (20:54)
[2019-11-20] MEDS: Atorvastatin* 40 MG TAB PO SCH (21:22)
[2019-11-20] MEDS: Pantoprazole TAB * 40 MG TAB PO SCH (21:22)
[2019-11-20] MEDS: Heparin VIAL(*) 5000 UNITS/ML VIAL (FIVE THOUSAND) SUBCUT SCH (21:38)
[2019-11-20] MEDS: Nicotine Patch Removal NOTE PATCH OFF SCH (21:38)
[2019-11-20] MEDS: Nicotine PATCH 21 MG/24 HR* PATCH TRANSDERM SCH (21:59)
[2019-11-20] MEDS: Nystatin TOP POWDER* 15 GM BTL TOPICAL SCH (23:23)
[2019-11-21] MEDS: Albuterol 2.5 MG/3 ML NEB.SOL* (0.083%) INH SCH ×4 (01:17→18:01)
[2019-11-21] MEDS: Ibuprofen TAB* 600 MG PO PRN ×2 (02:25→12:44)
[2019-11-21] MEDS ORDERED: Benzonatate CAP* 100 MG PO ONE (02:43)
[2019-11-21] MEDS: Heparin VIAL(*) 5000 UNITS/ML VIAL (FIVE THOUSAND) SUBCUT SCH ×3 (05:48→20:50)
[2019-11-21 06:06] LABS: ABS Lymphocytes 0.8 10^3/ul (1.0-4.8); ABS Monocytes 0.6 10^3/ul (0-0.8); ABS Neutrophils 2.3 10^3/ul (1.5-7.7); Eosinophil % 1.2 %; Hematocrit 34 % (35-47); Hemoglobin 10.9 g/dL (12.0-16.0); Lymphocyte % 21.3 %; Mean Corpuscular HGB Conc 32 g/dL (31-36); Mean Corpuscular Hemoglobin 29 pg (27-31); Mean Corpuscular Volume 90 fL (80-97); Mean Platelet Volume 7.8 fL (7.4-10.4); Nucleated Red Blood Cells % 0.1; Platelet Count 148 10^3/uL (150-450); Red Blood Count 3.82 10^6 /uL (3.70-4.87); Red Cell Distribution Width 16 % (10-15); White Blood Count 3.7 10^3/uL (3.5-10.8)
[2019-11-21 06:21] LABS: BUN/Creatinine Ratio 12.3 (8-20); Blood Urea Nitrogen 8 mg/dL (6-24); CO2 Carbon Dioxide 27 mmol/L (22-32); Calcium 8.1 mg/dL (8.6-10.3); EGFR African American 109.4 (>60); EGFR Non-African American 90.4 (>60); Glucose 107 mg/dL (70-100); Sodium 143 mmol/L (135-145)
[2019-11-21 06:23] LABS: Anion Gap 3 mmol/L (2-11); Chloride 113 mmol/L (101-111)
[2019-11-21] MEDS: Oseltamivir SUSP 75 MG dose* 75 MG/12.5 ML ORAL.SYRIN PO SCH ×2 (09:48→20:51)
[2019-11-21] MEDS: Pantoprazole TAB * 40 MG TAB PO SCH ×2 (09:48→20:51)
[2019-11-21] MEDS: Benzonatate CAP* 100 MG PO SCH ×2 (09:48→20:51)
[2019-11-21] MEDS: Nicotine PATCH 21 MG/24 HR* PATCH TRANSDERM SCH (09:49)
[2019-11-21] MEDS: Nystatin TOP POWDER* 15 GM BTL TOPICAL SCH ×2 (09:56→20:54)
--- NOTE | 2019-11-21 10:38 | PN ---
Subjective Date of Service: 11/21/19 Interval History: Pt feels very weak and sob, was coughing all night. Feels to weak to be able to go home today Objective Active Medications: Acetaminophen (Tylenol Tab*) 650 mg PO Q4H PRN PRN Reason: PAIN-MODERATE/TEMP >/= 100.4 Al Hydrox/Mg Hydrox/Simethicone (Maalox Plus*) 30 ml PO Q6H PRN PRN Reason: INDIGESTION Albuterol (Ventolin 2.5 Mg/3 Ml Neb.Phyllis*) 2.5 mg INH [id number] AWAKE [facility] Last Admin: 11/21/19 06:15 Dose: 2.5 mg Albuterol/Ipratropium (Duoneb (Albuterol 2.5 Mg/Ipratropium 0.5 Mg)) 1 neb INH Q2H PRN PRN Reason: sob/wheexing Atorvastatin Calcium (Lipitor*) 40 mg PO 2100 [facility] Last Admin: 11/20/19 21:22 Dose: 40 mg Benzonatate (Tessalon Cap*) 100 mg PO BID [facility] Stop: 11/24/19 08:59 Last Admin: 11/21/19 09:48 Dose: 100 mg Heparin Sodium (Porcine) (Heparin Vial(*)) 5,000 units SUBCUT Q8HR [facility] Last Admin: 11/21/19 05:48 Dose: 5,000 units Azithromycin (Zithromax 500 Mg/250 Ml) 500 mg in 250 mls @ 250 mls/hr IVPB Q24H [facility] Ceftriaxone Sodium 1 gm/ (Sodium Chloride) 50 mls @ 100 mls/hr IVPB Q24H [facility] Ibuprofen (Motrin Tab*) 600 mg PO Q6H PRN PRN Reason: PAIN Last Admin: 11/21/19 02:25 Dose: 600 mg Nicotine (Nicotine Patch 21 Mg/24 Hr*) 1 patch TRANSDERM DAILY [facility] Last Admin: 11/21/19 09:49 Dose: Not Given Nystatin (Nystatin Top Powder*) 1 applic TOPICAL BID [facility] Last Admin: 11/21/19 09:56 Dose: 1 applic Oseltamivir Phosphate (Tamiflu Susp 75 Mg Dose*) 75 mg PO BID [facility] Last Admin: 11/21/19 09:48 Dose: 75 mg Pantoprazole Sodium (Protonix Tab*) 40 mg PO BID [facility] Last Admin: 11/21/19 09:48 Dose: 40 mg Pharmacy Profile Note (Nicotine Patch Removal Note*) 1 note PATCH OFF 2099 [facility] Last Admin: 11/20/19 21:38 Dose: Not Given Vital Signs - 8 hr 11/21/19 11/21/19 11/21/19 03:00 06:16 06:44 Temperature 97.9 F 97.8 F Pulse Rate 68 72 68 Respiratory 18 16 19 Rate Blood Pressure 109/43 99/40 (mmHg) O2 Sat by Pulse 99 99 98 Oximetry Oxygen Devices in Use Now: Nasal Cannula Appearance: 69 yo F in nAD, aAOx3 Eyes: No Scleral Icterus, PERRLA Ears/Nose/Mouth/Throat: NL Teeth, Lips, Gums, Mucous Membranes Moist Neck: NL Appearance and Movements; NL JVP, Trachea Midline Respiratory: Symmetrical Chest Expansion and Respiratory Effort, - - diffuse wheezes noted b/l Cardiovascular: NL Sounds; No Murmurs; No JVD, RRR Abdominal: NL Sounds; No Tenderness; No Distention, No Hepatosplenomegaly Lymphatic: No Cervical Adenopathy Extremities: No Edema, No Clubbing, Cyanosis Skin: No Rash or Ulcers Neurological: Alert and Oriented x 3, NL Muscle Strength and Tone Result Diagrams: 11/21/19 05:56 11/21/19 05:56 Assess/Plan/Problems-Billing Assessment: 69 yo F with h/o HTN, pacemaker for SSS, RICHIE lobectomy for lung ca , smoking 1ppd, on 2L [place] at home due to COPD presents with Influenza A. - Patient Problems (1) Influenza A Comment: cont Tamiflu Due to high rate of bacterial con-infection in pt's hospitalized for flu, will also cont Ceftriaxone and Azithro (2) COPD (chronic obstructive pulmonary disease) Comment: still prolonged insp phase and diffuse wheezes despite scheduled nebs. will start Solu Medrol for exacerbation On 2 L 02 at home, currently requires 3L (3) Anemia Comment: normocytic, mild with worsening post IVF will check iron studies (4) DVT prophylaxis Comment: HSQ Status and Disposition: d/w CM, pt will need to stay another day, OBV will be changed to inpatient
[2019-11-21 11:17] LABS: % Iron Saturation 8 % (15-55); Iron < 20 ug/dL (50-212); Total Iron Binding Capacity 241 mcg/dL (250-450); Transferrin 172 mg/dL (203-362)
[2019-11-21 11:43] LABS: Folate 9.12 ng/mL (>3.99)
[2019-11-21] MEDS: methylPREDNISolone SOD 40 MG* 1 ML VIAL IV SCH ×2 (12:45→20:50)
[2019-11-21] MEDS ORDERED: cefTRIAXone(*) 1 GM in NS 0.9% 50 ML* 50 ML IVPB SCH (14:00)
[2019-11-21] MEDS ORDERED: Azithromycin 500 mg/250 ml NS 500 MG/250 ML BAG IVPB SCH (14:30)
[2019-11-21] MEDS: Atorvastatin* 40 MG TAB PO SCH (20:51)
[2019-11-21] MEDS: Nicotine Patch Removal NOTE PATCH OFF SCH (21:41)
[2019-11-22] MEDS: Albuterol 2.5 MG/3 ML NEB.SOL* (0.083%) INH SCH ×2 (00:47→06:53)
[2019-11-22] MEDS: Heparin VIAL(*) 5000 UNITS/ML VIAL (FIVE THOUSAND) SUBCUT SCH (06:21)
[2019-11-22] MEDS: methylPREDNISolone SOD 40 MG* 1 ML VIAL IV SCH ×2 (06:21→10:50)
[2019-11-22] MEDS: Benzonatate CAP* 100 MG PO SCH (07:43)
[2019-11-22] MEDS: Nicotine PATCH 21 MG/24 HR* PATCH TRANSDERM SCH (07:43)
[2019-11-22] MEDS: Oseltamivir SUSP 75 MG dose* 75 MG/12.5 ML ORAL.SYRIN PO SCH (07:43)
[2019-11-22] MEDS: Pantoprazole TAB * 40 MG TAB PO SCH (07:43)
[2019-11-22] MEDS: Nystatin TOP POWDER* 15 GM BTL TOPICAL SCH (07:50)
[2019-11-22] MEDS ORDERED: Ferrous Sulfate TAB* 325 MG PO SCH (09:00)
[2019-11-22 11:39] VITALS: BP 121/36
[2019-11-22] MEDS: Ibuprofen TAB* 600 MG PO PRN (12:34)
--- NOTE | 2019-11-22 15:06 | DS ---
CC: Kathy Raygoza NP; Dr. Vazquez; Dr. Tracy; Dr. Pascal; Dr. Meek * DISCHARGE SUMMARY: DATE OF ADMISSION: 11/20/19 DATE OF DISCHARGE: 11/22/19 PRIMARY CARE PROVIDER: Kathy Raygoza NP DISCHARGE DIAGNOSES: 1. Influenza A. 2. Chronic obstructive pulmonary disease exacerbation. SECONDARY DIAGNOSES: 1. Status post left upper lobe lobectomy for lung cancer in 2018 as well as chemotherapy. 2. History of hepatitis B. 3. Hypertension. 4. Dyslipidemia. 5. Gastroesophageal reflux disease. 6. Sick sinus syndrome, status post pacemaker placement. 7. Chronic obstructive pulmonary disease. 8. Chronic hypoxemic respiratory failure, on oxygen at 2 L at home. MEDICATIONS AT DISCHARGE: Include: 1. Lipitor 40 mg daily. 2. Ibuprofen on a p.r.n. basis. 3. Prilosec 20 mg b.i.d. 4. Tylenol on a p.r.n. basis. 5. Albuterol inhaler 1 inhalation every 4 hours p.r.n. wheezing. 6. Azithromycin 250 mg daily for a total of 4 days to complete 5 days' treatment. 7. Tessalon 100 mg p.o. b.i.d. for a total of 5 days, then stop. 8. Tamiflu 75 mg b.i.d., to continue treatment for a total of 5 days. 9. Prednisone 50 mg daily for a total of 4 days, to continue treatment with steroids for 5 days, then stop. LABORATORY DATA AND STUDIES PERFORMED DURING THE HOSPITAL STAY: Included on 04/04, white blood cell count of 3.7, hemoglobin of 10.9, hematocrit of 34, and platelets of 148. Sodium 143, potassium 4.0, chloride 113, carbon dioxide 27, BUN 8, creatinine 0.65. Serology testing positive for influenza A. Further microbiology testing showed negative blood cultures. Portable chest x-ray obtained at admission, impression: "Suggestion of potential inflammatory infiltrate at the residual left lung." The patient's anemia workup showed iron level of below 20, TIBC of 241, percent iron saturation of 8, transferrin of 172, vitamin B12 of above 1450, and folate of 9.2 indicating likely anemia of chronic disease. The patient's C-reactive protein at admission was 71.1. HOSPITALIZATION COURSE: Angelina Hickey is a 69-year-old female with history of chronic hypoxemic respiratory failure, on 2 L of oxygen at home; status post left- sided lobectomy for lung cancer, who is a current smoker, who presented to the hospital with complaints of fevers, shortness of breath, and cough. Multiple family members were already diagnosed with influenza A, so she thought that she probably was mostly affected by the 2-year-old great grandchild that she is taking care of. When she came in, she had diffuse wheezes on auscultation. Despite that, she was afebrile and had no marked leukocytosis. She had increased work of breathing and she was very fatigued. Initially, she was treated with Tamiflu and broad-spectrum antibiotics due to possibility of superinfection with pneumonia and there was possibility of infiltrate visualized on her x-ray. On 11/21/19, she still continued to have diffuse wheezes and feel very poorly. At this point, she was started on Solu-Medrol for COPD exacerbation. By the time of discharge, the very next day, her wheezes almost resolved. She feels much better. She is going to be discharged home on Tamiflu as well as azithromycin to continue treatment for superinfection with bacterial pneumonia. She is also going to be continued on prednisone. She was also prescribed an albuterol inhaler since she apparently is not taking any inhalers at home for her COPD. She is to continue her oxygen at 2 L as previously at home. PHYSICAL EXAMINATION: At the time of discharge, blood pressure of 121/36, heart rate of 69 and regular, respiratory rate 20, oxygen saturation 100% on 2 L of oxygen via nasal cannula, temperature of 97.6. General: The patient is a very pleasant 69-year-old female, who is in no acute distress. The patient is alert and oriented x3. HEENT: Head: Atraumatic, normocephalic. Eyes: Pupils are equal, reactive to light and accommodation. Oropharynx is clear. Mucosa moist. Neck: Supple. No JVD. No bruits bilaterally. Cardiovascular: Regular rate and rhythm. No murmur. Respiratory: Coarse crackles at bilateral bases, otherwise clear. Abdomen: Soft, nontender. Bowel sounds are present in all 4 quadrants. Extremities: There is trace bilateral ankle edema. Pulses are 2+ bilaterally. There is no clubbing or cyanosis. DISPOSITION AT DISCHARGE: To home. CONDITION AT DISCHARGE: Stable. FOLLOWUP: The patient is recommended to follow up with her primary care provider in 4 to 7 days. Please note that this is a short summary of the patient's hospitalization. Please refer to further medical records for details. TIME SPENT: Approximately 40 minutes was spent on the patient's discharge. [id number]/[facility] #: [id number] MTDD
== END 2019-11-22 13:08 | disposition home or self-care (01) | DRG 194 ==
LOC: ED 12:26 → OBSVTOIN 16:46 → MED 16:46
PROVIDERS: ADMIT Internal Medicine; ATTEND Internal Medicine
DX: J10.08 Influenza due to other identified influenza virus with other specified pneumonia (principal); J96.11 Chronic respiratory failure with hypoxia; J44.1 Chronic obstructive pulmonary disease with (acute) exacerbation; J15.9 Unspecified bacterial pneumonia; J44.0 Chronic obstructive pulmonary disease with (acute) lower respiratory infection; I10 Essential (primary) hypertension; G47.30 Sleep apnea, unspecified; I48.91 Unspecified atrial fibrillation; K21.9 Gastro-esophageal reflux disease without esophagitis; M13.0 Polyarthritis, unspecified; F17.210 Nicotine dependence, cigarettes, uncomplicated; E78.5 Hyperlipidemia, unspecified; I49.5 Sick sinus syndrome; G43.909 Migraine, unspecified, not intractable, without status migrainosus; F41.9 Anxiety disorder, unspecified; E87.6 Hypokalemia; D63.8 Anemia in other chronic diseases classified elsewhere; F32.9 Major depressive disorder, single episode, unspecified; Z85.118 Personal history of other malignant neoplasm of bronchus and lung; Z90.2 Acquired absence of lung [part of]; Z95.0 Presence of cardiac pacemaker; Z88.5 Allergy status to narcotic agent; Z88.6 Allergy status to analgesic agent; Z88.8 Allergy status to other drugs, medicaments and biological substances; Z99.81 Dependence on supplemental oxygen; Z79.899 Other long term (current) drug therapy; Z86.19 Personal history of other infectious and parasitic diseases
CPT/HCPCS: 36415; 71045; 80048; 80053; 81003; 81015; 82550; 82607; 82746; 83540; 83550; 83605; 83880; 84484; 85025; 85384; 85610; 85652; 85730; 86140; 87040; 87086; 93005; 94640; 96361; 96365; 96375; 99284; 99406; A9270-GY; J0456; J0696; J1644; J2920

== ENCOUNTER 2021-03-27 12:30 | Inpatient (IN) ==
[2021-03-27 13:34] LABS: Hematocrit 25 % (35-47); Hemoglobin 8.8 g/dL (12.0-16.0); Mean Corpuscular HGB Conc 35 g/dL (31-36); Mean Corpuscular Hemoglobin 33 pg (27-31); Mean Corpuscular Volume 94 fL (80-97); Red Blood Count 2.69 10^6 /uL (3.70-4.87); Red Cell Distribution Width 18 % (10-15); White Blood Count 9.5 10^3/uL (3.5-10.8)
[2021-03-27 13:51] LABS: Albumin 3.7 g/dL (3.2-5.2); Albumin/Globulin Ratio 1.4 (1-3); Calcium 9.2 mg/dL (8.6-10.3); EGFR African American 95.1 (>60); EGFR Non-African American 78.6 (>60); Globulin 2.7 g/dL (2-4); Magnesium 1.5 mg/dL (1.9-2.7); Potassium 3.6 mmol/L (3.5-5.0); Total Bilirubin 1.1 mg/dL (0.2-1.0); Total Protein 6.4 g/dL (6.4-8.9)
[2021-03-27] MEDS ORDERED: NS 0.9% 1000 ml BAG 1,000 ML IV ONE (14:09)
[2021-03-27 14:57] LABS: Urine Appearance Clear; Urine Bilirubin Negative (Negative); Urine Blood Negative (Negative); Urine Color Yellow; Urine Glucose Negative (Negative); Urine Ketones 1+ (Negative); Urine Nitrite Negative (Negative); Urine Protein Negative (Negative); Urine Specific Gravity 1.021 (1.002-1.030); Urine Urobilinogen Negative (Negative)
[2021-03-27] MEDS: NS 0.9% 1000 ml BAG 1,000 ML IV SCH ×2 (15:14→19:32)
[2021-03-27 15:20] LABS: Hypochromasia 1+; Macrocytosis 1+; Microcytosis 1+
[2021-03-27] MEDS ORDERED: Piperacillin/Tazobac ADVAN 3.375 GM in NS 0.9% 100 ml BAG 100 ML IV ONE (15:26)
[2021-03-27 15:30] LABS: ABS Lymphocytes 9.3 10^3/ul (1.0-4.8); ABS Monocytes 0.1 10^3/ul (0-0.8); ABS Neutrophils 0.1 10^3/ul (1.5-7.7); Eosinophil % 0.3 %; Mean Platelet Volume 8.7 fL (7.4-10.4); Nucleated Red Blood Cells % 0.4; Platelet Count 22 10^3/uL (150-450)
[2021-03-27] MEDS ORDERED: Magnesium Sulfate 2 gm BAG 2 GM/50 ML BAG IVPB ONE (16:12)
[2021-03-27] MEDS ORDERED: Zosyn per Pharmacy NOTE FOLLOW UP SCH (17:00)
[2021-03-27] MEDS ORDERED: levETIRAcetam 1000MG IVPREMIX 1,000 MG/100 ML BAG IVPB ONE (17:32)
[2021-03-27] MEDS ORDERED: Ondansetron 4 mg VIAL 2 MG/ML 2 ml VIAL IV PRN (17:33)
[2021-03-27] MEDS ORDERED: Al Hydrox/Mg Hydrox/Simet LIQ 30 ML UDC PO PRN (17:33)
[2021-03-27 17:44] LABS: Corrected Retic Count 0.4 % (0.5-1.5); Hematocrit for Retic CNT 21 % (35-47); Immature Retic Fraction 0.51; RBC Retic Count 2.19 10^6/uL (3.70-4.87)
[2021-03-27] MEDS: ZOSYN 3.375 GM Q8H per EXTENDED INFUSION IV SCH (19:33)
[2021-03-27] MEDS ORDERED: Potassium Chlor 20 meq TAB.ER PO ONE (20:43)
[2021-03-27] MEDS ORDERED: Acetaminophen IV 1 GM/100ML 100 ML IVPB ONE (22:57)
[2021-03-27] MEDS ORDERED: Acetaminophen IV 1 GM/100ML 100 ML IV ONE (23:00)
[2021-03-28 00:52] LABS: Mean Platelet Volume 6.8 fL (7.4-10.4); Platelet Count 30 10^3/uL (150-450)
[2021-03-28] MEDS: ZOSYN 3.375 GM Q8H per EXTENDED INFUSION IV SCH ×2 (04:55→11:15)
[2021-03-28] MEDS ORDERED: NS 0.9% 100 ml BAG 100 ML ONE (05:29)
[2021-03-28] MEDS ORDERED: Vancomycin 1,000 MG in NS 0.9% 250 ml 250 ML IVPB ONE (06:26)
[2021-03-28] MEDS ORDERED: Vancomycin per Pharmacy 1 EA NOTE FOLLOW UP SCH (07:00)
[2021-03-28] MEDS ORDERED: Vancomycin 2,000 MG in NS 0.9% 500 ml BAG 500 ML IVPB ONE (07:00)
[2021-03-28] MEDS ORDERED: Vancomycin 1,500 MG in NS 0.9% 250 ml 250 ML IVPB ONE (07:00)
[2021-03-28 07:51] LABS: Hematocrit 19 % (35-47); Hemoglobin 6.4 g/dL (12.0-16.0); Mean Corpuscular HGB Conc 34 g/dL (31-36); Mean Corpuscular Hemoglobin 32 pg (27-31); Mean Corpuscular Volume 94 fL (80-97); Mean Platelet Volume 7.7 fL (7.4-10.4); Platelet Count 26 10^3/uL (150-450); Red Blood Count 1.98 10^6 /uL (3.70-4.87); Red Cell Distribution Width 18 % (10-15); White Blood Count 13.5 10^3/uL (3.5-10.8)
[2021-03-28 07:52] LABS: ABS Neutrophils 0.1 10^3/ul (1.5-7.7)
[2021-03-28 08:06] LABS: Albumin 2.8 g/dL (3.2-5.2); Albumin/Globulin Ratio 1.3 (1-3); Calcium 7.9 mg/dL (8.6-10.3); EGFR African American 137.6 (>60); EGFR Non-African American 113.7 (>60); Globulin 2.2 g/dL (2-4); Magnesium 1.8 mg/dL (1.9-2.7); Phosphorus 3.4 mg/dL (2.5-5.0); Potassium 3.9 mmol/L (3.5-5.0); Total Bilirubin 1.2 mg/dL (0.2-1.0)
[2021-03-28] MEDS ORDERED: Magnesium Sulfate 2 gm BAG 2 GM/50 ML BAG IVPB ONE (08:24)
[2021-03-28] MEDS ORDERED: levETIRAcetam 500 MG IVPREMIX 500 MG/100 ML BAG IV SCH (09:00)
[2021-03-28 09:44] LABS: RBC Morphology Normal (Normal); Spherocytes 1+
[2021-03-28 09:48] LABS: ABS Eosinophils 0.1 10^3/ul (0-0.6); ABS Monocytes 12.3 10^3/ul (0-0.8); ABS Nucleated RBC 0.2 10^3/ul; Eosinophil % 0.4 %; Lymphocyte % 7.5 %; Nucleated Red Blood Cells % 1.3
[2021-03-28] MEDS ORDERED: Acetaminophen IV 1 GM/100ML 1,000 MG/100 ML VIAL IVPB ONE (10:22)
[2021-03-28] MEDS ORDERED: Morphine 2 MG/ML SYRINGE IV PRN (11:13)
[2021-03-28 17:35] VITALS: BP 123/78
[2021-03-31 14:51] LABS: Beta 2 Microglobulin 3.05 mcg/mL
[2021-04-03 18:49] LABS: Albumin 2.2 g/dL (3.4-4.7); Albumin/Globulin Ratio 0.96; Gamma Globulin 0.6 g/dL (0.6-1.6); Total Protein(PEP) 4.5 g/dL (6.3 - 7.9)
== END 2021-03-28 16:55 | disposition short-term general hospital (02) | DRG 392 ==
LOC: ED 12:30 → ICU 18:10
PROVIDERS: ADMIT Pediatrics; ATTEND Internal Medicine